=== PATIENT | male | born 1945 | race Caucasian/White ===

== ENCOUNTER → 2016-11-05 | Outpatient (REF) | payer MEDICARE ==
[~2016-11-05] MED LIST: BABY81CH; DILA100C; HYTRIN; LABE100T2; TERA5CAP; ZOCO40TA
[2016-11-05 21:18] LABS: VITAMIN B12 LEVEL 236 PG/ML (247-911)
[2016-11-07 07:40] LABS: ALBUMIN 4.21 GM/DL (3.29-5.55); ALBUMIN % 60.2 % (55.8-66.1); GAMMA GLOBULIN % 12.4 % (11.1-18.8)
== END ==
LOC: M LAB REF 12:09
DX: D47.2 Monoclonal gammopathy (principal); G60.9 Hereditary and idiopathic neuropathy, unspecified

== ENCOUNTER → 2017-03-05 | Outpatient (REF) | payer MEDICARE ==
[2017-03-05 19:15] LABS: TOTAL PROTEIN 7.3 GM/DL (6.4-8.2)
[2017-03-06 08:59] LABS: ALBUMIN 3.79 GM/DL (3.29-5.55); ALBUMIN % 51.9 % (55.8-66.1); GAMMA GLOBULIN % 12.8 % (11.1-18.8)
== END ==
LOC: M LAB REF 16:17
PROVIDERS: ATTEND Nurse Practitioner Family
DX: D47.2 Monoclonal gammopathy (principal)

== ENCOUNTER → 2017-03-12 | Outpatient (REF) | payer MEDICARE | LOC: M LAB REF 13:19 | PROVIDERS: ATTEND Nurse Practitioner Family | DX: S81.802A Unspecified open wound, left lower leg, initial encounter (principal); X58.XXXA Exposure to other specified factors, initial encounter; Y93.9 Activity, unspecified; Y92.9 Unspecified place or not applicable; Y99.8 Other external cause status ==

== ENCOUNTER → 2017-05-09 | Outpatient (REF) | payer MEDICARE ==
[2017-05-09 12:41] LABS: BASO # 0.1 K/mm3 (0.0-0.2); BASO % 0.6 % (0.0-1.0); EOS # 0.2 K/mm3 (0.0-0.50); EOS % 1.6 % (0.0-3.0); LARGE UNSTAINED CELL # 0.1 K/mm3 (0.0-0.4); LARGE UNSTAINED CELL % 1.2 % (0.0-4.0); LYMPH # 2.4 K/mm3 (1.5-4.5); MEAN CORPUSCULAR HEMOGLOBIN 31.3 pg (27.0-33.0); MEAN CORPUSCULAR HGB CONC 33.2 g/dl (32.0-36.5); MEAN CORPUSCULAR VOLUME 94.2 fl (80.0-96.0); MONO # 0.8 K/mm3 (0.0-0.8); MONO % 8.4 % (0.0-5.0); NEUTROPHILS # 5.9 K/mm3 (1.8-7.7); PLATELET COUNT, AUTOMATED 301 k/mm3 (150-450); WHITE BLOOD COUNT 9.4 K/mm3 (4.0-10.0)
[2017-05-09 12:47] LABS: INR 0.97
[2017-05-09 13:02] LABS: ANION GAP 3 MEQ/L (8-16); BLOOD UREA NITROGEN 24 MG/DL (7-18); CARBON DIOXIDE LEVEL 27 MEQ/L (21-32); CHLORIDE LEVEL 107 MEQ/L (98-107); CREATININE FOR GFR 0.91 MG/DL (0.70-1.30); GLOMERULAR FILTRATION RATE > 60.0 (>42); GLUCOSE, FASTING 98 MG/DL (83-110); POTASSIUM SERUM 4.7 MEQ/L (3.5-5.1); SODIUM LEVEL 137 MEQ/L (136-145)
== END ==
LOC: M LAB REF 12:29 → M LABNEURO 12:29
PROVIDERS: ATTEND Surgery Vascular Surgery
DX: Z01.818 Encounter for other preprocedural examination (principal); I70.244 Atherosclerosis of native arteries of left leg with ulceration of heel and midfoot; D69.8 Other specified hemorrhagic conditions

== ENCOUNTER 2018-09-04 12:32 | Day surgery (SDC) | payer MEDICARE ==
[2018-09-04] MEDS: MORPHINE 4 MG/ML 1ML VIAL/SYRINGE (J2270) IV ×2 (13:06→13:45)
[2018-09-04 13:59] LABS: BASO % 0.2 % (0.0-1.0); EOS # 0.1 10^3/uL (0.0-0.50); EOS % 0.7 % (0.0-3.0); HEMOGLOBIN 14.6 g/dl (13.5-17.5); IMMATURE GRANULOCYTE % 0.3 % (0-3.0); LYMPH # 0.7 10^3/uL (1.5-4.5); LYMPH % 6.5 % (24.0-44.0); MEAN CORPUSCULAR HEMOGLOBIN 30.9 pg (27.0-33.0); MEAN CORPUSCULAR HGB CONC 33.2 g/dl (32.0-36.5); MEAN CORPUSCULAR VOLUME 93.2 fl (80.0-96.0); MONO % 0.3 % (0.0-5.0); NEUTROPHILS # 9.8 10^3/uL (1.8-7.7); PLATELET COUNT, AUTOMATED 295 10^3/uL (150-450); RED BLOOD COUNT 4.72 10^6/uL (4.30-6.10); RED CELL DISTRIBUTION WIDTH 13.7 % (11.5-14.5); WHITE BLOOD COUNT 10.7 10^3/uL (4.0-10.0)
[2018-09-04 14:25] LABS: INR 0.99; PARTIAL THROMBOPLASTIN TIME 26.7 SECONDS (25.4-37.6); PROTHROMBIN TIME 13.2 SECONDS (12.1-14.4)
[2018-09-04 14:26] LABS: ALBUMIN 3.7 GM/DL (3.2-5.2); ALBUMIN/GLOBULIN RATIO 1.03 (1.00-1.93); ALKALINE PHOSPHATASE 120 U/L (45-117); ALT/SGPT 23 U/L (12-78); ANION GAP 9 MEQ/L (8-16); AST/SGOT 17 U/L (7-37); BILIRUBIN,DIRECT 0.1 MG/DL (0.0-0.2); BILIRUBIN,TOTAL 0.4 MG/DL (0.2-1.0); BLOOD UREA NITROGEN 16 MG/DL (7-18); CALCIUM LEVEL 9.4 MG/DL (8.8-10.2); CARBON DIOXIDE LEVEL 25 MEQ/L (21-32); CHLORIDE LEVEL 103 MEQ/L (98-107); CREATININE FOR GFR 0.82 MG/DL (0.70-1.30); GLOMERULAR FILTRATION RATE > 60.0 (>42); GLUCOSE, FASTING 131 MG/DL (70-100); POTASSIUM SERUM 4.6 MEQ/L (3.5-5.1); SODIUM LEVEL 137 MEQ/L (136-145); TOTAL PROTEIN 7.3 GM/DL (6.4-8.2)
[2018-09-04] MEDS ORDERED: BACITRACIN OINT 30GM As Ordered (15:37)
[2018-09-04] MEDS ORDERED: dexameTHASONE 4 MG/ML 1ML VIAL (J1100) As Ordered (15:48)
[2018-09-04] MEDS ORDERED: PROPOFOL 200 MG/20 ML VIAL As Ordered (15:48)
[2018-09-04] MEDS ORDERED: LIDOCAINE 2% INJ 100 MG/5 ML SDV (FOR ANES.) As Ordered (15:48)
[2018-09-04] MEDS ORDERED: ONDANSETRON 4MG/2ML VIAL (J2405) As Ordered ×2 (15:48→20:34)
[2018-09-04] MEDS ORDERED: MIDAZOLAM INJ 2 MG/2 ML VIAL (J2250) As Ordered (15:50)
[2018-09-04] MEDS ORDERED: fentaNYL 100 MCG/2 ML INJECTION (J3010) As Ordered ×3 (15:51→18:56)
[2018-09-04] MEDS: LIDOCAINE 1% MDV INJ 50 ML VIAL As Ordered ×2 (17:04→17:05)
[2018-09-04] MEDS ORDERED: BUPIVACAINE HCL 0.25% 30 ML VIAL As Ordered (17:04)
[2018-09-04] MEDS: ceFAZolin 2 GM/D5W 50 ML IV BAG (J0690 PER 500MG) As Ordered (17:05)
[2018-09-04] MEDS ORDERED: LIDOCAINE 1% MDV 20ML VIAL As Ordered (17:06)
[2018-09-04] MEDS: ACETAMINOPHEN 650 MG SUPP As Ordered (17:15)
[2018-09-04] MEDS ORDERED: PHENYLEPHRINE INJ 10MG/ML VIAL (J2370) As Ordered (17:56)
[2018-09-04] MEDS ORDERED: VASOPRESSIN INJ 20 UNITS/ML VIAL As Ordered (18:12)
[2018-09-04] MEDS ORDERED: LIDOCAINE 2% JELLY 30 ML As Ordered (19:23)
[2018-09-04] MEDS ORDERED: LEVALBUTEROL 1.25 MG/0.5 ML CONCENTRATE NEB As Ordered (19:49)
[2018-09-04] MEDS: LEVALBUTEROL 1.25 MG/0.5 ML CONCENTRATE NEB INH (20:00)
[2018-09-04] MEDS: ONDANSETRON 4MG/2ML VIAL (J2405) IV (20:45)
[2018-09-04] MEDS ORDERED: LR 1,000 ML IV (21:00)
[2018-09-04] MEDS ORDERED: PERCOCET 5MG/325MG TAB PO (21:00)
[2018-09-04] MEDS ORDERED: fentaNYL 100 MCG/2 ML INJECTION (J3010) IV (21:00)
[2018-09-04] MEDS ORDERED: METOCLOPRAMIDE INJ 10MG/2ML VIAL (J2765) IV (21:00)
[2018-09-04] MEDS ORDERED: LEVALBUTEROL 1.25 MG/0.5 ML CONCENTRATE NEB INH (22:00)
== END 2018-09-04 22:00 | disposition home or self-care (01) ==
LOC: M SDC 22:00 → M ED 12:32 → M SDC 16:06
DX: N47.1 Phimosis (principal); N47.8 Other disorders of prepuce; R33.9 Retention of urine, unspecified; I10 Essential (primary) hypertension; I25.2 Old myocardial infarction; J45.909 Unspecified asthma, uncomplicated; K21.9 Gastro-esophageal reflux disease without esophagitis; N40.1 Benign prostatic hyperplasia with lower urinary tract symptoms; R56.9 Unspecified convulsions; M54.9 Dorsalgia, unspecified; Z88.8 Allergy status to other drugs, medicaments and biological substances; Z91.030 Bee allergy status; Z79.899 Other long term (current) drug therapy; Z87.891 Personal history of nicotine dependence
CPT/HCPCS: 54163

== ENCOUNTER → 2018-12-26 | Outpatient (REF) | payer MEDICARE ==
[~2018-12-26] MED LIST changes: +ACET-683 PO; +AMLO10TA5; +AMLO10TA5 PO; +ASPI81TA85 PO; +BACIOIN23 TOP; +BACT800T5 PO; +HYDR-3716 PO; +HYDROCO/APAP; +IBUP200C25 PO; +LABE10TAB PO; +NITR0.4S14 SL; +PERCOCET PO; +SIMV40TA2 PO
== END ==
LOC: M LAB REF 16:02
PROVIDERS: ATTEND Surgery
DX: M86.172 Other acute osteomyelitis, left ankle and foot (principal)

== ENCOUNTER 2019-01-06 15:58 | Inpatient (IN) | payer MEDICARE ==
[~2019-01-06] VITALS: Ht 172.7 cm; Wt 99.7 kg
[~2019-01-06 15:58] MED LIST changes: -HYDR-3716 PO; -HYDROCO/APAP; -IBUP200C25 PO; -NITR0.4S14 SL
[2019-01-06] MEDS ORDERED: IBUP200C25 PO (16:23)
[2019-01-06] MEDS ORDERED: NITR0.4S14 SL (16:23)
[2019-01-06] MEDS ORDERED: HYDROCO/APAP (16:23)
[2019-01-06 16:51] LABS: BASO # 0.1 10^3/uL (0.0-0.2); BASO % 0.3 % (0.0-1.0); EOS # 0.2 10^3/uL (0.0-0.50); EOS % 1.1 % (0.0-3.0); HEMATOCRIT 41.4 % (42.0-52.0); HEMOGLOBIN 13.6 g/dl (13.5-17.5); LYMPH # 2.9 10^3/uL (1.5-4.5); LYMPH % 16.3 % (24.0-44.0); MEAN CORPUSCULAR HEMOGLOBIN 30.4 pg (27.0-33.0); MEAN CORPUSCULAR HGB CONC 32.9 g/dl (32.0-36.5); MEAN CORPUSCULAR VOLUME 92.6 fl (80.0-96.0); MONO # 1.6 10^3/uL (0.0-0.8); MONO % 9.2 % (0.0-5.0); NEUTROPHILS # 12.9 10^3/uL (1.8-7.7); NEUTROPHILS % 72.4 % (36.0-66.0); PLATELET COUNT, AUTOMATED 471 10^3/uL (150-450); RED BLOOD COUNT 4.47 10^6/uL (4.30-6.10); WHITE BLOOD COUNT 17.9 10^3/uL (4.0-10.0)
[2019-01-06 17:12] LABS: ERYTHROCYTE SEDIMENTATION RATE 9 mm/hr (0-20)
[2019-01-06 17:14] LABS: INR 1.11; PROTHROMBIN TIME 14.4 SECONDS (12.1-14.4)
[2019-01-06 17:15] LABS: PARTIAL THROMBOPLASTIN TIME 42.2 SECONDS (25.4-37.6)
[2019-01-06 17:28] LABS: BLOOD UREA NITROGEN 12 MG/DL (7-18); CALCIUM LEVEL 8.5 MG/DL (8.8-10.2); CARBON DIOXIDE LEVEL 28 MEQ/L (21-32); CHLORIDE LEVEL 98 MEQ/L (98-107); CREATININE FOR GFR 0.77 MG/DL (0.70-1.30); GLOMERULAR FILTRATION RATE > 60.0 (>42); GLUCOSE, FASTING 134 MG/DL (70-100); POTASSIUM SERUM 4.3 MEQ/L (3.5-5.1); SODIUM LEVEL 135 MEQ/L (136-145)
[2019-01-06] MEDS ORDERED: ceFAZolin SOD 1 GM in D5W MINI-BAG PLUS 50 ML IV ONE (18:15)
[2019-01-06] MEDS ORDERED: PERCOCET 5MG/325MG TAB PO ONE (18:30)
[2019-01-06] MEDS ORDERED: HYDR-3716 PO (18:49)
--- NOTE | 2019-01-06 19:08 | REPVR ---
EXAM: US Duplex Left Lower Extremity Veins, Limited EXAM DATE/TIME: 01/06/2019 5:25 PM CLINICAL HISTORY: 73 years old, male; Pain and signs and symptoms; Swelling (edema) of limb; Lower extremity, left; Leg, lower; Prior surgery; Surgery date: <1 month; Surgery type: 2 weeks S/P left toe amputation; Additional info: Calf pain R/O dvt TECHNIQUE: Real-time Duplex ultrasound of the Left Lower Extremity with 2-D goss scale, color Doppler flow and spectral waveform analysis. Limited exam focused on the left lower extremity veins. COMPARISON: No relevant prior studies available. FINDINGS: Left deep veins: Unremarkable. The common femoral, femoral, proximal profunda femoral and popliteal veins are patent without thrombus. Normal Doppler waveforms. Normal compressibility and/or augmentation response. Left superficial veins: Unremarkable. Saphenofemoral junction is patent without thrombus. Soft tissues: Unremarkable. IMPRESSION: No acute findings. No evidence of deep vein thrombosis. Electronically signed by: Kj Alexandra On 01/06/2019 19:07:56 PM
[2019-01-06] MEDS ORDERED: NITROGLYCERIN 0.4 MG SUBL TABLET SL PRN (19:15)
--- NOTE | 2019-01-06 20:51 | HPE ---
DATE OF ADMISSION: 01/06/2019 73-year-old male with past medical history of coronary artery disease, status post myocardial infarction in 1991, hypertension, benign prostatic hypertrophy (BPH), peripheral vascular disease, status post left second toe amputation [address] Alcazar presents to the emergency room with swelling of his left foot that has been going on for approximately one week. He denies any subjective feeling of fever or chills, but he does have pain in the last couple of days whenever he tires to step on his foot due to swelling, so he came to the ER for evaluation. In the ER he had an ultrasound done which showed no DVT. X-rays were negative for osteomyelitis. The patient was started on IV Ancef and he will be admitted for further management. PAST MEDICAL HISTORY: Hypertension, coronary artery disease, status post AR in 1991. History of peripheral vascular disease, status post left second to amputation. BPH. History of meningiomas, status post resection in October of 2008. Right total knee replacement. ALLERGIES: FENOFIBRATE, TAMSULOSIN. FAMILY HISTORY: Noncontributory. SOCIAL HISTORY: Patient was a heavy smoker, quit approximately 20 years ago. Denies alcohol or illicit drugs. MEDICATIONS: He takes at home are as follows: - [place] 7.5/325 one tablet orally every 6 hours as needed - amlodipine 10 mg orally daily - labetalol 100 mg orally three times a day - nitroglycerin 0.4 mg sublingual every 5 minutes as needed REVIEW OF SYSTEMS: Negative all 10 major systems except what is mentioned in HPI. VITAL SIGNS: Blood pressure 147/89, heart rate 84 and regular. Respiratory rate 20, temperature is 98.6, oxygen saturation is 95% on room air. Head: Atraumatic. Normocephalic. Neck: Supple. No jugular venous distention (JVD). Lungs: Clear to auscultation. S1, S2 audible. No murmurs appreciated. Abdomen: Soft, positive bowel sounds. No pedal edema. Dorsalis pedis (DP) pulses are present. Skin: The dorsum of the left foot is swollen and what appears to be the beginning of sinus drainage developing. Neurological examination: Patient is awake, alert and oriented times three. LABS: WBC 17.9, hemoglobin 3.6, hematocrit 41.4, platelets are 471,000. Sodium 135, potassium 4.3, chloride 98, CO2 28, BUN 12, creatinine 0.77. Glucose is 134. IMPRESSION: Left foot cellulitis. PLAN: Patient is to be admitted to med-surg floor. Will start the patient on IV Zosyn and see how he does in the next 24 hours. If the wound begins to drain, will culture it and/or if it does not improve by tomorrow will consider bringing Dr. Alcazar to see if the patient may require an incision and drainage. I will continue his pre-admission medications and will continue his care on the med-surg floor.
[2019-01-06] MEDS: LABETALOL 100 MG TAB PO SCH (21:00)
[2019-01-06] MEDS: NORCO, ANEXSIA 5/325MG TABLET (HYDROcodone/ACETAMINOPHEN) PO PRN (22:59)
[2019-01-07] MEDS: PIPERACILLIN/TAZOBACTAM SOD 3.375 GM in D5W MINI-BAG PLUS 50 ML IV SCH ×5 (01:27→23:23)
[2019-01-07] MEDS ORDERED: MORPHINE 2 MG/ML 1ML SYRINGE (J2270) As Ordered ONE (02:52)
[2019-01-07] MEDS ORDERED: MORPHINE 4 MG/ML 1ML VIAL/SYRINGE (J2270) IV ONE (03:00)
[2019-01-07] MEDS ORDERED: ACETAMINOPHEN TAB 650MG DOSE (2X325MG) PO PRN (03:30)
[2019-01-07] MEDS: NORCO, ANEXSIA 5/325MG TABLET (HYDROcodone/ACETAMINOPHEN) PO PRN (06:37)
[2019-01-07 07:11] LABS: HEMATOCRIT 39.6 % (42.0-52.0); HEMOGLOBIN 12.8 g/dl (13.5-17.5); MEAN CORPUSCULAR HEMOGLOBIN 29.9 pg (27.0-33.0); MEAN CORPUSCULAR HGB CONC 32.3 g/dl (32.0-36.5); MEAN CORPUSCULAR VOLUME 92.5 fl (80.0-96.0); PLATELET COUNT, AUTOMATED 469 10^3/uL (150-450); RED BLOOD COUNT 4.28 10^6/uL (4.30-6.10); WHITE BLOOD COUNT 17.6 10^3/uL (4.0-10.0)
[2019-01-07 07:30] LABS: BLOOD UREA NITROGEN 10 MG/DL (7-18); CALCIUM LEVEL 8.4 MG/DL (8.8-10.2); CARBON DIOXIDE LEVEL 28 MEQ/L (21-32); CHLORIDE LEVEL 97 MEQ/L (98-107); CREATININE FOR GFR 0.77 MG/DL (0.70-1.30); GLOMERULAR FILTRATION RATE > 60.0 (>42); GLUCOSE, FASTING 139 MG/DL (70-100); POTASSIUM SERUM 3.7 MEQ/L (3.5-5.1); SODIUM LEVEL 134 MEQ/L (136-145)
[2019-01-07 08:00] VITALS: BP 144/63
--- NOTE | 2019-01-07 08:48 | REP ---
Left foot four views: There are no comparisons. The patient has clinical history of second toe amputation 2 weeks ago. The second toe is amputated at the base of the proximal phalange shaft. There are no lytic, blastic or destructive changes in the remaining second digit proximal phalange, or elsewhere in the left foot. There is no fracture or dislocation. Mineralization is normal. There are no calcifications or foreign bodies. Impression: Amputation of the second digit as described. Otherwise, negative left foot. Electronically Signed by Michel Christine MD 01/07/2019 08:40 A
[2019-01-07] MEDS ORDERED: FLUBLOK(EGG FREE)(QUAD)INFLUENZA VACC 0.5ML SYRINGE (90682)18YRS&OLDER IM ONE (09:00)
[2019-01-07] MEDS: LABETALOL 100 MG TAB PO SCH ×3 (09:06→20:30)
[2019-01-07] MEDS: amLODIPine 10 MG TAB PO SCH (09:06)
[2019-01-07] MEDS ORDERED: PERCOCET 5MG/325MG TAB PO PRN (10:00)
[2019-01-07] MEDS: MORPHINE 4 MG/ML 1ML VIAL/SYRINGE (J2270) IV PRN ×2 (11:46→16:22)
[2019-01-07] MEDS: ASPIRIN 81 MG ENTERIC TAB PO SCH (11:47)
[2019-01-07] MEDS ORDERED: DIAPER RELIEF PASTE (DESITIN) 60GM TOP SCH (14:00)
[2019-01-07 15:00] VITALS: BP 150/80
--- NOTE | 2019-01-07 17:29 | IPNPDOC ---
Text Note Date of Service The patient was seen on 01/07/19. NOTE Subjective: Patient is a 73 year old male with a PMHx of HTN, CAD (Hx of [place], 1991), PVD s/p L leg angioplasty and ?stent placement, 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 Alcazar's office the week prior. Patient was advised to to visit Dr. Zhang of vascular surgery. Patient had attempted to follow-up on Saturday, however, was unable to follow through an appointment. He presented to the ER with worsening left foot pain. In the emergency room, patient was found to have cellulitis and was admitted to the hospitalist service for further evaluation and treatment. Dr. Alcazar's contact me directly and I have consult to Dr. Zhang for likely angioplasty on 01/08/2019. Patient was seen and examined at the bedside. Currently they note that there is still experiencing left foot pain. No significant change from yesterday. He denies any fever or chills. Denies any chest pain, shortness of breath or palpitations. Denies nausea, vomiting, abdominal pain, constipation or diarrhea. Denies any urinary discomfort. 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 Check of pulse - Continue with Zosyn (Day #2) - Case has been discussed with Dr. Alcazar; continue with dressing changes based on his recommendations - Case has been discussed with Dr. Zhang; will be on consultation - plan for angiography tomorrow 01/08/2019 HTN - BP well controlled - c/w Amlodipine and Labetalol CAD (Hx of [place], 1991) - Will start ASA 81 BPH - Currently not on any medications Hx of Meningiomas - s/p Resection 06/2019 DVT prophylaxis - Will start Heparin VS,Fishbone, I+O VS, Fishbone, I+O Laboratory Tests 01/07/19 06:40 Red Blood Count 4.28 L, Mean Corpuscular Volume 92.5, Mean Corpuscular Hemoglobin 29.9, Mean Corpuscular Hemoglobin Concent 32.3, Red Cell Distribution Width 13.5, Calcium Level 8.4 L Vital Signs Date Time Temp Pulse Resp B/P (MAP) Pulse Ox O2 Delivery O2 Flow Rate FiO2 01/07/19 16:22 18 01/07/19 16:21 80 141/65 01/07/19 08:00 97.5 96 01/07/19 06:24 Room Air I&O- Last 24 Hours up to 6 AM 01/07/19 06:00 Intake Total 50 ml Balance 50 ml BOB FAULKNER MD Jan 07, 2019 17:29
[2019-01-07] MEDS ORDERED: PERCOCET 5MG/325MG TAB PO ONE (20:00)
[2019-01-07 20:03] VITALS: BP_SYST 152
[2019-01-07] MEDS: HEPARIN SOD (PORCINE) 5000 UNITS/ML VIAL SQ SCH (21:10)
[2019-01-08] MEDS ORDERED: PERCOCET 5MG/325MG TAB PO ONE (02:30)
[2019-01-08] MEDS: PIPERACILLIN/TAZOBACTAM SOD 3.375 GM in D5W MINI-BAG PLUS 50 ML IV SCH ×4 (05:45→23:04)
[2019-01-08] MEDS: HEPARIN SOD (PORCINE) 5000 UNITS/ML VIAL SQ SCH ×3 (05:46→21:06)
[2019-01-08 05:51] VITALS: BP 152/94
[2019-01-08] MEDS ORDERED: PERCOCET 5MG/325MG TAB PO SCH (06:00)
[2019-01-08 07:30] VITALS: BP 168/84
[2019-01-08] MEDS ORDERED: SENOKOT S TAB PO PRN (08:45)
[2019-01-08] MEDS ORDERED: FLUBLOK(EGG FREE)(QUAD)INFLUENZA VACC 0.5ML SYRINGE (90682)18YRS&OLDER IM ONE (09:00)
[2019-01-08] MEDS: amLODIPine 10 MG TAB PO SCH (09:08)
[2019-01-08] MEDS: LABETALOL 100 MG TAB PO SCH ×3 (09:08→21:06)
[2019-01-08] MEDS: ASPIRIN 81 MG ENTERIC TAB PO SCH (09:08)
[2019-01-08] MEDS: PERCOCET 5MG/325MG TAB PO SCH ×3 (09:09→23:05)
[2019-01-08 10:01] LABS: BASO # 0.1 10^3/uL (0.0-0.2); BASO % 0.4 % (0.0-1.0); EOS # 0.2 10^3/uL (0.0-0.50); EOS % 1.1 % (0.0-3.0); HEMATOCRIT 40.5 % (42.0-52.0); HEMOGLOBIN 13.3 g/dl (13.5-17.5); LYMPH # 3.5 10^3/uL (1.5-4.5); LYMPH % 19.2 % (24.0-44.0); MEAN CORPUSCULAR HEMOGLOBIN 30.4 pg (27.0-33.0); MEAN CORPUSCULAR HGB CONC 32.8 g/dl (32.0-36.5); MEAN CORPUSCULAR VOLUME 92.5 fl (80.0-96.0); MONO # 1.7 10^3/uL (0.0-0.8); MONO % 9.5 % (0.0-5.0); NEUTROPHILS # 12.5 10^3/uL (1.8-7.7); NEUTROPHILS % 68.9 % (36.0-66.0); PLATELET COUNT, AUTOMATED 487 10^3/uL (150-450); RED BLOOD COUNT 4.38 10^6/uL (4.30-6.10); WHITE BLOOD COUNT 18.2 10^3/uL (4.0-10.0)
[2019-01-08 11:03] LABS: BLOOD UREA NITROGEN 13 MG/DL (7-18); CALCIUM LEVEL 8.8 MG/DL (8.8-10.2); CARBON DIOXIDE LEVEL 23 MEQ/L (21-32); CHLORIDE LEVEL 100 MEQ/L (98-107); CREATININE FOR GFR 0.76 MG/DL (0.70-1.30); GLOMERULAR FILTRATION RATE > 60.0 (>42); GLUCOSE, FASTING 131 MG/DL (70-100); MAGNESIUM LEVEL 2.1 MG/DL (1.8-2.4); SODIUM LEVEL 132 MEQ/L (136-145)
--- NOTE | 2019-01-08 13:23 | IPNPDOC ---
Text Note Date of Service The patient was seen on 01/08/19. 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 Alcazar's office the week prior. Patient was advised to to visit Dr. Zhang of vascular surgery. Patient had attempted to follow-up on Saturday, however, was unable to follow through an appointment. He presented to the ER with worsening left foot pain. In the emergency room, patient was found to have cellulitis and was admitted to the hospitalist service for further evaluation and treatment. Dr. Alcazar's contact me directly and I have consult to Dr. Zhang for likely angioplasty on 01/08/2019. Patient was seen and examined at the bedside. Patient notes that there leg/foot. Has not had any significant improvement from yesterday. I advised them that he will likely need a vascular intervention. He noted to promote healing and antibiotic penetration. I have advised him that we will adjust the dose of his pain control medications. Currently he denies any chest pain, shortness of breath or palpitations. Denies any nausea or vomiting. Denies any abdominal pain, constipation or diarrhea. Objective: Vitals (See below) General: Lying in bed, no acute distress, comfortable, AAOx3 HEENT: NC, AT CVS: RRR, +S1S2 Lungs: Fair air entry b/l, auscultation is without any wheezing, rhonchi or rales Abdomen: Soft, ND, NT Extremities: No evidence of right leg edema, left leg with trace edema, - Calf tenderness Skin: Left foot with erythema / warmth / tenderness, area of blistering noted, L 2nd digit amputation; overall, there does not appear to be any progression of the cellulitis Assessment and plan: Left foot cellulitis with PVD s/p L leg angioplasty and ?stent placement - Patient is an ankle-brachial index completed as an outpatient which was 0.4; he was advised to follow-up with vascular surgery, had failed to do so - 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 Alcazar; continue with dressing changes based on his recommendations - Case has been discussed with Dr. Zhang; on consultation; plan for possible angiography today HTN - BP well controlled - c/w Amlodipine and Labetalol CAD (Hx of [place], 1991) - c/w ASA 81 BPH - Currently not on any medications Hx of Meningiomas - s/p Resection 06/2019 DVT prophylaxis - c/w Heparin Disposition: - Adjusted pain medications - Will await angiography VS,Fishbone, I+O VS, Fishbone, I+O Laboratory Tests 01/08/19 06:44 Red Blood Count 4.38, Mean Corpuscular Volume 92.5, Mean Corpuscular Hemoglobin 30.4, Mean Corpuscular Hemoglobin Concent 32.8, Red Cell Distribution Width 13. 6, Neutrophils (%) (Auto) 68.9 H, Lymphocytes (%) (Auto) 19.2 L, Monocytes (%) (Auto) 9.5 H, Eosinophils (%) (Auto) 1.1, Basophils (%) (Auto) 0.4, Neutrophils # (Auto) 12.5 H, Lymphocytes # (Auto) 3.5, Monocytes # (Auto) 1.7 H, Eosinophils # (Auto) 0.2, Basophils # (Auto) 0.1, Calcium Level 8.8 Vital Signs Date Time Temp Pulse Resp B/P (MAP) Pulse Ox O2 Delivery O2 Flow Rate FiO2 01/08/19 10:00 18 01/08/19 09:08 80 168/84 01/08/19 07:30 98.4 97 01/07/19 06:24 Room Air I&O- Last 24 Hours up to 6 AM 01/08/19 06:00 Intake Total 390 ml Output Total 800 ml Balance -410 ml BOB FAULKNER MD Jan 08, 2019 13:23
[2019-01-08 16:00] VITALS: BP 132/97
[2019-01-08 20:00] VITALS: BP 140/67
[2019-01-09] VITALS (7 sets, daily range): BP systolic 120–177; BP diastolic 61–89
[2019-01-09] MEDS ORDERED: PERCOCET 5MG/325MG TAB PO ONE (03:15)
[2019-01-09] MEDS: PIPERACILLIN/TAZOBACTAM SOD 3.375 GM in D5W MINI-BAG PLUS 50 ML IV SCH ×4 (05:05→23:19)
[2019-01-09] MEDS: PERCOCET 5MG/325MG TAB PO SCH (05:06)
[2019-01-09] MEDS: HEPARIN SOD (PORCINE) 5000 UNITS/ML VIAL SQ SCH ×3 (05:06→21:22)
[2019-01-09 07:19] LABS: BASO # 0.1 10^3/uL (0.0-0.2); BASO % 0.3 % (0.0-1.0); EOS # 0.2 10^3/uL (0.0-0.50); EOS % 1.3 % (0.0-3.0); HEMATOCRIT 38.8 % (42.0-52.0); HEMOGLOBIN 12.4 g/dl (13.5-17.5); LYMPH # 3.2 10^3/uL (1.5-4.5); LYMPH % 18.6 % (24.0-44.0); MEAN CORPUSCULAR HEMOGLOBIN 29.5 pg (27.0-33.0); MEAN CORPUSCULAR VOLUME 92.4 fl (80.0-96.0); MONO # 1.5 10^3/uL (0.0-0.8); MONO % 8.9 % (0.0-5.0); NEUTROPHILS # 12.2 10^3/uL (1.8-7.7); PLATELET COUNT, AUTOMATED 450 10^3/uL (150-450); WHITE BLOOD COUNT 17.4 10^3/uL (4.0-10.0)
[2019-01-09 07:40] LABS: BLOOD UREA NITROGEN 13 MG/DL (7-18); CALCIUM LEVEL 8.2 MG/DL (8.8-10.2); CARBON DIOXIDE LEVEL 27 MEQ/L (21-32); CHLORIDE LEVEL 100 MEQ/L (98-107); CREATININE FOR GFR 0.83 MG/DL (0.70-1.30); GLOMERULAR FILTRATION RATE > 60.0 (>42); GLUCOSE, FASTING 124 MG/DL (70-100); MAGNESIUM LEVEL 2.2 MG/DL (1.8-2.4); POTASSIUM SERUM 3.7 MEQ/L (3.5-5.1); SODIUM LEVEL 134 MEQ/L (136-145)
[2019-01-09] MEDS: ASPIRIN 81 MG ENTERIC TAB PO SCH (09:22)
[2019-01-09] MEDS: PERCOCET 5MG/325MG TAB PO PRN ×3 (09:23→21:23)
[2019-01-09] MEDS: LABETALOL 100 MG TAB PO SCH ×3 (09:23→21:24)
[2019-01-09] MEDS: amLODIPine 10 MG TAB PO SCH (09:24)
[2019-01-09] MEDS ORDERED: LIDOCAINE 2% MDV 20 ML VIAL As Ordered ONE (12:58)
[2019-01-09] MEDS ORDERED: ISOVUE-300 61% 50ML VIAL (Q9967) As Ordered ONE (12:58)
[2019-01-09] MEDS ORDERED: HEPARIN 1,000 UNITS/ML 10ML VIAL (FOR RADIOLOGY& DIALYSIS ONLY) As Ordered ONE (12:58)
--- NOTE | 2019-01-09 15:32 | IPNPDOC ---
Text Note Date of Service The patient was seen on 01/09/19. 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 Alcazar's office the week prior. Patient was advised to to visit Dr. Zhang of vascular surgery. Patient had attempted to follow-up on Saturday, however, was unable to follow through an appointment. He presented to the ER with worsening left foot pain. In the emergency room, patient was found to have cellulitis and was admitted to the hospitalist service for further evaluation and treatment. Dr. Alcazar's contact me directly and I have consult to Dr. Zhang for likely angioplasty on 01/08/2019. Patient was seen and examined at the bedside. . Currently, patient is scheduled to go for an angiogram today. He denies any chest pain, shortness of breath or palpitations. Denies any nausea, vomiting, abdominal pain, constipation or diarrhea. Denies any urinary discomfort. He notes that he still experiencing some significant left foot pain. I've advised him that we will adjusted dose of his pain regimen. Objective: Vitals (See below) General: Lying in bed, no acute distress, comfortable, AAOx3 HEENT: NC, AT CVS: RRR, +S1S2 Lungs: Fair air entry b/l, again there does not appear to be any wheezing, rales or rhonchi on auscultation Abdomen: Soft, nondistended, without tenderness Extremities: No evidence of right leg edema, left leg with trace edema, - Calf tenderness Skin: Left foot with erythema / warmth / tenderness, area of blistering noted, L 2nd digit amputation; there appears to be improvement of the overall cellulitis today Assessment and plan: Left foot cellulitis with PVD s/p L leg angioplasty and ?stent placement - Patient is an ankle-brachial index completed as an outpatient which was 0.4; he was advised to follow-up with vascular surgery, had failed to do so - 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 Alcazar; continue with dressing changes based on his recommendations - Dr. Zhang (Vascular surger) on consultation; will be going for angiography today HTN - BP well controlled - c/w Amlodipine and Labetalol CAD (Hx of [place], 1991) - c/w ASA 81 BPH - Currently not on any medications Hx of Meningiomas - s/p Resection 06/2019 DVT prophylaxis - c/w Heparin Disposition: - Adjusted pain medications - As been rescheduled for an angiography today VS,Fishbone, I+O VS, Fishbone, I+O Laboratory Tests 01/09/19 06:47 Red Blood Count 4.20 L, Mean Corpuscular Volume 92.4, Mean Corpuscular Hemoglobin 29.5, Mean Corpuscular Hemoglobin Concent 32.0, Red Cell Distribution Width 13.4, Neutrophils (%) (Auto) 70.0 H, Lymphocytes (%) (Auto) 18.6 L, Monocytes (%) (Auto) 8.9 H, Eosinophils (%) (Auto) 1.3, Basophils (%) (Auto) 0.3, Neutrophils # (Auto) 12.2 H, Lymphocytes # (Auto) 3.2, Monocytes # (Auto) 1.5 H, Eosinophils # (Auto) 0.2, Basophils # (Auto) 0.1, Calcium Level 8.2 L Vital Signs Date Time Temp Pulse Resp B/P (MAP) Pulse Ox O2 Delivery O2 Flow Rate FiO2 01/09/19 14:00 97.9 79 17 142/77 (98) 96 01/07/19 06:24 Room Air I&O- Last 24 Hours up to 6 AM 01/09/19 06:00 Intake Total 760 ml Output Total 1075 ml Balance -315 ml BOB FAULKNER MD Jan 09, 2019 15:32
[2019-01-09] MEDS ORDERED: fentaNYL 100 MCG/2 ML INJECTION (J3010) As Ordered ONE (15:38)
[2019-01-09] MEDS ORDERED: MIDAZOLAM INJ 2 MG/2 ML VIAL (J2250) As Ordered ONE (15:38)
[2019-01-09] MEDS ORDERED: ISOVUE-370 76% 125ML VIAL (Q9967 PER ML) As Ordered ONE (16:24)
[2019-01-09] MEDS ORDERED: NS 0.45% 1,000 ML IV SCH (17:15)
[2019-01-10] MEDS: PERCOCET 5MG/325MG TAB PO PRN ×5 (01:35→18:50)
[2019-01-10] MEDS: HEPARIN SOD (PORCINE) 5000 UNITS/ML VIAL SQ SCH ×3 (05:39→21:23)
[2019-01-10] MEDS: PIPERACILLIN/TAZOBACTAM SOD 3.375 GM in D5W MINI-BAG PLUS 50 ML IV SCH ×4 (05:39→23:02)
[2019-01-10 06:00] VITALS: BP 129/65
[2019-01-10 07:43] LABS: BASO # 0.1 10^3/uL (0.0-0.2); BASO % 0.3 % (0.0-1.0); EOS # 0.2 10^3/uL (0.0-0.50); EOS % 1.2 % (0.0-3.0); HEMATOCRIT 37.1 % (42.0-52.0); HEMOGLOBIN 12.1 g/dl (13.5-17.5); LYMPH # 2.5 10^3/uL (1.5-4.5); LYMPH % 14.5 % (24.0-44.0); MEAN CORPUSCULAR HEMOGLOBIN 29.9 pg (27.0-33.0); MEAN CORPUSCULAR HGB CONC 32.6 g/dl (32.0-36.5); MEAN CORPUSCULAR VOLUME 91.6 fl (80.0-96.0); MONO # 1.3 10^3/uL (0.0-0.8); MONO % 7.7 % (0.0-5.0); NEUTROPHILS # 12.8 10^3/uL (1.8-7.7); NEUTROPHILS % 75.4 % (36.0-66.0); PLATELET COUNT, AUTOMATED 447 10^3/uL (150-450); RED BLOOD COUNT 4.05 10^6/uL (4.30-6.10)
--- NOTE | 2019-01-10 08:22 | REP ---
CT ANGIOGRAM ABDOMINAL AORTA AND RUNOFF: 01/09/2019. COMPARISON: Noncontrast CT abdomen 06/25/2015. CLINICAL HISTORY: Aortoiliac occlusive disease. TECHNIQUE: The patient received bolus of 100 mL Isovue 370 scanning through the abdomen pelvis and lower extremities using our CT angiogram and runoff protocol. Coronal and axial reconstructions, coronal 3D amin gradient echo with curved reformats of the aorta, iliac and femoral vessels, right and left. FINDINGS: NONVASCULAR FINDINGS: CT ABDOMEN: Lung bases show some basilar fibrosis and dependent atelectasis but are otherwise clear. Heart mildly prominent. Some left atrial and ventricular enlargement. No pericardial thickening or effusion. Small hiatal hernia noted. The liver is homogeneous without focal lesion. Gallbladder is distended with a length of least 14 cm, in AP diameter 5.8 cm, a hydrops. No calcified stone or mass. Liver and spleen without focal lesion or adjacent ascites. Adrenal glands normal. Kidneys show function without obstruction. Small bowel loops and colon grossly intact. There are a few scattered diverticula in the left colon. Lung window review shows no perforation or free air in the abdomen or pelvis. The aorta has atherosclerotic calcification and aortobi-iliac stent. No ascites. The bones show degenerative changes in the lower lumbar facets and degenerative disc changes throughout the lower thoracic and lumbar region. No spondylolysis. Visualized ribs are intact. CT PELVIS: Bladder adequately filled. There is a diverticulum off its anterior margin. No mass or wall thickening and no visible stone. No ureteral dilatation or stone. Prostate with calcifications, mildly indenting the bladder base. No inguinal hernia but omental fat in the inguinal canal bilaterally. No inguinal adenopathy or pelvic adenopathy. No pelvic free fluid. There is diverticulosis distal left colon and proximal sigmoid without diverticulitis. Appendix is seen and normal. No inflammatory changes in bowel in the pelvis. The bony pelvis shows degenerative changes. SI joint hips and no destructive lesion or fracture. CT LOWER EXTREMITIES. The bone windows show a right total knee arthroplasty. Femoral tibial and fibular shafts on both sides are otherwise unremarkable. Degenerative changes in the hips and left knee. The ankles and feet with only minimal degenerative change. The soft tissue windows show anterior posterior compartment musculature symmetric and grossly intact. No subcutaneous mass, fluid collection or edema in the thigh. There is mild edema in the lower calf and ankle, left greater than right and into the foot. VASCULAR FINDINGS: Abdominal aorta: There is atherosclerotic calcification of the infrarenal aorta with calcific and soft plaque but no tight stenosis until the level of the aortobi-iliac stent. There is atherosclerotic plaque and stenosis above the stent and poor flow in both limbs of the stent. Blood flow in the external iliac and distal common iliac arteries is through pelvic and internal iliac collaterals. Longer tight stenosis in the proximal right than left common iliac artery. There is also stenosis in the proximal external iliacs bilaterally. The common femoral arteries show atherosclerotic plaque bilaterally with some mild stenosis. I do not see significant stenosis at the takeoff of the profunda femoris. There are scattered plaques in the femoral artery in the right thigh with stenosis in the distal femoral artery above the popliteal artery. There are multiple stenoses in the popliteal artery with plaque. I would note there is a right total knee arthroplasty obscuring the popliteal artery behind it. The left common femoral shows multiple calcific plaques in the left femoral artery in the thigh shows multiple calcific plaques scattered mild stenosis, greatest in the distal femoral artery. There is better flow and diameter in the distal left femoral artery than right. Mild stenosis in the popliteal artery at the level of the knee. The MIP coronal reformats do show trifurcation vessels with flow seen in three vessels in both calves with better flow on the left than right posterior tibial and flow in both peroneals and anterior tibials IMPRESSION: 1. Extensive atherosclerotic plaque calcification scattered from the infrarenal aorta to the popliteal arteries and trifurcation vessels. 2. Occlusion above the aortobi-iliac stent and reconstitution of flow in the common iliac arteries from retrograde flow via the collaterals into the internal iliacs. More tight stenosis in the proximal right than left common iliac. 3. There are multiple stenoses throughout the femoral arteries with calcific plaque. The popliteal artery behind the right knee prosthesis cannot be visualized. There is multiple stenoses in the left popliteal artery and trifurcation vessels are seen to the ankle better left than right. Electronically Signed by Shane Castro MD 01/10/2019 12:07 P
[2019-01-10 08:28] LABS: BLOOD UREA NITROGEN 12 MG/DL (7-18); CALCIUM LEVEL 7.9 MG/DL (8.8-10.2); CARBON DIOXIDE LEVEL 26 MEQ/L (21-32); CHLORIDE LEVEL 101 MEQ/L (98-107); GLOMERULAR FILTRATION RATE > 60.0 (>42); GLUCOSE, FASTING 115 MG/DL (70-100); MAGNESIUM LEVEL 2.1 MG/DL (1.8-2.4); POTASSIUM SERUM 4.2 MEQ/L (3.5-5.1); SODIUM LEVEL 134 MEQ/L (136-145)
[2019-01-10] MEDS: amLODIPine 10 MG TAB PO SCH (09:03)
[2019-01-10] MEDS: LABETALOL 100 MG TAB PO SCH ×3 (09:03→21:24)
[2019-01-10] MEDS: ASPIRIN 81 MG ENTERIC TAB PO SCH (09:03)
[2019-01-10 14:00] VITALS: BP 144/72
--- NOTE | 2019-01-10 16:22 | IPNPDOC ---
Text Note Date of Service The patient was seen on 01/10/19. 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 Alcazar's office the week prior. Patient was advised to to visit Dr. Zhang of vascular surgery. Patient had attempted to follow-up on Saturday, however, was unable to follow through an appointment. He presented to e ER with worsening left foot pain. In the emergency room, patient was found to have cellulitis and was admitted to the hospitalist service for further evaluation and treatment. Angiography performed yesterday does indicate multiple areas of stenosis. Patient was interviewed and examined at bedside today. Patient was found to be in good spirits, listening to his radio from his hospital bed. He denied issue overnight. He continues to complain of L foot pain. He describes the discomfort as a tightness or burning sensation. It sometimes wakes him from sleeping. Patient was agreeable that his pain is adequately controlled. He denies chest pain/pressure, difficulty breathing. He has been moving his bowels and urinating without difficulty. Objective: Vitals (See below) General: Lying in bed, no acute distress, comfortable, AAOx3 HEENT: Normocephalic, atraumatic, sclera non-icteric, EOMI CVS: Regular rate and rhythm, no murmurs gallops or rubs Lungs: Clear to auscultation bilaterally. No wheezing rales or rhonchi. Abdomen: Soft, nondistended, without tenderness Extremities: L LE has trace edema, no right-sided edema or erythema Skin: L ankle and foot remain erythematous, with dorsal blistering. Patient does have a recent L 2nd toe amputation. Examination reveals some necrotic tissue around the base. Imaging: CT Angio: Extensive atherosclerotic plaque calcification scattered from the infrarenal aorta to the popliteal arteries and trifurcation vessels. Occlusion above the aortobi-iliac stent and reconstitution of flow in the common iliac arteries from retrograde flow via the collaterals into the internal iliacs. More tight stenosis in the proximal right than left common iliac. There are multiple stenoses throughout the femoral arteries with calcific plaque. The popliteal artery behind the right knee prosthesis cannot be visualized. There is multiple stenoses in the left popliteal artery and trifurcation vessels are seen to the ankle better left than right. 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 Alcazar recommendations. - Physical demonstrates continued cellulitis of the left foot, per patient, it has improved compared to yesterday. - Will continue with Doppler to check of pulse; both pedal and posterior tibial pulses are identifiable via Doppler. - c/w Zosyn (Day #4) - Discussed with Dr. Alcazar; continue with dressing changes based on his recommendations - Dr. Zhang (Vascular surgery) on consultation; angio completed as mentioned above. HTN - BP well controlled - c/w Amlodipine and Labetalol CAD (Hx of [place], 1991) - c/w ASA 81 BPH Hx of Meningiomas - s/p Resection 06/2019 DVT prophylaxis - c/w SC Heparin VS,Fishbone, I+O VS, Fishbone, I+O Laboratory Tests 01/10/19 06:58 Red Blood Count 4.05 L, Mean Corpuscular Volume 91.6, Mean Corpuscular Hemoglob in 29.9, Mean Corpuscular Hemoglobin Concent 32.6, Red Cell Distribution Width 13.5, Neutrophils (%) (Auto) 75.4 H, Lymphocytes (%) (Auto) 14.5 L, Monocytes (%) (Auto) 7.7 H, Eosinophils (%) (Auto) 1.2, Basophils (%) (Auto) 0.3, Neutrophils # (Auto) 12.8 H, Lymphocytes # (Auto) 2.5, Monocytes # (Auto) 1.3 H, Eosinophils # (Auto) 0.2, Basophils # (Auto) 0.1, Calcium Level 7.9 L Vital Signs Date Time Temp Pulse Resp B/P (MAP) Pulse Ox O2 Delivery O2 Flow Rate FiO2 01/10/19 14:29 18 01/10/19 14:00 97.5 83 144/72 (96) 96 01/07/19 06:24 Room Air l I&O- Last 24 Hours up to 6 AM 01/10/19 06:00 Intake Total 560 ml Output Total 1000 ml Balance -440 ml GME ATTESTATION GME ATTESTATION My faculty preceptor for this patient encounter was physically present during the encounter and was fully available. All aspects of the patient interview, examination, medical decision making process, and medical care plan development were reviewed and approved by the faculty preceptor. The faculty preceptor is aware and concurs with the plan as stated in the body of this note and will att est to such by his/her cosignature. ATTENDING NOTE I, Ashley Hassan, have both independently examined this patient as well as reviewed the documentation. I have discussed in detail with the resident the findings and plan of treatment as documented in the residents documentation. I will continue to follow the patient and offer further guidance to the patients care as necessary during this hospital stay. KELLEY ANTHONY DO Jan 10, 2019 16:22 ASHLEY HASSAN MD Jan 10, 2019 16:33
[2019-01-10 20:00] VITALS: BP 127/66
[2019-01-11] MEDS: PERCOCET 5MG/325MG TAB PO PRN ×2 (00:40→04:49)
[2019-01-11] MEDS: HEPARIN SOD (PORCINE) 5000 UNITS/ML VIAL SQ SCH ×3 (05:59→21:42)
[2019-01-11] MEDS: PIPERACILLIN/TAZOBACTAM SOD 3.375 GM in D5W MINI-BAG PLUS 50 ML IV SCH ×3 (05:59→19:46)
[2019-01-11 06:00] VITALS: BP 123/61
[2019-01-11 06:57] LABS: BASO % 0.2 % (0.0-1.0); EOS # 0.2 10^3/uL (0.0-0.50); EOS % 1.4 % (0.0-3.0); HEMATOCRIT 36.2 % (42.0-52.0); HEMOGLOBIN 11.9 g/dl (13.5-17.5); LYMPH # 2.6 10^3/uL (1.5-4.5); LYMPH % 15.1 % (24.0-44.0); MEAN CORPUSCULAR HGB CONC 32.9 g/dl (32.0-36.5); MEAN CORPUSCULAR VOLUME 91.2 fl (80.0-96.0); MONO # 1.3 10^3/uL (0.0-0.8); MONO % 7.6 % (0.0-5.0); NEUTROPHILS # 12.7 10^3/uL (1.8-7.7); NEUTROPHILS % 74.8 % (36.0-66.0); PLATELET COUNT, AUTOMATED 450 10^3/uL (150-450); RED BLOOD COUNT 3.97 10^6/uL (4.30-6.10)
[2019-01-11 07:16] LABS: BLOOD UREA NITROGEN 13 MG/DL (7-18); CALCIUM LEVEL 7.8 MG/DL (8.8-10.2); CARBON DIOXIDE LEVEL 26 MEQ/L (21-32); CHLORIDE LEVEL 102 MEQ/L (98-107); GLOMERULAR FILTRATION RATE > 60.0 (>42); GLUCOSE, FASTING 129 MG/DL (70-100); POTASSIUM SERUM 3.5 MEQ/L (3.5-5.1); SODIUM LEVEL 134 MEQ/L (136-145)
[2019-01-11] MEDS: amLODIPine 10 MG TAB PO SCH (08:17)
[2019-01-11] MEDS: ASPIRIN 81 MG ENTERIC TAB PO SCH (08:17)
[2019-01-11] MEDS: LABETALOL 100 MG TAB PO SCH ×3 (08:17→21:43)
[2019-01-11] MEDS: PERCOCET 5MG/325MG TAB PO SCH ×4 (10:10→21:42)
--- NOTE | 2019-01-11 10:45 | PHACANCOPD ---
PHARMACY VANCOMYCIN DOSING Pt Demographics Demographics Patient Age:73 , Weight:100.910 , Gender: male Adjusted Body Weight Date: 01/11/19, Adjusted Body Weight: [81] Kg Events Past 24 Hours Events Past 24 Hours: NO: Dialysis, Diuretic Therapy, Change in CrCl, Fever, Elevation in WBC, Pending Diagnostics, Pending Procedures, Other Vancomycin Vancomycin indication: ssti Vancomycin Target Ranges: 15-20 mcg/ml Vancomycin Load Y/N: Yes Load Dose Date Time Vancomycin Load Dose: 750mg Date: 01/11 Time: ~11am Vancomycin Dose Date: 01/11/19. Current Vancomycin Dose: [1g IV q12h @17] Intermittent Dosing?: No Labs Labs Item Value Date Time White Blood Count 17.4 10^3/uL H 01/09/19 0647 White Blood Count 17.0 10^3/uL H 01/10/19 0658 White Blood Count 17.0 10^3/uL H 01/11/19 0627 C-Reactive Protein, Quantitative 19.90 MG/DL H 01/09/19 0647 C-Reactive Protein, Quantitative 20.40 MG/DL H 01/10/19 0658 C-Reactive Protein, Quantitative 18.60 MG/DL H 01/11/19 0627 Creatinine 0.83 MG/DL 01/09/19 0647 Creatinine 0.70 MG/DL 01/10/19 0658 Creatinine 0.70 MG/DL 01/11/19 0627 Micro Microbiology 01/06/19 Blood Culture - Preliminary, Resulted No Growth after 72 hours. All specime... 01/06/19 Blood Culture - Preliminary, Resulted No Growth after 72 hours. All specime... 01/08/19 Wound Culture - Final, Complete Proteus Mirabilis Staph.aureus Methicillin Resis Enterococcus Faecalis Creatinine Clearance Date:01/11/19. Creatinine Clearance: [~73 ml/min using adjusted BW with a SCr of 1 due to age/deconditioning]. Pending Labs Vanco trough scheduled 01/12 @16:00 Assessment and Plan Maintaining Current Dose?: Yes Reason for dose change: No Dose Change Pharmacist Note Pharmacist Note Date: 01/11/19. Pharmacist note: vancomycin has been added to the patient's regimen today after being on Zosyn monotherapy since 01/07/19. Pt has not been on vancomycin at our facility in the past. His current wound culture has grown MRSA (DARIEN = 1), Proteus and E. faecalis (DARIEN = 1). I have started the pt on vancomycin 750mg this morning, followed by 1g IV q12h to start this evening at 17:00 ~6 hours later. I have a trough scheduled for tomorrow afternoon. We will continue to monitor and make adjustments as necessary. Prince Mixon.D. Jan 11, 2019 10:45
[2019-01-11] MEDS ORDERED: VANCOMYCIN HCL 750 MG, VIAL MATE ADAPTER 1 EACH in D5W 250 ML IV ONE (11:00)
[2019-01-11 14:00] VITALS: BP 155/80
--- NOTE | 2019-01-11 16:26 | IPNPDOC ---
Text Note Date of Service The patient was seen on 01/11/19. 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 Alcazar's office the week prior. Patient was advised to to visit Dr. Zhang of vascular surgery. Patient had attempted to follow-up on Saturday, however, was unable to follow through an appointment. He presented to the ER with worsening left foot pain. In the emergency room, patient was found to have cellulitis and was admitted to the hospitalist service for further evaluation and treatment. Dr. Alcazar's contact me directly and I have consult to Dr. Zhang for likely angioplasty on 01/08/2019. Patient was seen and examined at the bedside. Patient notes that his left foot is still in pain. He denies any nausea, vomiting, abdominal pain, constipation, diarrhea or discomfort with urination. . He is requested for his pain medications to be increased. I have advised him about the findings of an giography and CT angiography. Currently, the plan is for further intervention and possible stenting of the left iliac artery or possible bypass on Saturday Objective: Vitals (See below) General: Lying in bed, no acute distress, comfortable, AAOx3 HEENT: NC, AT CVS: RRR, +S1S2 Lungs: Fair air entry b/l, no wheezing, rhonchi or rales Abdomen: Remains soft without distention or tenderness Extremities: No evidence of right leg edema, left leg with trace edema, - Calf tenderness Skin: Left foot with erythema / warmth / tenderness, area of blistering noted, L 2nd digit amputation; cellulitis appears improved Assessment and plan: Left foot cellulitis with PVD s/p L leg angioplasty and ?stent placement - Patient is an ankle-brachial index completed as an outpatient which was 0.4; he was advised to follow-up with vascular surgery, had failed to do so - 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 Alcazar; continue with dressing changes based on his recommendations - Dr. Zhang (Vascular surger) on consultation; plan for further stenting of major arteries versus possible bypass on Saturday HTN - BP well controlled - c/w Amlodipine and Labetalol CAD (Hx of 1991) - c/w ASA 81 BPH - Currently not on any medications Hx of Meningiomas - s/p Resection 10/2008 DVT prophylaxis - c/w Heparin Disposition: - Adjusted pain medications - Plan for further vascular intervention on Saturday VS,Fishbone, I+O VS, Fishbone, I+O Laboratory Tests 01/11/19 06:27 Red Blood Count 3.97 L, Mean Corpuscular Volume 91.2, Mean Corpuscular Hemoglobin 30.0, Mean Corpuscular Hemoglobin Concent 32.9, Red Cell Distribution Width 13.4, Neutrophils (%) (Auto) 74.8 H, Lymphocytes (%) (Auto) 15.1 L, Monocytes (%) (Auto) 7.6 H, Eosinophils (%) (Auto) 1.4, Basophils (%) (Auto) 0.2, Neutrophils # (Auto) 12.7 H, Lymphocytes # (Auto) 2.6, Monocytes # (Auto) 1.3 H, Eosinophils # (Auto) 0.2, Basophils # (Auto) 0.0, Calcium Level 7.8 L Vital Signs Date Time Temp Pulse Resp B/P (MAP) Pulse Ox O2 Delivery O2 Flow Rate FiO2 01/11/19 14:00 96.5 76 17 155/80 (105) 95 01/07/19 06:24 Room Air I&O- Last 24 Hours up to 6 AM 01/11/19 06:00 Intake Total 1060 ml Output Total 600 ml Balance 460 ml BOB FAULKNER MD Jan 11, 2019 16:26
[2019-01-11] MEDS: VANCOMYCIN HCL 1,000 MG, VIAL MATE ADAPTER 1 EACH in D5W 250 ML IV SCH (17:39)
[2019-01-11 20:00] VITALS: BP 163/74
[2019-01-12] MEDS: PERCOCET 5MG/325MG TAB PO SCH ×2 (00:41→04:55)
[2019-01-12] MEDS: PIPERACILLIN/TAZOBACTAM SOD 3.375 GM in D5W MINI-BAG PLUS 50 ML IV SCH ×5 (00:41→23:07)
[2019-01-12] MEDS: VANCOMYCIN HCL 1,000 MG, VIAL MATE ADAPTER 1 EACH in D5W 250 ML IV SCH ×2 (04:54→16:40)
[2019-01-12 06:00] VITALS: BP 147/70
[2019-01-12 06:50] LABS: BASO % 0.2 % (0.0-1.0); EOS # 0.2 10^3/uL (0.0-0.50); EOS % 1.5 % (0.0-3.0); HEMATOCRIT 36.8 % (42.0-52.0); HEMOGLOBIN 11.6 g/dl (13.5-17.5); LYMPH # 2.4 10^3/uL (1.5-4.5); LYMPH % 14.6 % (24.0-44.0); MEAN CORPUSCULAR HEMOGLOBIN 29.7 pg (27.0-33.0); MEAN CORPUSCULAR HGB CONC 31.5 g/dl (32.0-36.5); MEAN CORPUSCULAR VOLUME 94.4 fl (80.0-96.0); MONO # 1.2 10^3/uL (0.0-0.8); MONO % 7.2 % (0.0-5.0); NEUTROPHILS # 12.1 10^3/uL (1.8-7.7); NEUTROPHILS % 75.6 % (36.0-66.0); PLATELET COUNT, AUTOMATED 447 10^3/uL (150-450); WHITE BLOOD COUNT 16.1 10^3/uL (4.0-10.0)
[2019-01-12] MEDS: HEPARIN SOD (PORCINE) 5000 UNITS/ML VIAL SQ SCH ×3 (06:56→21:28)
[2019-01-12 07:09] LABS: BLOOD UREA NITROGEN 11 MG/DL (7-18); CALCIUM LEVEL 7.9 MG/DL (8.8-10.2); CARBON DIOXIDE LEVEL 27 MEQ/L (21-32); CHLORIDE LEVEL 101 MEQ/L (98-107); CREATININE FOR GFR 0.74 MG/DL (0.70-1.30); GLOMERULAR FILTRATION RATE > 60.0 (>42); GLUCOSE, FASTING 153 MG/DL (70-100); POTASSIUM SERUM 3.6 MEQ/L (3.5-5.1); SODIUM LEVEL 134 MEQ/L (136-145)
[2019-01-12] MEDS ORDERED: HYDROMORPHONE HCL 0.5 MG/ 0.5 ML SYRINGE (J1170 PER 1) IV PRN (08:45)
[2019-01-12] MEDS: ASPIRIN 81 MG ENTERIC TAB PO SCH (08:57)
[2019-01-12] MEDS: amLODIPine 10 MG TAB PO SCH (08:57)
[2019-01-12] MEDS: LABETALOL 100 MG TAB PO SCH ×3 (08:58→21:28)
[2019-01-12] MEDS: HYDROMORPHONE HCL 0.5 MG/ 0.5 ML SYRINGE (J1170 PER 1) IV PRN ×3 (12:59→21:29)
[2019-01-12 14:00] VITALS: BP 132/66
--- NOTE | 2019-01-12 17:04 | IPNPDOC ---
Text Note Date of Service The patient was seen on 01/12/19. 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 Alcazar's office the week prior. Patient was advised to to visit Dr. Zhang of vascular surgery. Patient had attempted to follow-up on Saturday, however, was unable to follow through an appointment. He presented to [facility] ER with worsening left foot pain. In the emergency room, patient was found to have cellulitis and was admitted to the hospitalist service for further evaluation and treatment. Dr. Alcazar's contact me directly and I have consult to Dr. Zhang for likely angioplasty on 01/08/2019. Patient was interviewed and examined at bedside this morning. Patient was found lying in bed, watching television in no acute distress. He reports improvement in his pain but notes that it still bothers him when the medication begins to wear off. His plan remains largely unchanged from yesterday; namely a possible stent/bypass graft tomorrow. Objective: Vitals (See below) General: Lying in bed, no acute distress, comfortable, watching television HEENT: Normocephalic, atraumatic, sclera non-icteric, EOMI CVS: Regular rate and rhythm, no murmurs gallops or rubs Lungs: Clear to auscultation bilaterally. No wheezing rales or rhonchi. Abdomen: Soft, nondistended, without tenderness Extremities: L LE has trace edema, no right-sided edema or erythema Skin: L ankle and foot remain erythematous, with dorsal peeling skin. Decreased erythema compared to 01/10/19. Patient does have a recent L 2nd toe amputation. Examination reveals necrotic tissue around the base. 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 - Presented to the ER with worsening left foot pain - Physical with signs of cellulitis - Wound culture 3/14: Proteus mirabilis, MRSA, Enterococcus faecalis - c/w Doppler to check of pulse; currently have remained intact - c/w Zosyn (Day #5); Will start Vancomycin (Day #2) for MRSA - White count trending downward from 17.0 yesterday to 16.1 this morning - Discussed with Dr. Alcazar; continue with dressing changes based on his recommendations - Dr. Zhang (Vascular surgery) on consultation; plan for further stenting of major arteries versus possible bypass on Saturday (tomorrow) - Dilaudid for pain control HTN - BP well controlled - c/w Amlodipine and Labetalol CAD (Hx of [place], 1991) - c/w ASA 81 mg BPH - Currently not on any medications Hx of Meningiomas - s/p Resection 10/2008 DVT prophylaxis: - c/w Heparin Disposition: - Stent placement/bypass on Saturday for PAD VS,Fishbone, I+O VS, Fishbone, I+O Laboratory Tests 01/12/19 06:24 Red Blood Count 3.90 L, Mean Corpuscular Volume 94.4, Mean Corpuscular Hemoglobin 29.7, Mean Corpuscular Hemoglobin Concent 31.5 L, Red Cell Distributi on Width 13.7, Neutrophils (%) (Auto) 75.6 H, Lymphocytes (%) (Auto) 14.6 L, Monocytes (%) (Auto) 7.2 H, Eosinophils (%) (Auto) 1.5, Basophils (%) (Auto) 0.2, Neutrophils # (Auto) 12.1 H, Lymphocytes # (Auto) 2.4, Monocytes # (Auto) 1.2 H, Eosinophils # (Auto) 0.2, Basophils # (Auto) 0.0, Calcium Level 7.9 L Vital Signs Date Time Temp Pulse Resp B/P (MAP) Pulse Ox O2 Delivery O2 Flow Rate FiO2 01/12/19 16:40 18 01/12/19 16:39 80 132/66 01/12/19 14:00 97.8 94 01/07/19 06:24 Room Air I&O- Last 24 Hours up to 6 AM 01/12/19 06:00 Intake Total 1790 ml Output Total 1750 ml Balance 40 ml GME ATTESTATION GME ATTESTATION My faculty preceptor for this patient encounter was physically present during the encounter and was fully available. All aspects of the patient interview, examination, medical decision making process, and medical care plan development were reviewed and approved by the faculty preceptor. The faculty preceptor is aware and concurs with the plan as stated in the body of this note and will attest to such by his/her cosignature. ATTENDING NOTE I, Ashley Hassan, have both independently examined this patient as well as reviewed the documentation. I have discussed in detail with the resident the findings and plan of treatment as documented in the residents documentation. I will continue to follow the patient and offer further guidance to the patients care as necessary during this hospital stay. KELLEY ANTHONY DO Jan 12, 2019 17:04 ASHLEY HASSAN MD Jan 12, 2019 17:24
[2019-01-12 20:00] VITALS: BP 158/68
[2019-01-13] MEDS: VANCOMYCIN HCL 1,000 MG, VIAL MATE ADAPTER 1 EACH in D5W 250 ML IV SCH ×3 (00:12→16:02)
[2019-01-13] MEDS: HYDROMORPHONE HCL 0.5 MG/ 0.5 ML SYRINGE (J1170 PER 1) IV PRN (00:40)
[2019-01-13 05:00] VITALS: BP 139/72
[2019-01-13] MEDS: HEPARIN SOD (PORCINE) 5000 UNITS/ML VIAL SQ SCH ×3 (05:07→21:29)
[2019-01-13] MEDS: PIPERACILLIN/TAZOBACTAM SOD 3.375 GM in D5W MINI-BAG PLUS 50 ML IV SCH ×4 (05:07→23:09)
[2019-01-13 06:48] LABS: BASO # 0.1 10^3/uL (0.0-0.2); BASO % 0.3 % (0.0-1.0); EOS # 0.2 10^3/uL (0.0-0.50); HEMATOCRIT 38.7 % (42.0-52.0); HEMOGLOBIN 12.6 g/dl (13.5-17.5); LYMPH # 2.7 10^3/uL (1.5-4.5); LYMPH % 14.4 % (24.0-44.0); MEAN CORPUSCULAR HEMOGLOBIN 29.9 pg (27.0-33.0); MEAN CORPUSCULAR HGB CONC 32.6 g/dl (32.0-36.5); MEAN CORPUSCULAR VOLUME 91.9 fl (80.0-96.0); MONO # 1.2 10^3/uL (0.0-0.8); MONO % 6.5 % (0.0-5.0); NEUTROPHILS # 14.5 10^3/uL (1.8-7.7); PLATELET COUNT, AUTOMATED 504 10^3/uL (150-450); RED BLOOD COUNT 4.21 10^6/uL (4.30-6.10); WHITE BLOOD COUNT 18.9 10^3/uL (4.0-10.0)
[2019-01-13 07:13] LABS: BLOOD UREA NITROGEN 13 MG/DL (7-18); CALCIUM LEVEL 8.7 MG/DL (8.8-10.2); CARBON DIOXIDE LEVEL 26 MEQ/L (21-32); CHLORIDE LEVEL 99 MEQ/L (98-107); CREATININE FOR GFR 0.79 MG/DL (0.70-1.30); GLOMERULAR FILTRATION RATE > 60.0 (>42); GLUCOSE, FASTING 125 MG/DL (70-100); SODIUM LEVEL 131 MEQ/L (136-145)
[2019-01-13] MEDS: ASPIRIN 81 MG ENTERIC TAB PO SCH (09:03)
[2019-01-13] MEDS: amLODIPine 10 MG TAB PO SCH (09:04)
[2019-01-13] MEDS: LABETALOL 100 MG TAB PO SCH ×3 (09:04→20:26)
[2019-01-13] MEDS ORDERED: PERCOCET 5MG/325MG TAB PO ONE ×3 (09:30→17:15)
--- NOTE | 2019-01-13 11:56 | IPNPDOC ---
Date Seen The patient was seen on 01/13/19. Progress Note Subjective: c/o pain in the foot, but improved with 2 percocet. scheduled for revascularizaiton with dr. zhang at 5pm today. no fever or chills. tolerating his diet and no other complaints from overnight. Objective: Vitals (See below) General: Lying in bed, no acute distress, comfortable, AAOx3 HEENT: NC, AT CVS: RRR, +S1S2 Lungs: Fair air entry b/l, no wheezing, rhonchi or rales Abdomen: Remains soft without distention or tenderness Extremities: No evidence of right leg edema, left leg with trace edema, - Calf tenderness Skin: Left foot with erythema / warmth / tenderness, area of blistering noted, L 2nd digit amputation; cellulitis appears improved laboratory data, imaging studies, microbiology: pls see below Assessment and plan: Patient is a 73 year old male with a PMHx of HTN, CAD (Hx of 1991), PVD s/p L leg angioplasty and ?stent placement, 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 Alcazar's office the week prior. Patient was advised to to visit Dr. Zhang of vascular surgery. Patient had attempted to follow-up on Saturday, however, was unable to follow through an appointment. He presented to the ER with worsening left foot pain. In the emergency room, patient was found to have cellulitis and was admitted to the hospitalist service for further evaluation and treatment. Dr. Alcazar's contact me directly and I have consult to Dr. Zhang for likely angioplasty on 01/08/2019. Left foot cellulitis with PVD s/p L leg angioplasty -vascular surgery consulted for revascularization and scheduled for 5pm today. on iv vanco and zosyn defer to vascular surgery fo postop anticoagulation prn pain meds HTN - BP well controlled - c/w Amlodipine and Labetalol CAD (Hx of 1991) - c/w ASA 81 BPH - Currently not on any medications Hx of Meningiomas - s/p Resection 10/2008 DVT prophylaxis - c/w Heparin VS, I&O, 24H, Fishbone Vital Signs/I&O Vital Signs Date Time Temp Pulse Resp B/P (MAP) Pulse Ox O2 Delivery O2 Flow Rate FiO2 01/13/19 10:13 18 01/13/19 09:04 82 139/72 01/13/19 05:00 98.4 96 01/07/19 06:24 Room Air I&O- Last 24 Hours up to 6 AM 01/13/19 06:00 Intake Total 1370 ml Output Total 1575 ml Balance -205 ml Laboratory Data 24H LABS Laboratory Tests 2 01/12/19 15:56: Vancomycin Level Trough 9.1L 01/13/19 06:31: Immature Granulocyte % (Auto) 0.8, White Blood Count 18.9H, Red Blood Count 4.21L, Hemoglobin 12.6L, Hematocrit 38.7L, Mean Corpuscular Volume 91.9, Mean Corpuscular Hemoglobin 29.9, Mean Corpuscular Hemoglobin Concent 32.6, Red Cell Distribution Width 13.7, Platelet Count 504H, Neutrophils (%) (Auto) 77.0H, Lymphocytes (%) (Auto) 14.4L, Monocytes (%) (Auto) 6.5H, Eosinophils (%) (Auto) 1.0, Basophils (%) (Auto) 0.3, Neutrophils # (Auto) 14.5H, Lymphocytes # (Auto) 2.7, Monocytes # (Auto) 1.2H, Eosinophils # (Auto) 0.2, Basophils # (Auto) 0.1, Nucleated Red Blood Cells % (auto) 0.0, Anion Gap 6L, Glomerular Filtration Rate > 60.0, Blood Urea Nitrogen 13, Creatinine 0.79, Sodium Level 131L, Potassium Level 4.0, Chloride Level 99, Carbon Dioxide Level 26, Calcium Level 8.7L, Magnesium Level 2.0 CBC/BMP Laboratory Tests 01/13/19 06:31 Red Blood Count 4.21 L, Mean Corpuscular Volume 91.9, Mean Corpuscular Hemo globin 29.9, Mean Corpuscular Hemoglobin Concent 32.6, Red Cell Distribution Width 13.7, Neutrophils (%) (Auto) 77.0 H, Lymphocytes (%) (Auto) 14.4 L, Monocytes (%) (Auto) 6.5 H, Eosinophils (%) (Auto) 1.0, Basophils (%) (Auto) 0.3, Neutrophils # (Auto) 14.5 H, Lymphocytes # (Auto) 2.7, Monocytes # (Auto) 1.2 H, Eosinophils # (Auto) 0.2, Basophils # (Auto) 0.1, Calcium Level 8.7 L Microbiology Microbiology 01/06/19 Blood Culture - Final, Complete NO GROWTH AFTER 5 DAYS 01/06/19 Blood Culture - Final, Complete NO GROWTH AFTER 5 DAYS 01/08/19 Wound Culture - Final, Complete Proteus Mirabilis Staph.aureus Methicillin Resis Enterococcus Faecalis OLE KULKARNI MD Jan 13, 2019 11:41
[2019-01-13 14:23] VITALS: BP 152/71
--- NOTE | 2019-01-13 15:36 | PHACANCOPD ---
PHARMACY VANCOMYCIN DOSING Pt Demographics Demographics Patient Age:73 , Weight:100.910 , Gender: male Adjusted Body Weight Date: 01/11/19, Adjusted Body Weight: [81] Kg Vancomycin Vancomycin indication: ssti Vancomycin Target Ranges: 15-20 mcg/ml Vancomycin Load Y/N: Yes Load Dose Date Time Vancomycin Load Dose: 750mg Date: 01/11 Time: ~11am Vancomycin Dose Date: 01/11/19. Current Vancomycin Dose: [1g IV q12h @17] Intermittent Dosing?: No Labs Micro Microbiology 01/06/19 Blood Culture - Final, Complete NO GROWTH AFTER 5 DAYS 01/06/19 Blood Culture - Final, Complete NO GROWTH AFTER 5 DAYS 01/08/19 Wound Culture - Final, Complete Proteus Mirabilis Staph.aureus Methicillin Resis Enterococcus Faecalis Creatinine Clearance Date:01/11/19. Creatinine Clearance: [~73 ml/min using adjusted BW with a SCr of 1 due to age/deconditioning]. Pending Labs Vanco trough scheduled 01/12 @16:00 Assessment and Plan Maintaining Current Dose?: Yes Reason for dose change: No Dose Change Pharmacist Note Pharmacist Note 01/13/19: Vancomycin trough yesterday resulted at 9.1mcg/ml. The patient's regimen was increased from 1g IV Q12H to 1g IV Q8H at that time. A repeat vancomycin trough level today resulted at 14.3mcg/ml. Scr remains stable at 0.79 today from 0.74 yesterday. We will continue the patient on his current regimen and will schedule a repeat follow-up vancomycin level when appropriate. Date: 01/11/19. Pharmacist note: vancomycin has been added to the patient's regimen today after being on Zosyn monotherapy since 01/07/19. Pt has not been on vancomycin at our facility in the past. His current wound culture has grown MRSA (DARIEN = 1), Proteus and E. faecalis (DARIEN = 1). I have started the pt on vancomycin 750mg this morning, followed by 1g IV q12h to start this evening at 17:00 ~6 hours later. I have a trough scheduled for tomorrow afternoon. We will continue to monitor and make adjustments as necessary. MABEL PAN PHARMACY Jan 13, 2019 15:36
[2019-01-13 22:00] VITALS: BP 155/76
[2019-01-14] MEDS: VANCOMYCIN HCL 1,000 MG, VIAL MATE ADAPTER 1 EACH in D5W 250 ML IV SCH ×3 (00:24→16:00)
[2019-01-14] MEDS: PERCOCET 5MG/325MG TAB PO PRN ×2 (04:19→10:41)
[2019-01-14] MEDS: D5W/0.45% SODIUM CHLORIDE 1,000 ML IV SCH ×2 (05:07→18:20)
[2019-01-14] MEDS: PIPERACILLIN/TAZOBACTAM SOD 3.375 GM in D5W MINI-BAG PLUS 50 ML IV SCH ×3 (05:07→18:00)
[2019-01-14 06:00] VITALS: BP 139/72
[2019-01-14 07:13] LABS: BASO # 0.1 10^3/uL (0.0-0.2); BASO % 0.3 % (0.0-1.0); EOS # 0.2 10^3/uL (0.0-0.50); EOS % 1.3 % (0.0-3.0); HEMATOCRIT 35.4 % (42.0-52.0); HEMOGLOBIN 11.3 g/dl (13.5-17.5); LYMPH # 2.4 10^3/uL (1.5-4.5); LYMPH % 16.4 % (24.0-44.0); MEAN CORPUSCULAR HEMOGLOBIN 29.3 pg (27.0-33.0); MEAN CORPUSCULAR HGB CONC 31.9 g/dl (32.0-36.5); MEAN CORPUSCULAR VOLUME 91.7 fl (80.0-96.0); MONO # 1.2 10^3/uL (0.0-0.8); MONO % 8.2 % (0.0-5.0); NEUTROPHILS # 10.8 10^3/uL (1.8-7.7); NEUTROPHILS % 73.3 % (36.0-66.0); PLATELET COUNT, AUTOMATED 477 10^3/uL (150-450); RED BLOOD COUNT 3.86 10^6/uL (4.30-6.10); WHITE BLOOD COUNT 14.8 10^3/uL (4.0-10.0)
[2019-01-14 07:34] LABS: BLOOD UREA NITROGEN 13 MG/DL (7-18); CALCIUM LEVEL 8.5 MG/DL (8.8-10.2); CARBON DIOXIDE LEVEL 25 MEQ/L (21-32); CHLORIDE LEVEL 101 MEQ/L (98-107); CREATININE FOR GFR 0.81 MG/DL (0.70-1.30); GLOMERULAR FILTRATION RATE > 60.0 (>42); GLUCOSE, FASTING 130 MG/DL (70-100); MAGNESIUM LEVEL 2.1 MG/DL (1.8-2.4); POTASSIUM SERUM 3.6 MEQ/L (3.5-5.1); SODIUM LEVEL 135 MEQ/L (136-145)
[2019-01-14] MEDS: ASPIRIN 81 MG ENTERIC TAB PO SCH (07:44)
[2019-01-14] MEDS: amLODIPine 10 MG TAB PO SCH (07:44)
[2019-01-14] MEDS: LABETALOL 100 MG TAB PO SCH ×3 (07:45→23:02)
[2019-01-14] MEDS ORDERED: PERCOCET 5MG/325MG TAB PO PRN (12:00)
[2019-01-14] MEDS ORDERED: HEPARIN SOD (PORCINE) 5000 UNITS/ML VIAL As Ordered ONE ×2 (13:54→17:42)
[2019-01-14] MEDS ORDERED: THROMBIN SOLN 20,000 UNITS KIT As Ordered ONE (13:54)
[2019-01-14] MEDS ORDERED: BUPIVACAINE HCL 0.25% 30 ML VIAL As Ordered ONE (13:54)
[2019-01-14] MEDS ORDERED: LIDOCAINE 1% SDV INJ 30 ML VIAL As Ordered ONE (13:54)
[2019-01-14] MEDS ORDERED: PROTAMINE SULF INJ 50 MG/5 ML VIAL (J2720) As Ordered ONE (13:54)
[2019-01-14 14:00] VITALS: BP 149/74
[2019-01-14] MEDS ORDERED: PROPOFOL 500 MG/50 ML VIAL As Ordered ONE (15:44)
[2019-01-14] MEDS ORDERED: LIDOCAINE 2% INJ 100 MG/5 ML SDV (FOR ANES.) As Ordered ONE (15:44)
[2019-01-14] MEDS ORDERED: dexameTHASONE 4 MG/ML 1ML VIAL (J1100) As Ordered ONE (15:44)
[2019-01-14] MEDS ORDERED: ONDANSETRON 4MG/2ML VIAL (J2405) As Ordered ONE ×2 (15:44→20:13)
[2019-01-14] MEDS ORDERED: MIDAZOLAM INJ 2 MG/2 ML VIAL (J2250) As Ordered ONE (15:45)
[2019-01-14] MEDS ORDERED: fentaNYL 100 MCG/2 ML INJECTION (J3010) As Ordered ONE ×3 (15:45→19:16)
[2019-01-14] MEDS ORDERED: VANCOMYCIN 1000 MG/20 ML VIAL (J3370) As Ordered ONE (16:49)
[2019-01-14] MEDS ORDERED: ZOSYN 3.375 GM VIAL (J2543) As Ordered ONE (18:49)
[2019-01-14] MEDS ORDERED: SUGAMMADEX SODIUM 500 MG/5 ML VIAL (BRIDION) As Ordered ONE (19:43)
[2019-01-14] MEDS ORDERED: HYDROmorphone HCL 2 MG/ML 1ML VIAL (J1170) As Ordered ONE (20:28)
--- NOTE | 2019-01-14 20:35 | ROOPDOC ---
Spencer Zhang MD Jan 14, 2019 20:35
[2019-01-14] MEDS ORDERED: ONDANSETRON 4MG/2ML VIAL (J2405) IV PRN (20:45)
[2019-01-14] MEDS ORDERED: LR 1,000 ML IV SCH (20:45)
[2019-01-14] MEDS ORDERED: fentaNYL 100 MCG/2 ML INJECTION (J3010) IV PRN (20:45)
[2019-01-14] MEDS ORDERED: NORCO, ANEXSIA 5/325MG TABLET (HYDROcodone/ACETAMINOPHEN) PO PRN (20:45)
[2019-01-14 22:02] VITALS: BP 147/73
[2019-01-14] MEDS: HEPARIN SOD (PORCINE) 5000 UNITS/ML VIAL SQ SCH (23:00)
[2019-01-14 23:02] VITALS: BP 139/81
[2019-01-15] VITALS (7 sets, daily range): BP systolic 109–144; BP diastolic 56–69
[2019-01-15] MEDS: PIPERACILLIN/TAZOBACTAM SOD 3.375 GM in D5W MINI-BAG PLUS 50 ML IV SCH ×5 (00:45→23:33)
[2019-01-15] MEDS: HEPARIN SOD (PORCINE) 5000 UNITS/ML VIAL SQ SCH ×3 (06:40→20:33)
[2019-01-15] MEDS: VANCOMYCIN HCL 1,000 MG, VIAL MATE ADAPTER 1 EACH in D5W 250 ML IV SCH ×5 (08:26→16:24)
[2019-01-15] MEDS: ASPIRIN 81 MG ENTERIC TAB PO SCH (08:26)
[2019-01-15] MEDS: amLODIPine 10 MG TAB PO SCH (08:27)
[2019-01-15] MEDS: LABETALOL 100 MG TAB PO SCH ×3 (08:27→20:32)
[2019-01-15] MEDS: D5W/0.45% SODIUM CHLORIDE 1,000 ML IV SCH (08:28)
--- NOTE | 2019-01-15 08:29 | IPNPDOC ---
Date Seen The patient was seen on 01/14/19. Progress Note Subjective: Pt has been npo after midnight with plans for right axillary bifemoral grafting by vascular surgery for nonhealing left foot infections due to significant peripheral arterial disease. no fever or chills overnight. still on vanco and zosyn with proteus, mrsa in wound cx & sensitivities. percocet prn for pain which the patient says isn't due until 10 am. still c/o pain 01/04 this morning Objective: Vitals (See below) General: Lying in bed, no acute distress, comfortable, AAOx3 HEENT: NC, AT CVS: RRR, +S1S2 Lungs: Fair air entry b/l, no wheezing, rhonchi or rales Abdomen: Remains soft without distention or tenderness Extremities: No evidence of right leg edema, left leg with trace edema, - Calf tenderness Skin: Left foot with erythema / warmth / tenderness, area of blistering noted, L 2nd digit amputation; cellulitis appears improved laboratory data, imaging studies, microbiology: pls see below Assessment and plan: Patient is a 73 year old male with a PMHx of HTN, CAD (Hx of 1991), PVD s/p L leg angioplasty and ?stent placement, 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 Alcazar's office the week prior. Patient was advised to to visit Dr. Zhang of vascular surgery. Patient had attempted to follow-up on Saturday, however, was unable to follow through an appointment. He presented to the ER with worsening left foot pain. In the emergency room, patient was found to have cellulitis and was admitted to the hospitalist service for further evaluation and treatment. Dr. Alcazar's contact me directly and I have consult to Dr. Zhang for likely angioplasty on 01/08/2019. Left foot cellulitis with PVD s/p L leg angioplasty -vascular surgery consulted for revascularization and scheduled for 5pm today. on iv vanco and zosyn defer to vascular surgery fo postop anticoagulation prn pain meds HTN - BP well controlled - c/w Amlodipine and Labetalol CAD (Hx of 1991) - c/w ASA 81 BPH - Currently not on any medications Hx of Meningiomas - s/p Resection 10/2008 DVT prophylaxis - c/w Heparin VS, I&O, 24H, Fishbone Vital Signs/I&O Vital Signs Date Time Temp Pulse Resp B/P (MAP) Pulse Ox O2 Delivery O2 Flow Rate FiO2 01/15/19 04:00 97.6 73 18 127/67 (87) 95 01/14/19 21:35 2 I&O- Last 24 Hours up to 6 AM 01/15/19 06:00 Intake Total 2150 ml Output Total 900 ml Balance 1250 ml Laboratory Data Microbiology Microbiology 01/06/19 Blood Culture - Final, Complete NO GROWTH AFTER 5 DAYS 01/06/19 Blood Culture - Final, Complete NO GROWTH AFTER 5 DAYS 01/08/19 Wound Culture - Final, Complete Proteus Mirabilis Staph.aureus Methicillin Resis Enterococcus Faecalis OLE KULKARNI MD Jan 15, 2019 08:29
[2019-01-15] MEDS: PERCOCET 5MG/325MG TAB PO PRN ×4 (08:36→20:32)
[2019-01-15 09:04] LABS: BASO % 0.1 % (0.0-1.0); HEMATOCRIT 34.1 % (42.0-52.0); HEMOGLOBIN 10.7 g/dl (13.5-17.5); LYMPH # 1.6 10^3/uL (1.5-4.5); MEAN CORPUSCULAR HEMOGLOBIN 30.1 pg (27.0-33.0); MEAN CORPUSCULAR HGB CONC 31.4 g/dl (32.0-36.5); MEAN CORPUSCULAR VOLUME 95.8 fl (80.0-96.0); MONO # 1.4 10^3/uL (0.0-0.8); MONO % 6.9 % (0.0-5.0); NEUTROPHILS # 17.2 10^3/uL (1.8-7.7); NEUTROPHILS % 84.2 % (36.0-66.0); PLATELET COUNT, AUTOMATED 463 10^3/uL (150-450); RED BLOOD COUNT 3.56 10^6/uL (4.30-6.10); WHITE BLOOD COUNT 20.5 10^3/uL (4.0-10.0)
[2019-01-15 09:44] LABS: CALCIUM LEVEL 8.6 MG/DL (8.8-10.2); CREATININE FOR GFR 1.42 MG/DL (0.70-1.30); GLOMERULAR FILTRATION RATE 51.7 (>42); MAGNESIUM LEVEL 2.2 MG/DL (1.8-2.4); POTASSIUM SERUM 4.3 MEQ/L (3.5-5.1)
[2019-01-15] MEDS: NS 1,000 ML IV SCH ×2 (11:52→20:33)
--- NOTE | 2019-01-15 20:31 | IPNPDOC ---
Date Seen The patient was seen on 01/15/19. Progress Note Subjective: Pt developed GIA ovenright. currently on ivfluids with repeat mp for serial monitoring. c/o pain that is relieved with percocet. bowel regimen provided. plans for debridement on saturday per the patient. s/p 01/14/19 right axillary bifemoral grafting by vascular surgery for nonhealing left foot infections due to significant peripheral arterial disease. no fever or chills overnight.still on vanco and zosyn with proteus, mrsa in wound cx & sensitivities. Objective: Vitals (See below) General: Lying in bed, no acute distress, comfortable, AAOx3 HEENT: NC, AT CVS: RRR, +S1S2 Lungs: Fair air entry b/l, no wheezing, rhonchi or rales Abdomen: Remains soft without distention or tenderness Extremities: No evidence of right leg edema, left leg with trace edema, - Calf tenderness Skin: Left foot with erythema / warmth / tenderness, area of blistering noted, L 2nd digit amputation; cellulitis appears improved . axillary graft site clean dry. 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 Alcazar's office the week prior. Patient was advised to to visit Dr. Zhang of vascular surgery. Patient had attempted to follow-up on , however, was unable to follow through an appointment. He presented to the ER with worsening left foot pain. In the emergency room, patient was found to have cellulitis and was admitted to the hospitalist service for further evaluation and treatment. Dr. Alcazar's contact me directly and I have consult to Dr. Zhang for likely angioplasty on 01/08/2019. Left foot cellulitis with PVD s/p L leg angioplasty -vascular surgery consulted on iv vanco and zosyn defer to vascular surgery fo postop anticoagulation prn pain meds 01/14/19 right axillary bifemoral grafting by vascular surgery for nonhealing left foot infections due to significant peripheral arterial disease. no fever or chills overnight. still on vanco and zosyn with proteus, mrsa in wound cx & sensitivities. plans for debridement on 01/17/19. HTN - BP well controlled - c/w Amlodipine and Labetalol with holding parameters Acute kidney injury maybe contrast related. ivfluid trial and serial mp. CAD (Hx of [place], 1991) - c/w ASA 81 BPH - Currently not on any medications Hx of Meningiomas - s/p Resection 10/2008 DVT prophylaxis - c/w Heparin VS, I&O, 24H, Fishbone Vital Signs/I&O Vital Signs Date Time Temp Pulse Resp B/P (MAP) Pulse Ox O2 Delivery O2 Flow Rate FiO2 01/15/19 04:00 97.6 73 18 127/67 (87) 95 01/14/19 21:35 2 I&O- Last 24 Hours up to 6 AM 01/15/19 06:00 Intake Total 2150 ml Output Total 900 ml Balance 1250 ml Laboratory Data Microbiology Microbiology 01/06/19 Blood Culture - Final, Complete NO GROWTH AFTER 5 DAYS 01/06/19 Blood Culture - Final, Complete NO GROWTH AFTER 5 DAYS 01/08/19 Wound Culture - Final, Complete Proteus Mirabilis Staph.aureus Methicillin Resis Enterococcus Faecalis OLE KULKARNI MD Jan 15, 2019 08:32
[2019-01-15 21:25] LABS: CALCIUM LEVEL 8.3 MG/DL (8.8-10.2); CREATININE FOR GFR 2.12 MG/DL (0.70-1.30); GLOMERULAR FILTRATION RATE 32.6 (>42); POTASSIUM SERUM 3.7 MEQ/L (3.5-5.1)
[2019-01-16] MEDS: PERCOCET 5MG/325MG TAB PO PRN ×4 (00:43→16:27)
[2019-01-16 02:00] VITALS: BP 109/55
[2019-01-16 06:00] VITALS: BP 113/55
[2019-01-16] MEDS: PIPERACILLIN/TAZOBACTAM SOD 3.375 GM in D5W MINI-BAG PLUS 50 ML IV SCH ×3 (06:11→17:41)
[2019-01-16] MEDS: HEPARIN SOD (PORCINE) 5000 UNITS/ML VIAL SQ SCH ×3 (06:11→21:17)
[2019-01-16 06:46] LABS: BASO # 0.1 10^3/uL (0.0-0.2); BASO % 0.5 % (0.0-1.0); EOS # 0.2 10^3/uL (0.0-0.50); EOS % 1.6 % (0.0-3.0); HEMATOCRIT 31.4 % (42.0-52.0); HEMOGLOBIN 9.9 g/dl (13.5-17.5); LYMPH # 2.2 10^3/uL (1.5-4.5); MEAN CORPUSCULAR HEMOGLOBIN 29.4 pg (27.0-33.0); MEAN CORPUSCULAR HGB CONC 31.5 g/dl (32.0-36.5); MEAN CORPUSCULAR VOLUME 93.2 fl (80.0-96.0); MONO # 1.7 10^3/uL (0.0-0.8); MONO % 12.7 % (0.0-5.0); NEUTROPHILS # 8.9 10^3/uL (1.8-7.7); NEUTROPHILS % 67.5 % (36.0-66.0); PLATELET COUNT, AUTOMATED 394 10^3/uL (150-450); RED BLOOD COUNT 3.37 10^6/uL (4.30-6.10); WHITE BLOOD COUNT 13.1 10^3/uL (4.0-10.0)
[2019-01-16 07:12] LABS: CALCIUM LEVEL 8.4 MG/DL (8.8-10.2); CREATININE FOR GFR 2.1 MG/DL (0.70-1.30); GLOMERULAR FILTRATION RATE 32.9 (>42); POTASSIUM SERUM 3.8 MEQ/L (3.5-5.1); VANCOMYCIN RANDOM 29.2 UG/ML
[2019-01-16] MEDS: NS 1,000 ML IV SCH ×2 (07:30→13:41)
[2019-01-16] MEDS: ASPIRIN 81 MG ENTERIC TAB PO SCH (08:59)
[2019-01-16] MEDS: amLODIPine 10 MG TAB PO SCH (09:00)
[2019-01-16] MEDS: LABETALOL 100 MG TAB PO SCH ×3 (09:00→21:16)
--- NOTE | 2019-01-16 09:50 | REP ---
Urinary tract sonogram: History: Acute kidney injury. Comparison: Comparison CT imaging January 09, 2019. Findings: Scanning at the level of the urinary bladder shows some bladder wall trabeculation and a small bladder diverticulum . Renal cortical echogenicity pattern is normal bilaterally and contours are smooth. There is no evidence of hydronephrosis, cyst, mass, or calculus in either kidney. The right kidney measures 12.0 x 6.2 x 4.6 cm. Left renal dimensions are 12.0 x 4.9 x 5.3 cm. Impression: Small bladder diverticulum and trabeculation of the bladder wall. Otherwise negative urinary tract sonography. Electronically Signed by Jaylan Kiran MD 01/16/2019 09:42 A
[2019-01-16] MEDS ORDERED: MORPHINE 4 MG/ML 1ML VIAL/SYRINGE (J2270) IV PRN (13:15)
--- NOTE | 2019-01-16 13:35 | IPNPDOC ---
Date Seen The patient was seen on 01/16/19. Progress Note Subjective: Despite being on ivfluids, pt continues to have janette. renal us no hydro most likely transient contrast nephropathy. pt still c/o pain despite 2 tabs percocet q6hrs. "My foot is really bad today." Increased malodrous discharge and foul-smelling noted today. plans for debridement by vascular surgery on Saturday.s/p 01/14/19 right axillary bifemoral grafting by vascular surgery for nonhealing left foot infections due to significant peripheral arterial disease. no fever or chills overnight.still on vanco and zosyn with proteus, mrsa in w ound cx & sensitivities. Objective: Vitals (See below) General: Lying in bed, no acute distress, comfortable, AAOx3 HEENT: NC, AT CVS: RRR, +S1S2 Lungs: Fair air entry b/l, no wheezing, rhonchi or rales Abdomen: Remains soft without distention or tenderness Extremities: No evidence of right leg edema, left leg with trace edema, - Calf tenderness Skin: Left foot with erythema / warmth / tenderness, area of blistering noted, L 2nd digit amputation; cellulitis appears improved . axillary graft site clean dry. 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 Alcazar's office the week prior. Patient was advised to to visit Dr. Zhang of vascular surgery. Patient had attempted to follow-up on Saturday, however, was unable to follow through an appointment. He presented to the ER with worsening left foot pain. In the emergency room, patient was found to have cellulitis and was admitted to the hospitalist service for further evaluation and treatment. Dr. Alcazar's contact me directly and I have consult to Dr. Zhang for likely angioplasty on 01/08/2019. Left foot cellulitis with PVD s/p L leg angioplasty -vascular surgery consulted on iv vanco and zosyn defer to vascular surgery fo postop anticoagulation prn pain meds 01/14/19 right axillary bifemoral grafting by vascular surgery for nonhealing left foot infections due to significant peripheral arterial disease. no fever or chills overnight. still on vanco and zosyn with proteus, mrsa in wound cx & sensitivities. plans for debridement on 01/17/19. HTN - BP well controlled - c/w Amlodipine and Labetalol with holding parameters Acute kidney injury maybe contrast related. ivfluid trial and serial mp. CAD (Hx of [place], 1991) - c/w ASA 81 BPH - Currently not on any medications Hx of Meningiomas - s/p Resection 10/2008 DVT prophylaxis - c/w Heparin VS, I&O, 24H, Fishbone Vital Signs/I&O Vital Signs Date Time Temp Pulse Resp B/P (MAP) Pulse Ox O2 Delivery O2 Flow Rate FiO2 01/16/19 10:40 19 01/16/19 09:00 83 140/66 01/16/19 06:00 97.0 91 01/14/19 21:35 2 I&O- Last 24 Hours up to 6 AM 01/16/19 06:00 Intake Total 3615 ml Output Total 1450 ml Balance 2165 ml Laboratory Data 24H LABS Laboratory Tests 2 01/15/19 20:42: Anion Gap 12, Glomerular Filtration Rate 32.6L, Blood Urea Nitrogen 27H, Cre atinine 2.12H, Sodium Level 137, Potassium Level 3.7, Chloride Level 101, Carbon Dioxide Level 24, Calcium Level 8.3L 01/15/19 23:19: Vancomycin Level Trough 34.4*H 01/16/19 06:13: Anion Gap 11, Glomerular Filtration Rate 32.9L, Blood Urea Nitrogen 28H, Creat inine 2.10H, Sodium Level 137, Potassium Level 3.8, Chloride Level 104, Carbon Dioxide Level 22, Calcium Level 8.4L, Immature Granulocyte % (Auto) 0.7, White Blood Count 13.1H, Red Blood Count 3.37L, Hemoglobin 9.9L, Hematocrit 31.4L, Mean Corpuscular Volume 93.2, Mean Corpuscular Hemoglobin 29.4, Mean Corpuscular Hemoglobin Concent 31.5L, Red Cell Distribution Width 13.7, Platelet Count 394, Neutrophils (%) (Auto) 67.5H, Lymphocytes (%) (Auto) 17.0L, Monocytes (%) (Auto) 12.7H, Eosinophils (%) (Auto) 1.6, Basophils (%) (Auto) 0.5, Neutrophils # (Auto) 8.9H, Lymphocytes # (Auto) 2.2, Monocytes # (Auto) 1.7H, Eosinophils # (Auto) 0.2, Basophils # (Auto) 0.1, Nucleated Red Blood Cells % (auto) 0.0, Random Vancomycin Level 29.2 CBC/BMP Laboratory Tests 01/15/19 20:42 Calcium Level 8.3 L 01/16/19 06:13 Calcium Level 8.4 L, Red Blood Count 3.37 L, Mean Corpuscular Volume 93.2, Mean Corpuscular Hemoglobin 29.4, Mean Corpuscular Hemoglobin Concent 31.5 L, Red Cell Distribution Width 13.7, Neutrophils (%) (Auto) 67.5 H, Lymphocytes (%) (Auto) 17.0 L, Monocytes (%) (Auto) 12.7 H, Eosinophils (%) (Auto) 1.6, Basophils (%) (Auto) 0.5, Neutrophils # (Auto) 8.9 H, Lymphocytes # (Auto) 2.2, Monocytes # (Auto) 1.7 H, Eosinophils # (Auto) 0.2, Basophils # (Auto) 0.1 Microbiology Microbiology 01/06/19 Blood Culture - Final, Complete NO GROWTH AFTER 5 DAYS 01/06/19 Blood Culture - Final, Complete NO GROWTH AFTER 5 DAYS 01/08/19 Wound Culture - Final, Complete Proteus Mirabilis Staph.aureus Methicillin Resis Enterococcus Faecalis OLE KULKARNI MD Jan 16, 2019 13:35
[2019-01-16 14:00] VITALS: BP 129/61
--- NOTE | 2019-01-16 19:23 | PHACANCOPD ---
PHARMACY VANCOMYCIN DOSING Pt Demographics Demographics Patient Age:73 , Weight:100.910 , Gender: male Events Past 24 Hours Events Past 24 Hours: YES: Change in CrCl Vancomycin Vancomycin indication: ssti Vancomycin Target Ranges: 15-20 mcg/ml Vancomycin Load Y/N: Yes Load Dose Date Time Vancomycin Load Dose: 750mg Date: 01/11 Time: ~11am Vancomycin Dose Date: 01/15/19. Current Vancomycin Dose: [1g IV q8h @18:00] Intermittent Dosing?: No Labs Labs Laboratory Tests Test 01/12/19 15:56 01/13/19 14:50 Vancomycin Level Trough 9.1 UG/ML (10.0-20.0) 14.3 UG/ML (10.0-20.0) Laboratory Tests 01/14/19 06:16 Red Blood Count 3.86, Mean Corpuscular Volume 91.7, Mean Corpuscular Hemoglobin 29.3, Mean Corpuscular Hemoglobin Concent 31.9, Red Cell Distribution Width 13.6, Neutrophils (%) (Auto) 73.3, Lymphocytes (%) (Auto) 16.4, Monocytes (%) (Auto) 8.2, Eosinophils (%) (Auto) 1.3, Basophils (%) (Auto) 0.3, Neutrophils # (Auto) 10.8, Lymphocytes # (Auto) 2.4, Monocytes # (Auto) 1.2, Eosinophils # (Auto) 0.2, Basophils # (Auto) 0.1, Calcium Level 8.5 01/15/19 06:19 Red Blood Count 3.56, Mean Corpuscular Volume 95.8, Mean Corpuscular Hemoglobin 30.1, Mean Corpuscular Hemoglobin Concent 31.4, Red Cell Distribution Width 13.7, Neutrophils (%) (Auto) 84.2, Lymphocytes (%) (Auto) 8.0, Monocytes (%) (Auto) 6.9, Eosinophils (%) (Auto) 0.0, Basophils (%) (Auto) 0.1, Neutrophils # (Auto) 17.2, Lymphocytes # (Auto) 1.6, Monocytes # (Auto) 1.4, Eosinophils # (Auto) 0.0, Basophils # (Auto) 0.0, Calcium Level 8.6 Micro Microbiology 01/08/19 Wound Culture - Final, Complete Proteus Mirabilis Staph.aureus Methicillin Resis Enterococcus Faecalis Creatinine Clearance Date:01/15/19. Creatinine Clearance: [ARF]. Pending Labs Vanco trough scheduled 01/15/19 @23:00 followed by a Vanco Random level 01/16/19 @06:00 with 6AM labs Assessment and Plan Maintaining Current Dose?: No Reason for dose change: Significant event Pharmacist Note Pharmacist Note 01/15/19: Vancomycin PharmD Note(LATE ENTRY). FOLLOWING A REVEIW OF LABS AND A HOSPITALIST CONSULT 20:30 01/15/19 IT WAS DETERMINED THAT THE SERUM CREATININE HAD A 24HR INCREASE OF 0.61 (>0.5mcg/ml) mc g/ml. THE NEXT VANCO DOSE DUE AT MIDNIGHT WAS PUT ON HOLD AND A VANCO TROUGH WAS ORDERED FOR 23:00 01/15/19 FOLLOWED BY A RANDOM VANCO LEVEL TO BE DRAWN WITH THE AM LABS 01/16/19 TO PROVIDE A MEASURABLE ELIMINATION RATE CONSTANT(Erasmo -hr). LABS WILL BE REVIEWED WHEN AVAILABLE. Soraya, PharmD [facility] Jan 16, 2019 19:23
--- NOTE | 2019-01-16 19:37 | PHACANCOPD ---
PHARMACY VANCOMYCIN DOSING Pt Demographics Demographics Patient Age:73 , Weight:100.910 , Gender: male Events Past 24 Hours Events Past 24 Hours: YES: Change in CrCl Vancomycin Vancomycin indication: ssti Vancomycin Target Ranges: 15-20 mcg/ml Vancomycin Load Y/N: Yes Load Dose Date Time Vancomycin Load Dose: 750mg Date: 01/11 Time: ~11am Vancomycin Dose Date: 01/16/19. Current Vancomycin Dose: [DOSE HELD PENDING DESIRED VANCO GOAL (15-20 mcg/ml)] Intermittent Dosing?: No Labs Labs Laboratory Tests Test 01/12/19 15:56 01/13/19 14:50 01/15/19 23:19 01/16/19 06:13 Vancomycin Level Trough 9.1 UG/ML (10.0-20.0) 14.3 UG/ML (10.0-20.0) 34.4 UG/ML (10.0-20.0) Random Vancomycin Level 29.2 UG/ML Test 01/16/19 18:00 Random Vancomycin Level 22.3 UG/ML Laboratory Tests 01/14/19 06:16 Red Blood Count 3.86, Mean Corpuscular Volume 91.7, Mean Corpuscular Hemoglobin 29.3, Mean Corpuscular Hemoglobin Concent 31.9, Red Cell Distribution Width 13.6, Neutrophils (%) (Auto) 73.3, Lymphocytes (%) (Auto) 16.4, Monocytes (%) (Auto) 8.2, Eosinophils (%) (Auto) 1.3, Basophils (%) (Auto) 0.3, Neutrophils # (Auto) 10.8, Lymphocytes # (Auto) 2.4, Monocytes # (Auto) 1.2, Eosinophils # (Auto) 0.2, Basophils # (Auto) 0.1, Calcium Level 8.5 01/15/19 06:19 Red Blood Count 3.56, Mean Corpuscular Volume 95.8, Mean Corpuscular Hemoglobin 30.1, Mean Corpuscular Hemoglobin Concent 31.4, Red Cell Distribution Width 13.7, Neutrophils (%) (Auto) 84.2, Lymphocytes (%) (Auto) 8.0, Monocytes (%) (Auto) 6.9, Eosinophils (%) (Auto) 0.0, Basophils (%) (Auto) 0.1, Neutrophils # (Auto) 17.2, Lymphocytes # (Auto) 1.6, Monocytes # (Auto) 1.4, Eosinophils # (Au to) 0.0, Basophils # (Auto) 0.0, Calcium Level 8.6 01/15/19 20:42 Calcium Level 8.3 01/16/19 06:13 Calcium Level 8.4, Red Blood Count 3.37, Mean Corpuscular Volume 93.2, Mean Corpuscular Hemoglobin 29.4, Mean Corpuscular Hemoglobin Concent 31.5, Red Cell Distribution Width 13.7, Neutrophils (%) (Auto) 67.5, Lymphocytes (%) (Auto) 17.0, Monocytes (%) (Auto) 12.7, Eosinophils (%) (Auto) 1.6, Basophils (%) (Auto) 0.5, Neutrophils # (Auto) 8.9, Lymphocytes # (Auto) 2.2, Monocytes # (Auto) 1.7, Eosinophils # (Auto) 0.2, Basophils # (Auto) 0.1 Micro Microbiology 01/06/19 Blood Culture - Final, Complete NO GROWTH AFTER 5 DAYS 01/06/19 Blood Culture - Final, Complete NO GROWTH AFTER 5 DAYS 01/08/19 Wound Culture - Final, Complete Proteus Mirabilis Staph.aureus Methicillin Resis Enterococcus Faecalis Creatinine Clearance Date:01/16/19. Creatinine Clearance: [< 20 ml/min ARF]. Assessment and Plan Maintaining Current Dose?: No Reason for dose change: Change in serum Cr, Significant event Pharmacist Note Pharmacist Note 01/16/19: Vancomycin PharmD Note: SUBSEQUENT VANCO DOSES HAVE BEEN HELD IN THE INTERVAL FOLLOWING AND INCREASE IN HIS CREATININE. HE IS NOTED TO HAVE BEEN ADMINISTERED IODINATED DYE PRIOR TO HIS MRI AND REMAINED NPO PENDING SURGERY. SEEN IN HIS LABS, HIS VANCO TROUGH AT 23:00 LAST EVENING = 34.4mcg/ml; 7HRS LATER A RANDOM LEVEL = 29.2mcg/ml RESULTING IN AN ELIMINATION CONSTANT (Erasmo -hr) = 0.0234-hr. ANOTHER VANCO RANDOM LEVEL THIS EVENING AT 18:00 = 22.3mcg/ml LENDING TO A CALCULATED Erasmo = 0.0224hr. HIS ELIMINATION OF THE MEDICATION APPEARS STABILIZED AT THIS TIME. A CALCULATED NEW FREQUENCY (T) = 36hrs AND A Thold = 18 ADDITIONAL HOURS BEFORE THE VANCO TROUGH IS AT THE LOWER END OF HIS GOAL (15mcg/ml). Soraya, PharmD [facility] Jan 16, 2019 19:37
[2019-01-16 20:00] VITALS: BP 132/61
[2019-01-17] MEDS: PIPERACILLIN/TAZOBACTAM SOD 2.25 GM in D5W MINI-BAG PLUS 50 ML IV SCH ×5 (00:13→23:26)
[2019-01-17] MEDS: PERCOCET 5MG/325MG TAB PO PRN ×4 (00:14→23:56)
[2019-01-17] MEDS: NS 1,000 ML IV SCH ×3 (04:18→23:56)
[2019-01-17 06:07] VITALS: BP 156/74
[2019-01-17] MEDS: HEPARIN SOD (PORCINE) 5000 UNITS/ML VIAL SQ SCH ×3 (06:24→21:32)
[2019-01-17 06:52] LABS: BASO # 0.1 10^3/uL (0.0-0.2); BASO % 0.4 % (0.0-1.0); EOS # 0.2 10^3/uL (0.0-0.50); EOS % 1.8 % (0.0-3.0); HEMATOCRIT 31.8 % (42.0-52.0); HEMOGLOBIN 9.9 g/dl (13.5-17.5); LYMPH # 2.4 10^3/uL (1.5-4.5); LYMPH % 20.2 % (24.0-44.0); MEAN CORPUSCULAR HEMOGLOBIN 29.8 pg (27.0-33.0); MEAN CORPUSCULAR HGB CONC 31.1 g/dl (32.0-36.5); MEAN CORPUSCULAR VOLUME 95.8 fl (80.0-96.0); MONO # 1.3 10^3/uL (0.0-0.8); MONO % 10.8 % (0.0-5.0); NEUTROPHILS # 7.9 10^3/uL (1.8-7.7); PLATELET COUNT, AUTOMATED 429 10^3/uL (150-450); RED BLOOD COUNT 3.32 10^6/uL (4.30-6.10)
[2019-01-17 07:19] LABS: CALCIUM LEVEL 7.8 MG/DL (8.8-10.2); CREATININE FOR GFR 1.94 MG/DL (0.70-1.30); GLOMERULAR FILTRATION RATE 36.1 (>42); POTASSIUM SERUM 4.5 MEQ/L (3.5-5.1); VANCOMYCIN RANDOM 17.1 UG/ML
[2019-01-17] MEDS ORDERED: VANCOMYCIN HCL 1,000 MG, VIAL MATE ADAPTER 1 EACH in D5W 250 ML IV SCH ×6 (08:00)
[2019-01-17] MEDS: ASPIRIN 81 MG ENTERIC TAB PO SCH (08:23)
[2019-01-17] MEDS: amLODIPine 10 MG TAB PO SCH (08:23)
[2019-01-17] MEDS: LABETALOL 100 MG TAB PO SCH ×3 (08:24→21:32)
[2019-01-17] MEDS: VANCOMYCIN HCL 1,000 MG, VIAL MATE ADAPTER 1 EACH in D5W 250 ML IV SCH (11:30)
[2019-01-17 14:00] VITALS: BP 125/60
--- NOTE | 2019-01-17 19:15 | IPNPDOC ---
Date Seen The patient was seen on 01/17/19. Progress Note Subjective: No issues overnight. IV morphine prn for worsening foot pain Despite being on ivfluids, pt continues to have janette. renal us no hydro most likely transient contrast nephropathy. pt still c/o pain despite 2 tabs percocet q6hrs. "My foot is really bad today." Increased malodrous discharge and foul-smelling noted. plans for debridement by vascular surgery on Saturday.s/p 01/14/19 right axillary bifemoral grafting by vascular surgery for nonhealing left foot infections due to significant peripheral arterial disease. no fever or chills overnight.still on vanco and zosyn with proteus, mrsa in w ound cx & sensitivities. Objective: Vitals (See below) General: Lying in bed, no acute distress, comfortable, AAOx3 HEENT: NC, AT CVS: RRR, +S1S2 Lungs: Fair air entry b/l, no wheezing, rhonchi or rales Abdomen: Remains soft without distention or tenderness Extremities: No evidence of right leg edema, left leg with trace edema, - Calf tenderness Skin: Left foot with erythema / warmth / tenderness, area of blistering noted, L 2nd digit amputation; cellulitis appears improved . axillary graft site clean dry. 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 Alcazar's office the week prior. Patient was advised to to visit Dr. Zhang of vascular surgery. Patient had attempted to follow-up on , however, was unable to follow through an appointment. He presented to the ER with worsening left foot pain. In the emergency room, patient was found to have cellulitis and was admitted to the hospitalist service for further evaluation and treatment. Dr. Alcazar's contact me directly and I have consult to Dr. Zhang for likely angioplasty on 01/08/2019. Left foot cellulitis with PVD s/p L leg angioplasty -vascular surgery consulted on iv vanco and zosyn defer to vascular surgery fo postop anticoagulation prn pain meds 01/14/19 right axillary bifemoral grafting by vascular surgery for nonhealing left foot infections due to significant peripheral arterial disease. no fever or chills overnight. still on vanco and zosyn with proteus, mrsa in wound cx & sensitivities. plans for debridement on 01/19/19. HTN - BP well controlled - c/w Amlodipine and Labetalol with holding parameters Acute kidney injury maybe contrast related. ivfluid trial and serial mp. CAD (Hx of [place], 1991) - c/w ASA 81 BPH - Currently not on any medications Hx of Meningiomas - s/p Resection 10/2008 DVT prophylaxis - c/w Heparin VS, I&O, 24H, Fishbone Vital Signs/I&O Vital Signs Date Time Temp Pulse Resp B/P (MAP) Pulse Ox O2 Delivery O2 Flow Rate FiO2 01/17/19 06:07 97.2 80 18 156/74 (101) 94 01/14/19 21:35 2 I&O- Last 24 Hours up to 6 AM 01/17/19 06:00 Intake Total 2950 ml Output Total 1725 ml Balance 1225 ml Laboratory Data 24H LABS Laboratory Tests 2 01/16/19 18:00: Random Vancomycin Level 22.3 01/17/19 06:35: Random Vancomycin Level 17.1, Immature Granulocyte % (Auto) 0.8, White Blood Count 12.0H, Red Blood Count 3.32L, Hemoglobin 9.9L, Hematocrit 31.8L, Mean Corpuscular Volume 95.8, Mean Corpuscular Hemoglobin 29.8, Mean Corpuscular Hemoglobin Concent 31.1L, Red Cell Distribution Width 13.9, Platelet Count 429, Neutrophils (%) (Auto) 66.0, Lymphocytes (%) (Auto) 20.2L, Monocytes (%) (Auto) 10.8H, Eosinophils (%) (Auto) 1.8, Basophils (%) (Auto) 0.4, Neutrophils # (Auto) 7.9H, Lymphocytes # (Auto) 2.4, Monocytes # (Auto) 1.3H, Eosinophils # (Auto) 0.2, Basophils # (Auto) 0.1, Nucleated Red Blood Cells % (auto) 0.0, Anion Gap 9, Glomerular Filtration Rate 36.1L, Blood Urea Nitrogen 28H, Creatinine 1.94H, Sodium Level 138, Potassium Level 4.5, Chloride Level 106, Carbon Dioxide Level 23, Calcium Level 7.8L CBC/BMP Laboratory Tests 01/17/19 06:35 Red Blood Count 3.32 L, Mean Corpuscular Volume 95.8, Mean Corpuscular Hemoglobin 29.8, Mean Corpuscular Hemoglobin Concent 31.1 L, Red Cell Distribution Width 13.9, Neutrophils (%) (Auto) 66.0, Lymphocytes (%) (Auto) 20.2 L, Monocytes (%) (Auto) 10.8 H, Eosinophils (%) (Auto) 1.8, Basophils (%) (Auto) 0.4, Neutrophils # (Auto) 7.9 H, Lymphocytes # (Auto) 2.4, Monocytes # (Auto) 1.3 H, Eosinophils # (Auto) 0.2, Basophils # (Auto) 0.1, Calcium Level 7.8 L Microbiology Microbiology 01/08/19 Wound Culture - Final, Complete Proteus Mirabilis Staph.aureus Methicillin Resis Enterococcus Faecalis OLE KULKARNI MD Jan 17, 2019 08:07
[2019-01-17 21:55] VITALS: BP 142/70
[2019-01-18 05:37] VITALS: BP 153/74
[2019-01-18] MEDS: HEPARIN SOD (PORCINE) 5000 UNITS/ML VIAL SQ SCH ×3 (06:01→20:30)
[2019-01-18] MEDS: PIPERACILLIN/TAZOBACTAM SOD 2.25 GM in D5W MINI-BAG PLUS 50 ML IV SCH ×4 (06:02→23:35)
[2019-01-18 06:31] LABS: BASO # 0.1 10^3/uL (0.0-0.2); BASO % 0.5 % (0.0-1.0); EOS # 0.3 10^3/uL (0.0-0.50); EOS % 2.9 % (0.0-3.0); HEMATOCRIT 29.5 % (42.0-52.0); HEMOGLOBIN 9.3 g/dl (13.5-17.5); LYMPH # 2.2 10^3/uL (1.5-4.5); LYMPH % 20.9 % (24.0-44.0); MEAN CORPUSCULAR HGB CONC 31.5 g/dl (32.0-36.5); MEAN CORPUSCULAR VOLUME 95.2 fl (80.0-96.0); MONO # 1.1 10^3/uL (0.0-0.8); MONO % 10.2 % (0.0-5.0); NEUTROPHILS # 6.8 10^3/uL (1.8-7.7); NEUTROPHILS % 64.7 % (36.0-66.0); PLATELET COUNT, AUTOMATED 465 10^3/uL (150-450); WHITE BLOOD COUNT 10.5 10^3/uL (4.0-10.0)
[2019-01-18 06:54] LABS: CALCIUM LEVEL 8.2 MG/DL (8.8-10.2); CREATININE FOR GFR 1.82 MG/DL (0.70-1.30); GLOMERULAR FILTRATION RATE 38.9 (>42); POTASSIUM SERUM 4.1 MEQ/L (3.5-5.1)
--- NOTE | 2019-01-18 08:00 | IPNPDOC ---
Date Seen The patient was seen on 01/18/19. Progress Note Subjective: Right anterior shoulder hematoma worsened with pain on movement with relief when he uses percocet. no abd pain/constipation. Despite being on ivfluids, pt continues to have janette. renal us no hydro most likely transient contrast nephropathy. pt still c/o right shoulder "pamela" pain despite 2 tabs percocet q6hrs.ncreased malodrous discharge and foul-smelling noted. plans for debridement by vascular surgery on Saturday.s/p 01/14/19 right axillary bifemoral grafting by vascular nunu matty for nonhealing left foot infections due to significant peripheral arterial disease. no fever or chills overnight.still on vanco and zosyn with proteus, mrsa in w ound cx & sensitivities. Objective: Vitals (See below) General: Lying in bed, no acute distress, comfortable, AAOx3 HEENT: NC, AT. right anterior shoulder with occlusive dressing, hematoma to right medial arm CVS: RRR, +S1S2 Lungs: Fair air entry b/l, no wheezing, rhonchi or rales Abdomen: Remains soft without distention or tenderness Extremities: No evidence of right leg edema, left leg with trace edema, - Calf tenderness Skin: Left foot with erythema / warmth / tenderness, area of blistering noted, L 2nd digit amputation; cellulitis appears improved . axillary graft site clean dry. 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 Alcazar's office the week prior. Patient was advised to to visit Dr. Zhang of vascular surgery. Patient had attempted to follow-up on Saturday, however, was unable to follow through an appointment. He presented to the ER with worsening left foot pain. In the emergency room, patient was found to have cellulitis and was admitted to the hospitalist service for further evaluation and treatment. Dr. Alcazar's contact me directly and I have consult to Dr. Zhang for likely angioplasty on 01/08/2019. Left foot cellulitis with PVD s/p L leg angioplasty -vascular surgery consulted on iv vanco and zosyn defer to vascular surgery fo postop anticoagulation prn pain meds 01/14/19 right axillary bifemoral grafting by vascular surgery for nonhealing left foot infections due to significant peripheral arterial disease. no fever or chills overnight. still on vanco and zosyn with proteus, mrsa in wound cx & sensitivities. plans for debridement on 01/19/19. HTN - BP well controlled - c/w Amlodipine and Labetalol with holding parameters Acute kidney injury contrast nephropathy ivfluid trial and serial mp. CAD (Hx of [place], 1991) - c/w ASA 81 BPH - Currently not on any medications Hx of Meningiomas - s/p Resection 10/2008 DVT prophylaxis - c/w Heparin VS, I&O, 24H, Fishbone Vital Signs/I&O Vital Signs Date Time Temp Pulse Resp B/P (MAP) Pulse Ox O2 Delivery O2 Flow Rate FiO2 01/18/19 05:37 97.2 78 18 153/74 (100) 97 01/14/19 21:35 2 I&O- Last 24 Hours up to 6 AM 01/18/19 06:00 Intake Total 3670 ml Output Total 2300 ml Balance 1370 ml Laboratory Data 24H LABS Laboratory Tests 2 01/17/19 11:41: Bedside Glucose (Misc Panel) 110 01/17/19 16:34: Bedside Glucose (Misc Panel) 135H 01/18/19 06:00: Immature Granulocyte % (Auto) 0.8, White Blood Count 10.5H, Red Blood Count 3.10L, Hemoglobin 9.3L, Hematocrit 29.5L, Mean Corpuscular Volume 95.2, Mean Corpuscular Hemoglobin 30.0, Mean Corpuscular Hemoglobin Concent 31.5L, Red Cell Distribution Width 14.1, Platelet Count 465H, Neutrophils (%) (Auto) 64.7, Lymphocytes (%) (Auto) 20.9L, Monocytes (%) (Auto) 10.2H, Eosinophils (%) (Auto) 2.9, Basophils (%) (Auto) 0.5, Neutrophils # (Auto) 6.8, Lymphocytes # (Auto) 2.2, Monocytes # (Auto) 1.1H, Eosinophils # (Auto) 0.3, Basophils # (Auto) 0.1, Nucleated Red Blood Cells % (auto) 0.0, Anion Gap 9, Glomerular Filtration Rate 38.9L, Blood Urea Nitrogen 24H, Creatinine 1.82H, Sodium Level 140, Potassium Level 4.1, Chloride Level 109H, Carbon Dioxide Level 22, Calcium Level 8.2L CBC/BMP Laboratory Tests 01/18/19 06:00 Red Blood Count 3.10 L, Mean Corpuscular Volume 95.2, Mean Corpuscular Hemoglobin 30.0, Mean Corpuscular Hemoglobin Concent 31.5 L, Red Cell Distrib ution Width 14.1, Neutrophils (%) (Auto) 64.7, Lymphocytes (%) (Auto) 20.9 L, Monocytes (%) (Auto) 10.2 H, Eosinophils (%) (Auto) 2.9, Basophils (%) (Auto) 0.5, Neutrophils # (Auto) 6.8, Lymphocytes # (Auto) 2.2, Monocytes # (Auto) 1.1 H, Eosinophils # (Auto) 0.3, Basophils # (Auto) 0.1, Calcium Level 8.2 L Microbiology Microbiology 01/08/19 Wound Culture - Final, Complete Proteus Mirabilis Staph.aureus Methicillin Resis Enterococcus Faecalis OLE KULKARNI MD Jan 18, 2019 08:00
[2019-01-18] MEDS ORDERED: PERCOCET 5MG/325MG TAB PO ONE (08:15)
[2019-01-18] MEDS ORDERED: MORPHINE 4 MG/ML 1ML VIAL/SYRINGE (J2270) IV ONE (08:15)
[2019-01-18] MEDS: ASPIRIN 81 MG ENTERIC TAB PO SCH (08:22)
[2019-01-18] MEDS: amLODIPine 10 MG TAB PO SCH (08:22)
[2019-01-18] MEDS: LABETALOL 100 MG TAB PO SCH ×3 (08:22→20:31)
[2019-01-18] MEDS: NS 1,000 ML IV SCH ×2 (08:23→23:35)
[2019-01-18] MEDS: PERCOCET 5MG/325MG TAB PO PRN ×2 (12:49→20:30)
[2019-01-18 14:00] VITALS: BP 140/69
[2019-01-18 20:58] VITALS: BP 136/78
[2019-01-18] MEDS: VANCOMYCIN HCL 1,000 MG, VIAL MATE ADAPTER 1 EACH in D5W 250 ML IV SCH (22:33)
[2019-01-19] VITALS (7 sets, daily range): BP systolic 129–158; BP diastolic 59–80
[2019-01-19] MEDS: HEPARIN SOD (PORCINE) 5000 UNITS/ML VIAL SQ SCH ×3 (05:01→21:36)
[2019-01-19] MEDS: D5W/0.45% SODIUM CHLORIDE 1,000 ML IV SCH ×2 (05:03→20:20)
[2019-01-19] MEDS: PIPERACILLIN/TAZOBACTAM SOD 2.25 GM in D5W MINI-BAG PLUS 50 ML IV SCH ×4 (05:03→23:47)
[2019-01-19] MEDS: NS 1,000 ML IV SCH (05:03)
[2019-01-19] MEDS: PERCOCET 5MG/325MG TAB PO PRN ×4 (05:05→21:36)
[2019-01-19 06:25] LABS: BASO % 0.4 % (0.0-1.0); EOS # 0.3 10^3/uL (0.0-0.50); EOS % 2.6 % (0.0-3.0); HEMATOCRIT 27.5 % (42.0-52.0); HEMOGLOBIN 8.6 g/dl (13.5-17.5); LYMPH % 20.8 % (24.0-44.0); MEAN CORPUSCULAR HEMOGLOBIN 29.3 pg (27.0-33.0); MEAN CORPUSCULAR HGB CONC 31.3 g/dl (32.0-36.5); MEAN CORPUSCULAR VOLUME 93.5 fl (80.0-96.0); MONO % 10.4 % (0.0-5.0); NEUTROPHILS # 6.4 10^3/uL (1.8-7.7); PLATELET COUNT, AUTOMATED 472 10^3/uL (150-450); RED BLOOD COUNT 2.94 10^6/uL (4.30-6.10); WHITE BLOOD COUNT 9.8 10^3/uL (4.0-10.0)
[2019-01-19 06:45] LABS: CALCIUM LEVEL 7.8 MG/DL (8.8-10.2); CREATININE FOR GFR 1.7 MG/DL (0.70-1.30); POTASSIUM SERUM 4.1 MEQ/L (3.5-5.1)
--- NOTE | 2019-01-19 07:33 | IPNPDOC ---
Date Seen The patient was seen on 01/19/19. Progress Note Subjective: No c/o sob despite being on ivfluids. no other issues overnight. npo for debridement of the left foot today. Right anterior shoulder hematoma worsened with pain on movement with relief when he uses percocet. no abd pain/constipation. Despite being on ivfluids, pt continues to have janette. renal us no hydro most likely transient contrast nephropathy. pt still c/o right shoulder "pamela" pain despite 2 tabs percocet q6hrs.ncreased malodrous discharge and foul-smelling noted. plans for debridement by vascular surgery on Saturday.s/p 01/14/19 right axillary bifemoral grafting by vascular surgery for nonhealing left foot infections due to significant peripheral arterial disease. no fever or chills overnight.still on vanco and zosyn with proteus, mrsa in w ound cx & sensitivities. Objective: Vitals (See below) General: Lying in bed, no acute distress, comfortable, AAOx3 HEENT: NC, AT. right anterior shoulder with occlusive dressing, hematoma to right medial arm CVS: RRR, +S1S2 Lungs: Fair air entry b/l, no wheezing, rhonchi or rales Abdomen: Remains soft without distention or tenderness Extremities: No evidence of right leg edema, left leg with trace edema, - Calf tenderness Skin: Left foot with erythema / warmth / tenderness, area of blistering noted, L 2nd digit amputation; cellulitis appears improved . axillary graft site clean dry. 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 Alcazar's office the week prior. Patient was advised to to visit Dr. Zhang of vascular surgery. Patient had attempted to follow-up on Saturday, however, was unable to follow through an appointment. He presented to the ER with worsening left foot pain. In the emergency room, patient was found to have cellulitis and was admitted to the hospitalist service for further evaluation and treatment. Dr. Alcazar's contact me directly and I have consult to Dr. Zhang for likely angioplasty on 01/08/2019. Left foot cellulitis with PVD s/p L leg angioplasty -vascular surgery consulted on iv vanco and zosyn defer to vascular surgery fo postop anticoagulation prn pain meds 01/14/19 right axillary bifemoral grafting by vascular surgery for nonhealing left foot infections due to significant peripheral arterial disease. no fever or chills overnight. still on vanco and zosyn with proteus, mrsa in wound cx & sensitivities. plans for debridement on 01/19/19. HTN - BP well controlled - c/w Amlodipine and Labetalol with holding parameters Acute kidney injury contrast nephropathy ivfluid trial and serial mp. CAD (Hx of [place], 1991) - c/w ASA 81 BPH - Currently not on any medications Hx of Meningiomas - s/p Resection 10/2008 DVT prophylaxis - c/w Heparin VS, I&O, 24H, Fishbone Vital Signs/I&O Vital Signs Date Time Temp Pulse Resp B/P (MAP) Pulse Ox O2 Delivery O2 Flow Rate FiO2 01/19/19 05:39 97.7 78 18 152/77 (102) 97 01/14/19 21:35 2 I&O- Last 24 Hours up to 6 AM 01/19/19 06:00 Intake Total 2925 ml Output Total 3100 ml Balance -175 ml Laboratory Data 24H LABS Laboratory Tests 2 01/18/19 11:35: Bedside Glucose (Misc Panel) 130H 01/19/19 06:08: Immature Granulocyte % (Auto) 0.8, White Blood Count 9.8, Red Blood Count 2.94L, Hemoglobin 8.6L, Hematocrit 27.5L, Mean Corpuscular Volume 93.5, Mean Corpuscular Hemoglobin 29.3, Mean Corpuscular Hemoglobin Concent 31.3L, Red Cell Distribution Width 14.4, Platelet Count 472H, Neutrophils (%) (Auto) 65.0, Lymphocytes (%) (Auto) 20.8L, Monocytes (%) (Auto) 10.4H, Eosinophils (%) (Auto) 2.6, Basophils (%) (Auto) 0.4, Neutrophils # (Auto) 6.4, Lymphocytes # (Auto) 2.0, Monocytes # (Auto) 1.0H, Eosinophils # (Auto) 0.3, Basophils # (Auto) 0.0, Nucleated Red Blood Cells % (auto) 0.0, Anion Gap 8, Glomerular Filtration Rate 42.0, Blood Urea Nitrogen 22H, Creatinine 1.70H, Sodium Level 142, Potassium Level 4.1, Chloride Level 111H, Carbon Dioxide Level 23, Calcium Level 7.8L CBC/BMP Laboratory Tests 01/19/19 06:08 Red Blood Count 2.94 L, Mean Corpuscular Volume 93.5, Mean Corpuscular Hemoglobin 29.3, Mean Corpuscular Hemoglobin Concent 31.3 L, Red Cell Distribution Width 14.4, Neutrophils (%) (Auto) 65.0, Lymphocytes (%) (Auto) 20.8 L, Monocytes (%) (Auto) 10.4 H, Eosinophils (%) (Auto) 2.6, Basophils (%) (Auto) 0.4, Neutrophils # (Auto) 6.4, Lymphocytes # (Auto) 2.0, Monocytes # (Auto) 1.0 H, Eosinophils # (Auto) 0.3, Basophils # (Auto) 0.0, Calcium Level 7.8 L OLE KULKARNI MD Jan 19, 2019 07:33
[2019-01-19 08:44] LABS: VANCOMYCIN RANDOM 20.4 UG/ML
[2019-01-19] MEDS: amLODIPine 10 MG TAB PO SCH (08:51)
[2019-01-19] MEDS: ASPIRIN 81 MG ENTERIC TAB PO SCH (08:52)
[2019-01-19] MEDS: LABETALOL 100 MG TAB PO SCH ×3 (08:52→21:35)
--- NOTE | 2019-01-19 10:01 | PHACANCOPD ---
PHARMACY VANCOMYCIN DOSING Pt Demographics Demographics Patient Age:73 , Weight:100.910 , Gender: male Vancomycin Vancomycin indication: ssti Vancomycin Target Ranges: 15-20 mcg/ml Vancomycin Load Y/N: Yes Load Dose Date Time Vancomycin Load Dose: 750mg Date: 01/11 Time: ~11am Vancomycin Dose Date: 01/16/19. Current Vancomycin Dose: [DOSE HELD PENDING DESIRED VANCO GOAL (15-20 mcg/ml)] Intermittent Dosing?: No Labs Creatinine Clearance Date:01/16/19. Creatinine Clearance: [< 20 ml/min ARF]. Assessment and Plan Maintaining Current Dose?: Yes Reason for dose change: No Dose Change Pharmacist Note Pharmacist Note 01/19/19: A vancomycin random level was obtained this morning as the patient's scr continues to trend down (2.1 on 01/16/19 to 1.7 today). The random level resulted at 20.4mcg/ml. We will continue the patient on his current reduced regimen of 1g IV Q36H for now until his kidney function returns to baseline. A follow-up trough level has been scheduled to be drawn tomorrow, 01/20/19, at 1000. We will continue to monitor and make further dose adjustments if needed. 01/16/19: Vancomycin PharmD Note: SUBSEQUENT VANCO DOSES HAVE BEEN HELD IN THE INTERVAL FOLLOWING AND INCREASE IN HIS CREATININE. HE IS NOTED TO HAVE BEEN ADMINISTERED IODINATED DYE PRIOR TO HIS MRI AND REMAINED NPO PENDING SURGERY. SEEN IN HIS LABS, HIS VANCO TROUGH AT 23:00 LAST EVENING = 34.4mcg/ml; 7HRS LATER A RANDOM LEVEL = 29.2mcg/ml RESULTING IN AN ELIMINATION CONSTANT (Erasmo -hr) = 0.0234-hr. ANOTHER VANCO RANDOM LEVEL THIS EVENING AT 18:00 = 22.3mcg/ml LENDING TO A CALCULATED Erasmo = 0.0224hr. HIS ELIMINATION OF THE MEDICATION APPEARS STABILIZED AT THIS TIME. A CALCULATED NEW FREQUENCY (T) = 36hrs AND A Thold = 18 ADDITIONAL HOURS BEFORE THE VANCO TROUGH IS AT THE LOWER END OF HIS GOAL (15mcg/ml). Soraya, PharmD [facility] Jan 19, 2019 10:01
[2019-01-19] MEDS ORDERED: PROPOFOL 200 MG/20 ML VIAL As Ordered ONE (19:01)
[2019-01-19] MEDS ORDERED: fentaNYL 100 MCG/2 ML INJECTION (J3010) As Ordered ONE (19:11)
[2019-01-19] MEDS ORDERED: MIDAZOLAM INJ 2 MG/2 ML VIAL (J2250) As Ordered ONE (19:12)
[2019-01-19] MEDS ORDERED: ONDANSETRON 4MG/2ML VIAL (J2405) IV PRN (20:30)
[2019-01-19] MEDS ORDERED: fentaNYL 100 MCG/2 ML INJECTION (J3010) IV PRN (20:30)
[2019-01-19] MEDS ORDERED: PERCOCET 5MG/325MG TAB PO PRN (20:30)
[2019-01-19] MEDS ORDERED: LR 1,000 ML IV SCH (20:30)
[2019-01-20 00:20] VITALS: BP 134/62
[2019-01-20 01:20] VITALS: BP 130/62
[2019-01-20] MEDS ORDERED: PERCOCET 5MG/325MG TAB PO ONE (02:30)
[2019-01-20] MEDS: HEPARIN SOD (PORCINE) 5000 UNITS/ML VIAL SQ SCH ×3 (05:26→21:07)
[2019-01-20] MEDS: PIPERACILLIN/TAZOBACTAM SOD 2.25 GM in D5W MINI-BAG PLUS 50 ML IV SCH ×3 (05:26→17:09)
[2019-01-20 05:55] VITALS: BP 149/72
[2019-01-20 07:21] LABS: BASO # 0.1 10^3/uL (0.0-0.2); BASO % 0.6 % (0.0-1.0); EOS # 0.2 10^3/uL (0.0-0.50); EOS % 2.3 % (0.0-3.0); HEMATOCRIT 28.6 % (42.0-52.0); HEMOGLOBIN 9.1 g/dl (13.5-17.5); LYMPH # 2.1 10^3/uL (1.5-4.5); MEAN CORPUSCULAR HEMOGLOBIN 29.9 pg (27.0-33.0); MEAN CORPUSCULAR HGB CONC 31.8 g/dl (32.0-36.5); MEAN CORPUSCULAR VOLUME 94.1 fl (80.0-96.0); MONO # 1.1 10^3/uL (0.0-0.8); MONO % 10.5 % (0.0-5.0); NEUTROPHILS # 6.9 10^3/uL (1.8-7.7); PLATELET COUNT, AUTOMATED 487 10^3/uL (150-450); RED BLOOD COUNT 3.04 10^6/uL (4.30-6.10); WHITE BLOOD COUNT 10.4 10^3/uL (4.0-10.0)
[2019-01-20 07:45] LABS: CALCIUM LEVEL 8.1 MG/DL (8.8-10.2); CREATININE FOR GFR 1.64 MG/DL (0.70-1.30); GLOMERULAR FILTRATION RATE 43.8 (>42)
[2019-01-20] MEDS: ASPIRIN 81 MG ENTERIC TAB PO SCH (08:34)
[2019-01-20] MEDS: PERCOCET 5MG/325MG TAB PO PRN ×3 (08:35→21:07)
[2019-01-20] MEDS: LABETALOL 100 MG TAB PO SCH ×3 (08:35→21:08)
[2019-01-20] MEDS: amLODIPine 10 MG TAB PO SCH (08:37)
[2019-01-20] MEDS: VANCOMYCIN HCL 1,000 MG, VIAL MATE ADAPTER 1 EACH in D5W 250 ML IV SCH (12:18)
--- NOTE | 2019-01-20 12:50 | PHACANCOPD ---
PHARMACY VANCOMYCIN DOSING Pt Demographics Demographics Patient Age:73 , Weight:100.910 , Gender: male Vancomycin Vancomycin indication: ssti Vancomycin Target Ranges: 15-20 mcg/ml Vancomycin Load Y/N: Yes Load Dose Date Time Vancomycin Load Dose: 750mg Date: 01/11 Time: ~11am Vancomycin Dose Date: 01/16/19. Current Vancomycin Dose: [DOSE HELD PENDING DESIRED VANCO GOAL (15-20 mcg/ml)] Intermittent Dosing?: No Labs Micro Microbiology 01/19/19 Gram Stain - Final, Resulted 01/19/19 Wound Culture, Resulted Pending 01/19/19 Anaerobic Culture, Resulted Pending Creatinine Clearance Date:01/16/19. Creatinine Clearance: [< 20 ml/min ARF]. Assessment and Plan Maintaining Current Dose?: Yes Reason for dose change: No Dose Change Pharmacist Note Pharmacist Note 01/20/19: Day #10 vancomycin therapy. Vancomycin trough level this morning resulted at 10.3mcg/ml. Scr continues to trend down (1.64 today from 1.7 yesterday) as does BUN (19 today from 22 yesterday). Now that the pts renal function is gradually trending back towards baseline, we will change the patient's vancomycin regimen from 1g IV Q36H to 1g IV Q24H (est crcl~45ml/min based on CGAdjBW formula). We will continue to monitor closely and draw further levels accordingly. 01/19/19: A vancomycin random level was obtained this morning as the patient's scr continues to trend down (2.1 on 01/16/19 to 1.7 today). The random level r esulted at 20.4mcg/ml. We will continue the patient on his current reduced regimen of 1g IV Q36H for now until his kidney function returns to baseline. A follow-up trough level has been scheduled to be drawn tomorrow, 01/20/19, at 1000. We will continue to monitor and make further dose adjustments if needed. 01/16/19: Vancomycin PharmD Note: SUBSEQUENT VANCO DOSES HAVE BEEN HELD IN THE INTERVAL FOLLOWING AND INCREASE IN HIS CREATININE. HE IS NOTED TO HAVE BEEN ADMINISTERED IODINATED DYE PRIOR TO HIS MRI AND REMAINED NPO PENDING SURGERY. SEEN IN HIS LABS, HIS VANCO TROUGH AT 23:00 LAST EVENING = 34.4mcg/ml; 7HRS LATER A RANDOM LEVEL = 29.2mcg/ml RESULTING IN AN ELIMINATION CONSTANT (Erasmo -hr) = 0.0234-hr. ANOTHER VANCO RANDOM LEVEL THIS EVENING AT 18:00 = 22.3mcg/ml LENDING TO A CALCULATED Erasmo = 0.0224hr. HIS ELIMINATION OF THE MEDICATION APPEARS STABILIZED AT THIS TIME. A CALCULATED NEW FREQUENCY (T) = 36hrs AND A Thold = 18 ADDITIONAL HOURS BEFORE THE VANCO TROUGH IS AT THE LOWER END OF HIS GOAL (15mcg/ml). Soraya, PharmD [facility] Jan 20, 2019 12:50
[2019-01-20 14:00] VITALS: BP 133/66
--- NOTE | 2019-01-20 17:15 | IPN ---
DATE: 01/20/2019 SUBJECTIVE: Patient is seen and examined in the room today. Patient had a wound debridement yesterday. He tolerated the procedure well. No complaints. The discomfort at the right front chest is still bothering him but the discomfort is under control. Denied any fever or chills. OBJECTIVE: VITAL SIGNS: Temperature is 97.7, pulse is 79, respiratory rate 16, blood pressure 149/72, pulse oximetry is 97% in room air. GENERAL: Patient is alert and awake, mild distress secondary to persistent right upper chest discomfort. HEENT: Normocephalic, atraumatic. Extraocular motor grossly intact. CARDIOVASCULAR: Positive S1, S2, regular rate. LUNGS: Clear to auscultation bilaterally. ABDOMEN: Soft, nontender. Bowel sounds present. MUSCULOSKELETAL: There is a dressing located on the right anterior shoulder. There is some tenderness to palpation around the edge. No active bleeding noted. Mild edema bilaterally. LABORATORY DATA: WBC is 10.4, hemoglobin 9.1, hematocrit 28.6 platelet count is 487. Sodium 139, potassium 4, chloride 108, carbon dioxide 24, BUN 19, creatinine is 1.64, GFR is 43.8, fasting glucose 119, calcium is 8.1. ASSESSMENT AND PLAN: 1. Right foot cellulitis. Patient has significant peripheral vascular disease, status post left leg angioplasty. Vascular surgery consulted. Patient had a toe amputation before. Patient had wound debridement on yesterday. He tolerated the procedure well. Continue physical therapy. Wound culture reviewed. 2. Peripheral vascular disease, status post left leg angioplasty, on aspirin. 3. Acute kidney disease, improving. Patient had IV fluid support. Acute kidney injury (GIA) suspected due to contrast nephropathy. 4. Coronary artery disease, myocardial infarction ([place]) in 1991, on aspirin. 5. Benign prostatic hypertrophy (BPH). Continue to monitor. 6. History of meningioma, status post resection. 7. Deep vein thrombosis (DVT) prophylaxis, on heparin. [facility]
[2019-01-20 22:00] VITALS: BP 131/62
[2019-01-21] MEDS: PIPERACILLIN/TAZOBACTAM SOD 2.25 GM in D5W MINI-BAG PLUS 50 ML IV SCH ×3 (00:11→11:37)
[2019-01-21] MEDS: PERCOCET 5MG/325MG TAB PO PRN ×3 (03:33→20:17)
[2019-01-21 06:00] VITALS: BP 145/70
[2019-01-21] MEDS: HEPARIN SOD (PORCINE) 5000 UNITS/ML VIAL SQ SCH ×3 (06:18→20:19)
[2019-01-21 08:41] LABS: HEMATOCRIT 29.7 % (42.0-52.0); HEMOGLOBIN 9.4 g/dl (13.5-17.5); MEAN CORPUSCULAR HEMOGLOBIN 29.7 pg (27.0-33.0); MEAN CORPUSCULAR HGB CONC 31.6 g/dl (32.0-36.5); MEAN CORPUSCULAR VOLUME 93.7 fl (80.0-96.0); PLATELET COUNT, AUTOMATED 481 10^3/uL (150-450); RED BLOOD COUNT 3.17 10^6/uL (4.30-6.10); WHITE BLOOD COUNT 9.7 10^3/uL (4.0-10.0)
[2019-01-21] MEDS: ASPIRIN 81 MG ENTERIC TAB PO SCH (08:47)
[2019-01-21] MEDS: LABETALOL 100 MG TAB PO SCH ×3 (08:47→20:18)
[2019-01-21] MEDS: amLODIPine 10 MG TAB PO SCH (08:48)
[2019-01-21] MEDS: DAKIN'S 0.25% HALF-STRENGTH SOLN 480 ML TOP SCH (09:00)
[2019-01-21 09:11] LABS: CALCIUM LEVEL 8.1 MG/DL (8.8-10.2); CREATININE FOR GFR 1.76 MG/DL (0.70-1.30); GLOMERULAR FILTRATION RATE 40.4 (>42); POTASSIUM SERUM 3.8 MEQ/L (3.5-5.1)
[2019-01-21] MEDS ORDERED: VANCOMYCIN HCL 1,000 MG, VIAL MATE ADAPTER 1 EACH in D5W 250 ML IV SCH (13:00)
[2019-01-21 14:03] VITALS: BP 125/60
[2019-01-21] MEDS ORDERED: NS 1,000 ML IV SCH (17:30)
--- NOTE | 2019-01-21 17:59 | IPNPDOC ---
Text Note Date of Service The patient was seen on 01/21/19. NOTE SUBJECTIVE: Patient is seen and examined in the room today. Patient denies acute complaint. Denied any fever or chill. No significant discomfort at left foot. OBJECTIVE: VITAL SIGNS: Listed below. GENERAL: Patient is alert and awake, mild distress secondary to persistent right upper chest discomfort. HEENT: Normocephalic, atraumatic. Extraocular motor grossly intact. CARDIOVASCULAR: Positive S1, S2, regular rate. LUNGS: Clear to auscultation bilaterally. ABDOMEN: Soft, nontender. Bowel sounds present. MUSCULOSKELETAL: There is a dressing located on the right anterior shoulder. No active bleeding noted. Dressing on left foot is dry. LABORATORY DATA: Listed below. ASSESSMENT AND PLAN: #. Right foot cellulitis. - Patient has significant peripheral vascular disease, status post left leg angioplasty. Vascular surgery consulted. Wound debridement on 01/19/18. He tolera tom the procedure well. Continue physical therapy. - Wound culture during debridement shows Proteus, and Staphylococcus. #. Acute kidney disease, - Previously patient had acute kidney injury (GIA) suspected due to contrast nephropathy. - Antibiotic adjusted. Input and output reviewed. Trial of IV fluid. #. Peripheral vascular disease, status post left leg angioplasty, on aspirin. #. Acute kidney disease, improving. Patient had IV fluid support. Acute kidney injury (GIA) suspected due to contrast nephropathy. #. Coronary artery disease, myocardial infarction ([place]) in 1991, on aspirin. #. Benign prostatic hypertrophy (BPH). Continue to monitor. #. History of meningioma, status post resection. #. Deep vein thrombosis (DVT) prophylaxis, on heparin. VS,Fishbone, I+O VS, Fishbone, I+O Laboratory Tests 01/21/19 08:31 Red Blood Count 3.17 L, Mean Corpuscular Volume 93.7, Mean Corpuscular Hemoglobin 29.7, Mean Corpuscular Hemoglobin Concent 31.6 L, Red Cell Distribution Width 14.4, Calcium Level 8.1 L Vital Signs Date Time Temp Pulse Resp B/P (MAP) Pulse Ox O2 Delivery O2 Flow Rate FiO2 01/21/19 15:10 75 125/60 01/21/19 14:03 98.1 18 96 01/19/19 19:50 2 I&O- Last 24 Hours up to 6 AM 01/21/19 06:00 Intake Total 1190 ml Output Total 2350 ml Balance -1160 ml TEMITOPE RAMIREZ DO Jan 21, 2019 17:59
[2019-01-21] MEDS: LevoFLOXacin 750 MG TABLET PO SCH (18:08)
[2019-01-21 20:00] VITALS: BP 158/74
[2019-01-21] MEDS: LINEZOLID 600MG TABLET (ZYVOX) PO SCH (20:17)
[2019-01-22 04:00] VITALS: BP 138/72
[2019-01-22] MEDS: HEPARIN SOD (PORCINE) 5000 UNITS/ML VIAL SQ SCH ×3 (04:09→21:55)
[2019-01-22] MEDS: PERCOCET 5MG/325MG TAB PO PRN ×3 (04:10→21:56)
[2019-01-22 06:47] LABS: HEMATOCRIT 27.5 % (42.0-52.0); HEMOGLOBIN 8.8 g/dl (13.5-17.5); MEAN CORPUSCULAR HEMOGLOBIN 29.7 pg (27.0-33.0); MEAN CORPUSCULAR VOLUME 92.9 fl (80.0-96.0); PLATELET COUNT, AUTOMATED 466 10^3/uL (150-450); RED BLOOD COUNT 2.96 10^6/uL (4.30-6.10); WHITE BLOOD COUNT 10.2 10^3/uL (4.0-10.0)
[2019-01-22 07:07] LABS: C REACTIVE PROTEIN QUANTITATIV 4.7 MG/DL (0.00-0.30); CALCIUM LEVEL 7.9 MG/DL (8.8-10.2); CREATININE FOR GFR 1.6 MG/DL (0.70-1.30); GLOMERULAR FILTRATION RATE 45.1 (>42); MAGNESIUM LEVEL 1.9 MG/DL (1.8-2.4)
[2019-01-22 07:10] LABS: ERYTHROCYTE SEDIMENTATION RATE 104 mm/hr (0-20)
[2019-01-22] MEDS: LABETALOL 100 MG TAB PO SCH ×3 (08:37→21:56)
[2019-01-22] MEDS: LINEZOLID 600MG TABLET (ZYVOX) PO SCH ×2 (08:38→21:56)
[2019-01-22] MEDS: ASPIRIN 81 MG ENTERIC TAB PO SCH (08:38)
[2019-01-22] MEDS: amLODIPine 10 MG TAB PO SCH (08:38)
[2019-01-22] MEDS: DAKIN'S 0.25% HALF-STRENGTH SOLN 480 ML TOP SCH (10:38)
--- NOTE | 2019-01-22 11:06 | IPNPDOC ---
Text Note Date of Service The patient was seen on 01/22/19. NOTE SUBJECTIVE: Patient was interviewed and examined today at bedside. He was found to be laying in bed watching TV comfortably. He is in no acute distress and care is no acute complaints. Patient continues to occasionally complain of pain/discomfort in his left foot. Yesterday, he also noted having deep right shoulder pain most likely related to his angiogram incision site. His right-sided chest pain has improved, although sometimes present with exaggerated right upper extremity motions. Patient denies any chest pain/pressure. He's had no difficulty breathing, no new onset of coughing or wheezing. He has not required supplemental oxygen. No abdominal pain or discomfort. Patient has been stooling and urinating appropriately. Patient was seen by Dr. Zhang yesterday who was also very pleased with the progress his foot has been making status post angiography. OBJECTIVE: VITALS: Please see below. EXAM: Gen.: Patient is awake, alert, oriented 3. He is in no acute distress, he is able to participate in his care Head: Cephalic, atraumatic EENT: EOMI, sclera nonicteric, mucous membranes moist Neck: Trachea is midline, no JVD, no appreciable lymphadenopathy Chest: Status post angiography incision right upper chest. Dressed appropriately, clean, dry, no signs of bleeding or drainage. No surrounding erythema Cardiac: Regular rate and rhythm, normal S1 and S2 without murmur Lungs: Clear to auscultation bilaterally Abdomen: soft, nontender, nondistended Extremities: Left lower extremity bandaged from the distal ankle and forefoot. First and 3-5 toes are visible. Second digit s/p amputation. Capillary refill roughly 2.5 seconds in all digits. Patient is able to move digits. Sensation is intact. Pulses via Doppler. Overlying skin is intact, normal in color and free of erythema. Dressing is dry and intact. Psych: Mood and affect are appropriate for current medical condition LABS: Please see below. IMAGING: Vascular US (01/06/19): No acute findings. No evidence of deep vein thrombosis. Foot X-Ray (01/06/19): Amputation of the second digit as described. Otherwise, negative left foot. CT angio (01/09/19): Extensive atherosclerotic plaque calcification scattered from the infrarenal aorta to the popliteal arteries and trifurcation vessels. Occlusion above the aortobiiliac stent reconstitution of flow in the common iliac arteries and retrograde flow via collaterals into the internal iliacs. A more tight stenosis in the proximal right and left common iliac. Multiple stenoses throughout the femoral arteries with calcific plaques. The popliteal artery behind the right knee prosthesis cannot be visualized. Multiple stenoses in the left popliteal artery and trifurcation vessels are seen to the ankle better left and right. Renal US (01/16/19): Small bladder diverticulum and trabeculation of the bladder wall. Otherwise negative urinary tract sonography. MICROBIOLOGY: Wound Culture (01/19/19): Proteus Mirabilis and MRSA, sensitive to linezolid and levofloxacin respectively Please see below. PLAN: Right foot cellulitis Wound debridement on 01/19/19. ESR remains elevated at 104. C-reactive protein elevated at 4.7. Wound cultures were performed and grew Proteus and MRSA. Antibiotic therapy transitioned from Rocephin to Linezolid 600 mg twice a day and Levofloxacin 750 mg Q2D based on sensitivities. Currently followed with physical therapy, will likely require a walker and commode at discharge Peripheral Vascular Disease Patient is currently s/p left leg angioplasty Percocet every 4 hours when necessary for severe pain On aspirin Acute Kidney Disease Suspected etiology likely 2/2 to contrast nephropathy Given IV fluid trial BUN/creatinine of 20/1.6, improvement from a 20/1.76 yesterday, continue to monitor Hypertension Labetalol HCL 100 mg Amlodipine 10 mg Coronary Artery Disease Status post [place] in 1991 On aspirin Benign prostatic hypertrophy Currently urinating without difficulty History of meningioma Status post resection DVT prophylaxis: She is currently on subcutaneous heparin VS,Fishbone, I+O VS, Fishbone, I+O Laboratory Tests 01/22/19 06:25 Red Blood Count 2.96 L, Mean Corpuscular Volume 92.9, Mean Corpuscular Hemoglobin 29.7, Mean Corpuscular Hemoglobin Concent 32.0, Red Cell Distribution Width 14.6 H, Calcium Level 7.9 L Vital Signs Date Time Temp Pulse Resp B/P (MAP) Pulse Ox O2 Delivery O2 Flow Rate FiO2 01/22/19 08:37 77 157/75 01/22/19 04:40 16 01/22/19 04:00 97.6 99 01/19/19 19:50 2 I&O- Last 24 Hours up to 6 AM 01/22/19 06:00 Intake Total 1680 ml Output Total 2350 ml Balance -670 ml GME ATTESTATION GME ATTESTATION My faculty preceptor for this patient encounter was physically present during the encounter and was fully available. All aspects of the patient interview, examination, medical decision making process, and medical care plan development were reviewed and approved by the faculty preceptor. The faculty preceptor is aware and concurs with the plan as stated in the body of this note and will atte st to such by his/her cosignature. KELLEY ANTHONY DO Jan 22, 2019 11:06
[2019-01-22 14:00] VITALS: BP 135/66
[2019-01-22 20:21] VITALS: BP 134/63
[2019-01-23] VITALS (8 sets, daily range): BP systolic 131–156; BP diastolic 61–85
[2019-01-23] MEDS: HEPARIN SOD (PORCINE) 5000 UNITS/ML VIAL SQ SCH ×3 (06:06→21:14)
[2019-01-23 06:24] LABS: HEMATOCRIT 28.1 % (42.0-52.0); MEAN CORPUSCULAR HEMOGLOBIN 29.9 pg (27.0-33.0); MEAN CORPUSCULAR VOLUME 93.4 fl (80.0-96.0); PLATELET COUNT, AUTOMATED 483 10^3/uL (150-450); RED BLOOD COUNT 3.01 10^6/uL (4.30-6.10); WHITE BLOOD COUNT 11.1 10^3/uL (4.0-10.0)
[2019-01-23 06:47] LABS: CALCIUM LEVEL 8.5 MG/DL (8.8-10.2); CREATININE FOR GFR 1.63 MG/DL (0.70-1.30); GLOMERULAR FILTRATION RATE 44.1 (>42); POTASSIUM SERUM 3.9 MEQ/L (3.5-5.1)
[2019-01-23] MEDS: LINEZOLID 600MG TABLET (ZYVOX) PO SCH ×2 (07:41→21:13)
[2019-01-23] MEDS: amLODIPine 10 MG TAB PO SCH (07:41)
[2019-01-23] MEDS: ASPIRIN 81 MG ENTERIC TAB PO SCH (07:41)
[2019-01-23] MEDS: LABETALOL 100 MG TAB PO SCH ×3 (07:41→21:13)
[2019-01-23] MEDS: DAKIN'S 0.25% HALF-STRENGTH SOLN 480 ML TOP SCH (07:58)
[2019-01-23] MEDS: PERCOCET 5MG/325MG TAB PO PRN (07:58)
--- NOTE | 2019-01-23 08:12 | CR ---
DATE OF CONSULTATION: 01/22/2019 I was asked to consult by Dr. Kennedy for evaluation of ischemic foot with infected arterial ulcer with methicillin-resistant Staphylococcus aureus (MRSA) and Proteus. HISTORY OF PRESENT ILLNESS: Mr. Boucher is a 73-year-old gentleman with a history of peripheral vascular disease who had a problem with an ulcer of the left foot for about a year. He was seen by Dr. Alcazar on December 26 and was noted to have an ischemic ulcer and underwent amputation of that left second toe in the office. He had a previous history of stenting to the left lower extremity, but had no recent followup. On January 02, he was seen in followup with Dr. Alcazar who recommended emergent vascular intervention. On the , the patient noticed that his foot was turning discolored and he was having significant pain, subjective fever and chills and he was very concerned about the swelling in his foot and the discoloration and therefore he came to the emergency room. Ultrasound showed no evidence of deep vein thrombosis (DVT). X-ray had no osteomyelitis. The patient had already an amputation done at the bedside. He was started on vancomycin which was discontinued on January 21 and the patient was switched on January 21 to linezolid and Levaquin anticipating discharge soon. Today, he denies any complaints. No nausea, vomiting or diarrhea. He does have trouble with urination because of surgery he had for phimosis, but no dysuria or frequency. He has a weak stream. No back pain. He has pain in his foot. He states that Dr. Zhang was going to probably taken tomorrow for some more debridement before discharge. PAST MEDICAL HISTORY: Significant for peripheral vascular disease, coronary artery disease status post myocardial infarction in 1991, hypertension, benign prostatic hypertrophy, peripheral vascular disease, acquired phimosis with secondary balanitis xerotica, history of meningioma resected in 2008. PAST SURGICAL HISTORY: Right total knee replacement, left second toe amputation, meningioma surgery and stenting lower extremities, with angiogram done this admission. ALLERGIES: - FENOFIBRATE - TAMSULOSIN - BEE VENOM FAMILY HISTORY: Nonrevealing. MEDICATIONS: - Dakin's with dressing changes - Desitin to periwound - aspirin 81 mg by mouth daily - levofloxacin 750 mg by mouth every other day - labetalol 100 mg by mouth three times a day - amlodipine 10 mg by mouth daily - Percocet 2 tablets every four as needed - Tylenol as needed - linezolid 600 mg by mouth twice a day, today is day #2 LABORATORY DATA: White count is 10.2, hemoglobin 8.8, hematocrit 27.5, platelets 466. ESR 104 on admission. ESR was 9. Sodium 139, potassium 4, chloride 107, bicarb 25, BUN 20, creatinine 1.6 which is an increase from his admission creatinine of 0.7, calcium 7.9, magnesium 1.90, CRP 4.7 and that has decreased from 26.3. On 01/06, blood cultures two sets, were negative. On 01/08, wound culture had Proteus mirabilis. MRSA and E. Faecalis. On 01/19, wound cultures had no cells, no organisms seen, but a few MRSA and Proteus still present in the wound. IMAGING STUDIES: Renal ultrasound done on 01/16 shows renal cortical echogenicity consistent with normal kidneys. Right kidney measuring 12 x 6.2 cm, left kidney 12 x 4.9. There is a small bladder diverticulum. Otherwise normal. CT angiogram done on 01/09 of the abdominal aorta and runoff by Dr. Zhang shows extensive atherosclerotic plaque scattered from the infrarenal aorta to the popliteal artery, occlusion of the aorto biiliac stent, and reconstitution of flow in the common iliac arteries from retrograde flow via the collaterals. Multiple stenoses throughout the femoral arteries with calcified plaques. The popliteal artery behind the right knee prosthesis cannot be visualized. Multiple stenoses in the left popliteal artery as well. Foot x-ray done on 01/06 shows amputation of the second digit. Review of the procedure note, the patient underwent on 01/14 a right axillary bifemoral graft. PHYSICAL EXAMINATION: He is a healthy-looking gentleman in no acute distress. Temperature is 97.5, pulse 77, respirations 16, blood pressure 135/66, O2 sat 97% on room air. Heart: Normal S1 and S2. No murmurs appreciated. Lungs: Clear. No wheezes, rales or rhonchi. Abdomen: Obese, soft, nontender. There is ecchymosis at the left groin extending all the way to the hip with a Tegaderm dressing. The right groin as well has a Tegaderm dressing that was changed to an Optifoam. There was no ecchymosis at that area, but he has a lot of pamela in place at the surgical site. Back: No costovertebral angle (CVA) or lumbosacral tenderness. Scrotum with very retracted penis with a very small orifice. The testicle has an open ulceration measuring about 1 x 2 cm. There is no purulent discharge. Extremities: +1 pitting edema bilaterally. Left foot has a reamputation of the second toe. There is also an open wound on the dorsal aspect of the foot measuring about 4 x 3 cm with purplish discoloration of the foot. There is exposed tendon. There is no purulence. There was serosanguineous discharge that was noted on the dressing. IMPRESSION: This is a 73-year-old gentleman with peripheral vascular disease, coronary artery disease, hypertension, and no history of diabetes who presented with an ischemic ulcer with severe stenosis of the lower extremity. He had gangrene of the toe which was amputated as an outpatient. The patient underwent revascularization by Dr. Zhang. He is feeling much better. He had a left foot cellulitis and abscess status post irrigation and debridement (I and D). He has persistent MRSA and Proteus mirabilis on culture. He has been treated with a 10-day course of IV vancomycin and Zosyn and now he has been switched appropriately to linezolid and levofloxacin. PLAN Would continue with linezolid 600 mg by mouth twice a day day #2, started on January 21, and levofloxacin 750 mg by mouth every other day. The patient's creatinine is improving and I would suggest changing his dose today. We will discuss some more with pharmacy. Continue to monitor CBC, ESR, CRP weekly. If the patient is ready for discharge, I would continue current antibiotics for 2 weeks. The case has been discussed with Dr. Kennedy. YANIRA
--- NOTE | 2019-01-23 08:47 | IPNPDOC ---
Text Note Date of Service The patient was seen on 01/23/19. NOTE SUBJECTIVE: Patient was interviewed and examined today at bedside. Patient was found to be comfortable, lying upright in bed watching television. Patient states that he would like to decrease the amount of pain medication he is taking from 2 Percocet to 1 tab every 4 hours as needed and we will happily oblige. Patient is scheduled for a second breathing this afternoon with Dr. Zhang. He denies any acute complaints. Specifically, he denies chest pain/pressure, difficulty breathing, abdominal pain, nausea vomiting, difficulty urinating or stooling. OBJECTIVE: VITALS: Please see below. EXAM: Gen.: Patient is awake, alert, oriented 3. He is in no acute distress, he is able to participate in his care Head: Cephalic, atraumatic EENT: EOMI, sclera nonicteric, mucous membranes moist Neck: Trachea is midline, no JVD, no appreciable lymphadenopathy Chest: Status post angiography incision right upper chest, some peripheral bruising noted today. Dressed appropriately, clean, dry, no signs of bleeding or drainage. No surrounding erythema Cardiac: Regular rate and rhythm, normal S1 and S2 without murmur Lungs: Clear to auscultation bilaterally Abdomen: soft, nontender, nondistended Extremities: Left lower extremity bandaged from the distal ankle and forefoot. First and 3-5 toes are visible. Second digit s/p amputation. Capillary refill roughly 2.5 seconds in all digits. Patient is able to move digits. Sensation is intact. Pulses via Doppler. Overlying skin is intact, normal in color and free of erythema. Dressing is dry and intact. LLE showing signs of new hair growth. Skin is pink in color. Psych: Mood and affect are appropriate for current medical condition LABS: Please see below. IMAGING: Vascular US (01/06/19): No acute findings. No evidence of deep vein thrombosis. Foot X-Ray (01/06/19): Amputation of the second digit as described. Otherwise, negative left foot. CT angio (01/09/19): Extensive atherosclerotic plaque calcification scattered from the infrarenal aorta to the popliteal arteries and trifurcation vessels. Occlusion above the aortobiiliac stent reconstitution of flow in the common iliac arteries and retrograde flow via collaterals into the internal iliacs. A more tight stenosis in the proximal right and left common iliac. Multiple stenoses throughout the femoral arteries with calcific plaques. The popliteal artery behind the right knee prosthesis cannot be visualized. Multiple stenoses in the left popliteal artery and trifurcation vessels are seen to the ankle better left and right. Renal US (01/16/19): Small bladder diverticulum and trabeculation of the bladder wall. Otherwise negative urinary tract sonography. MICROBIOLOGY: Wound Culture (01/19/19): Proteus Mirabilis and MRSA, sensitive to linezolid and levofloxacin respectively Please see below. PLAN: Right foot cellulitis with L 2nd digit amputation s/p gangrene: Wound debridement on 01/19/19. Scheduled for another debridement this afternoon. Wound cultures were performed and grew Proteus and MRSA. C/w Linezolid 600 mg twice a day (day#2) and Levofloxacin 750 mg Q2D. ESR remains elevated at 104. C-reactive protein elevated at 4.7. Plan to continue antibiotic therapy for two weeks per ID recommendations Peripheral Vascular Disease: Patient is currently s/p left leg angioplasty Skin is pink and warm 1x Percocet every 4 hours when necessary for severe pain On aspirin Acute Kidney Disease: Suspected etiology likely 2/2 to contrast nephropathy BUN/creatinine of 20/1.63, continue to monitor Hypertension Labetalol HCL 100 mg Amlodipine 10 mg Coronary Artery Disease Status post [place] in 1991 On aspirin Benign prostatic hypertrophy Currently urinating without difficulty History of meningioma Status post resection DVT prophylaxis: She is currently on subcutaneous heparin Followed with physical therapy, will likely require a walker and commode at discharge VS,Fishbone, I+O VS, Fishbone, I+O Laboratory Tests 01/23/19 06:03 Red Blood Count 3.01 L, Mean Corpuscular Volume 93.4, Mean Corpuscular Hemoglobin 29.9, Mean Corpuscular Hemoglobin Concent 32.0, Red Cell Distribution Width 14.6 H, Calcium Level 8.5 L Vital Signs Date Time Temp Pulse Resp B/P (MAP) Pulse Ox O2 Delivery O2 Flow Rate FiO2 01/23/19 08:00 98.0 75 17 148/70 (96) 98 01/19/19 19:50 2 I&O- Last 24 Hours up to 6 AM 01/23/19 06:00 Intake Total 2880 ml Output Total 2725 ml Balance 155 ml GME ATTESTATION GME ATTESTATION My faculty preceptor for this patient encounter was physically present during the encounter and was fully available. All aspects of the patient interview, examination, medical decision making process, and medical care plan development were reviewed and approved by the faculty preceptor. The faculty preceptor is aware and concurs with the plan as stated in the body of this note and will attest to such by his/her cosignature. KELLEY ANTHONY DO Jan 23, 2019 08:47
[2019-01-23] MEDS ORDERED: fentaNYL 100 MCG/2 ML INJECTION (J3010) As Ordered ONE (19:11)
[2019-01-23] MEDS ORDERED: MIDAZOLAM INJ 2 MG/2 ML VIAL (J2250) As Ordered ONE (19:11)
[2019-01-23] MEDS ORDERED: PROPOFOL 200 MG/20 ML VIAL As Ordered ONE (19:11)
[2019-01-23] MEDS ORDERED: NORCO, ANEXSIA 5/325MG TABLET (HYDROcodone/ACETAMINOPHEN) As Ordered ONE (19:43)
[2019-01-23] MEDS: NORCO, ANEXSIA 5/325MG TABLET (HYDROcodone/ACETAMINOPHEN) PO PRN ×2 (19:44→20:57)
[2019-01-23] MEDS ORDERED: LR 1,000 ML IV SCH ×2 (20:00→21:30)
[2019-01-23] MEDS ORDERED: HYDROMORPHONE HCL 0.5 MG/ 0.5 ML SYRINGE (J1170 PER 1) IV PRN ×2 (20:00→21:30)
[2019-01-23] MEDS ORDERED: fentaNYL 100 MCG/2 ML INJECTION (J3010) IV PRN ×2 (20:00→21:30)
[2019-01-23] MEDS: LevoFLOXacin 750 MG TABLET PO SCH (21:14)
[2019-01-23] MEDS ORDERED: NORCO, ANEXSIA 5/325MG TABLET (HYDROcodone/ACETAMINOPHEN) PO PRN (21:30)
[2019-01-24] VITALS (7 sets, daily range): BP systolic 117–141; BP diastolic 64–75
[2019-01-24] MEDS: PERCOCET 5MG/325MG TAB PO PRN ×5 (00:40→20:22)
[2019-01-24] MEDS: HEPARIN SOD (PORCINE) 5000 UNITS/ML VIAL SQ SCH ×3 (05:34→21:37)
[2019-01-24 06:20] LABS: HEMATOCRIT 32.2 % (42.0-52.0); HEMOGLOBIN 10.1 g/dl (13.5-17.5); MEAN CORPUSCULAR HEMOGLOBIN 30.1 pg (27.0-33.0); MEAN CORPUSCULAR HGB CONC 31.4 g/dl (32.0-36.5); MEAN CORPUSCULAR VOLUME 96.1 fl (80.0-96.0); PLATELET COUNT, AUTOMATED 503 10^3/uL (150-450); RED BLOOD COUNT 3.35 10^6/uL (4.30-6.10); WHITE BLOOD COUNT 11.9 10^3/uL (4.0-10.0)
[2019-01-24 06:44] LABS: CALCIUM LEVEL 8.4 MG/DL (8.8-10.2); CREATININE FOR GFR 1.78 MG/DL (0.70-1.30); GLOMERULAR FILTRATION RATE 39.9 (>42); MAGNESIUM LEVEL 2.1 MG/DL (1.8-2.4)
[2019-01-24] MEDS: ASPIRIN 81 MG ENTERIC TAB PO SCH (08:57)
[2019-01-24] MEDS: amLODIPine 10 MG TAB PO SCH (08:58)
[2019-01-24] MEDS: LINEZOLID 600MG TABLET (ZYVOX) PO SCH ×2 (08:58→20:20)
[2019-01-24] MEDS: LABETALOL 100 MG TAB PO SCH ×3 (08:58→20:19)
[2019-01-24] MEDS: DAKIN'S 0.25% HALF-STRENGTH SOLN 480 ML TOP SCH (09:00)
--- NOTE | 2019-01-24 13:10 | IPNPDOC ---
Text Note Date of Service The patient was seen on 01/24/19. NOTE SUBJECTIVE: Patient was interviewed and examined in his hospital room. The patient was found to be lying down watching TV, in no acute distress. At the time of my initial examination, patient reported some mild discomfort in his upper right shoulder consistent with his previous discomfort. He denied any lower extremity pain. When patient was visited by Dr. Kennedy later in the morning, patient was describing diffuse pain "all over". He subsequently received a Percocet per his PRN orders. Upon reexamination by myself, patient reported his pain improving. A brief discussion was had with the patient regarding potential benefit of a pelvis CT scan to rule out any possible infections, pockets or abscesses. Patient was in agreement with imaging study. He denied any chest pain/pressure other than that related to his right upper chest incision site. Denied any shortness of breath or difficulty breathing. He has been moving his bowels and urinating appropriately. No abdominal pain or discomfort, no nausea or vomiting. OBJECTIVE: VITALS: Please see below. EXAM: Gen.: Patient is awake, alert, oriented 3. He is in no acute distress, he is able to participate in his care Head: Cephalic, atraumatic EENT: EOMI, sclera nonicteric, mucous membranes moist Neck: Trachea is midline, no JVD, no appreciable lymphadenopathy Chest: Status post angiography incision right upper chest, some peripheral bruising noted, question of underlying hematoma Dressed appropriately, clean, dry, no signs of bleeding or drainage. Cardiac: Regular rate and rhythm, normal S1 and S2 without murmur Lungs: Clear to auscultation bilaterally Abdomen: soft, nontender, nondistended Extremities: Left lower extremity bandaged from the distal ankle and forefoot, we wrapped status post debridement last evening. First and 3-5 toes are visible. Second digit s/p amputation. Patient is able to move digits. Sensation is intact. Pulse via Doppler. Overlying skin is intact, normal in color and free of erythema. Dressing is dry and intact. Groin incision sites examined. Some non-serous drainage noted on the right with question of underlying hematoma. Bilateral bruising appreciated. Psych: Mood and affect are appropriate for current medical condition LABS: Please see below. IMAGING: Vascular US (01/06/19): No acute findings. No evidence of deep vein thrombosis. Foot X-Ray (01/06/19): Amputation of the second digit as described. Otherwise, negative left foot. CT angio (01/09/19): Extensive atherosclerotic plaque calcification scattered from the infrarenal aorta to the popliteal arteries and trifurcation vessels. Occlusion above the aortobiiliac stent reconstitution of flow in the common iliac arteries and retrograde flow via collaterals into the internal iliacs. A more tight stenosis in the proximal right and left common iliac. Multiple stenoses throughout the femoral arteries with calcific plaques. The popliteal artery behind the right knee prosthesis cannot be visualized. Multiple stenoses in the left popliteal artery and trifurcation vessels are seen to the ankle better left and right. Renal US (01/16/19): Small bladder diverticulum and trabeculation of the bladder wall. Otherwise negative urinary tract sonography. MICROBIOLOGY: Wound Culture (01/19/19): Proteus Mirabilis and MRSA, sensitive to linezolid and levofloxacin respectively Please see below. PLAN: -Right foot cellulitis with L 2nd digit amputation s/p gangrene: -Wound debridement on 01/19/19. Scheduled for another debridement this afternoon. -Wound cultures were performed and grew Proteus and MRSA. -C/w Linezolid 600 mg twice a day (day#2) and Levofloxacin 750 mg Q2D. -ESR remains elevated at 104. C-reactive protein elevated at 4.7. -S/P re-debridement on 01/23 -Plan to continue antibiotic therapy for two weeks per ID recommendations Peripheral Vascular Disease: -Patient is currently s/p left leg angioplasty -Continues discomfort in R shoulder incision. -LE Skin is pink and warm -Patient is complaining bilateral groin pain at his incision sites. Question of hematoma on the R. Obvious bruising bilaterally. Patient also carries a mildly elevated leukocytosis. Pelvis CT without contrast to r/o developing infection/abscess. -On aspirin for antiplatelet therapy. Acute Kidney Disease: -Suspected etiology likely 2/2 to contrast nephropathy -BUN/creatinine of 21/1.78 -Continue I's and O's and daily weights. Hypertension -Labetalol HCL 100 mg -Amlodipine 10 mg Coronary Artery Disease -Status post [place] in 1991 -On aspirin Benign prostatic hypertrophy -Currently urinating without difficulty History of meningioma -Status post resection DVT prophylaxis: She is currently on subcutaneous heparin Followed with physical therapy, will likely require a walker and commode at discharge VS,Elisae, I+O VS, Fishbone, I+O Laboratory Tests 01/24/19 06:03 Red Blood Count 3.35 L, Mean Corpuscular Volume 96.1 H, Mean Corpuscular Hemoglobin 30.1, Mean Corpuscular Hemoglobin Concent 31.4 L, Red Cell Distribution Width 14.7 H, Calcium Level 8.4 L Vital Signs Date Time Temp Pulse Resp B/P (MAP) Pulse Ox O2 Delivery O2 Flow Rate FiO2 01/24/19 12:17 16 01/24/19 10:00 97.2 70 135/65 (88) 96 01/23/19 19:20 2 I&O- Last 24 Hours up to 6 AM 01/24/19 06:00 Intake Total 1020 ml Output Total 2775 ml Balance -1755 ml GME ATTESTATION GME ATTESTATION My faculty preceptor for this patient encounter was physically present during the encounter and was fully available. All aspects of the patient interview, examination, medical decision making process, and medical care plan development were reviewed and approved by the faculty preceptor. The faculty preceptor is aware and concurs with the plan as stated in the body of this note and will attest to such by his/her cosignature. KELLEY ANTHONY DO Jan 24, 2019 13:10
--- NOTE | 2019-01-24 13:38 | REP ---
Clinical: Pelvic pain with recent stent placement. Technique: Axial noncontrast images through the pelvis with coronal and sagittal re-formations. Comparison: 01/09/2019. Findings: The patient is noted to be status post recent presumed right axillary to femoral - femoral stent graft placement. There is a moderate amount of subcutaneous infiltration surrounding the visualized portion of the axillary stent along the right lateral abdominopelvic wall along with a moderate fluid collection measuring 8.5 x 4.0 x 10.0 cm maximal dimensions then surrounding the more distal aspect of the stent in the subcutaneous tissues of the right pelvis/groin where the stent bifurcates towards the right common femoral artery and left femoral artery. As the graft passes towards the left groin there is a second collection/hematoma measuring approximately 6.0 x 4.5 x 7.5 cm and includes a small amount of gas adjacent to the anastomoses with the left common femoral artery. Visualized portions of the small large bowel demonstrate diverticulosis. Normal appendix identified in the right lower quadrant. Bladder includes left anterior diverticulum measuring approximately 3 cm. Prostate gland is moderately enlarged with mass effect on the base of the bladder. No pelvic fluid or ascites noted. Atherosclerotic changes to the visualized aorta and vasculature noted along with evidence for distal aortic stent graft. Skeletal structures demonstrate age-related degenerative changes. Impression: Fluid collection/hematoma/subcutaneous infiltration surrounds the recently placed axillary to femoral - femoral stent graft as described above. Correlation and follow up recommended. Electronically Signed by Harsha Myers MD 01/24/2019 01:29 P
[2019-01-25] MEDS: PERCOCET 5MG/325MG TAB PO PRN ×4 (04:16→21:31)
[2019-01-25] MEDS: HEPARIN SOD (PORCINE) 5000 UNITS/ML VIAL SQ SCH ×3 (05:17→21:30)
[2019-01-25 06:00] VITALS: BP 146/73
[2019-01-25 06:30] LABS: HEMATOCRIT 29.9 % (42.0-52.0); HEMOGLOBIN 9.4 g/dl (13.5-17.5); MEAN CORPUSCULAR HEMOGLOBIN 29.8 pg (27.0-33.0); MEAN CORPUSCULAR HGB CONC 31.4 g/dl (32.0-36.5); MEAN CORPUSCULAR VOLUME 94.9 fl (80.0-96.0); PLATELET COUNT, AUTOMATED 427 10^3/uL (150-450); RED BLOOD COUNT 3.15 10^6/uL (4.30-6.10); WHITE BLOOD COUNT 10.8 10^3/uL (4.0-10.0)
[2019-01-25 06:48] LABS: CALCIUM LEVEL 8.2 MG/DL (8.8-10.2); CREATININE FOR GFR 1.63 MG/DL (0.70-1.30); GLOMERULAR FILTRATION RATE 44.1 (>42); POTASSIUM SERUM 3.7 MEQ/L (3.5-5.1)
[2019-01-25] MEDS: DAKIN'S 0.25% HALF-STRENGTH SOLN 480 ML TOP SCH (09:00)
[2019-01-25] MEDS: ASPIRIN 81 MG ENTERIC TAB PO SCH (09:09)
[2019-01-25] MEDS: LINEZOLID 600MG TABLET (ZYVOX) PO SCH ×2 (09:09→20:28)
[2019-01-25] MEDS: LABETALOL 100 MG TAB PO SCH ×3 (09:10→20:29)
[2019-01-25] MEDS: amLODIPine 10 MG TAB PO SCH (09:11)
[2019-01-25 14:00] VITALS: BP 148/69
--- NOTE | 2019-01-25 16:16 | IPNPDOC ---
Text Note Date of Service The patient was seen on 01/25/19. NOTE SUBJECTIVE: Patient is seen and examined in the room today. Patient states his right front shoulder, inguinal areas and left foot are not hurting as much as before. Denied any fever or chill. OBJECTIVE: VITAL SIGNS: Listed below. GENERAL: Patient is alert and awake, No distress. HEENT: Normocephalic, atraumatic. Extraocular motor grossly intact. CARDIOVASCULAR: Positive S1, S2, regular rate. LUNGS: Clear to auscultation bilaterally. ABDOMEN: Soft, nontender. Bowel sounds present. MUSCULOSKELETAL: There is a dressing located on the right anterior shoulder. No active bleeding noted. Dressing noted at bilateral inguinal areas. Mild tenderness to palpation. Dressing on left foot is dry. LABORATORY DATA: Listed below. ASSESSMENT AND PLAN: #. Right foot cellulitis. - Patient has significant peripheral vascular disease, status post left leg angioplasty. Vascular surgery consulted. Wound debridement on 01/19/18 and 01/23/19. Continue physical therapy. - Wound culture during debridement shows Proteus, and Staphylococcus. Infectious disease consulted. On PO Zyvox and Levaquin. #. Peripheral vascular disease, - S/P right axillary bifemoral grafting and stent placement by vascular surgery on 01/14/19. On aspirin. - Patient complained about bilateral inguinal pain and right upper chest pain. - CT Pelvis on 01/24/19 demonstrated Fluid collection/hematoma/subcutaneous infiltration surrounds the recently placed axillary to femoral-femoral stent graft. Finding discussed with Vascular surgery. Suspect these findings are normal post-surgical findings. Continued conservative management. #. History of acute kidney disease, - Previously patient had acute kidney injury (GIA) suspected due to contrast nephropathy. - Antibiotic adjusted. Input and output reviewed. #. Coronary artery disease, myocardial infarction (PR) in 1991, on aspirin. #. Benign prostatic hypertrophy (BPH). Continue to monitor. #. History of meningioma, status post resection. #. Deep vein thrombosis (DVT) prophylaxis, on heparin. VS,Fishbone, I+O VS, Fishbone, I+O Laboratory Tests 01/25/19 06:09 Red Blood Count 3.15 L, Mean Corpuscular Volume 94.9, Mean Corpuscular Hemoglobin 29.8, Mean Corpuscular Hemoglobin Concent 31.4 L, Red Cell Distribution Width 14.7 H, Calcium Level 8.2 L Vital Signs Date Time Temp Pulse Resp B/P (MAP) Pulse Ox O2 Delivery O2 Flow Rate FiO2 01/25/19 14:00 97.2 79 18 148/69 (95) 97 01/23/19 19:20 2 I&O- Last 24 Hours up to 6 AM 01/25/19 06:00 Intake Total 1970 ml Output Total 1925 ml Balance 45 ml TEMITOPE RAMIREZ DO Jan 25, 2019 16:16
[2019-01-25] MEDS: LevoFLOXacin 750 MG TABLET PO SCH (17:10)
[2019-01-25 22:00] VITALS: BP 141/68
[2019-01-26] MEDS: HEPARIN SOD (PORCINE) 5000 UNITS/ML VIAL SQ SCH ×3 (05:30→20:59)
[2019-01-26 06:00] VITALS: BP 137/71
[2019-01-26 06:37] LABS: HEMATOCRIT 28.8 % (42.0-52.0); HEMOGLOBIN 9.1 g/dl (13.5-17.5); MEAN CORPUSCULAR HEMOGLOBIN 29.5 pg (27.0-33.0); MEAN CORPUSCULAR HGB CONC 31.6 g/dl (32.0-36.5); MEAN CORPUSCULAR VOLUME 93.5 fl (80.0-96.0); PLATELET COUNT, AUTOMATED 386 10^3/uL (150-450); RED BLOOD COUNT 3.08 10^6/uL (4.30-6.10); WHITE BLOOD COUNT 9.8 10^3/uL (4.0-10.0)
[2019-01-26 06:46] LABS: CALCIUM LEVEL 8.3 MG/DL (8.8-10.2); CREATININE FOR GFR 1.73 MG/DL (0.70-1.30); GLOMERULAR FILTRATION RATE 41.2 (>42)
[2019-01-26] MEDS: PERCOCET 5MG/325MG TAB PO PRN ×2 (08:09→22:53)
[2019-01-26] MEDS: LABETALOL 100 MG TAB PO SCH ×3 (08:09→21:00)
[2019-01-26] MEDS: ASPIRIN 81 MG ENTERIC TAB PO SCH (08:09)
[2019-01-26] MEDS: LINEZOLID 600MG TABLET (ZYVOX) PO SCH ×2 (08:10→20:59)
[2019-01-26] MEDS: amLODIPine 10 MG TAB PO SCH (08:10)
[2019-01-26] MEDS: DAKIN'S 0.25% HALF-STRENGTH SOLN 480 ML TOP SCH (10:50)
[2019-01-26 14:00] VITALS: BP 138/65
--- NOTE | 2019-01-26 14:44 | IPNPDOC ---
Text Note Date of Service The patient was seen on 01/26/19. NOTE SUBJECTIVE: Patient is seen and examined in the room today. Patient states he is feeling much better compared to yesterday. Pain is under control. He states he has good oral intake. Denied any fever or chill. OBJECTIVE: VITAL SIGNS: Listed below. GENERAL: Patient is alert and awake, No distress. HEENT: Normocephalic, atraumatic. Extraocular motor grossly intact. CARDIOVASCULAR: Positive S1, S2, regular rate. LUNGS: Clear to auscultation bilaterally. ABDOMEN: Soft, nontender. Bowel sounds present. MUSCULOSKELETAL: There is a dressing located on the right anterior shoulder. No active bleeding noted. Dressing noted at bilateral inguinal areas. Dressing on left foot is dry. LABORATORY DATA: Listed below. ASSESSMENT AND PLAN: #. Right foot cellulitis. - Patient has significant peripheral vascular disease, status post left leg angioplasty. Vascular surgery consulted. Wound debridement on 01/19/18 and 01/23/19. In the outpatient setting, patient is following Dr. Alcazar for wound care. - Wound culture during debridement shows Proteus, and Staphylococcus. Infectious disease consulted. On PO Zyvox and Levaquin. Per recommendation, 2 weeks of oral antibiotics. - Continue physical therapy. Home safety evaluation. #. Peripheral vascular disease, - S/P right axillary bifemoral grafting and stent placement by vascular surgery on 01/14/19. On aspirin. - Patient complained about bilateral inguinal pain and right upper chest pain. - CT Pelvis on 01/24/19 demonstrated Fluid collection/hematoma/subcutaneous infiltration surrounds the recently placed axillary to femoral-femoral stent graft. Finding discussed with Vascular surgery. Suspect these findings are nor mal post-surgical findings. Continued conservative management. #. History of acute kidney disease, - Previously patient had acute kidney injury (GIA) suspected due to contrast nephropathy. - Antibiotic adjusted. Input and output reviewed. #. Coronary artery disease, myocardial infarction (DC) in 1991, on aspirin. #. Benign prostatic hypertrophy (BPH). Continue to monitor. #. History of meningioma, status post resection. #. Deep vein thrombosis (DVT) prophylaxis, on heparin. VS,Fishbone, I+O VS, Fishbone, I+O Laboratory Tests 01/26/19 06:13 Red Blood Count 3.08 L, Mean Corpuscular Volume 93.5, Mean Corpuscular Hemoglobin 29.5, Mean Corpuscular Hemoglobin Concent 31.6 L, Red Cell Distribution Width 14.6 H, Calcium Level 8.3 L Vital Signs Date Time Temp Pulse Resp B/P (MAP) Pulse Ox O2 Delivery O2 Flow Rate FiO2 01/26/19 08:39 18 01/26/19 08:10 83 151/79 01/26/19 06:00 97.8 96 01/23/19 19:20 2 I&O- Last 24 Hours up to 6 AM 01/26/19 06:00 Intake Total 2050 ml Output Total 2000 ml Balance 50 ml TEMITOPE RAMIREZ DO Jan 26, 2019 14:44
[2019-01-26 16:22] LABS: C REACTIVE PROTEIN QUANTITATIV 10.6 MG/DL (0.00-0.30)
[2019-01-26 22:00] VITALS: BP 130/60
[2019-01-27] MEDS: LevoFLOXacin 250 MG TABLET PO SCH (05:30)
[2019-01-27] MEDS: HEPARIN SOD (PORCINE) 5000 UNITS/ML VIAL SQ SCH ×3 (05:30→20:23)
[2019-01-27 06:00] VITALS: BP 140/64
[2019-01-27 06:33] LABS: HEMATOCRIT 29.2 % (42.0-52.0); HEMOGLOBIN 9.2 g/dl (13.5-17.5); MEAN CORPUSCULAR HGB CONC 31.5 g/dl (32.0-36.5); MEAN CORPUSCULAR VOLUME 95.1 fl (80.0-96.0); PLATELET COUNT, AUTOMATED 345 10^3/uL (150-450); RED BLOOD COUNT 3.07 10^6/uL (4.30-6.10); WHITE BLOOD COUNT 9.9 10^3/uL (4.0-10.0)
[2019-01-27 06:57] LABS: CALCIUM LEVEL 8.3 MG/DL (8.8-10.2); CREATININE FOR GFR 1.62 MG/DL (0.70-1.30); GLOMERULAR FILTRATION RATE 44.4 (>42); POTASSIUM SERUM 3.9 MEQ/L (3.5-5.1)
[2019-01-27] MEDS: LINEZOLID 600MG TABLET (ZYVOX) PO SCH ×2 (09:42→20:23)
[2019-01-27] MEDS: LABETALOL 100 MG TAB PO SCH ×3 (09:43→20:23)
[2019-01-27] MEDS: amLODIPine 10 MG TAB PO SCH (09:43)
[2019-01-27] MEDS: ASPIRIN 81 MG ENTERIC TAB PO SCH (09:43)
--- NOTE | 2019-01-27 09:44 | IPN ---
DATE: 01/26/2019 Mr. Boucher is frustrated because he wanted to be discharged home today, then he was told that physical therapy needed to clear him as he was very weak walking to the window in his. He has no nausea, vomiting or diarrhea. No abdominal pain, fever or chills. PHYSICAL EXAMINATION: Heart normal S1-S2. No murmurs. Lungs are clear. No wheezes or rhonchi. Abdomen soft, nontender. No hepatosplenomegaly. Extremities left second toe amputation with open wound with some whitish fibrinous material. Left dorsal aspect of the foot has an open wound measuring about 4 x 2 cm with tendons exposed. There is also some fibrinous material. There is no surrounding cellulitis. There is no purulent discharge. Bilateral groin dressings, right groin has pamela, slight swelling and ecchymosis, no tenderness. Right shoulder ecchymosis. LABORATORIES: White count 9.8, hemoglobin 9.1, hematocrit 28.8, platelets 386. Sodium 138, potassium 4, chloride 105, bicarb 27, BUN 22, creatinine 1.73, glucose 118, calcium 8.3, magnesium 2, CRP 10.6. IMPRESSION: 1. Right foot cellulitis and abscess with culture positive for Methicillin-resistant Staphylococcus aureus (MRSA) and Proteus on p.o. Zyvox and Levaquin for a total duration of 2 weeks. 2. Peripheral vascular disease status post right axillary bifemoral grafting and stent done by Dr. Zhang on 01/14/2019. The patient continues on aspirin. 3. Debilitation from lack of ambulation. The patient needs to pass physical therapy tomorrow before he could be discharged. PLAN: Continue p.o. Levaquin and Zyvox, currently day 5 out of 14. We will adjust the dose of levofloxacin to 250 mg daily.
[2019-01-27] MEDS: PERCOCET 5MG/325MG TAB PO PRN ×2 (12:35→20:22)
[2019-01-27] MEDS: DAKIN'S 0.25% HALF-STRENGTH SOLN 480 ML TOP SCH ×2 (13:30→20:24)
[2019-01-27] MEDS: DIAPER RELIEF PASTE (DESITIN) 60GM TOP SCH ×2 (13:30→20:24)
[2019-01-27 14:00] VITALS: BP 125/58
--- NOTE | 2019-01-27 17:15 | IPNPDOC ---
Subjective Date Seen The patient was seen on 01/27/19. Subjective Chief Complaint/HPI The patient is a 72-year-old gentleman who initially presented to the ER with complaint of swelling of his left foot admitted to the hospital for possible cellulitis Events since last encounter The patient reports he is doing well. Denies any problems with chest pain/shortness of breath/abdominal pain/nausea or vomiting. Tolerating oral intake. Worked with physical therapy earlierreports that working with therapy seemed to have aggravated the pain in his left foot a little. He reports oral pain medications do seem to help with the foot pain. Objective Physical Examination General Exam: Positive: Alert, Cooperative Eye Exam: Positive: PERRLA ENT Exam: Positive: Mucous membr. moist/pink Chest Exam: Positive: Clear to auscultation, Normal air movement Heart Exam: Positive: Other (S1, S2 heard, no rubs or gallops) Abdomen Exam: Positive: Soft, Other (nontender) Skin Exam: Positive: Other skin issue (left foot in dressingthis was not taken off. Bilateral groin/inguinal areadressing in place. Surrounding skin has some ecchymosis.) Neuro Exam: Positive: Other (awake, alert. Answering questions appropriately.) Assessment /Plan Assessment Right foot cellulitis in setting of significant peripheral vascular disease status post debridement on 01/19/19 and 01/23/19 as well as status post left lower extremity angioplasty: -Continue by mouth Zyvox and Levaquin for total 2 week treatment per ID recommendations -Wound cultures and shown Proteus and Staphylococcus aureus -Patient to follow-up with Dr. Alcazar on discharge for left foot wound care Peripheral vascular disease status post right axillary bifemoral graft and stent placement by vascular surgery on 01/14/19: -Continue aspirin -Patient being seen by vascular surgery -Fluid collections noted on CT pelvis from 01/24/19 likely related to patient's surgery/normal postoperative findingsmonitor Acute kidney injury suspected due to contrast nephropathy -Creatinine has improved a little. Coronary disease status post [facility] in 1991: -Continue aspirin BPH History of meningioma status post resection DVT prophylaxis: -Subcutaneous heparin Disposition: Anticipate possible discharge home tomorrow with home health. Discussed with leather case finisher/RN. Outpatient follow-up with Dr. Alcazar on discharge for left foot wound care Plan/VTE VTE Prophylaxis Ordered?: Yes VS, I&O, 24H, Fishbone Vital Signs/I&O Vital Signs Date Time Temp Pulse Resp B/P (MAP) Pulse Ox O2 Delivery O2 Flow Rate FiO2 01/27/19 15:45 84 124/76 01/27/19 14:00 97.1 20 97 01/27/19 12:35 18.0 I&O- Last 24 Hours up to 6 AM0 01/27/19 06:00 Intake Total 1710 ml Output Total 2425 ml Balance -715 ml Laboratory Data 24H LABS Laboratory Tests 2 01/27/19 06:12: Nucleated Red Blood Cells % (auto) 0.0, Anion Gap 7L, Glomerular Filtration Rate 44.4, Blood Urea Nitrogen 23H, Creatinine 1.62H, Sodium Level 139, Potassium Level 3.9, Chloride Level 107, Carbon Dioxide Level 25, Calcium Level 8.3L, Magnesium Level 2.0 CBC/BMP Laboratory Tests 01/27/19 06:12 Red Blood Count 3.07 L, Mean Corpuscular Volume 95.1, Mean Corpuscular Hemo globin 30.0, Mean Corpuscular Hemoglobin Concent 31.5 L, Red Cell Distribution Width 14.8 H, Calcium Level 8.3 L Microbiology Microbiology 01/19/19 Gram Stain - Final, Complete 01/19/19 Wound Culture - Final, Complete Proteus Mirabilis Staph.aureus Methicillin Resis 01/19/19 Anaerobic Culture - Final, Complete WANDA CHRISTINE MD Jan 27, 2019 17:15
[2019-01-27 22:00] VITALS: BP 149/74
[2019-01-28] MEDS: PERCOCET 5MG/325MG TAB PO PRN ×2 (03:15→11:11)
[2019-01-28] MEDS: LevoFLOXacin 250 MG TABLET PO SCH (05:12)
[2019-01-28] MEDS: HEPARIN SOD (PORCINE) 5000 UNITS/ML VIAL SQ SCH (05:12)
[2019-01-28 06:00] VITALS: BP 138/67
[2019-01-28 06:08] LABS: HEMATOCRIT 30.4 % (42.0-52.0); HEMOGLOBIN 9.6 g/dl (13.5-17.5); MEAN CORPUSCULAR HGB CONC 31.6 g/dl (32.0-36.5); PLATELET COUNT, AUTOMATED 350 10^3/uL (150-450); WHITE BLOOD COUNT 11.8 10^3/uL (4.0-10.0)
[2019-01-28 06:27] LABS: CALCIUM LEVEL 8.1 MG/DL (8.8-10.2); CREATININE FOR GFR 1.58 MG/DL (0.70-1.30); GLOMERULAR FILTRATION RATE 45.7 (>42); MAGNESIUM LEVEL 1.9 MG/DL (1.8-2.4)
[2019-01-28 08:40] VITALS: BP 154/89
[2019-01-28] MEDS: ASPIRIN 81 MG ENTERIC TAB PO SCH (08:49)
[2019-01-28] MEDS: amLODIPine 10 MG TAB PO SCH (08:51)
[2019-01-28 08:54] VITALS: BP 159/84
[2019-01-28] MEDS: LABETALOL 100 MG TAB PO SCH (08:54)
[2019-01-28] MEDS: LINEZOLID 600MG TABLET (ZYVOX) PO SCH (08:56)
[2019-01-28] MEDS: DAKIN'S 0.25% HALF-STRENGTH SOLN 480 ML TOP SCH (08:58)
[2019-01-28] MEDS: DIAPER RELIEF PASTE (DESITIN) 60GM TOP SCH (08:59)
[2019-01-28] MEDS ORDERED: PERCOCET PO (11:14)
[2019-01-28] MEDS ORDERED: LEVA250T13 PO (11:14)
[2019-01-28] MEDS ORDERED: LINE1TAB PO (11:14)
[2019-01-28] MEDS ORDERED: ASPI81TAEC PO (11:14)
[2019-01-28] MEDS ORDERED: DAKI1SOL EXT (13:43)
--- NOTE | 2019-01-28 20:04 | DS.PDOC ---
Discharge Summary General Date of Admission Jan 06, 2019 at 19:18 Date of Discharge 01/28/19 Specialist/Consultants Involve: Bradley Navarro MD Specialist/Consultants Involve ID: Dr Navarro, Vascular Surgery: Dr Zhang, Wound Care: Dr Alcazar Discharge Summary PROCEDURES PERFORMED DURING STAY: Debridement of left foot wound on 01/19/19 and 01/23/[address] Alcazar Right axillarybifemoral graft and stent placement by vascular surgery Dr Zhang ADMITTING DIAGNOSES: 1. Left foot cellulitis DISCHARGE DIAGNOSES: Left foot cellulitis in setting of significant peripheral vascular disease status post debridement on 01/19/19 and 01/23/19 as well as status post left lower extremity angioplasty, Peripheral vascular disease status post right axillary bifemoral graft and stent placement by vascular surgery on 01/14/19, Acute kidney injury suspected due to contrast nephropathy, Coronary disease status post [place] in 1991, BPH, History of meningioma status post previous resection COMPLICATIONS/CHIEF COMPLAINT: Cellulitis Of Foot. HISTORY OF PRESENT ILLNESS: The patient is a 72-year-old gentleman with a previous history of peripheral vascular disease and previous left second web addition 2 weeks prior to presentation O presented to the year with complaints of swelling of his left foot. X-ray in the ER did not show ostial myelitis. Ultrasound did not show DVT. The patient was started on IV Ancef and admitted to our facility for concerns regarding left foot cellulitis. HOSPITAL COURSE: Left foot cellulitis in setting of significant peripheral vascular disease status post debridement on 01/19/19 and 01/23/19 as well as status post left lower extremity angioplasty: -The patient was seen by Dr. Alcazar as well as Dr Navarro (ID) -Wound cultures and shown Proteus and Staphylococcus aureus -Continue PO Zyvox and Levaquin for total 2 week treatment per ID recommendations -Patient to follow-up with Dr. Alcazar on discharge for left foot wound care Peripheral vascular disease status post right axillary bifemoral graft and stent placement by vascular surgery on 01/14/19: -Continue aspirin -Patient being seen by vascular surgery - Dr Zhang -Fluid collections noted on CT pelvis from 01/24/19 were likely related to patient's surgery/normal postoperative findings -Hemoglobin has been stable. Acute kidney injury suspected due to contrast nephropathy -Creatinine has improved a little. -Patient is tolerating oral intake well. -May be monitored as an outpatient Coronary disease status post NH in 1991: -Continue aspirin BPH History of meningioma status post resection On day of discharge, patient is tolerating oral intake well. He was able to ambulate with walker with physical therapy. His blood counts have been stable. Plan is for him to discharge home today with home health. He will continue oral antibiotics as noted above. DISCHARGE MEDICATIONS: Please see below. ALLERGIES: Please see below. PHYSICAL EXAMINATION ON DISCHARGE: VITAL SIGNS: Please see below. GENERAL: Patient is sitting up in chair. No distress. CARDIOVASCULAR EXAMINATION: S1, S2 heard. No rubs or gallops RESPIRATORY EXAMINATION: Clear to Auscultation bilaterally ABDOMINAL EXAMINATION: Soft. Nontender. Bilateral inguinal incisional sites with dressings in place. EXTREMITIES: Left foot in dressingthis was not taken off NEUROLOGICAL EXAMINATION: The patient is awake, alert and answering questions appropriately LABORATORY DATA: Please see below. IMAGING: Vascular ultrasound/duplex lower extremity 01/06/19: IMPRESSION: No acute findings. No evidence of deep vein thrombosis. Foot x-ray 01/06/19: Impression: Amputation of the second digit as described. Otherwise, negative left foot. CT angiogram abdominal aorta and runoff 01/09/19: VASCULAR FINDINGS: Abdominal aorta: There is atherosclerotic calcification of the infrarenal aorta with calcific and soft plaque but no tight stenosis until the level of the aortobi-iliac stent. There is atherosclerotic plaque and stenosis above the stent and poor flow in both limbs of the stent. Blood flow in the external iliac and distal common iliac arteries is through pelvic and internal iliac collaterals. Longer tight stenosis in the proximal right than left common iliac artery. There is also stenosis in the proximal external iliacs bilaterally. The common femoral arteries show atherosclerotic plaque bilaterally with some mild stenosis. I do not see significant stenosis at the takeoff of the profunda femoris. There are scattered plaques in the femoral artery in the right thigh with stenosis in the distal femoral artery above the popliteal artery. There are multiple stenoses in the popliteal artery with plaque. I would note there is a right total knee arthroplasty obscuring the popliteal artery behind it. The left common femoral shows multiple calcific plaques in the left femoral artery in the thigh shows multiple calcific plaques scattered mild stenosis, greatest in the distal femoral artery. There is better flow and diameter in the distal left femoral artery than right. Mild stenosis in the popliteal artery at the level of the knee. Renal ultrasound 01/16/19: Impression: Small bladder diverticulum and trabeculation of the bladder wall. Otherwise negative urinary tract sonography. Pelvis CT without contrast 01/24/19: Findings: The patient is noted to be status post recent presumed right axillary to femoral - femoral stent graft placement. There is a moderate amount of subcutaneous infiltration surrounding the visualized portion of the axillary stent along the right lateral abdominopelvic wall along with a moderate fluid collection measuring 8.5 x 4.0 x 10.0 cm maximal dimensions then surrounding the more distal aspect of the stent in the subcutaneous tissues of the right pelvis/groin where the stent bifurcates towards the right common femoral artery and left femoral artery. As the graft passes towards the left groin there is a second collection/hematoma measuring approximately 6.0 x 4.5 x 7.5 cm and includes a small amount of gas adjacent to the anastomoses with the left common femoral artery. Visualized portions of the small large bowel demonstrate diverticulosis. Normal appendix identified in the right lower quadrant. Bladder includes left anterior diverticulum measuring approximately 3 cm. Prostate gland is moderately enlarged with mass effect on the base of the bladder. No pelvic fluid or ascites noted. Atherosclerotic changes to the visualized aorta and vasculature noted along with evidence for distal aortic stent graft. Skeletal structures demonstrate age-related degenerative changes. Impression: Fluid collection/hematoma/subcutaneous infiltration surrounds the recently placed axillary to femoral - femoral stent graft as described above. Correlation and follow up recommended. ACTIVITY: As tolerated with walker DIET: Low-sodium diet DISCHARGE PLAN: Patient is discharged home today with home health RN/PT/OT. Outpatient follow-up with Dr. Alcazar for Left foot wound, outpatient follow- up with Dr. Zhang from vascular surgery in 1 week and outpatient follow-up with primary care provider in one week. DISPOSITION: Home with HH DISCHARGE CONDITION: Stable. TIME SPENT ON DISCHARGE: 47 minutes. Vital Signs/I&Os Vital Signs Date Time Temp Pulse Resp B/P (MAP) Pulse Ox O2 Delivery O2 Flow Rate FiO2 01/28/19 08:54 89 159/84 01/28/19 06:00 97.6 20 96 01/27/19 12:35 18.0 I&O- Last 24 Hours up to 6 AM 01/28/19 06:00 Intake Total 1898 ml Output Total 2815 ml Balance -917 ml Laboratory Data Labs 24H Laboratory Tests 2 01/28/19 05:29: Nucleated Red Blood Cells % (auto) 0.0, Anion Gap 6L, Glomerular Filtration Rate 45.7, Blood Urea Nitrogen 22H, Creatinine 1.58H, Sodium Level 137, Potassium Level 4.0, Chloride Level 106, Carbon Dioxide Level 25, Calcium Level 8.1L, Magnesium Level 1.9 CBC/BMP Laboratory Tests 01/28/19 05:29 Red Blood Count 3.20 L, Mean Corpuscular Volume 95.0, Mean Corpuscular Hemoglobin 30.0, Mean Corpuscular Hemoglobin Concent 31.6 L, Red Cell Distribution Width 14.8 H, Calcium Level 8.1 L Microbiology Microbiology 01/19/19 Gram Stain - Final, Complete 01/19/19 Wound Culture - Final, Complete Proteus Mirabilis Staph.aureus Methicillin Resis 01/19/19 Anaerobic Culture - Final, Complete Discharge Medications Scheduled Amlodipine Besylate (Amlodipine Besylate) 10 Mg Tab, 10 MG PO DAILY, (Reported) Aspirin (Aspirin EC) 81 Mg Tabec, 81 MG PO DAILY Labetalol HCl (Labetalol HCl) 100 Mg Tab, 100 MG PO TID, (Reported) Levofloxacin Hemihydrate (Levaquin) 250 Mg Tab, 250 MG PO DAILY@06 Linezolid (Linezolid) 600 Mg Tab, 600 MG PO BID Sodium Hypochlorite (Dakins Solution Full Stre 0.4-0.5 %) 480 Ml Nasra, 480 ML EXT BID Use as directed for left foot wound twice daily Scheduled PRN Nitroglycerin (Nitroglycerin) 0.4 Mg Sub, 0.4 MG SL Q5MP PRN for CHEST PAIN, (Reported) Oxycodone/Acetaminophen (Percocet 5MG/325MG Tablet) 1 Tab Tab, 1 TAB PO Q4HP PRN for SEVERE PAIN (PS 8-10) Allergies Coded Allergies: bee venom protein (honey bee) (Verified Allergy, Unknown, 01/21/19) fenofibrate (Verified Adverse Reaction, Intermediate, MYALGIA, 01/21/19) tamsulosin (Verified Adverse Reaction, Mild, DIZZY, 01/21/19) WANDA CHRSITINE MD Jan 28, 2019 11:16
--- NOTE | 2019-03-04 12:05 | RO ---
DATE OF PROCEDURE: 01/09/2019 ATTENDING SURGEON: Dr. Chung Zhang BOTTOM IRONER: PREOPERATIVE DIAGNOSIS: Bilateral lower extremity leg pain, left foot ulcers. POSTOPERATIVE DIAGNOSIS: Bilateral lower extremity leg pain, left foot ulcers. PROCEDURE: Left common femoral artery cannulation with iliofemoral angiogram, right common femoral artery cannulation with iliofemoral angiogram. INDICATION: The patient has nonhealing left foot ulcer with ischemic in gangrenous left second toe. The patient will undergo angiography with possible angioplasty stent and/or atherectomy. Risks, benefits and alternative treatment options were discussed with the patient. ANESTHESIA: Local. ESTIMATED BLOOD LOSS: Minimal. Fluid: 100 mL. DESCRIPTION OF PROCEDURE: The patient was taken to the angiography suite, placed supine on the angiography room table and prepped and draped in a standard surgical fashion. The right common femoral artery was cannulated and an angiogram performed showing occlusion of the proximal right common iliac artery. The left common femoral artery was and cannulated and angiogram showed occlusion of the left common iliac artery. Catheters and wires were removed, Mynx closure devices were used close the arteriotomies in the right left femoral arteries with an additional 10 minutes adjunctive pressure applied for hemostasis. Dressings were then applied. The patient tolerated the procedure well. All instrument, sponge and needle counts were correct at the end of the case were no complications. Dr. Zhang was present for directed the entire case. The patient was transferred holding area and subsequently to the floor in stable condition.
--- NOTE | 2019-03-04 13:57 | RO ---
DATE OF PROCEDURE: 01/19/2019 ATTENDING SURGEON: Dr. Chung Zhang BUSINESS TEAM LEADER: None. PREOPERATIVE DIAGNOSIS: Gangrene of the left 2nd toe. POSTOPERATIVE DIAGNOSIS: Gangrene of the left 2nd toe. PROCEDURE: Left 2nd toe amputation. INDICATION: The patient underwent an axillobifemoral bypass grafting due to aortoiliac atherosclerotic occlusive disease and has a gangrenous nonhealing left 2nd toe and will undergo amputation of the left second toe. Risks, benefits, and alternative treatment options were discussed with the patient. ANESTHESIA: Was local monitored anesthesia care (MAC). ESTIMATED BLOOD LOSS: Minimal. INTRAVENOUS (IV) FLUID: 150 mL. SPECIMEN: Left 2nd toe. DESCRIPTION OF PROCEDURE: The patient was taken to the operating room, placed supine on the operating room table, and then prepped and draped in a standard surgical fashion. The left 2nd toe was transected at the metatarsal head phalangeal joint space. Dressings were then applied. The patient tolerated the procedure well. All instrument, sponge, and needle counts were correct at the end of the case. There were no complications. Dr. Zhang was present for and directed the entire case. The patient was transferred to the recovery room awake, alert, extubated, and in stable condition.
--- NOTE | 2019-03-04 14:04 | RO ---
DATE OF PROCEDURE: 01/23/2019 ATTENDING SURGEON: Dr. Chung Zhang WIRE DRAWER: None. 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 PROCEDURE: Left 2nd toe amputation site debridement with removal of skin, subcutaneous tissue and muscle. ANESTHESIA: DESCRIPTION OF PROCEDURE: The patient was taken to the operating room, placed supine on the operating room table and then prepped and draped in a standard surgical fashion. Debridement was performed sharply with pickups and scalpel with removal of all nonviable tissue down to healthy bleeding tissue. Dressings were then applied. The patient tolerated the procedure well. All instrument, sponge and needle counts were correct at the end the case. There were no complications. Dr. Zhang was present for and directed the entire case. The patient was transferred to the recovery room awake, alert, extubated and in stable condition.
--- NOTE | 2019-03-04 14:08 | RO ---
DATE OF PROCEDURE: 01/14/2019 ATTENDING SURGEON: Dr. Chung Zhang BUCKLE GLUER: None. PREOPERATIVE DIAGNOSIS: Aortoiliac atherosclerotic arterial occlusive disease, left foot gangrene. POSTOPERATIVE DIAGNOSIS: Aortoiliac atherosclerotic arterial occlusive disease, left foot gangrene. PROCEDURE: Left axillobifemoral bypass grafting. INDICATION: The patient has a nonhealing left second toe ulcer and gangrene and aortic atherosclerotic occlusive disease. The patient will require axillobifemoral bypass grafting. Risks, benefits and alternative treatment options were discussed with the patient. ANESTHESIA: General endotracheal ESTIMATED BLOOD LOSS: Minimal. IV FLUIDS: 150 mL. DESCRIPTION OF PROCEDURE: The patient was taken to the operating room and placed supine on the operating room table and then prepped and draped in a standard surgical fashion. The axillary artery was exposed as well as the bilateral femoral arteries. The graft was tunneled and then the anastomosis was made of the graft to the axillary artery as well as to the femoral arteries bilaterally with good flow noted through the graft at the completion of the anastomosis. The wounds were then closed after hemostasis was obtained using #2-0 Vicryl to approximate the deeper layers and pamela to approximate the skin. Dressings were applied. The patient tolerated the procedure well. All instrument, sponge and needle counts were correct at the end of the case. There were no complications. Dr. Zhang was present for and directed the entire case. The patient was transferred to the recovery room awake, alert, extubated and in stable condition.
== END 2019-01-28 14:20 | disposition home health service (06) | DRG 253 ==
LOC: M ED 15:58 → EDBD 15:58 → EEVIPCON 19:18 → M ED INP 19:18 → M MS4PR 01-07 15:45 → M MSPAV 01-23 14:23
PROVIDERS: ADMIT Internal Medicine; ATTEND Internal Medicine
PROC: B41G1ZZ Fluoroscopy of Left Lower Extremity Arteries using Low Osmolar Contrast (ICD-10-PCS; 2019-01-09)
PROC: B41F1ZZ Fluoroscopy of Right Lower Extremity Arteries using Low Osmolar Contrast (ICD-10-PCS; 2019-01-09)
PROC: 031 Upper Arteries, Bypass (ICD-10-PCS; 2019-01-14)
PROC: 0Y6S0Z0 Detachment at Left 2nd Toe, Complete, Open Approach (ICD-10-PCS; 2019-01-19)
PROC: 0KBW0ZZ Excision of Left Foot Muscle, Open Approach (ICD-10-PCS; principal; 2019-01-23 15:30)
DX: I70.262 Atherosclerosis of native arteries of extremities with gangrene, left leg (principal); L03.116 Cellulitis of left lower limb; N17.9 Acute kidney failure, unspecified; I10 Essential (primary) hypertension; T87.89 Other complications of amputation stump; I70.0 Atherosclerosis of aorta; I25.10 Atherosclerotic heart disease of native coronary artery without angina pectoris; I25.2 Old myocardial infarction; N40.0 Benign prostatic hyperplasia without lower urinary tract symptoms; Z79.82 Long term (current) use of aspirin; Z79.899 Other long term (current) drug therapy; Z96.651 Presence of right artificial knee joint; Z88.8 Allergy status to other drugs, medicaments and biological substances; Z87.891 Personal history of nicotine dependence; Z91.038 Other insect allergy status

== ENCOUNTER 2019-02-27 09:48 | Day surgery (SDC) | payer MEDICARE ==
[~2019-02-27] VITALS: Ht 172.7 cm; Wt 102.4 kg
[2019-02-27] MEDS: LR 1,000 ML IV ONE ×2 (07:00→10:28)
[~2019-02-27 09:48] MED LIST changes: +ASPI81TAEC PO; +DAKI1SOL EXT; +HYDR-3716 PO; +HYDROCO/APAP; +IBUP200C25 PO; +LEVA250T13 PO; +LINE1TAB PO; +NITR0.4S14 SL
[2019-02-27] MEDS ORDERED: LIDOCAINE 2% INJ 100 MG/5 ML SDV (FOR ANES.) As Ordered ONE (10:15)
[2019-02-27] MEDS ORDERED: ONDANSETRON 4MG/2ML VIAL (J2405) As Ordered ONE (10:15)
[2019-02-27] MEDS ORDERED: PROPOFOL 200 MG/20 ML VIAL As Ordered ONE (10:15)
[2019-02-27] MEDS ORDERED: fentaNYL 100 MCG/2 ML INJECTION (J3010) As Ordered ONE (10:16)
[2019-02-27] MEDS ORDERED: MIDAZOLAM INJ 2 MG/2 ML VIAL (J2250) As Ordered ONE (10:16)
[2019-02-27 11:18] VITALS: BP 109/61
--- NOTE | 2019-03-04 14:09 | RO ---
DATE OF PROCEDURE: 02/27/2019 ATTENDING SURGEON: Dr. Chung Zhang FOOD CASHIER: None. 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 PROCEDURE: Excisional debridement of left 2nd toe amputation site with removal of skin, subcutaneous tissue and muscle. INDICATION: The patient is a 73-year-old male with a nonhealing left 2nd toe amputation site that requires debridement. The patient will undergo sharp debridement. Risks, benefits and alternative treatment options were discussed with the patient. ANESTHESIA: Local, monitored anesthesia care (MAC). ESTIMATED BLOOD LOSS: Minimal. IV FLUIDS: 150 mL. HEPARIN: None. COMPLICATIONS: None. DRAINS: None. SPECIMENS: None. IMPLANTS: None. DESCRIPTION OF PROCEDURE: The patient was taken to the operating room, placed supine on the operating room table and then prepped and draped in a standard surgical fashion. Excisional debridement was performed with removal of skin, subcutaneous tissue and muscle using a scalpel and tooth pickups. Once all nonviable tissue was removed down to healthy bleeding tissue, dressings were then applied. The patient tolerated the procedure well. All instrument, sponge and needle counts were correct at the end of the case. There were no complications. Dr. Zhang was present for and directed the entire case. The patient was transferred to the recovery room awake, alert, extubated and in stable condition.
== END 2019-02-27 12:29 | disposition home or self-care (01) ==
LOC: M SDC 09:48
PROVIDERS: ATTEND Surgery Vascular Surgery
DX: T87.89 Other complications of amputation stump (principal)
CPT/HCPCS: 11043; J2250; J2405; J3010

== ENCOUNTER 2019-03-04 13:10 | Day surgery (SDC) | payer MEDICARE ==
[~2019-03-04] VITALS: Ht 172.7 cm; Wt 103.6 kg
[2019-03-04] MEDS ORDERED: LIDOCAINE 2% INJ 100 MG/5 ML SDV (FOR ANES.) As Ordered ONE (17:20)
[2019-03-04] MEDS ORDERED: PROPOFOL 200 MG/20 ML VIAL As Ordered ONE (17:20)
[2019-03-04] MEDS ORDERED: MIDAZOLAM INJ 2 MG/2 ML VIAL (J2250) As Ordered ONE (17:21)
[2019-03-04] MEDS ORDERED: ONDANSETRON 4MG/2ML VIAL (J2405) IV PRN (18:45)
[2019-03-04] MEDS ORDERED: LR 1,000 ML IV SCH (18:45)
[2019-03-04] MEDS: PERCOCET 5MG/325MG TAB PO PRN ×2 (18:47→19:16)
[2019-03-04] MEDS ORDERED: OXYC1TAB23 PO (19:53)
[2019-03-04 19:55] VITALS: BP 163/74
--- NOTE | 2019-04-02 22:10 | RO ---
DATE OF PROCEDURE: 03/04/2019 PREOPERATIVE DIAGNOSIS: Aortic occlusion, left second toe gangrene. POSTOPERATIVE DIAGNOSIS: Aortic occlusion, left second toe gangrene. PROCEDURE: Excisional debridement of left second toe amputation site and left dorsal food wound. Left second metatarsal head amputation. SURGEON: Dr. Linwood Zhang FURNITURE POLISHER: None. INDICATIONS: The patient is a 73-year-old male with ischemia and gangrene of the left foot who underwent a left second toe amputation with leaving the wound open and also has a wound on the dorsum of his foot. The patient will undergo a debridement of his left foot wounds and placement of a VAC dressing. Risks, benefits, and alternative treatment options were discussed with the patient. ANESTHESIA: Monitored anesthesia care (MAC). ESTIMATED BLOOD LOSS: 30 mL IV FLUIDS: 200 mL SPECIMEN: Left metatarsal head. DESCRIPTION OF PROCEDURE: The patient was taken to the operating room, placed supine on the operating room table and then prepped and draped in a standard surgical fashion. The wounds were debrided sharply as well as removal and resection of the left second metatarsal head which was exposed. A VAC dressing was then placed on the wound. The patient tolerated the procedure well. All instrument, sponge, and needle counts were correct at the end of case. There were no complications. Dr. Zhang was present for and directed the entire case. The patient was transferred to the recovery room awake, alert and in stable condition.
== END 2019-03-04 20:00 | disposition home or self-care (01) ==
LOC: M SDC 13:10
PROVIDERS: ATTEND Surgery Vascular Surgery
DX: I96 Gangrene, not elsewhere classified (principal); I74.09 Other arterial embolism and thrombosis of abdominal aorta
CPT/HCPCS: 11042; 28112; 88304; 88311; J2250

== ENCOUNTER → 2019-04-14 | Outpatient (CLI) | payer MEDICARE ==
[~2019-04-14] MED LIST changes: +OXYC1TAB23 PO
--- NOTE | 2019-04-14 15:33 | REP ---
Bilateral lower extremity arterial Doppler ultrasound: History: Atherosclerosis of the [place] arteries of the extremities. Intermittent claudication bilateral legs. Status post axilla O bifemoral bypass graft January 14, 2019. Sonographic findings: There is a patent right axillobifemoral bypass graft. There is a 2.0 x 1.1 x 1.8 cm complex fluid collection at the distal subclavian region on the right which may be a small hematoma. There is also a fluid collection at the right groin anastomoses measuring 9.7 x 1.8 x 5.5 cm. This is hypoechoic as well may be resolving hematoma. Multifocal atherosclerotic plaquing is seen. Monophasic arterial wave forms are noted throughout both lower extremity arteries. Arterial Doppler velocity chart right lower extremity: Distal subclavian artery 171 cm/S Proximal graft at the axilla 94 cm/S Mid abdomen graft level 114 cm/S Graft at the groin 155 cm/S Distal graft at the anastomosis 233 cm/S Right to left bifemoral segment of the graft 62 cm/S CF A 120 Profunda 55 Proximal SFA 56 Mid SFA 38 Distal SFA 40 Popliteal 36 Proximal AT A 15 Tibioperoneal trunk 39 Proximal JEWEL STAKER 21 Distal JEWEL STAKER 27 Distal AT A 52 Left lower extremity arterial Doppler velocity chart: Left CF A 67 cm/S Profunda 30 Proximal SFA 72 Mid SFA 62 Distal SFA 61 Popliteal 43 Proximal AT A 16 Tibioperoneal trunk 57 Proximal JEWEL STAKER 35 Distal JEWEL STAKER 33 Distal AT A not seen due to bandages. Electronically Signed by Jaylan Kiran MD 04/14/2019 03:25 P
== END ==
LOC: M RAD 12:34
PROVIDERS: ATTEND Surgery Vascular Surgery
DX: I70.213 Atherosclerosis of native arteries of extremities with intermittent claudication, bilateral legs (principal)

== ENCOUNTER 2019-05-23 06:19 | Inpatient (IN) | payer MEDICARE ==
[~2019-05-23] VITALS: Ht 175.3 cm; Wt 106.7 kg
[2019-05-23] MEDS ORDERED: NS 1,000 ML IV SCH (06:49)
[2019-05-23] MEDS ORDERED: PIPERACILLIN/TAZOBACTAM SOD 3.375 GM in D5W MINI-BAG PLUS 50 ML IV ONE (07:00)
[2019-05-23] MEDS ORDERED: ONDANSETRON 4MG/2ML VIAL (J2405) IV ONE (07:00)
[2019-05-23] MEDS ORDERED: VANCOMYCIN HCL 1,000 MG, VIAL MATE ADAPTER 1 EACH in D5W 250 ML IV ONE (07:00)
[2019-05-23] MEDS ORDERED: fentaNYL 100 MCG/2 ML INJECTION (J3010) IV ONE ×3 (07:00→11:45)
[2019-05-23 07:01] LABS: BASO # 0.1 10^3/uL (0.0-0.2); BASO % 0.4 % (0.0-1.0); EOS # 0.2 10^3/uL (0.0-0.50); EOS % 1.3 % (0.0-3.0); HEMATOCRIT 44.7 % (42.0-52.0); HEMOGLOBIN 14.3 g/dl (13.5-17.5); LYMPH # 2.7 10^3/uL (1.5-4.5); LYMPH % 16.3 % (24.0-44.0); MEAN CORPUSCULAR HEMOGLOBIN 29.3 pg (27.0-33.0); MEAN CORPUSCULAR VOLUME 91.6 fl (80.0-96.0); MONO # 1.3 10^3/uL (0.0-0.8); MONO % 7.7 % (0.0-5.0); NEUTROPHILS # 12.3 10^3/uL (1.8-7.7); NEUTROPHILS % 73.9 % (36.0-66.0); PLATELET COUNT, AUTOMATED 286 10^3/uL (150-450); RED BLOOD COUNT 4.88 10^6/uL (4.30-6.10); WHITE BLOOD COUNT 16.6 10^3/uL (4.0-10.0)
[2019-05-23 07:23] LABS: INR 0.99; PROTHROMBIN TIME 12.8 SECONDS (11.8-14.0)
[2019-05-23 07:25] LABS: ALBUMIN 3.6 GM/DL (3.2-5.2); ALT/SGPT 16 U/L (12-78); AMYLASE 63 U/L (25-115); BILIRUBIN,DIRECT 0.2 MG/DL (0.0-0.2); BILIRUBIN,TOTAL 0.4 MG/DL (0.2-1.0); BLOOD UREA NITROGEN 16 MG/DL (7-18); C REACTIVE PROTEIN QUANTITATIV 4.47 MG/DL (0.00-0.30); CALCIUM LEVEL 8.4 MG/DL (8.8-10.2); CARBON DIOXIDE LEVEL 26 MEQ/L (21-32); CHLORIDE LEVEL 105 MEQ/L (98-107); CK-MB VALUE MASS 1.8 NG/ML (<3.6); CPK CREATINE PHOSPHOKINASE 121 U/L (39-308); CREATININE FOR GFR 1.09 MG/DL (0.70-1.30); GLOMERULAR FILTRATION RATE > 60.0 (>42); GLUCOSE, FASTING 155 MG/DL (70-100); MB/CK RELATIVE INDEX 1.49 (< OR =4); POTASSIUM SERUM 4.2 MEQ/L (3.5-5.1); SODIUM LEVEL 138 MEQ/L (136-145); TOTAL PROTEIN 7.4 GM/DL (6.4-8.2); TROPONIN I < 0.02 NG/ML (< 0.10)
--- NOTE | 2019-05-23 07:51 | REP ---
Left foot four views: Comparison is 01/06/2019. There is amputation of the second digit at the mid shaft of the metatarsal. Previously there was amputation at the base of the proximal phalange. There are no lytic, blastic or destructive skeletal changes. 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 Impression: The second digit amputation as described. Great toe MTP osteoarthritis. Electronically Signed by Michel Christine MD 05/23/2019 07:43 A
[2019-05-23] MEDS ORDERED: SODIUM CHLORIDE IV ONE (08:00)
[2019-05-23] MEDS ORDERED: ACETAMINOPHEN TAB 650MG DOSE (2X325MG) PO PRN (10:15)
[2019-05-23] MEDS ORDERED: VANCOMYCIN HCL 1,000 MG, VIAL MATE ADAPTER 1 EACH in D5W 250 ML IV SCH (10:15)
[2019-05-23] MEDS: VANCOMYCIN HCL 1,000 MG, VIAL MATE ADAPTER 1 EACH in D5W 250 ML IV SCH ×2 (11:21→22:02)
[2019-05-23] MEDS: ENOXAPARIN 40 MG/0.4 ML SYRINGE (J1650) SC SCH (11:21)
--- NOTE | 2019-05-23 12:15 | PHACANCOPD ---
PHARMACY VANCOMYCIN DOSING Pt Demographics Demographics Patient Age:73 , Weight:104.550 , Gender: male Adjusted Body Weight Date: 05/23/19, Adjusted Body Weight: [84.24] Kg Events Past 24 Hours Events Past 24 Hours: NO: Dialysis, Diuretic Therapy, Change in CrCl, Fever, Elevation in WBC, Pending Diagnostics, Pending Procedures, Other Vancomycin Vancomycin indication: Soft Tissue Infection Vancomycin Target Ranges: 15-20 mcg/ml Vancomycin Load Y/N: Yes Load Dose Date Time Vancomycin Load Dose: 2g Date: 05/23/19 Time:11:00 Vancomycin Dose Date: 05/23/19. Current Vancomycin Dose: [1g iv q12h] Intermittent Dosing?: No Labs Labs Item Value Date Time White Blood Count 16.6 10^3/uL H 05/23/19 0648 Creatinine 1.09 MG/DL 05/23/19 0647 C-Reactive Protein, Quantitative 4.47 MG/DL H 05/23/19 0647 Micro Microbiology 05/23/19 Blood Culture, Received Pending 05/23/19 Blood Culture, Received Pending Creatinine Clearance Date:05/23/19. Creatinine Clearance: [69.6ml/min]. Pending Labs vancomycin trough 05/24/19 @22:00 Assessment and Plan Maintaining Current Dose?: Yes Reason for dose change: No Dose Change Pharmacist Note Pharmacist Note Date: 05/23/19. Pharmacist note:PT is a 73 year old male being treated for soft tissue infection goal trough 15-20mcg/ml. He was last treated with vancomycin here at [facility] in December 2018. To achieve goal 1g vancomycin IV was administered in the ER @08:00 05/23/19. Another 1g IV was administered @11:00 to load the patient. Maintenance therapy will consist of 1g IV every 12 hours. A trough is scheduled prior to the 4th dose @22:00 05/24/19. We will continue to monitor and adjust the dose as needed. LUPIS LUKE [facility]ARM[facility] May 23, 2019 12:15
[2019-05-23] MEDS: DAKIN'S 0.25% HALF-STRENGTH SOLN 480 ML TOP SCH ×2 (12:28→21:00)
[2019-05-23 12:55] VITALS: BP 130/80
--- NOTE | 2019-05-23 13:09 | CR.PDOC ---
General Date of Consultation: May 23, 2019 Consultation REASON FOR CONSULTATION/CHIEF COMPLAINT: Left foot infection and pain HISTORY OF PRESENT ILLNESS: Mr Boucher is a very pleasant 73yo gentleman with longstanding ulcerations of the left foot s/p L 2nd toe amputation by Dr lAcazar and debridements/2nd metatarsal head excision by Dr Zhang. He was doing well after a recent admission for debridement and was seen 2 weeks ago in clinic and seemed to be moving in the right direction. Subsequently, the patient describes several episodes of being outside without a dressing or with his dressing falling off, and developed a pretty rapid severe infection with maggots in the open wounds. In the ER today, he is AF and VSS, but he has had some subjective fevers at home the past 2 days. His daughter says he has c/o worsening foot pain x2 days and last night barely slept. They both noted a foul odor today, and the pain was worse, so they came to the ER. We had a long discussion about the role of patient compliance in wound healing, and the importance of keeping his foot clean and protected with appropriate dressings. His said she tries very hard to keep the dressings changed appropriately, but finds him outside frequently with it falling off. She also said he was out in the sun with dressing off, which is risky for sun burn since it is usually covered. I d/w them the risks, benefits and alternatives to an excisional debr idement of his foot and informed consent was obtained. Procedure: The wound was thoroughly cleaned with a chlorahexadine scrub, and all visible maggots removed. Sharp dissection with a scissors and pickup was performed down to healthy granulation tissue, and once we removed callous and fibrinous exudate, the base tissue was pretty healthy appearing and had good granulation. 6 cm sq of skin, fibrinous exudate, subcutaneous tissue debrided. Gentle pressure was used for hemostasis. A deep tissue culture was obtained and sent for microbiology. There was no deep abscess noted on exam, and the erythema over the foot improved after debridement. The wound was dressed with 1/2 strip gauze packing dampened with dakins. Dry gauze and kerlex were used to dress the foot. The patient tolerated this well. No complications. EBL 3 mL. ALLERGIES: Please see below. HOME MEDICATIONS: Please see below. PAST MEDICAL HISTORY: 1. CAD 2. HTN 3. PVD PAST SURGICAL HISTORY: 1. Left toe amputation 2. Left foot excisional debridements and 2nnd metatarsal head removal 3. LLE arteriogram and revascularization FAMILY HISTORY: Heart disease SOCIAL HISTORY: Deneis current tobacco, ETOH, or illicit drug use. Lives at home with his . REVIEW OF SYSTEMS: CONSTITUTIONAL: +subjective fevers, denies chills HEENT: No vision or speech changes CARDIOVASCULAR: Denies CP RESPIRATORY: Denies cough orSOB MUSCULOSKELETAL: denies trouble with ambulation, +neuropathy GASTROINTESTINAL:denies n/v/d SKIN: +wounds left foot NEUROLOGICAL: denies STEEN or sz or TIA PSYCHIATRIC: denies anxiety or depression ENDOCRINE: denies DM/thyroid disease HEMATOLOGIC/LYMPHATIC: denies bleeding or clotting disorder, denies swelling ALLERGIC/IMMUNOLOGIC: denies PHYSICAL EXAMINATION: VITAL SIGNS: Please see below. GENERAL APPEARANCE: Well developed, medically stable, NAD HEENT: Vision intact, TMI, speech clear RESPIRATORY: CTA CARDIOVASCULAR: RRR ABDOMEN: soft, obese, NT, ND EXTREMITIES: BLE biphasic doppler signals DP/PT and feet warm well perfused. Ulcers L foot: dorsal foot over 2nd metatarsal head removal open and tunnels toward toe. Between L 1/3 toe open as well. Good granulation at base of both wounds after debridement. NEUROLOGICAL: A&Ox3, MAEE PSYCHIATRIC: pleasant and cooperative LABORATORY DATA: Please see below. ASSESSMENT/PLAN: 73yo gentleman with acute infection left foot chronic ulcerations 1. BID dressing changes with dakins damp to dry L foot. Elevate foot to help with swelling. 2. Broad spectrum antibiotics and follow cultures. 3. D/w pt and his family that if his infection worsens acutely or rapidly ascends up from his foot, he may need L guillotine amp and deferred L BKA once infection controlled. I am hopeful that with antibiotics and debridement he may start to improve. Vital Signs/I&O Vital Signs Date Time Temp Pulse Resp B/P (MAP) Pulse Ox O2 Delivery O2 Flow Rate FiO2 05/23/19 12:28 20 05/23/19 11:04 69 95 05/23/19 11:00 150/71 (97) 05/23/19 07:46 97.2 Room Air Laboratory Data Labs 24H Laboratory Tests 2 05/23/19 06:47: Prothrombin Time 12.8, Prothromb Time International Ratio 0.99, Activated Partial Thromboplast Time 36.0, Anion Gap 7L, Glomerular Filtration Rate > 60.0, Blood Urea Nitrogen 16, Creatinine 1.09, Sodium Level 138, Potassium Level 4.2, Chloride Level 105, Carbon Dioxide Level 26, Calcium Level 8.4L, Aspartate Amino Transf (AST/SGOT) 11, Alanine Aminotransferase (ALT/SGPT) 16, Total Creatine Kin ase 121, Alkaline Phosphatase 113, Total Bilirubin 0.4, Direct Bilirubin 0.2, Total Protein 7.4, Albumin 3.6, Creatine Kinase MB 1.8, Creatine Kinase MB Relative Index 1.49, Troponin I < 0.02, C-Reactive Protein, Quantitative 4.47H, Albumin/Globulin Ratio 0.95L, Amylase Level 63 05/23/19 06:48: Immature Granulocyte % (Auto) 0.4, White Blood Count 16.6H, Red Blood Count 4.88, Hemoglobin 14.3, Hematocrit 44.7, Mean Corpuscular Volume 91.6, Mean Corpuscular Hemoglobin 29.3, Mean Corpuscular Hemoglobin Concent 32.0, Red Cell Distribution Width 14.1, Platelet Count 286, Neutrophils (%) (Auto) 73.9H, Lymphocytes (%) (Auto) 16.3L, Monocytes (%) (Auto) 7.7H, Eosinophils (%) (Auto) 1.3, Basophils (%) (Auto) 0.4, Neutrophils # (Auto) 12.3H, Lymphocytes # (Auto) 2.7, Monocytes # (Auto) 1.3H, Eosinophils # (Auto) 0.2, Basophils # (Auto) 0.1, Nucleated Red Blood Cells % (auto) 0.0, Lactic Acid Level 2.3*H 05/23/19 12:30: CBC/BMP Laboratory Tests 05/23/19 06:47 Calcium Level 8.4 L, Aspartate Amino Transf (AST/SGOT) 11, Alanine Aminotransferase (ALT/SGPT) 16, Total Creatine Kinase 121, Alkaline Phosphatase 113, Total Bilirubin 0.4, Direct Bilirubin 0.2, Total Protein 7.4, Albumin 3.6 05/23/19 06:48 Red Blood Count 4.88, Mean Corpuscular Volume 91.6, Mean Corpuscular Hemoglobin 29.3, Mean Corpuscular Hemoglobin Concent 32.0, Red Cell Distribution Width 14.1, Neutrophils (%) (Auto) 73.9 H, Lymphocytes (%) (Auto) 16.3 L, Monocytes (%) (Auto) 7.7 H, Eosinophils (%) (Auto) 1.3, Basophils (%) (Auto) 0.4, Neutrophils # (Auto) 12.3 H, Lymphocytes # (Auto) 2.7, Monocytes # (Auto) 1.3 H, Eosinophils # (Auto) 0.2, Basophils # (Auto) 0.1 Microbiology Microbiology 05/23/19 Blood Culture, Received Pending 05/23/19 Blood Culture, Received Pending 05/23/19 Gram Stain, Received Pending 05/23/19 Wound Culture, Received Pending Allergies Coded Allergies: bee venom protein (honey bee) (Verified Allergy, Unknown, 03/04/19) tramadol (Unverified Allergy, Unknown, hives, 03/04/19) fenofibrate (Verified Adverse Reaction, Intermediate, MYALGIA, 03/04/19) Home Medications Scheduled Amlodipine Besylate (Amlodipine Besylate) 10 Mg Tab, 10 MG PO DAILY, (Reported) Aspirin (Aspirin EC) 81 Mg Tabec, 81 MG PO DAILY, #30 Labetalol HCl (Labetalol HCl) 100 Mg Tab, 100 MG PO TID, (Reported) Scheduled PRN Nitroglycerin (Nitroglycerin) 0.4 Mg Sub, 0.4 MG SL Q5MP PRN for CHEST PAIN, (Reported) ANG GARCIA MD May 23, 2019 13:09
[2019-05-23] MEDS: PIPERACILLIN/TAZOBACTAM SOD 3.375 GM in D5W MINI-BAG PLUS 50 ML IV SCH ×2 (13:21→18:20)
--- NOTE | 2019-05-23 17:14 | HPEPDOC ---
General Date of Admission May 23, 2019 at 10:03 Date of Service: May 23, 2019 Chief Complaint The patient is a 73-year-old male admitted with a reason for visit of Cellulitis Of Foot. History of Present Illness 73-year-old male with past medical history of coronary artery disease, hypertension, peripheral vascular disease with long-standing ulcerations of the left foot status post left second toe amputation in the recent past. He has been following Dr. Alcazar of wound care and Dr. Zhang of vascular surgery as an outpatient, and recently had debridement done of the left foot. He states that he was feeling well up until 3 days ago when he started to note increased pain and discharge from the wound site. He noted a foul odor from the discharge. In the ER, the patient was noted to have maggots in the wound. Vascular surgery and podiatry was consulted in the ER. The patient will be admitted to the hospitalist service for further evaluation and management. Home Medications Scheduled Amlodipine Besylate (Amlodipine Besylate) 10 Mg Tab, 10 MG PO DAILY, (Reported) Aspirin (Aspirin EC) 81 Mg Tabec, 81 MG PO DAILY Labetalol HCl (Labetalol HCl) 100 Mg Tab, 100 MG PO TID, (Reported) Scheduled PRN Nitroglycerin (Nitroglycerin) 0.4 Mg Sub, 0.4 MG SL Q5MP PRN for CHEST PAIN, (Reported) Allergies Coded Allergies: bee venom protein (honey bee) (Verified Allergy, Unknown, 03/04/19) tramadol (Unverified Allergy, Unknown, hives, 03/04/19) fenofibrate (Verified Adverse Reaction, Intermediate, MYALGIA, 03/04/19) Past Medical History Medical History As noted in HPI. Surgical History 1. Left toe amputation 2. Left foot excisional debridements and 2nd metatarsal head removal 3. LLE arteriogram and revascularization Social History * Smoker: Denies Alcohol: Denies Drugs: denies Functionally independent at baseline. Lives with his . Review of Systems Other systems 10 point review of systems negative unless otherwise specified in HPI. Physical Examination General Exam: Positive: Alert, Cooperative, No Acute Distress ENT Exam: Positive: Atraumatic, Mucous membr. moist/pink Neck Exam: Negative: JVD Chest Exam: Positive: Clear to auscultation, Normal air movement Heart Exam: Positive: Rate Normal, Normal S1, Normal S2 Abdomen Exam: Positive: Soft; Negative: Tenderness Skin Exam: Positive: Other skin issue (Left foot noted to have open wound at the 2nd metatarsal head tracking down towards the toe with surrounding erythema. Purulant, white malodorous discharge noted. ) Psych Exam: Positive: Oriented x 3 Vital Signs Vital Signs Date Time Temp Pulse Resp B/P (MAP) Pulse Ox O2 Delivery O2 Flow Rate FiO2 05/23/19 12:55 97.8 74 17 130/80 (97) 96 05/23/19 07:46 Room Air Laboratory Data Labs 24H Laboratory Tests 2 05/23/19 06:47: Prothrombin Time 12.8, Prothromb Time International Ratio 0.99, Activated Partial Thromboplast Time 36.0, Anion Gap 7L, Glomerular Filtration Rate > 60.0, Blood Urea Nitrogen 16, Creatinine 1.09, Sodium Level 138, Potassium Level 4.2, Chloride Level 105, Carbon Dioxide Level 26, Calcium Level 8.4L, Aspartate Amino Transf (AST/SGOT) 11, Alanine Aminotransferase (ALT/SGPT) 16, Total Creatine Kinase 121, Alkaline Phosphatase 113, Total Bilirubin 0.4, Direct Bilirubin 0.2, Total Protein 7.4, Albumin 3.6, Creatine Kinase MB 1.8, Creatine Kinase MB Relative Index 1.49, Troponin I < 0.02, C-Reactive Protein, Quantitative 4.47H, Albumin/Globulin Ratio 0.95L, Amylase Level 63 05/23/19 06:48: Immature Granulocyte % (Auto) 0.4, White Blood Count 16.6H, Red Blood Count 4.88, Hemoglobin 14.3, Hematocrit 44.7, Mean Corpuscular Volume 91.6, Mean Corpuscular Hemoglobin 29.3, Mean Corpuscular Hemoglobin Concent 32.0, Red Cell Distribution Width 14.1, Platelet Count 286, Neutrophils (%) (Auto) 73.9H, Lymphocytes (%) (Auto) 16.3L, Monocytes (%) (Auto) 7.7H, Eosinophils (%) (Auto) 1.3, Basophils (%) (Auto) 0.4, Neutrophils # (Auto) 12.3H, Lymphocytes # (Auto) 2.7, Monocytes # (Auto) 1.3H, Eosinophils # (Auto) 0.2, Basophils # (Auto) 0.1, Nucleated Red Blood Cells % (auto) 0.0, Lactic Acid Level 2.3*H 05/23/19 12:30: Lactic Acid Followup at 4 Hours 1.5 CBC/BMP Laboratory Tests 05/23/19 06:47 Calcium Level 8.4 L, Aspartate Amino Transf (AST/SGOT) 11, Alanine Aminotransferase (ALT/SGPT) 16, Total Creatine Kinase 121, Alkaline Phosphatase 113, Total Bilirubin 0.4, Direct Bilirubin 0.2, Total Protein 7.4, Albumin 3.6 05/23/19 06:48 Red Blood Count 4.88, Mean Corpuscular Volume 91.6, Mean Corpuscular Hemoglobin 29.3, Mean Corpuscular Hemoglobin Concent 32.0, Red Cell Distribution Width 14.1, Neutrophils (%) (Auto) 73.9 H, Lymphocytes (%) (Auto) 16.3 L, Monocytes (%) (Auto) 7.7 H, Eosinophils (%) (Auto) 1.3, Basophils (%) (Auto) 0.4, Neutrophils # (Auto) 12.3 H, Lymphocytes # (Auto) 2.7, Monocytes # (Auto) 1.3 H, Eosinophils # (Auto) 0.2, Basophils # (Auto) 0.1 Microbiology Microbiology 05/23/19 Blood Culture, Received Pending 05/23/19 Blood Culture, Received Pending 05/23/19 Gram Stain - Final, Resulted 05/23/19 Wound Culture, Resulted Pending Plan / VTE VTE Prophylaxis Ordered?: Yes Plan Plan Left Foot Wound Infection s/p debridement and cleansing of the wound with vascular surgery in the ER Wound care, activity as per Vascular surgery recommendations Cultures ordered We will empirically cover the patient with Vanco/Zosyn in the interim We will follow up with Podiatry recommendations Cont to monitor at this time Leukocytosis, Lactic Acidosis 2/2 Above Cont mgmt as delineated above Hx of PVD, CAD Hold ASA for now HTN Cont Norvasc DVT Prophylaxis Lovenox DYLAN MARIE MD May 23, 2019 17:14
[2019-05-23 22:00] VITALS: BP 148/71
[2019-05-23] MEDS: PERCOCET 5MG/325MG TAB PO PRN (22:02)
[2019-05-24] MEDS: PIPERACILLIN/TAZOBACTAM SOD 3.375 GM in D5W MINI-BAG PLUS 50 ML IV SCH ×4 (01:27→18:40)
[2019-05-24] MEDS: PERCOCET 5MG/325MG TAB PO PRN ×3 (05:45→23:15)
[2019-05-24 06:00] VITALS: BP 140/66
[2019-05-24] MEDS: DAKIN'S 0.25% HALF-STRENGTH SOLN 480 ML TOP SCH ×2 (06:14→21:00)
[2019-05-24 06:31] LABS: HEMATOCRIT 39.4 % (42.0-52.0); HEMOGLOBIN 12.6 g/dl (13.5-17.5); MEAN CORPUSCULAR HEMOGLOBIN 28.9 pg (27.0-33.0); MEAN CORPUSCULAR VOLUME 90.4 fl (80.0-96.0); PLATELET COUNT, AUTOMATED 263 10^3/uL (150-450); RED BLOOD COUNT 4.36 10^6/uL (4.30-6.10); WHITE BLOOD COUNT 11.2 10^3/uL (4.0-10.0)
[2019-05-24 06:46] LABS: BLOOD UREA NITROGEN 12 MG/DL (7-18); CARBON DIOXIDE LEVEL 28 MEQ/L (21-32); CHLORIDE LEVEL 109 MEQ/L (98-107); CREATININE FOR GFR 1.09 MG/DL (0.70-1.30); GLOMERULAR FILTRATION RATE > 60.0 (>42); GLUCOSE, FASTING 108 MG/DL (70-100); MAGNESIUM LEVEL 2.2 MG/DL (1.8-2.4); POTASSIUM SERUM 4.4 MEQ/L (3.5-5.1); SODIUM LEVEL 140 MEQ/L (136-145)
[2019-05-24] MEDS: amLODIPine 10 MG TAB PO SCH (10:34)
[2019-05-24] MEDS: ENOXAPARIN 40 MG/0.4 ML SYRINGE (J1650) SC SCH (10:36)
[2019-05-24] MEDS: VANCOMYCIN HCL 1,000 MG, VIAL MATE ADAPTER 1 EACH in D5W 250 ML IV SCH ×2 (10:37→23:15)
--- NOTE | 2019-05-24 12:36 | IPNPDOC ---
Subjective Date Seen The patient was seen on 05/24/19. Subjective Chief Complaint/HPI Patient seen and examined at the bedside. No acute overnight events noted. The patient states that he is feeling better today, and notes that the pain in his left foot is improved Objective Physical Examination General Exam: Positive: Alert, Cooperative, No Acute Distress ENT Exam: Positive: Atraumatic, Mucous membr. moist/pink Neck Exam: Negative: JVD Chest Exam: Positive: Clear to auscultation, Normal air movement Heart Exam: Positive: Rate Normal, Normal S1, Normal S2 Abdomen Exam: Positive: Soft; Negative: Tenderness Skin Exam: Positive: Other skin issue (left foot noted to wrapped in surgical dressing. The patient does have a surgical shoe on as well.) Psych Exam: Positive: Oriented x 3 Assessment /Plan Plan/VTE VTE Prophylaxis Ordered?: Yes Plan Left Foot Wound Infection s/p debridement and cleansing of the wound with vascular surgery on 05/23 Wound care, activity as per Vascular surgery recommendations Blood Cultures unrevealing, wound culture notable for staph aureus, Corynebacterium--susceptibilities pending Continue with Vanco/Zosyn until susceptibilities available We will follow up with Podiatry recommendations Cont to monitor at this time Leukocytosis, Lactic Acidosis 2/2 Above Improved following above Hx of PVD, CAD Hold ASA for now HTN Cont Norvasc DVT Prophylaxis Lovenox SC Disposition-we will continue to monitor the patient's progress, and transition the patient to by mouth antibiotic therapy when susceptibilities are available. VS, I&O, 24H, Fishbone Vital Signs/I&O Vital Signs Date Time Temp Pulse Resp B/P (MAP) Pulse Ox O2 Delivery O2 Flow Rate FiO2 05/24/19 10:34 72 150/70 05/24/19 06:15 18 05/24/19 06:00 97.1 95 05/23/19 07:46 Room Air I&O- Last 24 Hours up to 6 AM 05/24/19 06:00 Intake Total 2780 ml Output Total 1350 ml Balance 1430 ml Laboratory Data 24H LABS Laboratory Tests 2 05/24/19 06:06: Nucleated Red Blood Cells % (auto) 0.0, Anion Gap 3L, Glomerular Filtration Rate > 60.0, Estimated Mean Plasma Glucose 126H, Hemoglobin A1c 6.0, Blood Urea Nitrogen 12, Creatinine 1.09, Sodium Level 140, Potassium Level 4.4, Chloride Level 109H, Carbon Dioxide Level 28, Calcium Level 8.0L, Magnesium Level 2.2, C- Reactive Protein, Quantitative 5.78H CBC/BMP Laboratory Tests 05/24/19 06:06 Red Blood Count 4.36, Mean Corpuscular Volume 90.4, Mean Corpuscular Hemoglobin 28.9, Mean Corpuscular Hemoglobin Concent 32.0, Red Cell Distribution Width 14.0, Calcium Level 8.0 L Microbiology Microbiology 05/23/19 Blood Culture - Preliminary, Resulted No growth after 24 hours . All specim... 05/23/19 Blood Culture - Preliminary, Resulted No growth after 24 hours . All specim... 05/23/19 Gram Stain - Final, Resulted 05/23/19 Wound Culture - Preliminary, Resulted Staphylococcus Aureus Corynebacterium Species DYLAN HANLEY MD May 24, 2019 12:36
--- NOTE | 2019-05-24 13:16 | IPNPDOC ---
Date Seen The patient was seen on 05/24/19. Progress Note Mr Boucher is a 73yo gentleman s/p excisional debridement left foot due to acute infection of chronic wounds, cellulitis, swelling, and maggots present. No problems overnight. Appreciate nurses helping with BID dressing changes. No c/o pain today. Pt says he feels much better. On exam AF, VSS, and dressing was removed. No maggots noted today. Wound base b/w 1/3 toes at amp site of 2nd toe is clean and granulated, no drainage. Wound base of dorsal foot wound from 2nd metatarsal head excision is granulated, small amount of fibrinous exudate removed, tunnels distally 0.5cm. Excoriation dorsal foot granulated. Yesterday I scrubbed the foot pretty thoroughly and removed a lot of thick flakey skin, and some is present today again- may just be very dry skin from dressings or possibly fungal skin condition- will try to add lotion to dressing changes and if no improvement, maybe try an antifungal cream. Swelling and erythema are much improved today- no ascending or worsening infection noted and we are pleased about this. Perfusion intact with biphasic signals dp pt. Culture staph aureus cornybacterium, which is normal skin tala. I took the culture from a deep aspect of the wound, and am surprised based on odor, amount of greenish brown drainage, maggots, and degree of infection yesterday that that is all we have on culture. Nevertheless, if this is an accurate sample of his foot bacteria, it makes his prognosis better. Would continue IV antibiotics while inpt. Once the acute infection resolves, pt may need further definitive revision of his foot, possibly a 1st toe ray amp with plantar flap to cover and close the distal midfoot defect. It looks like it could heal as is under ideal circumstances, but his noncompliance makes this unlikely. Dr Zhang is aware the patient is admitted and we discussed his case yesterday. He will resume care starting tomorrow. VS, I&O, 24H, Fishbone Vital Signs/I&O Vital Signs Date Time Temp Pulse Resp B/P (MAP) Pulse Ox O2 Delivery O2 Flow Rate FiO2 05/24/19 12:36 18 05/24/19 10:34 72 150/70 05/24/19 06:00 97.1 95 05/23/19 07:46 Room Air I&O- Last 24 Hours up to 6 AM 05/24/19 06:00 Intake Total 2780 ml Output Total 1350 ml Balance 1430 ml Laboratory Data 24H LABS Laboratory Tests 2 05/24/19 06:06: Nucleated Red Blood Cells % (auto) 0.0, Anion Gap 3L, Glomerular Filtration Rate > 60.0, Estimated Mean Plasma Glucose 126H, Hemoglobin A1c 6.0, Blood Urea Nitrogen 12, Creatinine 1.09, Sodium Level 140, Potassium Level 4.4, Chloride Level 109H, Carbon Dioxide Level 28, Calcium Level 8.0L, Magnesium Level 2.2, C- Reactive Protein, Quantitative 5.78H CBC/BMP Laboratory Tests 05/24/19 06:06 Red Blood Count 4.36, Mean Corpuscular Volume 90.4, Mean Corpuscular Hemoglobin 28.9, Mean Corpuscular Hemoglobin Concent 32.0, Red Cell Distribution Width 14.0, Calcium Level 8.0 L Microbiology Microbiology 05/23/19 Blood Culture - Preliminary, Resulted No growth after 24 hours . All specim... 05/23/19 Blood Culture - Preliminary, Resulted No growth after 24 hours . All specim... 05/23/19 Gram Stain - Final, Resulted 05/23/19 Wound Culture - Preliminary, Resulted Staphylococcus Aureus Corynebacterium Species ANG GARCIA MD May 24, 2019 13:16
[2019-05-24 14:00] VITALS: BP 151/73
[2019-05-24 22:00] VITALS: BP 118/78
[2019-05-25] VITALS (8 sets, daily range): BP systolic 138–178; BP diastolic 76–85
--- NOTE | 2019-05-25 00:44 | PHACANCOPD ---
PHARMACY VANCOMYCIN DOSING Pt Demographics Demographics Patient Age:73 , Weight:106.700 , Gender: male Adjusted Body Weight Date: 05/23/19, Adjusted Body Weight: [84.24] Kg Vancomycin Vancomycin indication: Soft Tissue Infection Vancomycin Target Ranges: 15-20 mcg/ml Vancomycin Load Y/N: Yes Load Dose Date Time Vancomycin Load Dose: 2g Date: 05/23/19 Time:11:00 Vancomycin Dose Date: 05/23/19. Current Vancomycin Dose: [1g iv q12h] Intermittent Dosing?: No Labs Micro Microbiology 05/23/19 Blood Culture - Preliminary, Resulted No growth after 24 hours . All specim... 05/23/19 Blood Culture - Preliminary, Resulted No growth after 24 hours . All specim... 05/23/19 Gram Stain - Final, Resulted 05/23/19 Wound Culture - Preliminary, Resulted Staphylococcus Aureus Corynebacterium Species Creatinine Clearance Date:05/23/19. Creatinine Clearance: [69.6ml/min]. Pending Labs vancomycin trough 05/26/19@0500 Assessment and Plan Maintaining Current Dose?: No Reason for dose change: Trough too low Pharmacist Note Pharmacist Note Date: 05/25/19. Pharmacist note:Vancomycin trough drawn tonight reported as 11.6-(goal=15-20) Will adjust dose to Vancomycin 750mg iv q8h to begin 05/25@0600-next trough is scheduled for 05/26@0500-will continue to follow Date: 05/23/19. Pharmacist note:PT is a 73 year old male being treated for soft tissue infection goal trough 15-20mcg/ml. He was last treated with vancomycin here at [facility] in December 2018. To achieve goal 1g vancomycin IV was administered in the ER @08:00 05/23/19. Another 1g IV was administered @11:00 to load the patient. Maintenance therapy will consist of 1g IV every 12 hours. A trough is scheduled prior to the 4th dose @22:00 05/24/19. We will continue to monitor and adjust the dose as needed. MANI VALENTIN PHARMACY May 25, 2019 00:44
[2019-05-25] MEDS: PIPERACILLIN/TAZOBACTAM SOD 3.375 GM in D5W MINI-BAG PLUS 50 ML IV SCH ×4 (00:45→20:03)
[2019-05-25] MEDS: VANCOMYCIN HCL 750 MG, VIAL MATE ADAPTER 1 EACH in D5W 250 ML IV SCH ×3 (05:49→22:16)
[2019-05-25 06:25] LABS: HEMATOCRIT 41.6 % (42.0-52.0); HEMOGLOBIN 13.4 g/dl (13.5-17.5); MEAN CORPUSCULAR HGB CONC 32.2 g/dl (32.0-36.5); PLATELET COUNT, AUTOMATED 304 10^3/uL (150-450); RED BLOOD COUNT 4.62 10^6/uL (4.30-6.10); WHITE BLOOD COUNT 10.4 10^3/uL (4.0-10.0)
[2019-05-25 06:59] LABS: BLOOD UREA NITROGEN 12 MG/DL (7-18); C REACTIVE PROTEIN QUANTITATIV 3.96 MG/DL (0.00-0.30); CALCIUM LEVEL 8.9 MG/DL (8.8-10.2); CARBON DIOXIDE LEVEL 28 MEQ/L (21-32); CHLORIDE LEVEL 105 MEQ/L (98-107); GLOMERULAR FILTRATION RATE > 60.0 (>42); GLUCOSE, FASTING 99 MG/DL (70-100); SODIUM LEVEL 139 MEQ/L (136-145)
--- NOTE | 2019-05-25 07:53 | IPN ---
DATE: 05/23/2019 CHIEF COMPLAINT: 73-year-old male visited at bedside for evaluation of cellulitis of the left foot. The patient states that in December his toe turned black and he had an amputation in Dr. Alcazar's office consisting of a second toe amputation. The patient had subsequent debridements by Dr. Zhang, states that he had methicillin resistant Staphylococcus aureus (MRSA) infection. He states that he has had five debridements in the past. This wound has failed to heal. He states that he was healing well until just recently. Three days ago he noticed a foul odor. The patient states that he has been mowing the lawn. He is seen today for evaluation. SCHEDULED MEDICINE: - amlodipine 10 mg tablet - aspirin - labetalol 100 mg three times a day ALLERGIES: TRAMADOL, he states that it does not work well for him and states that hydrocodone also does not relieve his pain. BEE VENOM, FENOFIBRATE. PAST SURGICAL HISTORY: Left second ray amputation, several debridements of his left foot, RAFA arteriogram with revascularization. PHYSICAL EXAMINATION: Alert, well oriented, 73-year-old male in no acute distress. He does state that he is having some pain in his foot and it varies from 4 to 5 but has occasional shooting pains, which are worse. His laboratory studies were reviewed revealing a C-reactive protein of 4.47. His white count is 16.6. X-rays were reviewed revealing no signs of osteomyelitis. There are some soft tissue defect noted over the second metatarsal dorsally. No appreciable gas can be seen in the wound. There are three ulcerations on the foot which appear to be extending up the dorsal extensor tendon sheath. The distal ulceration at the second toe site measures 2.5 cm x 0.7 cm in width, it is 1.0 cm in depth. There is an ulceration dorsally on the foot overlying the extensor tendon measuring 1.6 cm x 1.5 cm x 0.3 cm in depth and approximately 3 cm proximal to this there is another ulceration measuring 0.5 cm x 0.5 cm x 0.3 cm in depth. Erythema extends along the toes up to just distal to the ankle. The skin is lichenified. There is no fluctuance in the tissue; however, this is painful for the patient. Dorsalis pedis or posterior tibial or popliteal pulse could not be appreciated. Femoral pulse could be felt. ASSESSMENT: 1. Cellulitis of the left foot, probable infection of the extensor tendon sheath. PLAN: The patient is presently being followed by vascular surgery. We will discuss with vascular surgery their options. If the vascular status is intact to the foot, a surgical debridement and open up the extensor tendon sheath may be a viable option to salvage this foot. However, if the vascular status is not adequate, he may require more extensor type surgery. We will coordinate with vascular surgery on Saturday. The patient's cultures are presently pending and he is presently on IV antibiotics to cover his infection. His questions were answered.
[2019-05-25] MEDS: ENOXAPARIN 40 MG/0.4 ML SYRINGE (J1650) SC SCH (08:23)
[2019-05-25] MEDS: amLODIPine 10 MG TAB PO SCH (08:24)
[2019-05-25] MEDS: PERCOCET 5MG/325MG TAB PO PRN ×2 (08:25→22:16)
--- NOTE | 2019-05-25 10:40 | IPNPDOC ---
Subjective Date Seen The patient was seen on 05/25/19. Subjective Chief Complaint/HPI Patient seen and examined at bedside. Denies any acute overnight events. States that his pain is currently controlled on the regimen prescribed. Objective Physical Examination General Exam: Positive: Alert, Cooperative, No Acute Distress ENT Exam: Positive: Atraumatic, Mucous membr. moist/pink Neck Exam: Negative: JVD Chest Exam: Positive: Clear to auscultation, Normal air movement Heart Exam: Positive: Rate Normal, Normal S1, Normal S2 Abdomen Exam: Positive: Soft; Negative: Tenderness Skin Exam: Positive: Other skin issue (left foot noted to wrapped in surgical dressing. The patient does have a surgical shoe on as well.) Psych Exam: Positive: Oriented x 3 Assessment /Plan Plan/VTE VTE Prophylaxis Ordered?: Yes Plan Left Foot Wound Infection s/p debridement and cleansing of the wound with vascular surgery on 05/23 Wound care, activity as per Vascular surgery recommendations Blood Cultures unrevealing, wound culture notable for citrobacter, staph aureus, Corynebacterium Continue with Vanco/Zosyn We will follow up with Vascular/Podiatry recommendations Cont to monitor at this time Leukocytosis, Lactic Acidosis 2/2 Above Improved following above Hx of PVD, CAD Hold ASA for now HTN Cont Norvasc DVT Prophylaxis Lovenox SC Disposition-pending clinical improvement. VS, I&O, 24H, [facility] Vital Signs/I&O Vital Signs Date Time Temp Pulse Resp B/P (MAP) Pulse Ox O2 Delivery O2 Flow Rate FiO2 05/25/19 08:55 18 05/25/19 08:24 74 133/70 05/25/19 06:00 97.4 97 05/23/19 07:46 Room Air I&O- Last 24 Hours up to 6 AM 05/25/19 06:00 Intake Total 2070 ml Output Total 825 ml Balance 1245 ml Laboratory Data 24H LABS Laboratory Tests 2 05/24/19 21:45: Vancomycin Level Trough 11.6 05/25/19 05:42: Nucleated Red Blood Cells % (auto) 0.0, Anion Gap 6L, Glomerular Filtration Rate > 60.0, Blood Urea Nitrogen 12, Creatinine 1.00, Sodium Level 139, Potassium Level 4.0, Chloride Level 105, Carbon Dioxide Level 28, Calcium Level 8.9, C- Reactive Protein, Quantitative 3.96H CBC/BMP Laboratory Tests 05/25/19 05:42 Red Blood Count 4.62, Mean Corpuscular Volume 90.0, Mean Corpuscular Hemoglobin 29.0, Mean Corpuscular Hemoglobin Concent 32.2, Red Cell Distribution Width 13.9, Calcium Level 8.9 Microbiology Microbiology 05/23/19 Blood Culture - Preliminary, Resulted No Growth after 48 hours. All Specime... 05/23/19 Blood Culture - Preliminary, Resulted No Growth after 48 hours. All Specime... 05/23/19 Gram Stain - Final, Resulted 05/23/19 Wound Culture - Preliminary, Resulted Citrobacter Freundii Staphylococcus Aureus Corynebacterium Species DYLAN HANLEY MD May 25, 2019 10:40
--- NOTE | 2019-05-25 13:43 | IPN ---
DATE: 05/25/2019 Patient is seen today, 05/25/2019, at approximately noon. Patient is sitting at bedside. His dressing intact on the left foot. Denies shortness of breath or chest pain. Patient has an extensor tendon infection with two portals extending up the extensor tendon and a large wound where the 2nd toe was situated. Patient has some decreasing erythema, which was previously up to his ankle and is slowly resolving. His cultures were reviewed, revealing staphylococcus aureus. It is sensitive to meropenem and sulfa, as well as aztreonam. It is resistant to cefazolin. 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 PLAN: Patient was nothing by mouth at breakfast. He is scheduled for debridement of the extensor tendon with pulsed lavage and packing of the wound. His questions were answered, and conformed consent was obtained and signed by the patient. This will be scheduled around 5 p.m. tonight. DOYLE
--- NOTE | 2019-05-25 14:37 | IPNPDOC ---
Date Seen The patient was seen on 05/25/19. Progress Note Vascular Surgery Dr Zhang HPI: Mr Boucher is a 73yo gentleman s/p excisional debridement left foot due to acute infection of chronic wounds, cellulitis, swelling, and maggots present. The pt states his foot is feeling better. Denies any fevers, chills, weakness, fatigue, Headache, Chest Pain, Shortness of breath, cough, palpitations, abdominal pain, N/V/D or changes in bowel or bladder habits. PE: GEN: 73yoM, appears stated age. Alert and oriented x 3. HEENT: Normocephalic, atraumatic. Moist mucous membranes. CHEST: Regular rate and rhythm, +S1, +S2 LUNGS: Clear to auscultation bilaterally. No wheezes, rales, or rhonchi. ABD: Round, soft, non-tender, non-distended. +Bowel sounds throughout. EXT: No lower extremity edema appreciated. Left foot with bandage intact. SKIN: [place], dry, warm. No rashes. NEURO: Alert and oriented x 3. No focal deficits appreciated. A&P: 1. Left foot wound. The pt is reviewed and examined as per Dr Zhang. Podiatry following and notes extensor tendon infection, plan for debridement as per Podiatry. Continue Wound care. IV Zosyn/Vanco as per Primary team. Monitor. DVT prophylaxis. Lovenox. VS, I&O, 24H, Fishbone Vital Signs/I&O Vital Signs Date Time Temp Pulse Resp B/P (MAP) Pulse Ox O2 Delivery O2 Flow Rate FiO2 05/25/19 08:55 18 05/25/19 08:24 74 133/70 05/25/19 06:00 97.4 97 05/23/19 07:46 Room Air I&O- Last 24 Hours up to 6 AM 05/25/19 06:00 Intake Total 2070 ml Output Total 825 ml Balance 1245 ml Laboratory Data 24H LABS Laboratory Tests 2 05/24/19 21:45: Vancomycin Level Trough 11.6 05/25/19 05:42: Nucleated Red Blood Cells % (auto) 0.0, Anion Gap 6L, Glomerular Filtration Rate > 60.0, Blood Urea Nitrogen 12, Creatinine 1.00, Sodium Level 139, Potassium Level 4.0, Chloride Level 105, Carbon Dioxide Level 28, Calcium Level 8.9, C- Reactive Protein, Quantitative 3.96H CBC/BMP Laboratory Tests 05/25/19 05:42 Red Blood Count 4.62, Mean Corpuscular Volume 90.0, Mean Corpuscular Hemoglobin 29.0, Mean Corpuscular Hemoglobin Concent 32.2, Red Cell Distribution Width 13.9, Calcium Level 8.9 Microbiology Microbiology 05/23/19 Blood Culture - Preliminary, Resulted No Growth after 48 hours. All Specime... 05/23/19 Blood Culture - Preliminary, Resulted No Growth after 48 hours. All Specime... 05/23/19 Gram Stain - Final, Resulted 05/23/19 Wound Culture - Preliminary, Resulted Citrobacter Freundii Staphylococcus Aureus Corynebacterium Species Maki Mckinnon May 25, 2019 14:37
[2019-05-25] MEDS ORDERED: LIDOCAINE 2% MDV 20 ML VIAL As Ordered ONE (16:05)
[2019-05-25] MEDS ORDERED: BUPIVACAINE HCL 0.5% 30 ML VIAL As Ordered ONE (16:05)
[2019-05-25] MEDS: DAKIN'S 0.25% HALF-STRENGTH SOLN 480 ML TOP SCH ×2 (16:15→21:46)
[2019-05-25] MEDS ORDERED: PROPOFOL 200 MG/20 ML VIAL As Ordered ONE ×2 (18:12→18:53)
[2019-05-25] MEDS ORDERED: LIDOCAINE 2% INJ 100 MG/5 ML SDV (FOR ANES.) As Ordered ONE (18:12)
[2019-05-25] MEDS ORDERED: MIDAZOLAM INJ 2 MG/2 ML VIAL (J2250) As Ordered ONE (18:12)
[2019-05-25] MEDS ORDERED: fentaNYL 100 MCG/2 ML INJECTION (J3010) As Ordered ONE (18:12)
[2019-05-25] MEDS ORDERED: ZOSYN 3.375 GM VIAL (J2543) As Ordered ONE (18:13)
[2019-05-25] MEDS ORDERED: VANCOMYCIN 1000 MG/20 ML VIAL (J3370) As Ordered ONE (18:36)
[2019-05-25] MEDS ORDERED: PROMETHAZINE INJ 25 MG/ML VIAL (J2550) IV PRN (19:30)
[2019-05-25] MEDS ORDERED: fentaNYL 100 MCG/2 ML INJECTION (J3010) IV PRN (19:30)
[2019-05-25] MEDS ORDERED: LR 1,000 ML IV SCH (19:30)
[2019-05-25] MEDS ORDERED: METOCLOPRAMIDE INJ 10MG/2ML VIAL (J2765) IV PRN (19:30)
[2019-05-26] VITALS (8 sets, daily range): BP systolic 124–180; BP diastolic 64–89
[2019-05-26] MEDS: PIPERACILLIN/TAZOBACTAM SOD 3.375 GM in D5W MINI-BAG PLUS 50 ML IV SCH ×4 (00:44→18:25)
[2019-05-26 05:41] LABS: HEMATOCRIT 43.2 % (42.0-52.0); MEAN CORPUSCULAR HGB CONC 32.4 g/dl (32.0-36.5); MEAN CORPUSCULAR VOLUME 89.6 fl (80.0-96.0); PLATELET COUNT, AUTOMATED 294 10^3/uL (150-450); RED BLOOD COUNT 4.82 10^6/uL (4.30-6.10); WHITE BLOOD COUNT 12.3 10^3/uL (4.0-10.0)
[2019-05-26] MEDS: VANCOMYCIN HCL 750 MG, VIAL MATE ADAPTER 1 EACH in D5W 250 ML IV SCH ×2 (05:55→14:39)
[2019-05-26 06:04] LABS: BLOOD UREA NITROGEN 12 MG/DL (7-18); C REACTIVE PROTEIN QUANTITATIV 2.15 MG/DL (0.00-0.30); CALCIUM LEVEL 8.6 MG/DL (8.8-10.2); CARBON DIOXIDE LEVEL 30 MEQ/L (21-32); CHLORIDE LEVEL 105 MEQ/L (98-107); CREATININE FOR GFR 1.03 MG/DL (0.70-1.30); GLOMERULAR FILTRATION RATE > 60.0 (>42); GLUCOSE, FASTING 98 MG/DL (70-100); POTASSIUM SERUM 3.9 MEQ/L (3.5-5.1); SODIUM LEVEL 138 MEQ/L (136-145)
--- NOTE | 2019-05-26 06:12 | PHACANCOPD ---
PHARMACY VANCOMYCIN DOSING Pt Demographics Demographics Patient Age:73 , Weight:106.700 , Gender: male Adjusted Body Weight Date: 05/23/19, Adjusted Body Weight: [84.24] Kg Events Past 24 Hours Events Past 24 Hours: NO: Dialysis, Diuretic Therapy, Change in CrCl, Fever, Elevation in WBC, Pending Diagnostics, Pending Procedures, Other Vancomycin Vancomycin indication: Soft Tissue Infection Vancomycin Target Ranges: 15-20 mcg/ml Vancomycin Load Y/N: Yes Load Dose Date Time Vancomycin Load Dose: 2g Date: 05/23/19 Time:11:00 Vancomycin Dose Date: 05/26/19. Current Vancomycin Dose: [750mg q8h] Intermittent Dosing?: No Labs Labs Item Value Date Time White Blood Count 12.3 10^3/uL H 05/26/19 05 Glomerular Filtration Rate > 60.0 05/26/19 0520 Creatinine 1.03 MG/DL 05/26/19 05 Blood Urea Nitrogen 12 MG/DL 05/26/19 0520 Vancomycin Level Trough 19.0 UG/ML 05/26/19 0520 Vital Signs Label Value Date Time Patient Temperature 96.6 degrees F 05/26/19 0041 Temperature Source Temporal 05/26/19 0041 Micro Microbiology 05/23/19 Blood Culture - Preliminary, Resulted No Growth after 48 hours. All Specime... 05/23/19 Blood Culture - Preliminary, Resulted No Growth after 48 hours. All Specime... 05/23/19 Gram Stain - Final, Resulted 05/23/19 Wound Culture - Preliminary, Resulted Citrobacter Freundii Staphylococcus Aureus Corynebacterium Species Creatinine Clearance Date:05/23/19. Creatinine Clearance: [69.6ml/min]. Assessment and Plan Maintaining Current Dose?: Yes Reason for dose change: No Dose Change Pharmacist Note Pharmacist Note Date: 05/26/19. Pharmacist note:Trough of 19 is within target range. Will continue current dosing. Will continue to monitor and make adjustments as needed. FELIPE DARNELL PHARMACY May 26, 2019 06:12
[2019-05-26] MEDS: PERCOCET 5MG/325MG TAB PO PRN ×3 (06:15→23:30)
[2019-05-26] MEDS: DAKIN'S 0.25% HALF-STRENGTH SOLN 480 ML TOP SCH ×2 (07:49→22:37)
[2019-05-26] MEDS: ENOXAPARIN 40 MG/0.4 ML SYRINGE (J1650) SC SCH (07:58)
[2019-05-26] MEDS: amLODIPine 10 MG TAB PO SCH (08:01)
--- NOTE | 2019-05-26 08:48 | IPNPDOC ---
Date Seen The patient was seen on 05/26/19. Progress Note Vascular Surgery Dr Zhang HPI: Mr Boucher is a 73yo gentleman admitted 05/23/19 related to left foot acute infection of chronic wounds, cellulitis, swelling, and maggots present. The pt is s/p debridement as per Dr Ivory 05/25/19. Denies any fevers, chills, weakness, fatigue, Headache, Chest Pain, Shortness of breath, cough, palpitations, abdominal pain, N/V/D or changes in bowel or sim dder habits. PE: GEN: 73yoM, appears stated age. Alert and oriented x 3. HEENT: Normocephalic, atraumatic. Moist mucous membranes. CHEST: Regular rate and rhythm, +S1, +S2 LUNGS: Clear to auscultation bilaterally. No wheezes, rales, or rhonchi. ABD: Round, soft, non-tender, non-distended. +Bowel sounds throughout. EXT: No lower extremity edema appreciated. Left foot with bandage intact. SKIN: [place], dry, warm. No rashes. NEURO: Alert and oriented x 3. No focal deficits appreciated. A&P: 1. Left foot wound. The pt is reviewed and examined as per Dr Zhang. Podiatry following and notes extensor tendon infection, status post debridement 05/25/19 as per Podiatry. Plan for outpatient follow-up with Dr. Ivory. Continue Wound care. IV Zosyn/Vanco as per Primary team. Monitor. DVT prophylaxis. Lovenox. VS, I&O, 24H, Fishbone Vital Signs/I&O Vital Signs Date Time Temp Pulse Resp B/P (MAP) Pulse Ox O2 Delivery O2 Flow Rate FiO2 05/26/19 08:01 71 138/72 05/26/19 06:45 18 05/26/19 06:00 97.6 97 05/25/19 19:06 2 05/23/19 07:46 Room Air I&O- Last 24 Hours up to 6 AM 05/26/19 06:00 Intake Total 1075 ml Output Total 2070 ml Balance -995 ml Laboratory Data 24H LABS Laboratory Tests 2 05/26/19 05:19: Nucleated Red Blood Cells % (auto) 0.0 05/26/19 05:20: Anion Gap 3L, Glomerular Filtration Rate > 60.0, Blood Urea Nitrogen 12, Creatinine 1.03, Sodium Level 138, Potassium Level 3.9, Chloride Level 105, Carbon Dioxide Level 30, Calcium Level 8.6L, C-Reactive Protein, Quantitative 2.15H, Vancomycin Level Trough 19.0 CBC/BMP Laboratory Tests 05/26/19 05:19 Red Blood Count 4.82, Mean Corpuscular Volume 89.6, Mean Corpuscular Hemoglobin 29.0, Mean Corpuscular Hemoglobin Concent 32.4, Red Cell Distribution Width 13.8 05/26/19 05:20 Calcium Level 8.6 L Microbiology Microbiology 05/23/19 Blood Culture - Preliminary, Resulted No Growth after 72 hours. All specime... 05/23/19 Blood Culture - Preliminary, Resulted No Growth after 72 hours. All specime... 05/23/19 Gram Stain - Final, Complete 05/23/19 Wound Culture - Final, Complete Citrobacter Freundii Proteus Vulgaris Staphylococcus Aureus Corynebacterium Species Maki Mckinnon May 26, 2019 08:48
--- NOTE | 2019-05-26 09:43 | RO ---
DATE OF PROCEDURE: 05/25/2019 PREOPERATIVE DIAGNOSIS: Extensor tendon sheath infection dorsal aspect of left foot. POSTOPERATIVE DIAGNOSIS: Extensor tendon sheath infection dorsal aspect of left foot. PROCEDURE PERFORMED: Incision and drainage of extensor tendon left foot. SURGEON: Spencer Ivory DPM BOOM TENDER: None. ANESTHESIA: Local MAC IRRIGATION: 3 liters dilute vancomycin solution low pressure pulse lavaged system. ESTIMATED BLOOD LOSS: 20 mL. HEMOSTASIS: None. DESCRIPTION OF OPERATION: On 05/25/2019, this 73-year-old male was taken from his hospital room to the operating room and placed on the operating table in a supine position. Following the induction of intravenous (IV) sedation and local and regional anesthesia, the left lower extremity was prepped and draped in the usual aseptic manner. Attention was directed to the patient's left foot, where there was noted to be an approximate 3 cm x 1 cm x approximately 7 mm in depth ulceration overlying where the 2nd toe was. Two smaller ulcerations were noted on the dorsal surface of the foot where the extensor tendon sheath is located. Utilizing a tongue and groove dissector, the incision was opened from the ulceration on the 2nd toe area up the extensor tendon sheath. The extensor tendon was then thoroughly lavaged. There was a minimal amount of purulent drainage. 3 liters of pulsed lavage was then the debrided through the wound and all necrotic and nonviable tendon sheath was removed. All bleeders as encountered were electrocoagulated. After the wound copiously lavaged, 1/4 inch iodoform gauze was placed at the location of the ulcer of the 2nd toe up the extensor sheath. Wound care instructions include letting the foot soak with Vashe for 15 minutes followed Silvadene and a dressing. This can be started tomorrow morning. Bandage may be reinforced as needed. His questions are answered. YANIRA
[2019-05-26] MEDS: SILVER SULFADIAZINE 1% CR 50 GM JAR TOP SCH ×2 (09:48→23:29)
--- NOTE | 2019-05-26 14:12 | IPN ---
DATE: 05/26/2019 Patient is sitting at bedside with his family present. The patient denies shortness of breath or chest pain, or any pain presently from his left foot. His bandage was removed revealing good granulation tissue with considerable reduction in swelling of his left foot. There is an ulceration present from the previous second toe amputation, which is unchanged. There is good granulation tissue along the dorsal incision from his debridement of infected tendon sheath. There is no active purulence noted. The patient's wound culture revealed Citrobacter, proteus vulgaris, Staphylococcus Aureus and carinii species. There is no calf tenderness. A dry sterile dressing was applied to the patient's left foot. Wound care will consist of Silvadene and a sterile dressing twice a day. The patient's culture and sensitivity was reviewed. All three organisms are sensitive to trimethoprim sulfamethoxazole and gentamicin. We discussed with the patient appropriate wound follow-up and offloading of his foot and always keeping the bandage on his foot. We also discussed not able to mow. Would recommend when he showers to wear a shower bag to prevent recontamination of wound. The patient could have his medicines changes to Bactrim DS, his GFR is greater than 60, 1 by mouth twice a day. His questions are answered.
[2019-05-26] MEDS: ASPIRIN 81 MG ENTERIC TAB PO SCH (14:43)
[2019-05-26] MEDS ORDERED: **hydrALAZINE** 10 MG TAB PO ONE (14:45)
[2019-05-26] MEDS: LABETALOL 100 MG TAB PO SCH ×2 (16:13→23:30)
--- NOTE | 2019-05-26 20:06 | IPNPDOC ---
Text Note Date of Service The patient was seen on 05/26/19. NOTE S:Patient being seen for PVD, left foot second MTP infection at site of recent amputation and increased BP. He states no foot pain and foot/toe recently examined and re-dressed by access tech. He had not been restarted on home med (labetolol) and Blood pressure increasing. he states no SOB, no CP; no fever. O: vitals as below General: pleasant, NAD AAOx3 HRRR LCTA Ext: see podiatry evaluation/exam. Right foot bandaged with walking shoe intact. A/P: 1) Left Foot Wound Infection with citrobacter, staph aureus, Corynebacterium, proteus vulgaris s/p debridement and cleansing of the wound with vascular surgery on 05/23 Blood Cultures negative; currently on Vanco/Zosyn ; per podiatry, recommend changing to bactrim DS current dressing regimen per podiatry: " Silvadene and a sterile dressing twice a day" " off loading foot" "always keeping the bandage on his foot". " when he showers to wear a shower bag to prevent recontamination of w ound." 2) Leukocytosis, Lactic Acidosis - improving and due to #1 3) Hx of PVD, CAD - restart ASA 4) benign essential HTN- continue norvasc; add labetolol DVT Prophylaxis : Lovenox SC Disposition - possible d/c in 24-36 hours if labs continue to improve Current Medications Medications (Trade) Dose Ordered Sig/[place] Route PRN Reason Start Time Stop Time Status Last Admin Dose Admin Acetaminophen (Tylenol Tab) 650 mg Q4H PRN PO PAIN OR FEVER 05/23/19 10:15 Amlodipine Besylate (Norvasc) 10 mg DAILY PO 05/24/19 09:00 05/26/19 08:01 Enoxaparin Sodium (Lovenox) 40 mg DAILY SC 05/23/19 09:00 05/26/19 07:58 Fentanyl Citrate (Sublimaze) 25 mcg Q5MP PRN IV MODERATE PAIN (PS 4-7) 05/25/19 19:30 05/25/19 20:30 DC Home Med (Med Rec Complete!) ASDIRECTED XX 05/23/19 09:00 05/23/19 09:00 DC Lactated Ringer's 1,000 ml @ 100 mls/hr Q10H IV 05/25/19 19:30 05/25/19 20:30 DC Metoclopramide HCl (REGLAN INJection) 10 mg Q6HP PRN IV NAUSEA OR VOMITING 05/25/19 19:30 05/25/19 20:30 DC Oxycodone/ Acetaminophen (Percocet 5mg/ 325mg Tablet) 1 tab Q6HP PRN PO MILD/MODERATE PAIN (PS 1-7) 05/23/19 21:15 05/26/19 12:52 Piperacillin Sod/ Tazobactam Sod 3.375 gm/Dextrose 50 ml @ 50 mls/hr Q6H IV 05/23/19 13:00 05/25/19 07:30 DC 05/25/19 07:17 Piperacillin Sod/ Tazobactam Sod 3.375 gm/Dextrose 50 ml @ 50 mls/hr Q6H IV 05/25/19 13:00 05/26/19 12:48 Promethazine HCl (PHENERGAN INJection) 12.5 mg Q5MP PRN IV NAUSEA OR VOMITING 05/25/19 19:30 05/25/19 20:30 DC Silver Sulfadiazine (Silvadene 1%) APPLY WITH DRESSING ... BID TOP 05/26/19 09:00 05/26/19 09:48 Sodium Hypochlorite (Dakin'S Solution) BID TOP 05/23/19 09:00 05/25/19 21:46 Sodium Chloride 1,000 ml @ 100 mls/hr Q10H IV 05/23/19 06:49 05/23/19 07:51 DC 05/23/19 07:15 Vancomycin HCl 750 mg/IV Miscellaneous Supplies 1 each/ Dextrose 275 ml @ 275 mls/hr Q8H IV 05/25/19 06:00 05/26/19 05:55 Vancomycin HCl 1000 mg/IV Miscellaneous Supplies 1 each/ Dextrose 270 ml @ 270 mls/hr Q12H IV 05/23/19 10:15 05/23/19 10:42 DC Vancomycin HCl 1000 mg/IV Miscellaneous Supplies 1 each/ Dextrose 270 ml @ 270 mls/hr Q12H IV 05/23/19 11:00 05/25/19 00:31 DC 05/24/19 23:15 VS,Fishbone, I+O VS, Fishbone, I+O Laboratory Tests 05/26/19 05:19 Red Blood Count 4.82, Mean Corpuscular Volume 89.6, Mean Corpuscular Hemoglobin 29.0, Mean Corpuscular Hemoglobin Concent 32.4, Red Cell Distribution Width 13.8 05/26/19 05:20 Calcium Level 8.6 L Vital Signs Date Time Temp Pulse Resp B/P (MAP) Pulse Ox O2 Delivery O2 Flow Rate FiO2 05/26/19 12:52 18 05/26/19 10:42 176/87 (116) 05/26/19 10:00 96.9 90 96 05/25/19 19:06 2 05/23/19 07:46 Room Air I&O- Last 24 Hours up to 6 AM 05/26/19 05:59 Intake Total 1075 ml Output Total 2895 ml Balance -1820 ml CAMILO TUCKER DO May 26, 2019 14:36
[2019-05-26] MEDS: BACTRIM 160MG/800MG DS TAB PO SCH (23:29)
[2019-05-27 02:00] VITALS: BP 146/70
[2019-05-27 06:00] VITALS: BP 144/75
[2019-05-27 06:22] LABS: HEMATOCRIT 41.9 % (42.0-52.0); HEMOGLOBIN 13.7 g/dl (13.5-17.5); MEAN CORPUSCULAR HEMOGLOBIN 29.5 pg (27.0-33.0); MEAN CORPUSCULAR HGB CONC 32.7 g/dl (32.0-36.5); MEAN CORPUSCULAR VOLUME 90.1 fl (80.0-96.0); PLATELET COUNT, AUTOMATED 307 10^3/uL (150-450); RED BLOOD COUNT 4.65 10^6/uL (4.30-6.10); WHITE BLOOD COUNT 15.9 10^3/uL (4.0-10.0)
[2019-05-27 06:27] LABS: BLOOD UREA NITROGEN 12 MG/DL (7-18); C REACTIVE PROTEIN QUANTITATIV 4.43 MG/DL (0.00-0.30); CALCIUM LEVEL 8.4 MG/DL (8.8-10.2); CARBON DIOXIDE LEVEL 27 MEQ/L (21-32); CHLORIDE LEVEL 105 MEQ/L (98-107); CREATININE FOR GFR 1.07 MG/DL (0.70-1.30); GLOMERULAR FILTRATION RATE > 60.0 (>42); GLUCOSE, FASTING 100 MG/DL (70-100); POTASSIUM SERUM 3.6 MEQ/L (3.5-5.1); SODIUM LEVEL 139 MEQ/L (136-145)
--- NOTE | 2019-05-27 09:55 | IPNPDOC ---
Date Seen The patient was seen on 05/27/19. Progress Note Vascular Surgery Dr Zhang HPI: Mr Boucher is a 73yo gentleman admitted 05/23/19 related to left foot acute infection of chronic wounds, cellulitis, swelling, and maggots present. The pt is s/p debridement as per Dr Ivory 05/25/19. Denies any fevers, chills, weakness, fatigue, Headache, Chest Pain, Shortness of breath, cough, palpitations, abdominal pain, N/V/D or changes in bowel or sim dder habits. PE: GEN: 73yoM, appears stated age. Alert and oriented x 3. HEENT: Normocephalic, atraumatic. Moist mucous membranes. CHEST: Regular rate and rhythm, +S1, +S2 LUNGS: Clear to auscultation bilaterally. No wheezes, rales, or rhonchi. ABD: Round, soft, non-tender, non-distended. +Bowel sounds throughout. EXT: No lower extremity edema appreciated. Left foot with bandage intact. SKIN: [place], dry, warm. No rashes. NEURO: Alert and oriented x 3. No focal deficits appreciated. A&P: 1. Left foot wound. The pt is reviewed and examined as per Dr Zhang. Podiatry following and noted extensor tendon infection, status post debridement 05/25/19 as per Podiatry. Plan for outpatient follow-up with Dr. Ivory. Continue Wound care as requested per Podiatry. S/P IV Zosyn/Vanco now po Bactrim as per Primary team. Monitor. 2. PAD LLE arteriogram and revascularization as per Dr Zhang. Continue outpt FU with Vascular surgery. DVT prophylaxis. Lovenox. VS, I&O, 24H, Fishbone Vital Signs/I&O Vital Signs Date Time Temp Pulse Resp B/P (MAP) Pulse Ox O2 Delivery O2 Flow Rate FiO2 05/27/19 06:00 98.3 76 16 144/75 (98) 97 05/25/19 19:06 2 05/23/19 07:46 Room Air I&O- Last 24 Hours up to 6 AM 05/27/19 05:59 Intake Total 875 ml Output Total 1050 ml Balance -175 ml Laboratory Data 24H LABS Laboratory Tests 2 05/27/19 05:31: Nucleated Red Blood Cells % (auto) 0.0, Anion Gap 7L, Glomerular Filtration Rate > 60.0, Blood Urea Nitrogen 12, Creatinine 1.07, Sodium Level 139, Potassium Level 3.6, Chloride Level 105, Carbon Dioxide Level 27, Calcium Level 8.4L, C- Reactive Protein, Quantitative 4.43H CBC/BMP Laboratory Tests 05/27/19 05:31 Red Blood Count 4.65, Mean Corpuscular Volume 90.1, Mean Corpuscular Hemoglobin 29.5, Mean Corpuscular Hemoglobin Concent 32.7, Red Cell Distribution Width 13.8, Calcium Level 8.4 L Microbiology Microbiology 05/23/19 Blood Culture - Preliminary, Resulted No Growth after 72 hours. All specime... 05/23/19 Blood Culture - Preliminary, Resulted No Growth after 72 hours. All specime... 05/23/19 Gram Stain - Final, Complete 05/23/19 Wound Culture - Final, Complete Citrobacter Freundii Proteus Vulgaris Staphylococcus Aureus Corynebacterium Species Maki Mckinnon May 27, 2019 09:54
[2019-05-27] MEDS: ASPIRIN 81 MG ENTERIC TAB PO SCH (10:24)
[2019-05-27] MEDS: BACTRIM 160MG/800MG DS TAB PO SCH ×2 (10:24→20:47)
[2019-05-27] MEDS: LABETALOL 100 MG TAB PO SCH ×3 (10:24→20:47)
[2019-05-27] MEDS: amLODIPine 10 MG TAB PO SCH (10:24)
[2019-05-27] MEDS: ENOXAPARIN 40 MG/0.4 ML SYRINGE (J1650) SC SCH (10:25)
[2019-05-27] MEDS: PERCOCET 5MG/325MG TAB PO PRN ×3 (10:36→20:48)
[2019-05-27 14:00] VITALS: BP 140/72
[2019-05-27] MEDS: SILVER SULFADIAZINE 1% CR 50 GM JAR TOP SCH ×2 (14:00→18:53)
[2019-05-27 22:00] VITALS: BP 140/68
[2019-05-28 06:00] VITALS: BP 138/74
[2019-05-28 06:05] LABS: HEMOGLOBIN 13.8 g/dl (13.5-17.5); MEAN CORPUSCULAR HEMOGLOBIN 29.2 pg (27.0-33.0); MEAN CORPUSCULAR HGB CONC 32.1 g/dl (32.0-36.5); MEAN CORPUSCULAR VOLUME 91.1 fl (80.0-96.0); PLATELET COUNT, AUTOMATED 287 10^3/uL (150-450); RED BLOOD COUNT 4.72 10^6/uL (4.30-6.10); WHITE BLOOD COUNT 10.1 10^3/uL (4.0-10.0)
[2019-05-28 06:24] LABS: BLOOD UREA NITROGEN 14 MG/DL (7-18); C REACTIVE PROTEIN QUANTITATIV 3.12 MG/DL (0.00-0.30); CALCIUM LEVEL 8.5 MG/DL (8.8-10.2); CARBON DIOXIDE LEVEL 26 MEQ/L (21-32); CHLORIDE LEVEL 106 MEQ/L (98-107); CREATININE FOR GFR 1.17 MG/DL (0.70-1.30); GLOMERULAR FILTRATION RATE > 60.0 (>42); GLUCOSE, FASTING 108 MG/DL (70-100); POTASSIUM SERUM 3.9 MEQ/L (3.5-5.1); SODIUM LEVEL 138 MEQ/L (136-145)
--- NOTE | 2019-05-28 07:39 | IPNPDOC ---
Text Note Date of Service The patient was seen on 05/27/19. NOTE S: patient states feels fine. no foot or leg pain. His WBC is increased (unclear if due to changing IV to po antibiotic or debridement yesterday). O: Vitals as below HRRR LCTA Ext: no ankle edema; right foot in walking shoe,bandaged A/P: 1) Left Foot Wound Infection with citrobacter, staph aureus, Corynebacterium, proteus vulgaris s/p debridement and cleansing of the wound with vascular surgery on 05/23 Blood Cultures negative; currently on Vanco/Zosyn ; per podiatry, recommend changing to bactrim DS current dressing regimen per podiatry: " Silvadene and a sterile dressing twice a day" " off loading foot" "always keeping the bandage on his foot". " when he showers to wear a shower bag to prevent recontamination of wound." Continue bactrim today and if WBC increased tomorrow, then change to IV; if decreased, then discharge home 2) Leukocytosis, Lactic Acidosis - improving and due to #1 3) Hx of PVD, CAD - restart ASA 4) benign essential HTN- continue norvasc; add labetolol DVT Prophylaxis : Lovenox SC Disposition - possible d/c in 24-36 hours if labs continue to improve VSGrover, I+O VSGrover, I+O Laboratory Tests 05/27/19 05:31 Red Blood Count 4.65, Mean Corpuscular Volume 90.1, Mean Corpuscular Hemoglobin 29.5, Mean Corpuscular Hemoglobin Concent 32.7, Red Cell Distribution Width 13.8, Calcium Level 8.4 L Vital Signs Date Time Temp Pulse Resp B/P (MAP) Pulse Ox O2 Delivery O2 Flow Rate FiO2 05/27/19 16:02 73 140/72 05/27/19 14:00 98.6 18 97 05/25/19 19:06 2 05/23/19 07:46 Room Air I&O- Last 24 Hours up to 6 AM 05/27/19 06:00 Intake Total 875 ml Output Total 1050 ml Balance -175 ml CAMILO TUCKER DO May 27, 2019 17:02
[2019-05-28] MEDS: BACTRIM 160MG/800MG DS TAB PO SCH (07:58)
[2019-05-28] MEDS: ENOXAPARIN 40 MG/0.4 ML SYRINGE (J1650) SC SCH (07:58)
[2019-05-28] MEDS: ASPIRIN 81 MG ENTERIC TAB PO SCH (07:58)
[2019-05-28 08:02] VITALS: BP 141/76
[2019-05-28] MEDS: amLODIPine 10 MG TAB PO SCH (08:02)
[2019-05-28] MEDS: LABETALOL 100 MG TAB PO SCH (08:02)
--- NOTE | 2019-05-28 08:33 | IPNPDOC ---
Date Seen The patient was seen on 05/28/19. Progress Note Vascular Surgery Dr Zhang HPI: Mr Boucher is a 73yo gentleman admitted 05/23/19 related to left foot acute infection of chronic wounds, cellulitis, swelling, and maggots present. The pt is s/p debridement as per Dr Ivory 05/25/19. Currently po Bactrim as per Podiatry. PE: GEN: 73yoM, appears stated age. Alert and oriented x 3. HEENT: Normocephalic, atraumatic. Moist mucous membranes. CHEST: Regular rate and rhythm, +S1, +S2 LUNGS: Clear to auscultation bilaterally. No wheezes, rales, or rhonchi. ABD: Round, soft, non-tender, non-distended. +Bowel sounds throughout. EXT: No lower extremity edema appreciated. Left foot with bandage intact. SKIN: [place], dry, warm. No rashes. NEURO: Alert and oriented x 3. No focal deficits appreciated. A&P: 1. Left foot wound. The pt is reviewed and examined as per Dr Zhang. Podiatry following and noted extensor tendon infection, S/P debridement 05/25/19 as per Podiatry. Plan for outpatient follow-up with Dr. Ivory. Continue Wound care as requested per Podiatry. S/P IV Zosyn/Vanco now po Bactrim as per Primary team/podiatry. Continue outpt wound mgmt with podiatry. Monitor. 2. PAD LLE arteriogram and revascularization as per Dr Zhang. Continue outpt FU with Vascular surgery. DVT prophylaxis. Lovenox. VS, I&O, 24H, Soterobone Vital Signs/I&O Vital Signs Date Time Temp Pulse Resp B/P (MAP) Pulse Ox O2 Delivery O2 Flow Rate FiO2 05/28/19 08:02 72 141/76 05/28/19 06:00 97.0 20 98 05/25/19 19:06 2 05/23/19 07:46 Room Air I&O- Last 24 Hours up to 6 AM 05/28/19 06:00 Intake Total 1320 ml Output Total 1425 ml Balance -105 ml Laboratory Data 24H LABS Laboratory Tests 2 05/28/19 05:39: Nucleated Red Blood Cells % (auto) 0.0, Anion Gap 6L, Glomerular Filtration Rate > 60.0, Blood Urea Nitrogen 14, Creatinine 1.17, Sodium Level 138, Potassium Level 3.9, Chloride Level 106, Carbon Dioxide Level 26, Calcium Level 8.5L, C- Reactive Protein, Quantitative 3.12H CBC/BMP Laboratory Tests 05/28/19 05:39 Red Blood Count 4.72, Mean Corpuscular Volume 91.1, Mean Corpuscular Hemoglobin 29.2, Mean Corpuscular Hemoglobin Concent 32.1, Red Cell Distribution Width 13.8, Calcium Level 8.5 L Microbiology Microbiology 05/23/19 Blood Culture - Final, Complete NO GROWTH AFTER 5 DAYS 05/23/19 Blood Culture - Final, Complete NO GROWTH AFTER 5 DAYS 05/23/19 Gram Stain - Final, Complete 05/23/19 Wound Culture - Final, Complete Citrobacter Freundii Proteus Vulgaris Staphylococcus Aureus Corynebacterium Species Maki Mckinnon May 28, 2019 08:33
[2019-05-28] MEDS ORDERED: SULF1TAB93 PO (10:42)
[2019-05-28] MEDS ORDERED: SILV50CR TOP (10:42)
[2019-05-28] MEDS ORDERED: PERCOCET PO (10:42)
--- NOTE | 2019-05-28 20:17 | DS.PDOC ---
Discharge Summary General Date of Admission May 23, 2019 at 10:03 Date of Discharge 05/28/19 Primary Care Physician: Spencer Zhang MD Attending Physician: CAMILO TUCKER DO Specialist/Consultants Involve: ANG GARCIA MD Specialist/Consultants Involve Dr Ivory Discharge Summary PROCEDURES PERFORMED DURING STAY: s/p debridement and cleansing of the wound with vascular surgery on 05/23/19 DISCHARGE DIAGNOSES: 1) Left Foot Wound Infection with citrobacter, staph aureus, Corynebacterium, proteus vulgaris 2) Leukocytosis, Lactic Acidosis - improving and due to #1 3) Hx of PVD, CAD - 4) benign essential HTN- COMPLICATIONS/CHIEF COMPLAINT: Cellulitis Of Foot. HISTORY OF PRESENT ILLNESS: 73-year-old male with past medical history of coronary artery disease, hypertension, peripheral vascular disease with long- standing ulcerations of the left foot status post left second toe amputation in the recent past. He has been following Dr. Alcazar of wound care and Dr. Zhang of vascular surgery as an outpatient, and recently had debridement done of the left foot. He states that he was feeling well up until 3 days ago when he started to note increased pain and discharge from the wound site. He noted a foul odor from the discharge. In the ER, the patient was noted to have maggots in the wound. Vascular surgery and podiatry was consulted in the ER. The patient will be admitted to the hospitalist service for further evaluation and management. See H&P for details HOSPITAL COURSE: patient admitted, initially placed on vanc/zosyn. blood c ultures were negative. wound debrided and wound cultures showed citrobacter, staph aureus, Corynebacterium, proteus vulgaris. IV antibiotics were de-escalated to po bactrim and patient continued to improve. Priro to discharge, his WBC returned to baseline. Podiatry recommended dressing changes (as below under instructions). DISCHARGE MEDICATIONS: Please see below. ALLERGIES: Please see below. PHYSICAL EXAMINATION ON DISCHARGE: VITAL SIGNS: Please see below. General: pleasant, NAD AAOX3 HRRR LCTA Ext: right foot bandaged, walking open shoe sandel intact LABORATORY DATA: Please see below. PROGNOSIS:good ACTIVITY:as tolerated DIET: as tolerated DISCHARGE PLAN: discharge home. instructed on dressing changes and wound care DISCHARGE INSTRUCTIONS: Dressing changes: " Silvadene and a sterile dressing twice a day" " off loading foot" "always keeping the bandage on his foot". " when he showers to wear a shower bag to prevent recontamination of wound." Follow up with Dr Zhang in 2 weeks or as previously scheduled Follow up with Dr Butts in 1 week Bactrim DS for 7 days DISCHARGE CONDITION: [Stable]. TIME SPENT ON DISCHARGE: Greater than minutes. Vital Signs/I&Os Vital Signs Date Time Temp Pulse Resp B/P (MAP) Pulse Ox O2 Delivery O2 Flow Rate FiO2 05/28/19 08:02 72 141/76 05/28/19 06:00 97.0 20 98 05/25/19 19:06 2 05/23/19 07:46 Room Air I&O- Last 24 Hours up to 6 AM 05/28/19 06:00 Intake Total 1320 ml Output Total 1425 ml Balance -105 ml Laboratory Data Labs 24H Laboratory Tests 2 05/28/19 05:39: Nucleated Red Blood Cells % (auto) 0.0, Anion Gap 6L, Glomerular Filtration Rate > 60.0, Blood Urea Nitrogen 14, Creatinine 1.17, Sodium Level 138, Potassium Level 3.9, Chloride Level 106, Carbon Dioxide Level 26, Calcium Level 8.5L, C-Reactive Protein, Quantitative 3.12H CBC/BMP Laboratory Tests 05/28/19 05:39 Red Blood Count 4.72, Mean Corpuscular Volume 91.1, Mean Corpuscular Hemoglobin 29.2, Mean Corpuscular Hemoglobin Concent 32.1, Red Cell Distribution Width 13.8, Calcium Level 8.5 L Microbiology Microbiology 05/23/19 Blood Culture - Final, Complete NO GROWTH AFTER 5 DAYS 05/23/19 Blood Culture - Final, Complete NO GROWTH AFTER 5 DAYS 05/23/19 Gram Stain - Final, Complete 05/23/19 Wound Culture - Final, Complete Citrobacter Freundii Proteus Vulgaris Staphylococcus Aureus Corynebacterium Species Discharge Medications Scheduled Amlodipine Besylate (Amlodipine Besylate) 10 Mg Tab, 10 MG PO DAILY, (Reported) Aspirin (Aspirin EC) 81 Mg Tabec, 81 MG PO DAILY Labetalol HCl (Labetalol HCl) 100 Mg Tab, 100 MG PO TID, (Reported) Silver Sulfadiazine (Ssd) 50 Gm Cream..g., 0 GM TOP BID Sulfamethoxazole/Trimethoprim (Sulfamethoxazole-Tmp Ds Tablet) 1 Each Tablet, 1 TAB PO BID Scheduled PRN Nitroglycerin (Nitroglycerin) 0.4 Mg Sub, 0.4 MG SL Q5MP PRN for CHEST PAIN, (Reported) Oxycodone/Acetaminophen (Oxycodone-Acetaminophen 5-325) 1 Each Tablet, 1 TAB PO Q6HP PRN for MILD/MODERATE PAIN (PS 1-7) Allergies Coded Allergies: bee venom protein (honey bee) (Verified Allergy, Unknown, 03/04/19) tramadol (Unverified Allergy, Unknown, hives, 03/04/19) fenofibrate (Verified Adverse Reaction, Intermediate, MYALGIA, 03/04/19) CAMILO TUCKER DO May 28, 2019 10:45
== END 2019-05-28 13:19 | disposition home health service (06) | DRG 464 ==
LOC: M ED 06:19 → M ED INP 10:03 → M MSPAV 13:09
PROVIDERS: ADMIT Internal Medicine; ATTEND Family Medicine
PROC: 0L9W0ZZ Drainage of Left Foot Tendon, Open Approach (ICD-10-PCS; 2019-05-25)
PROC: 0JBR0ZZ Excision of Left Foot Subcutaneous Tissue and Fascia, Open Approach (ICD-10-PCS; principal; 2019-05-25 17:00)
DX: T87.44 Infection of amputation stump, left lower extremity (principal); L97.929 Non-pressure chronic ulcer of unspecified part of left lower leg with unspecified severity; L03.116 Cellulitis of left lower limb; E87.2 Acidosis; Z91.19 Patient's noncompliance with other medical treatment and regimen; M65.072 Abscess of tendon sheath, left ankle and foot; I25.10 Atherosclerotic heart disease of native coronary artery without angina pectoris; I10 Essential (primary) hypertension; D72.829 Elevated white blood cell count, unspecified; B95.61 Methicillin susceptible Staphylococcus aureus infection as the cause of diseases classified elsewhere; B96.4 Proteus (mirabilis) (morganii) as the cause of diseases classified elsewhere; B97.29 Other coronavirus as the cause of diseases classified elsewhere; Z79.899 Other long term (current) drug therapy; Z79.82 Long term (current) use of aspirin; Z88.8 Allergy status to other drugs, medicaments and biological substances; Z91.038 Other insect allergy status; I70.25 Atherosclerosis of native arteries of other extremities with ulceration; Y83.5 Amputation of limb(s) as the cause of abnormal reaction of the patient, or of later complication, without mention of misadventure at the time of the procedure

== ENCOUNTER → 2019-07-31 | Outpatient (REF) | payer MEDICARE ==
[~2019-07-31] MED LIST changes: +SILV50CR TOP; +SULF1TAB93 PO
== END ==
LOC: M LAB REF 15:58
PROVIDERS: ATTEND Nurse Practitioner Family
DX: L02.91 Cutaneous abscess, unspecified (principal)

== ENCOUNTER → 2020-02-10 | Outpatient (REF) | payer MEDICARE ==
[~2020-02-10] MED LIST changes: -SIMV40TA2 PO; +SIMV40TA20 PO
== END ==
LOC: M LAB REF 15:46
PROVIDERS: ATTEND Podiatrist
DX: L03.116 Cellulitis of left lower limb (principal)

== ENCOUNTER 2020-10-04 07:14 | Emergency (ER) | payer MEDICARE ==
[~2020-10-04] VITALS: Ht 172.7 cm; Wt 104.5 kg
[~2020-10-04 07:14] MED LIST changes: -AMLO10TA5; -AMLO10TA5 PO; +AMLO1TAB25; +AMLO1TAB25 PO; -ASPI81TA85 PO; +ASPI81TA86 PO; +LABE100T4 PO; -LABE10TAB PO
[2020-10-04] MEDS ORDERED: LIDOCAINE 2% 5ML JELLY UROJET TOP ONE (07:45)
[2020-10-04] MEDS ORDERED: NS 1,000 ML IV SCH (08:30)
[2020-10-04 09:10] LABS: BASO # 0.1 10^3/uL (0.0-0.2); BASO % 0.4 % (0.0-1.0); EOS # 0.2 10^3/uL (0.0-0.5); EOS % 1.1 % (0.0-3.0); HEMATOCRIT 49.8 % (42.0-52.0); HEMOGLOBIN 15.9 g/dl (13.5-17.5); LYMPH # 2.5 10^3/uL (1.5-5.0); MEAN CORPUSCULAR HEMOGLOBIN 29.2 pg (27.0-33.0); MEAN CORPUSCULAR HGB CONC 31.9 g/dl (32.0-36.5); MEAN CORPUSCULAR VOLUME 91.4 fl (80.0-96.0); MONO # 1.2 10^3/uL (0.0-0.8); MONO % 6.6 % (0.0-5.0); NEUTROPHILS # 13.9 10^3/uL (1.5-8.5); NEUTROPHILS % 77.2 % (36.0-66.0); PLATELET COUNT, AUTOMATED 294 10^3/uL (150-450); RED BLOOD COUNT 5.45 10^6/uL (4.30-6.10)
[2020-10-04 09:36] LABS: ALBUMIN 3.8 GM/DL (3.2-5.2); ALT/SGPT 22 U/L (12-78); BILIRUBIN,TOTAL 0.4 MG/DL (0.2-1.0); BLOOD UREA NITROGEN 16 MG/DL (7-18); CARBON DIOXIDE LEVEL 24 MEQ/L (21-32); CHLORIDE LEVEL 105 MEQ/L (98-107); CREATININE FOR GFR 0.97 MG/DL (0.70-1.30); GLOMERULAR FILTRATION RATE > 60.0 (>42); GLUCOSE, FASTING 112 MG/DL (70-100); POTASSIUM SERUM 4.6 MEQ/L (3.5-5.1); SODIUM LEVEL 135 MEQ/L (136-145); TOTAL PROTEIN 7.7 GM/DL (6.4-8.2)
--- NOTE | 2020-10-04 11:47 | REP ---
INDICATION: leukocytosis. COMPARISON: PA and lateral chest dated 09/04/2018. TECHNIQUE: AP view of the chest performed portably with the patient upright. FINDINGS: The lung flor are clear. Cardiac size is normal. The mary, mediastinum and skeletal structures are unremarkable. IMPRESSION: Essentially negative portable chest <Electronically signed by Michel Christine > 10/04/20 1149
[2020-10-04] MEDS ORDERED: BACT800T5 PO (13:08)
[2020-10-04] MEDS ORDERED: PERCOCET 5MG/325MG TAB PO ONE (13:15)
[2020-10-04 14:18] VITALS: BP 160/90
== END 2020-10-04 14:23 | disposition home or self-care (01) ==
LOC: M ED 07:14 → EDBD 07:14 → M ED 14:23
DX: R33.9 Retention of urine, unspecified (principal); I25.10 Atherosclerotic heart disease of native coronary artery without angina pectoris; I10 Essential (primary) hypertension; I73.9 Peripheral vascular disease, unspecified; N40.0 Benign prostatic hyperplasia without lower urinary tract symptoms; Z79.82 Long term (current) use of aspirin; Z79.899 Other long term (current) drug therapy; Z91.030 Bee allergy status; Z88.5 Allergy status to narcotic agent; Z88.8 Allergy status to other drugs, medicaments and biological substances

== ENCOUNTER → 2021-01-23 | Outpatient (REF) | payer MEDICARE ==
[~2021-01-23] MED LIST changes: +ASPI-569 PO; -ASPI81TAEC PO
[2021-01-23 12:23] LABS: IMMUNOGLOBULIN G 1220 MG/DL (681-1648); IMMUNOGLOBULIN M 51.3 MG/DL (40-230); TOTAL PROTEIN 7.6 GM/DL (6.4-8.2)
== END ==
LOC: M LAB REF 11:10
PROVIDERS: ATTEND Physician Assistant Medical
DX: D47.2 Monoclonal gammopathy (principal)

== ENCOUNTER → 2021-02-21 | Outpatient (REF) | payer MEDICARE | LOC: M LAB REF 12:19 | PROVIDERS: ATTEND Physician Assistant Medical | DX: S91.302A Unspecified open wound, left foot, initial encounter (principal); I73.9 Peripheral vascular disease, unspecified; X58.XXXA Exposure to other specified factors, initial encounter; Y92.9 Unspecified place or not applicable ==

== ENCOUNTER → 2021-03-17 | Outpatient (CLI) | payer MEDICARE ==
[~2021-03-17] MED LIST changes: +BACTDSTA PO; -SULF1TAB93 PO
--- NOTE | 2021-03-17 11:08 | REP ---
INDICATION: CHRONIC ULCER LEFT FOOT COMPARISON: None. TECHNIQUE: Left lower extremity arterial Doppler. FINDINGS: The patient is status post axillary bi femoral bypass graft. All numeric values represent peak systolic velocities in cm/sec. TUB WASHER: 55 monophasic Profunda: 52 monophasic SFA proximal: 68-85 monophasic SFA mid: 84-56 monophasic SFA distal: 61 monophasic Popliteal: 61 monophasic NICHOLAS proximal: 29 monophasic Tibioperoneal trunk: 58 monophasic SHIPPER/RECEIVER proximal: 60 monophasic SHIPPER/RECEIVER distal: 50 monophasic NICHOLAS distal: 21 monophasic The ankle brachial index is 0.57 The axillary bi femoral bypass graft was seen to be patent at the left common femoral artery. There was no identifiable stenosis. Significant plaque formation was seen throughout the common femoral artery to and including the popliteal artery. This was seen to the greatest degree in the mid and distal portions of the superficial femoral artery. No significant stenosis was seen in those vessel portions, however, multiple areas of luminal narrowing were identified with monophasic waveforms and increased diastolic flow throughout. IMPRESSION: As above <Electronically signed by Mango Rayo > 03/17/21 1100
== END ==
LOC: M RAD 09:26
PROVIDERS: ATTEND Surgery
DX: L97.522 Non-pressure chronic ulcer of other part of left foot with fat layer exposed (principal); I70.245 Atherosclerosis of native arteries of left leg with ulceration of other part of foot

== ENCOUNTER → 2021-04-04 | Outpatient (POV) | payer MEDICARE ==
[~2021-04-04] VITALS: Ht 172.7 cm; Wt 112.7 kg
[2021-04-04 13:38] VITALS: BP 170/80
--- NOTE | 2021-04-05 14:50 | IRCOV ---
[facility] IR Consult Office Visit IR Consult Office Visit REASON FOR CONSULTATION/CHIEF COMPLAINT: Nonhealing left lower extremity wounds. HISTORY OF PRESENT ILLNESS: 75-year-old male with hypertension and metabolic syndrome, prior AL and peripheral vascular disease, presents with nonhealing left lower extremity wound. The wound is located on the dorsum of his left foot. It has shown mild improvement under the care of wound care, but he is referred by wound care for delayed ulcer healing. Patient states he had axillofemoral bypass [place] [address] Zhang. He doesn't know if his symptoms improved or worsened after that bypass however, he's had ongoing issues with left foot infections, MRSA and nonhealing left lower extremity wound. He does describe intermittent claudication. He denies rest pain. He denies recent angiography/stenting in the past 12 months. He denies chest pain, shortness of breath, orthopnea or paroxysmal nocturnal dyspnea. ALLERGIES: Please see below. HOME MEDICATIONS: Please see below. PAST MEDICAL HISTORY: Spinal stenosis and chronic back pain Meningioma status post surgery Metabolic syndrome Hypertension Enlarged prostate Acid reflux AL Toe amputation Seizure Peripheral vascular disease Hypercholesterolemia PAST SURGICAL HISTORY: Total knee replacement Craniotomy 2008 Cataract surgery Left knee surgery Penis reconstruction 2017 MRSA left foot Toe amputation 2019 Axillofemoral bypass February 2019 FAMILY HISTORY: Noncontributory. SOCIAL HISTORY: Ex-smoker. Denies alcohol or drugs. REVIEW OF SYSTEMS: Otherwise negative. PHYSICAL EXAMINATION: VITAL SIGNS: Please see below. GENERAL APPEARANCE: Appears well. Comfortable at rest. Central obesity. HEENT: No scleral icterus. RESPIRATORY: Normal breathing at rest. CARDIOVASCULAR: Normal rate. ABDOMEN: Distended. Soft nontender. EXTREMITIES: Left lower extremity edema to the groin. Left foot ulcer. Skin warm to touch. Color of extremity normal. Femoral pulse 2+. Popliteal not palpable. Motor 3 out of 5. Sensation intact. Right lower extremity: Edema to the groin. Color and temperature normal. Femoral pulse 2+ popliteal pulse nonpalpable DP/PT nonpalpable. Motor 3 out of 5. Sensation intact. NEUROLOGICAL: Alert and oriented. PSYCHIATRIC: Appropriate to circumstance. LABORATORY DATA: 10/04/2020 hemoglobin 15.9 hematocrit 49.8 WBC 18 platelets 294 sodium 135 potassium 4.6 BUN 16 creatinine 0.97 05/24/2019 hemoglobin A1c 6.0 02/14/2010 LDL 117 Imaging: I personally reviewed the left lower extremity arterial ultrasound performed 03/17/2021. There is a patent bypass graft shown. However, distal to that there is poor monophasic flow throughout the thigh and below the knee. I personally reviewed the CT abdominal arteries with contrast performed 019. At that time, there was no bypass graft. 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 There was reconstitution of the left external iliac artery and decent flow to the left lower extremity. I personally reviewed the fluoroscopy images from angiography in December 2018. At that time, there were aorto bi iliac stents which are poorly visualized. No recanalization. ASSESSMENT/PLAN: 75-year-old male with nonhealing left lower extremity wounds, status post stenting of aortobiiliac occlusions, which then occluded. Followed by axillofemoral bypass graft which was performed in February 2019. Patient has ongoing issues in the left lower extremity with nonhealing wounds and prior toe amputation. I agree patient would benefit from angiography to evaluate inflow and outflow to the left lower extremity and angioplasty/stenting, if possible. We discussed the risks and benefits of the procedure and patient would like to proceed. We'll schedule the patient for the procedure. I spent 45 minutes reviewing patient's records, imaging and in consultation with the patient. Thank you for this referral. Cc Dr. Alcazar Allergies Coded Allergies: tramadol (Unverified Allergy, Mild, hives, 10/04/20) bee venom protein (honey bee) (Verified Allergy, Unknown, 03/04/19) fenofibrate (Verified Adverse Reaction, Intermediate, MYALGIA, 03/04/19) Home Medications Scheduled Amlodipine Besylate (Amlodipine Besylate), 10 MG PO DAILY, (Reported) Aspirin (Aspirin EC), 81 MG PO DAILY Labetalol HCl (Labetalol HCl), 100 MG PO TID, (Reported) Silver Sulfadiazine (Ssd), 0 GM TOP BID Sulfamethoxazole/Trimethoprim (Sulfamethoxazole-Tmp Ds Tablet), 1 TAB PO BID Sulfamethoxazole/Trimethoprim (Bactrim Ds Tablet), 1 TAB PO BID Scheduled PRN Nitroglycerin (Nitroglycerin), 0.4 MG SL Q5MP PRN for CHEST PAIN, (Reported) Oxycodone/Acetaminophen (Oxycodone-Acetaminophen 5-325), 1 TAB PO Q6HP PRN for MILD/MODERATE PAIN (PS 1-7) VS, I&O, 24H, Fishbone Vital Signs/I&O Vital Signs Date Time Temp Pulse Resp B/P (MAP) Pulse Ox O2 Delivery O2 Flow Rate FiO2 04/04/21 13:38 98.0 80 20 170/80 (110) 97 Room Air MIGUEL PALAFOX MD Apr 05, 2021 14:50
== END ==
LOC: M IRPOV 13:18
PROVIDERS: ATTEND Radiology Diagnostic Radiology
DX: L97.529 Non-pressure chronic ulcer of other part of left foot with unspecified severity (principal); E78.00 Pure hypercholesterolemia, unspecified; I10 Essential (primary) hypertension; I25.2 Old myocardial infarction; I73.9 Peripheral vascular disease, unspecified; K21.9 Gastro-esophageal reflux disease without esophagitis; M48.00 Spinal stenosis, site unspecified; M54.9 Dorsalgia, unspecified; N40.0 Benign prostatic hyperplasia without lower urinary tract symptoms; G89.29 Other chronic pain; E88.81 Metabolic syndrome and other insulin resistance; Z96.1 Presence of intraocular lens

== ENCOUNTER → 2021-04-10 | Outpatient (CLI) | payer MEDICARE ==
[~2021-04-10] MED LIST changes: +ISOVUE-370 76% 100ML VIAL As Ordered ONE
--- NOTE | 2021-04-10 12:47 | REP ---
INDICATION: PAD COMPARISON: 01/09/2019. TECHNIQUE: CT Scan of the abdomen and pelvis was performed with intravenous administration of 100 cc of Isovue 370, without oral contrast. Sagittal and coronal reconstruction images are performed. FINDINGS: Lung bases: Unremarkable. Liver: Normal Gallbladder: Unremarkable. Spleen: Normal. Adrenals: Normal. Pancreas: Normal. Kidneys: Normal. Small and large bowel: There is colonic diverticulosis without acute diverticulitis.. Free fluid: None. Abdominal aorta: No aneurysm. There is moderate plaquing of the abdominal aorta, with moderate narrowing at the level of the renal arteries unchanged. Two patent main right renal arteries are present and there is a patent main left renal artery. There is mild narrowing at the origin of the celiac and superior and inferior mesenteric arteries. The inferior mesenteric artery is enlarged providing collateral arterial flow to the pelvis. 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 Reconstituted flow is again seen in the right common iliac artery. Diffuse frxl-oz-zissuhuv narrowing of the right external iliac artery is unchanged. There is a new bypass graft supplying arterial flow, likely from the right axillary artery, the graft extends in the right flank just superior to the abdominal wall with patent limbs supplying the bilateral common femoral arteries. There is mild to moderate diffuse narrowing throughout the right superficial femoral artery which appears unchanged. Wiez-nr-kubgepxv focal stenosis is unchanged at the distal abductor canal. Zbmt-zq-huxuxlba narrowing throughout the right popliteal artery also appears unchanged. The popliteal artery at the level of a metallic right knee prosthesis is not visualized. The trifurcation arteries are patent. All 3 arteries taper as they traverse distally and are felt to traverse into the right foot. The distal left common iliac artery is again noted to be reconstituted. Mild moderate diffuse narrowing of the left external iliac artery is unchanged. There is relatively mild diffuse narrowing of the superficial femoral artery unchanged. Moderate focal stenosis and calcific plaque in the distal left SFA at the adductor canal is unchanged. Mild diffuse narrowing of the popliteal artery is unchanged. The trifurcation arteries are patent. These thin as they traverse distally and again are felt to traverse into the left foot. Adenopathy: None. Appendix: Not inflamed. Osseous structures: There are degenerative changes of the spine without compression deformity. Pelvis: Bladder is not well distended and not well evaluated.. There are bilateral inguinal hernias containing noninflamed fat. IMPRESSION: New widely patent bypass graft seen in the right flank soft tissues likely originating from the axillary artery. Two limbs supply arterial flow to the common femoral arteries bilaterally. 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 The caliber of the more distal bilateral lower extremity arterial structures appears essentially unchanged compared to the prior exam. <Electronically signed by Michel Rao > 04/10/21 [id number]
== END ==
LOC: M RAD 10:46
PROVIDERS: ATTEND Radiology Diagnostic Radiology
DX: I73.9 Peripheral vascular disease, unspecified (principal); K57.90 Diverticulosis of intestine, part unspecified, without perforation or abscess without bleeding; I70.0 Atherosclerosis of aorta; Z95.820 Peripheral vascular angioplasty status with implants and grafts; K40.20 Bilateral inguinal hernia, without obstruction or gangrene, not specified as recurrent
CPT/HCPCS: 75635; Q9967

== ENCOUNTER → 2021-04-27 | Outpatient (CLI) | payer MEDICARE ==
[~2021-04-27] MED LIST changes: +GABA-282; +ISOVUE-300 61% 50ML VIAL As Ordered ONE; -ISOVUE-370 76% 100ML VIAL As Ordered ONE; +LIDOCAINE 1% MDV 20ML VIAL As Ordered ONE; +MIDAZOLAM INJ 2MG/2ML VIAL (J2250 PER 1MG) As Ordered ONE; +NS 1,000 ML IV SCH; +TAMS1CAP17; +diphenhydrAMINE 50MG/ML VIAL (J1200) As Ordered ONE; +fentaNYL 100 MCG/2 ML INJECTION (J3010) As Ordered ONE
[2021-04-27 08:22] LABS: HEMOGLOBIN 16.6 g/dl (13.5-17.5); MEAN CORPUSCULAR HGB CONC 32.5 g/dl (32.0-36.5); MEAN CORPUSCULAR VOLUME 92.2 fl (80.0-96.0); PLATELET COUNT, AUTOMATED 293 10^3/uL (150-450); RED BLOOD COUNT 5.53 10^6/uL (4.30-6.10); WHITE BLOOD COUNT 12.9 10^3/uL (4.0-10.0)
--- NOTE | 2021-04-27 08:25 | IRHP ---
[facility] IR Pre-Procedure H & P General Date of Service: Apr 27, 2021 Procedure: Same Day Surgery Interval History and Physical I have seen the patient and reviewed last H & P performed within 30 days. There is no significant interval change. History of Present Illness Chief Complaint The patient is a 75-year-old male admitted with a reason for visit of PAD. PRE-PROCEDURE DIAGNOSIS: PAD HEART: Normal rate. LUNGS: Normal breathing at rest. ASA Classification ASA Classification: III-Severe systemic dis. Mallampati Score: II NPO: Yes Problems with prior sedation: No Obstructive Sleep Apnea: Yes Plan moderate sedation Allergies Coded Allergies: tramadol (Unverified Allergy, Mild, hives, 10/04/20) bee venom protein (honey bee) (Verified Allergy, Unknown, 03/04/19) fenofibrate (Verified Adverse Reaction, Intermediate, MYALGIA, 03/04/19) Home Medications Scheduled Amlodipine Besylate (Amlodipine Besylate), 10 MG PO DAILY, (Reported) Aspirin (Aspirin EC), 81 MG PO DAILY Labetalol HCl (Labetalol HCl), 100 MG PO TID, (Reported) Silver Sulfadiazine (Ssd), 0 GM TOP BID Sulfamethoxazole/Trimethoprim (Sulfamethoxazole-Tmp Ds Tablet), 1 TAB PO BID Sulfamethoxazole/Trimethoprim (Bactrim Ds Tablet), 1 TAB PO BID Scheduled PRN Nitroglycerin (Nitroglycerin), 0.4 MG SL Q5MP PRN for CHEST PAIN, (Reported) Oxycodone/Acetaminophen (Oxycodone-Acetaminophen 5-325), 1 TAB PO Q6HP PRN for MILD/MODERATE PAIN (PS 1-7) Miscellaneous Medications Gabapentin (Gabapentin), (Reported) Tamsulosin Hcl (Tamsulosin HCl), (Reported) VS, I&O, 24H, Fishbone Vital Signs/I&O Vital Signs Date Time Temp Pulse Resp B/P (MAP) Pulse Ox O2 Delivery O2 Flow Rate FiO2 04/27/21 07:55 97.4 74 18 95 Room Air MIGUEL PALAFOX MD Apr 27, 2021 08:25
[2021-04-27 08:45] LABS: BLOOD UREA NITROGEN 19 MG/DL (7-18); CALCIUM LEVEL 9.2 MG/DL (8.8-10.2); CARBON DIOXIDE LEVEL 28 MEQ/L (21-32); CHLORIDE LEVEL 105 MEQ/L (98-107); CREATININE FOR GFR 1.06 MG/DL (0.70-1.30); GLOMERULAR FILTRATION RATE > 60.0 (>42); GLUCOSE, FASTING 136 MG/DL (70-100); POTASSIUM SERUM 4.2 MEQ/L (3.5-5.1); SODIUM LEVEL 137 MEQ/L (136-145)
[2021-04-27 13:10] VITALS: BP 146/76
--- NOTE | 2021-05-02 09:08 | IRPON ---
IR Postoperative Note Date Of Procedure: Apr 27, 2021 Time Of Procedure: 16:00 IR Postoperative Note IR Left leg angiogram IR Left below-knee runoff arteriogram. IR Ultrasound-guided left common femoral artery access. IR Moderate sedation. Clinical Information:Patient with right axillofemoral bypass and femorofemoral bypass with left lower extremity pain and nonhealing ulcers. Physician: Dr. Cruz. Procedure: The patient was advised of the benefits, risks, and alternatives of the procedure and informed consent was obtained. A time out was performed with verification of the patient's name, MRN, site of procedure, and type of procedure to be performed. The patient was positioned in the supine position on the angiographic table. The site was prepped and draped in the usual sterile fashion. Moderate sedation was performed by the physician including the presence of an independent trained RN, who assisted in monitoring the patient's level of consciousness and physiological status. Following the administration of fentanyl and Versed, the physician spent 90 minutes of continuous jzfg-kv-viuy time with the patient. A electrodynamicist radiograph reveals no gross abnormality. Ultrasound of the left groin demonstrates femorofemoral bypass and [place] patent left common femoral artery distal to anastomosis. Lidocaine was used for local anesthesia. The left common femoral artery was accessed antegrade, distal to the anastomosis, under ultrasound guidance with a microintroducer set. A short 0.018" Baldwin wire was inserted under fluoroscopy guidance, and the needle was exchanged for a 4 Fr microintroducer sheath. The guidewire and dilator were removed and a 0.035" Gilliam wire was advanced under fluoroscopy guidance, into the superficial femoral artery. A 6 Fr sheath was placed over the wire. A left angiogram was performed. This demonstrates patent superficial femoral artery without any focal occlusion or significant stenosis. Angiography further down the left leg was performed and this demonstrates patent popliteal artery without focal occlusion or significant stenosis. A below knee run off arteriogram was performed and this demonstrates patent anterior tibial, posterior tibial and peroneal artery with 3 vessel runoff to the left foot. No significant below-knee stenosis or occlusion. Patent dorsalis pedis and calcaneal plantar branches of the posterior tibial artery. Patent pedal loop. 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 The wire and sheath were removed and a 6 [place] Mynx device was used, to close the groin arteriotomy. Pressure held and hemostasis achieved. A sterile dressing was applied to the site. The patient tolerated the procedure well and was returned to the PRU in stable condition. EBL: < 5 mL. Complications:None. Impression: 1. Left leg angiogram demonstrates patent superficial femoral artery, popliteal artery and 3 vessel runoff to the left foot without significant stenosis or occlusion. No significant delay in arterial supply to the left foot. 2. 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 Thank you for this referral. Cc MIGUEL Clifford MD May 02, 2021 09:08
== END ==
LOC: M IRPRO 07:46
PROVIDERS: ATTEND Radiology Diagnostic Radiology
DX: I70.222 Atherosclerosis of native arteries of extremities with rest pain, left leg (principal); I70.249 Atherosclerosis of native arteries of left leg with ulceration of unspecified site; L97.929 Non-pressure chronic ulcer of unspecified part of left lower leg with unspecified severity; Z79.82 Long term (current) use of aspirin; Z79.899 Other long term (current) drug therapy; Z88.5 Allergy status to narcotic agent; Z88.8 Allergy status to other drugs, medicaments and biological substances; Z91.030 Bee allergy status
CPT/HCPCS: 36247; 75710; 80048; 85027; 99152; 99153; C1760; C1769; C1894; G0269; J1644; J2250; J3010; Q9967

== ENCOUNTER → 2021-05-09 | Outpatient (CLI) | payer MEDICARE ==
[~2021-05-09] MED LIST changes: -ISOVUE-300 61% 50ML VIAL As Ordered ONE; -LIDOCAINE 1% MDV 20ML VIAL As Ordered ONE; -MIDAZOLAM INJ 2MG/2ML VIAL (J2250 PER 1MG) As Ordered ONE; -NS 1,000 ML IV SCH; -diphenhydrAMINE 50MG/ML VIAL (J1200) As Ordered ONE; -fentaNYL 100 MCG/2 ML INJECTION (J3010) As Ordered ONE
--- NOTE | 2021-05-09 15:58 | REP ---
INDICATION: VENOUS HTN. COMPARISON: Comparison study January 06, 2019.. TECHNIQUE: Left {lower extremity duplex venous scanning is performed from the groin to the ankle level. Left lower extremity venous reflux study is carried out. FINDINGS: The deep veins are anechoic and fully compressible from the groin to the popliteal fossa in the left lower extremity. Color flow imaging is homogeneous. Spectral Doppler interrogation demonstrates intact respiratory variation in flow and normal manual augmentation of flow. There is no evidence of deep vein thrombosis above the knee. There is no evidence of DVT in the visualized calf veins. Doppler interrogation of the contralateral common femoral vein shows normal symmetric respiratory phasicity. Reflux study: There is no evidence of deep system or superficial system venous reflux in the left lower extremity. The greater saphenous vein measures 6 mm in AP dimension proximally at the femoro saphenous junction, 5 mm in AP dimension at the mid thigh, and 3 mm at the knee. The lesser saphenous vein is 2 mm in diameter. IMPRESSION: No evidence of DVT in the left lower extremity femoropopliteal veins. No DVT in the visible portions of the calf veins. No evidence of left lower extremity deep or superficial system reflux. <Electronically signed by Bulmaro Kiran > 05/09/21 [id number]
== END ==
LOC: M RAD 11:43
PROVIDERS: ATTEND Radiology Diagnostic Radiology
DX: I87.309 Chronic venous hypertension (idiopathic) without complications of unspecified lower extremity (principal)

== ENCOUNTER → 2021-06-27 | Outpatient (CLI) | payer MEDICARE ==
[2021-06-27 12:45] LABS: BASO # 0.1 10^3/uL (0.0-0.2); BASO % 0.5 % (0.0-1.0); EOS # 0.3 10^3/uL (0.0-0.5); EOS % 2.7 % (0.0-3.0); HEMATOCRIT 50.5 % (42.0-52.0); LYMPH # 4.1 10^3/uL (1.5-5.0); LYMPH % 31.8 % (24.0-44.0); MEAN CORPUSCULAR HEMOGLOBIN 29.9 pg (27.0-33.0); MEAN CORPUSCULAR HGB CONC 31.7 g/dl (32.0-36.5); MEAN CORPUSCULAR VOLUME 94.2 fl (80.0-96.0); MONO % 8.2 % (2.0-8.0); NEUTROPHILS # 7.2 10^3/uL (1.5-8.5); NEUTROPHILS % 56.3 % (36.0-66.0); PLATELET COUNT, AUTOMATED 283 10^3/uL (150-450); RED BLOOD COUNT 5.36 10^6/uL (4.30-6.10); WHITE BLOOD COUNT 12.8 10^3/uL (4.0-10.0)
[2021-06-27 13:11] LABS: ALBUMIN 3.6 GM/DL (3.2-5.2); ALT/SGPT 24 U/L (12-78); BILIRUBIN,TOTAL 0.4 MG/DL (0.2-1.0); BLOOD UREA NITROGEN 19 MG/DL (7-18); CALCIUM LEVEL 9.5 MG/DL (8.8-10.2); CARBON DIOXIDE LEVEL 30 MEQ/L (21-32); CHLORIDE LEVEL 104 MEQ/L (98-107); CHOLESTEROL LEVEL 199 MG/DL (<200); CHOLESTEROL RISK RATIO 5.852 (<5); CREATININE FOR GFR 1.05 MG/DL (0.70-1.30); FREE T4 0.99 NG/DL (0.76-1.46); GLOMERULAR FILTRATION RATE > 60.0 (>42); GLUCOSE, FASTING 104 MG/DL (70-100); HDL CHOLESTEROL 34 MG/DL (>40); LDL CHOLESTEROL 122 MG/DL (<100); NON-HDL-C 165 MG/DL; POTASSIUM SERUM 5.2 MEQ/L (3.5-5.1); SODIUM LEVEL 137 MEQ/L (136-145); TOTAL PROTEIN 7.4 GM/DL (6.4-8.2); TRIGLYCERIDES LEVEL 216 MG/DL (<150)
[2021-06-27 13:31] LABS: HEMOGLOBIN A1c 5.7 %
== END ==
LOC: M PLALAB 09:33
PROVIDERS: ATTEND Nurse Practitioner Family
DX: E78.5 Hyperlipidemia, unspecified (principal); R73.01 Impaired fasting glucose
CPT/HCPCS: 36415; 80053; 80061; 83036; 84439; 84443; 85025; G0103

== ENCOUNTER 2023-06-15 14:59 | Emergency (ER) | payer MEDICARE ==
[~2023-06-15] VITALS: Ht 172.7 cm; Wt 89.9 kg
[~2023-06-15 14:59] MED LIST changes: -LABE100T4 PO; +LABE100T6 PO; -TAMS1CAP17; +TAMS1CAP17 PO
[2023-06-15] MEDS ORDERED: LABETALOL 100MG TAB PO ONE (15:15)
[2023-06-15] MEDS ORDERED: MED REC IN PROGRESS XX SCH ×2 (15:30→18:15)
[2023-06-15 15:57] VITALS: BP 190/88
[2023-06-15 16:28] LABS: HEMATOCRIT 46.2 % (42.0-52.0); HEMOGLOBIN 14.4 g/dl (13.5-17.5); MEAN CORPUSCULAR HEMOGLOBIN 29.2 pg (27.0-33.0); MEAN CORPUSCULAR HGB CONC 31.2 g/dl (32.0-36.5); MEAN CORPUSCULAR VOLUME 93.7 fl (80.0-96.0); PLATELET COUNT, AUTOMATED 245 10^3/uL (150-450); RED BLOOD COUNT 4.93 10^6/uL (4.30-6.10); WHITE BLOOD COUNT 16.1 10^3/uL (4.0-10.0)
[2023-06-15 16:53] LABS: AMPHETAMINES LEVEL URINE NEGATIVE (NEGATIVE); BARBITURATES URINE NEGATIVE (NEGATIVE)
[2023-06-15 16:54] LABS: BENZODIAZEPINES URINE NEGATIVE (NEGATIVE); COCAINE METABOLITE URINE NEGATIVE (NEGATIVE); METHADONE URINE NEGATIVE (NEGATIVE); OPIATES URINE NEGATIVE (NEGATIVE); PHENCYCLIDINE URINE NEGATIVE (NEGATIVE)
[2023-06-15 16:56] LABS: CANNABINOIDS URINE POSITIVE (NEGATIVE)
[2023-06-15 18:00] LABS: ETHYL ALCOHOL (ETHANOL) < 0.003 % (0.000-0.010)
[2023-06-15 18:02] LABS: ACETAMINOPHEN LEVEL < 2.0 UG/ML (10.0-20.0); ALBUMIN 3.4 G/DL (3.2-5.2); ALKALINE PHOSPHATASE 86 U/L (46-116); ALT/SGPT 15 U/L (7.0-40); AST/SGOT 11 U/L (<34); BILIRUBIN,DIRECT 0.1 MG/DL (<0.4); BILIRUBIN,TOTAL 0.3 MG/DL (0.3-1.2); BLOOD UREA NITROGEN 26 MG/DL (9-23); CARBON DIOXIDE LEVEL 28 MMOL/L (20-31); CHLORIDE LEVEL 106 MMOL/L (98-107); CREATININE FOR GFR 1.11 MG/DL (0.70-1.30); GLOMERULAR FILTRATION RATE > 60.0 (>42); GLUCOSE, FASTING 112 MG/DL (74-106); POTASSIUM SERUM 5.2 MMOL/L (3.5-5.1); SALICYLATE LEVEL < 3.0 MG/DL (<30); SODIUM LEVEL 142 MMOL/L (136-145); TOTAL PROTEIN 7.1 G/DL (5.7-8.2)
[2023-06-15 18:06] LABS: THYROID STIMULATING HORMONE 2.723 uIU/ML (0.55-4.78)
[2023-06-15] MEDS ORDERED: ROSU10TA6 PO (18:08)
[2023-06-15] MEDS ORDERED: GABA800T4 PO (18:12)
[2023-06-15] MEDS ORDERED: MED REC COMMENT (18:12)
[2023-06-15] MEDS: CEFDINIR 300 MG CAP (OMNICEF) PO SCH (21:00)
[2023-06-16 08:00] VITALS: BP 152/80; TEMP 96.9; O2SAT 97
[2023-06-16] MEDS: CEFDINIR 300 MG CAP (OMNICEF) PO SCH (09:24)
[2023-06-16] MEDS ORDERED: HOME MED LIST COMPLETE! XX SCH (09:45)
[2023-06-16] MEDS ORDERED: CEFD300CAP PO (14:46)
== END 2023-06-16 18:17 | disposition home or self-care (01) ==
LOC: M ED 14:59
DX: F32.A Depression, unspecified (principal); N39.0 Urinary tract infection, site not specified; Z79.82 Long term (current) use of aspirin; Z79.899 Other long term (current) drug therapy; Z88.5 Allergy status to narcotic agent; Z88.8 Allergy status to other drugs, medicaments and biological substances; Z91.030 Bee allergy status

== ENCOUNTER 2023-08-22 13:55 | Inpatient (IN) | payer MEDICARE ==
[~2023-08-22] VITALS: Ht 172.7 cm; Wt 85.5 kg
[~2023-08-22 13:55] MED LIST changes: +CEFD300CAP PO; +GABA800T4 PO; +MED REC COMMENT; +ROSU10TA6 PO
[2023-08-22 17:27] LABS: BASO # 0.1 10^3/uL (0.0-0.2); BASO % 0.7 % (0.0-1.0); EOS # 0.2 10^3/uL (0.0-0.5); EOS % 1.1 % (0.0-3.0); HEMATOCRIT 45.4 % (42.0-52.0); HEMOGLOBIN 14.8 g/dl (13.5-17.5); LYMPH # 3.2 10^3/uL (1.5-5.0); MEAN CORPUSCULAR HEMOGLOBIN 29.4 pg (27.0-33.0); MEAN CORPUSCULAR HGB CONC 32.6 g/dl (32.0-36.5); MEAN CORPUSCULAR VOLUME 90.1 fl (80.0-96.0); MONO % 7.1 % (2.0-8.0); NEUTROPHILS # 9.3 10^3/uL (1.5-8.5); NEUTROPHILS % 67.7 % (36.0-66.0); PLATELET COUNT, AUTOMATED 295 10^3/uL (150-450); RED BLOOD COUNT 5.04 10^6/uL (4.30-6.10); WHITE BLOOD COUNT 13.8 10^3/uL (4.0-10.0)
[2023-08-22 17:48] LABS: ERYTHROCYTE SEDIMENTATION RATE 42 mm/hr (0-20)
[2023-08-22] MEDS ORDERED: VANCOMYCIN HCL 1,000 MG, VIAL MATE ADAPTER 1 EACH in D5W 250 ML IV STA ×2 (17:51→17:59)
[2023-08-22] MEDS ORDERED: cefTRIAXone SOD 1 GM in D5W MINI-BAG PLUS 50 ML IV ONE (17:55)
[2023-08-22] MEDS ORDERED: KETOROLAC 30 MG/ML 1ML VIAL IV ONE (18:05)
[2023-08-22] MEDS ORDERED: ONDANSETRON 4MG 2ML VIAL IV PRN (20:15)
[2023-08-22] MEDS ORDERED: LOSARTAN 25 MG TAB PO ONE ×2 (20:15→22:10)
[2023-08-22] MEDS: LR 1,000 ML IV SCH (21:59)
[2023-08-22 22:34] VITALS: BP 140/83; TEMP 97.7; O2SAT 98
[2023-08-23] MEDS ORDERED: ASPI-161 PO (02:28)
[2023-08-23] MEDS ORDERED: HOME MED LIST COMPLETE! XX SCH (02:30)
[2023-08-23] MEDS: VANCOMYCIN HCL 1,000 MG, VIAL MATE ADAPTER 1 EACH in NS 250 ML IV SCH ×2 (02:35→14:13)
[2023-08-23 06:00] VITALS: BP 163/88; TEMP 97.7; O2SAT 96
[2023-08-23 06:15] LABS: BLOOD UREA NITROGEN 9 MG/DL (9-23); CALCIUM LEVEL 8.7 MG/DL (8.3-10.6); CARBON DIOXIDE LEVEL 24 MMOL/L (20-31); CHLORIDE LEVEL 102 MMOL/L (98-107); CREATININE FOR GFR 0.75 MG/DL (0.70-1.30); GLOMERULAR FILTRATION RATE > 60.0 (>42); GLUCOSE, FASTING 122 MG/DL (74-106); POTASSIUM SERUM 4.3 MMOL/L (3.5-5.1); SODIUM LEVEL 137 MMOL/L (136-145)
[2023-08-23] MEDS ORDERED: ISOVUE-370 76% 100ML VIAL As Ordered ONE (07:47)
[2023-08-23 07:48] VITALS: BP 170/82
[2023-08-23 08:32] LABS: HEMATOCRIT 46.6 % (42.0-52.0); HEMOGLOBIN 15.1 g/dl (13.5-17.5); MEAN CORPUSCULAR HEMOGLOBIN 28.9 pg (27.0-33.0); MEAN CORPUSCULAR HGB CONC 32.4 g/dl (32.0-36.5); MEAN CORPUSCULAR VOLUME 89.3 fl (80.0-96.0); PLATELET COUNT, AUTOMATED 286 10^3/uL (150-450); RED BLOOD COUNT 5.22 10^6/uL (4.30-6.10); WHITE BLOOD COUNT 11.9 10^3/uL (4.0-10.0)
[2023-08-23] MEDS: LR 1,000 ML IV SCH (08:46)
[2023-08-23] MEDS ORDERED: LOSARTAN 25 MG TAB PO SCH (09:00)
[2023-08-23] MEDS: LABETALOL 100MG TAB PO SCH ×3 (09:00→21:27)
[2023-08-23] MEDS ORDERED: LOSARTAN 50MG TABLET PO SCH (09:00)
[2023-08-23] MEDS ORDERED: NITROGLYCERIN 0.4MG SUBL TABLET SL PRN (10:05)
[2023-08-23 10:38] LABS: PROCALCITONIN <0.04 ng/ml
[2023-08-23] MEDS ORDERED: FLUZONE HIGH DOSE(65YR UP)QUAD/PF 240MCG/0.7ML SYRINGE IM.IMMUN ONE (13:00)
[2023-08-23 13:10] VITALS: BP 130/70
[2023-08-23] MEDS: ASPIRIN 81MG ENTERIC TABLET PO SCH (13:10)
[2023-08-23] MEDS: ROSUVASTATIN 10 MG TAB (CRESTOR) PO SCH (13:11)
[2023-08-23] MEDS: TAMSULOSIN 0.4 MG CAP PO SCH (13:11)
[2023-08-23] MEDS: ACETAMINOPHEN 500 MG TAB PO PRN ×2 (13:34→21:27)
[2023-08-23 14:00] VITALS: BP 133/85; TEMP 97.9; O2SAT 97
[2023-08-23] MEDS: HYDROMORPHONE HCL 0.5 MG/ 0.5 ML SYRINGE IV PRN ×2 (15:14→19:46)
[2023-08-23] MEDS: GABAPENTIN 400MG CAP PO PRN (18:33)
[2023-08-23] MEDS ORDERED: LIDOCAINE 1% MDV 20ML VIAL SC ONE (19:40)
[2023-08-23] MEDS ORDERED: LIDOCAINE 1% MDV 20ML VIAL As Ordered ONE (19:42)
[2023-08-23 21:20] VITALS: BP 131/72; TEMP 97.2; O2SAT 94
[2023-08-23 21:24] VITALS: BP 131/73
[2023-08-24] MEDS: VANCOMYCIN HCL 1,000 MG, VIAL MATE ADAPTER 1 EACH in NS 250 ML IV SCH ×2 (02:10→13:07)
[2023-08-24] MEDS: LR 1,000 ML IV SCH (02:12)
[2023-08-24] MEDS: ACETAMINOPHEN 500 MG TAB PO PRN (02:17)
[2023-08-24] MEDS: PERCOCET 5MG/325MG TAB PO PRN ×4 (03:40→18:05)
[2023-08-24 05:12] VITALS: BP 125/66; TEMP 97.7; O2SAT 95
[2023-08-24 06:27] LABS: HEMATOCRIT 42.2 % (42.0-52.0); HEMOGLOBIN 13.7 g/dl (13.5-17.5); MEAN CORPUSCULAR HEMOGLOBIN 29.3 pg (27.0-33.0); MEAN CORPUSCULAR HGB CONC 32.5 g/dl (32.0-36.5); MEAN CORPUSCULAR VOLUME 90.4 fl (80.0-96.0); PLATELET COUNT, AUTOMATED 262 10^3/uL (150-450); RED BLOOD COUNT 4.67 10^6/uL (4.30-6.10); WHITE BLOOD COUNT 9.8 10^3/uL (4.0-10.0)
[2023-08-24 06:40] LABS: BLOOD UREA NITROGEN 12 MG/DL (9-23); CALCIUM LEVEL 8.3 MG/DL (8.3-10.6); CARBON DIOXIDE LEVEL 27 MMOL/L (20-31); CHLORIDE LEVEL 103 MMOL/L (98-107); CREATININE FOR GFR 0.85 MG/DL (0.70-1.30); GLOMERULAR FILTRATION RATE > 60.0 (>42); GLUCOSE, FASTING 106 MG/DL (74-106); POTASSIUM SERUM 3.8 MMOL/L (3.5-5.1); SODIUM LEVEL 138 MMOL/L (136-145)
[2023-08-24 08:33] VITALS: BP 151/78
[2023-08-24] MEDS: ROSUVASTATIN 10 MG TAB (CRESTOR) PO SCH (08:42)
[2023-08-24] MEDS: TAMSULOSIN 0.4 MG CAP PO SCH (08:42)
[2023-08-24] MEDS: ASPIRIN 81MG ENTERIC TABLET PO SCH (08:42)
[2023-08-24] MEDS: ENOXAPARIN 40MG/0.4ML SYRINGE (J1650 PER 10MG) SC SCH (08:43)
[2023-08-24] MEDS: LABETALOL 100MG TAB PO SCH ×3 (08:43→20:54)
[2023-08-24] MEDS: MUPIROCIN 2% OINT 22 GM TUBE TOP SCH ×2 (09:00→20:54)
[2023-08-24 14:00] VITALS: BP 155/76; TEMP 97.5; O2SAT 95
[2023-08-24 15:28] VITALS: BP 156/78
[2023-08-24 20:40] VITALS: BP 140/67; TEMP 97.5; O2SAT 96
[2023-08-25] MEDS: PERCOCET 5MG/325MG TAB PO PRN (00:37)
[2023-08-25] MEDS: VANCOMYCIN HCL 1,000 MG, VIAL MATE ADAPTER 1 EACH in NS 250 ML IV SCH (01:42)
[2023-08-25] MEDS: GABAPENTIN 400MG CAP PO PRN ×2 (02:12→16:09)
[2023-08-25 05:35] VITALS: BP 143/73; TEMP 97.7; O2SAT 98
[2023-08-25 06:27] LABS: HEMATOCRIT 43.3 % (42.0-52.0); HEMOGLOBIN 13.7 g/dl (13.5-17.5); MEAN CORPUSCULAR HEMOGLOBIN 28.9 pg (27.0-33.0); MEAN CORPUSCULAR HGB CONC 31.6 g/dl (32.0-36.5); MEAN CORPUSCULAR VOLUME 91.4 fl (80.0-96.0); PLATELET COUNT, AUTOMATED 225 10^3/uL (150-450); RED BLOOD COUNT 4.74 10^6/uL (4.30-6.10)
[2023-08-25 06:53] LABS: BLOOD UREA NITROGEN 12 MG/DL (9-23); CALCIUM LEVEL 8.1 MG/DL (8.3-10.6); CARBON DIOXIDE LEVEL 22 MMOL/L (20-31); CHLORIDE LEVEL 106 MMOL/L (98-107); CREATININE FOR GFR 0.81 MG/DL (0.70-1.30); GLOMERULAR FILTRATION RATE > 60.0 (>42); GLUCOSE, FASTING 95 MG/DL (74-106); SODIUM LEVEL 139 MMOL/L (136-145)
[2023-08-25] MEDS: ROSUVASTATIN 10 MG TAB (CRESTOR) PO SCH (08:39)
[2023-08-25] MEDS: ASPIRIN 81MG ENTERIC TABLET PO SCH (08:39)
[2023-08-25] MEDS: LABETALOL 100MG TAB PO SCH ×4 (08:39→20:28)
[2023-08-25] MEDS: ENOXAPARIN 40MG/0.4ML SYRINGE (J1650 PER 10MG) SC SCH (08:39)
[2023-08-25] MEDS: TAMSULOSIN 0.4 MG CAP PO SCH (08:39)
[2023-08-25] MEDS: MUPIROCIN 2% OINT 22 GM TUBE TOP SCH ×2 (08:40→20:17)
[2023-08-25] MEDS ORDERED: DOXY100C3 PO (10:17)
[2023-08-25 10:24] VITALS: BP 115/66
[2023-08-25] MEDS ORDERED: LOSARTAN 50MG TABLET PO ONE (11:00)
[2023-08-25] MEDS: DOXYCYCLINE HYCLATE 100MG TABLET PO SCH ×2 (12:34→20:14)
[2023-08-25 14:00] VITALS: BP 127/70; TEMP 97.5; O2SAT 96
[2023-08-25 16:08] VITALS: BP 168/77
[2023-08-25 20:15] VITALS: BP 114/64
[2023-08-25 21:24] VITALS: BP 116/74; TEMP 97.9; O2SAT 95
[2023-08-26] MEDS: GABAPENTIN 400MG CAP PO PRN ×2 (01:56→10:25)
[2023-08-26 05:00] VITALS: BP 134/67; TEMP 97.9; O2SAT 95
[2023-08-26 05:50] LABS: HEMATOCRIT 44.4 % (42.0-52.0); HEMOGLOBIN 14.3 g/dl (13.5-17.5); MEAN CORPUSCULAR HEMOGLOBIN 29.4 pg (27.0-33.0); MEAN CORPUSCULAR HGB CONC 32.2 g/dl (32.0-36.5); MEAN CORPUSCULAR VOLUME 91.2 fl (80.0-96.0); PLATELET COUNT, AUTOMATED 233 10^3/uL (150-450); RED BLOOD COUNT 4.87 10^6/uL (4.30-6.10)
[2023-08-26 06:15] LABS: BLOOD UREA NITROGEN 17 MG/DL (9-23); CALCIUM LEVEL 8.2 MG/DL (8.3-10.6); CARBON DIOXIDE LEVEL 25 MMOL/L (20-31); CHLORIDE LEVEL 107 MMOL/L (98-107); CREATININE FOR GFR 0.85 MG/DL (0.70-1.30); GLOMERULAR FILTRATION RATE > 60.0 (>42); GLUCOSE, FASTING 101 MG/DL (74-106); POTASSIUM SERUM 4.5 MMOL/L (3.5-5.1); SODIUM LEVEL 141 MMOL/L (136-145)
[2023-08-26] MEDS ORDERED: TAMS1CAP17 PO (08:18)
[2023-08-26] MEDS ORDERED: LABE100T6 PO (08:18)
[2023-08-26] MEDS ORDERED: ROSU10TA6 PO (08:18)
[2023-08-26] MEDS ORDERED: NITR0.4S14 SL (08:18)
[2023-08-26] MEDS ORDERED: ASPI-161 PO (08:18)
[2023-08-26] MEDS ORDERED: AMLO1TAB25 PO (08:18)
[2023-08-26] MEDS ORDERED: GABA800T4 PO ×2 (08:21→08:22)
[2023-08-26 08:51] LABS: BASO # 0.1 10^3/uL (0.0-0.2); BASO % 0.6 % (0.0-1.0); EOS # 0.3 10^3/uL (0.0-0.5); EOS % 1.8 % (0.0-3.0); HEMATOCRIT 45.4 % (42.0-52.0); HEMOGLOBIN 14.5 g/dl (13.5-17.5); LYMPH # 2.9 10^3/uL (1.5-5.0); LYMPH % 19.7 % (24.0-44.0); MEAN CORPUSCULAR HEMOGLOBIN 29.4 pg (27.0-33.0); MEAN CORPUSCULAR HGB CONC 31.9 g/dl (32.0-36.5); MEAN CORPUSCULAR VOLUME 92.1 fl (80.0-96.0); MONO # 1.3 10^3/uL (0.0-0.8); NEUTROPHILS # 9.9 10^3/uL (1.5-8.5); NEUTROPHILS % 68.6 % (36.0-66.0); PLATELET COUNT, AUTOMATED 254 10^3/uL (150-450); RED BLOOD COUNT 4.93 10^6/uL (4.30-6.10); WHITE BLOOD COUNT 14.5 10^3/uL (4.0-10.0)
[2023-08-26] MEDS: ASPIRIN 81MG ENTERIC TABLET PO SCH (10:25)
[2023-08-26] MEDS: ENOXAPARIN 40MG/0.4ML SYRINGE (J1650 PER 10MG) SC SCH (10:25)
[2023-08-26] MEDS: DOXYCYCLINE HYCLATE 100MG TABLET PO SCH (10:26)
[2023-08-26] MEDS: ROSUVASTATIN 10 MG TAB (CRESTOR) PO SCH (10:26)
[2023-08-26 10:31] VITALS: BP 158/76
[2023-08-26] MEDS: LABETALOL 100MG TAB PO SCH (10:31)
[2023-08-26] MEDS: TAMSULOSIN 0.4 MG CAP PO SCH (10:31)
[2023-08-26] MEDS: MUPIROCIN 2% OINT 22 GM TUBE TOP SCH (10:36)
== END 2023-08-26 13:27 | disposition home or self-care (01) | DRG 505 ==
LOC: EDBD 13:55 → M ED 13:55 → M ED INP 20:13 → EEVIPCON 20:13 → ENRESERV 21:03 → M MSPAV 22:34
PROVIDERS: ADMIT Internal Medicine; ATTEND Internal Medicine
PROC: 0Y6V0Z0 Detachment at Right 4th Toe, Complete, Open Approach (ICD-10-PCS; principal; 2023-08-23)
DX: M86.171 Other acute osteomyelitis, right ankle and foot (principal); I25.10 Atherosclerotic heart disease of native coronary artery without angina pectoris; I10 Essential (primary) hypertension; E86.0 Dehydration; I73.9 Peripheral vascular disease, unspecified; R26.89 Other abnormalities of gait and mobility; N40.0 Benign prostatic hyperplasia without lower urinary tract symptoms; E78.00 Pure hypercholesterolemia, unspecified; Z79.899 Other long term (current) drug therapy; Z79.82 Long term (current) use of aspirin; Z91.030 Bee allergy status; Z88.8 Allergy status to other drugs, medicaments and biological substances; Z89.422 Acquired absence of other left toe(s); D72.829 Elevated white blood cell count, unspecified; I25.2 Old myocardial infarction; Z87.891 Personal history of nicotine dependence; B95.62 Methicillin resistant Staphylococcus aureus infection as the cause of diseases classified elsewhere; F17.200 Nicotine dependence, unspecified, uncomplicated

== ENCOUNTER 2023-10-25 16:53 | Inpatient (IN) | payer MEDICARE ==
[~2023-10-25] VITALS: Ht 175.3 cm; Wt 82.7 kg
[~2023-10-25 16:53] MED LIST changes: +ASPI-161 PO; +DOXY100C3 PO
[2023-10-25 18:18] LABS: BASO # 0.1 10^3/uL (0.0-0.2); BASO % 0.3 % (0.0-1.0); EOS # 0.2 10^3/uL (0.0-0.5); EOS % 1.1 % (0.0-3.0); HEMATOCRIT 41.9 % (42.0-52.0); HEMOGLOBIN 13.4 g/dl (13.5-17.5); LYMPH # 2.9 10^3/uL (1.5-5.0); LYMPH % 16.8 % (24.0-44.0); MEAN CORPUSCULAR HEMOGLOBIN 28.9 pg (27.0-33.0); MEAN CORPUSCULAR VOLUME 90.5 fl (80.0-96.0); MONO # 1.4 10^3/uL (0.0-0.8); NEUTROPHILS # 12.8 10^3/uL (1.5-8.5); NEUTROPHILS % 73.2 % (36.0-66.0); PLATELET COUNT, AUTOMATED 326 10^3/uL (150-450); RED BLOOD COUNT 4.63 10^6/uL (4.30-6.10); WHITE BLOOD COUNT 17.5 10^3/uL (4.0-10.0)
[2023-10-25 18:37] LABS: LIPASE 79 U/L (12-53)
[2023-10-25 18:39] LABS: ALBUMIN 2.9 G/DL (3.2-5.2); ALKALINE PHOSPHATASE 84 U/L (46-116); ALT/SGPT 23 U/L (7.0-40); AST/SGOT 17 U/L (<34); BILIRUBIN,TOTAL 0.5 MG/DL (0.3-1.2); BLOOD UREA NITROGEN 22 MG/DL (9-23); CARBON DIOXIDE LEVEL 26 MMOL/L (20-31); CHLORIDE LEVEL 103 MMOL/L (98-107); CREATININE FOR GFR 1.14 MG/DL (0.70-1.30); GLOMERULAR FILTRATION RATE > 60.0 (>35); GLUCOSE, FASTING 133 MG/DL (74-106); POTASSIUM SERUM 4.1 MMOL/L (3.5-5.1); SODIUM LEVEL 138 MMOL/L (136-145)
[2023-10-25] MEDS ORDERED: ISOVUE-370 76% 100ML VIAL As Ordered ONE (19:36)
[2023-10-25] MEDS ORDERED: LIDOCAINE 2% 5ML JELLY UROJET TOP ONE (21:35)
[2023-10-25] MEDS ORDERED: cefTRIAXone SOD 1 GM in D5W MINI-BAG PLUS 50 ML IV ONE (21:35)
[2023-10-25 23:34] LABS: RSV AMPLIFICATION NEGATIVE (NEGATIVE)
[2023-10-26] MEDS ORDERED: ONDANSETRON 4MG 2ML VIAL IV ONE (00:20)
[2023-10-26] MEDS ORDERED: MORPHINE 2 MG/ML 1ML VIAL IV PRN (00:20)
[2023-10-26] MEDS ORDERED: ONDANSETRON 4MG 2ML VIAL As Ordered ONE (00:22)
[2023-10-26] MEDS ORDERED: LABE100T71 PO (00:51)
[2023-10-26] MEDS ORDERED: AMLO1TAB25 PO (00:51)
[2023-10-26] MEDS ORDERED: GABA800T4 PO (00:51)
[2023-10-26] MEDS ORDERED: ROSU10TA6 PO (00:51)
[2023-10-26] MEDS ORDERED: FLOM0.4C39 PO (00:51)
[2023-10-26] MEDS ORDERED: NITR0.4S14 SL (00:52)
[2023-10-26] MEDS ORDERED: HOME MED LIST COMPLETE! XX SCH (00:55)
[2023-10-26] MEDS ORDERED: SODIUM CHLORIDE 0.9% 1000ML IV SCH (03:45)
[2023-10-26] MEDS ORDERED: NS 1,000 ML IV SCH (03:45)
[2023-10-26] MEDS ORDERED: NITROGLYCERIN 0.4MG SUBL TABLET SL PRN (03:45)
[2023-10-26 04:30] VITALS: BP 168/92; TEMP 97.5; O2SAT 94
[2023-10-26 07:09] LABS: BLOOD UREA NITROGEN 20 MG/DL (9-23); CARBON DIOXIDE LEVEL 27 MMOL/L (20-31); CHLORIDE LEVEL 103 MMOL/L (98-107); CREATININE FOR GFR 1.19 MG/DL (0.70-1.30); GLOMERULAR FILTRATION RATE > 60.0 (>35); GLUCOSE, FASTING 120 MG/DL (74-106); SODIUM LEVEL 140 MMOL/L (136-145)
[2023-10-26 08:32] LABS: HEMATOCRIT 41.9 % (42.0-52.0); HEMOGLOBIN 13.2 g/dl (13.5-17.5); MEAN CORPUSCULAR HGB CONC 31.5 g/dl (32.0-36.5); MEAN CORPUSCULAR VOLUME 92.1 fl (80.0-96.0); PLATELET COUNT, AUTOMATED 320 10^3/uL (150-450); RED BLOOD COUNT 4.55 10^6/uL (4.30-6.10); WHITE BLOOD COUNT 19.2 10^3/uL (4.0-10.0)
[2023-10-26] MEDS ORDERED: GABAPENTIN 400MG CAP PO SCH (09:00)
[2023-10-26] MEDS: HEPARIN SOD (PORCINE) 5000UNITS/ML 1ML VIAL/SYRINGE SC SCH ×2 (09:00→23:05)
[2023-10-26] MEDS: TAMSULOSIN 0.4 MG CAP PO SCH (10:19)
[2023-10-26] MEDS: ROSUVASTATIN 10 MG TAB (CRESTOR) PO SCH (10:20)
[2023-10-26] MEDS: GABAPENTIN 300 MG CAP PO SCH ×3 (10:21→20:35)
[2023-10-26] MEDS: LABETALOL 100MG TAB PO SCH ×2 (10:31→20:36)
[2023-10-26 14:18] VITALS: BP 157/88; TEMP 98.1; O2SAT 94
[2023-10-26 20:03] VITALS: BP 150/88; TEMP 98.4; O2SAT 92
[2023-10-26] MEDS: ACETAMINOPHEN TAB 650MG DOSE (2X325MG) PO PRN (20:36)
[2023-10-26] MEDS ORDERED: cefTRIAXone SOD 1 GM in D5W MINI-BAG PLUS 50 ML IV SCH (22:00)
[2023-10-26] MEDS: HYDROMORPHONE HCL 0.5 MG/ 0.5 ML SYRINGE IV PRN (22:54)
[2023-10-27 06:00] VITALS: BP 153/80; TEMP 97.7; O2SAT 96
[2023-10-27] MEDS: ACETAMINOPHEN TAB 650MG DOSE (2X325MG) PO PRN ×2 (06:10→18:52)
[2023-10-27 08:40] LABS: HEMATOCRIT 39.7 % (42.0-52.0); HEMOGLOBIN 12.6 g/dl (13.5-17.5); MEAN CORPUSCULAR HEMOGLOBIN 29.3 pg (27.0-33.0); MEAN CORPUSCULAR HGB CONC 31.7 g/dl (32.0-36.5); MEAN CORPUSCULAR VOLUME 92.3 fl (80.0-96.0); PLATELET COUNT, AUTOMATED 283 10^3/uL (150-450); WHITE BLOOD COUNT 24.5 10^3/uL (4.0-10.0)
[2023-10-27 08:54] LABS: BLOOD UREA NITROGEN 21 MG/DL (9-23); CALCIUM LEVEL 8.3 MG/DL (8.3-10.6); CARBON DIOXIDE LEVEL 25 MMOL/L (20-31); CHLORIDE LEVEL 106 MMOL/L (98-107); CREATININE FOR GFR 1.08 MG/DL (0.70-1.30); GLOMERULAR FILTRATION RATE > 60.0 (>35); GLUCOSE, FASTING 168 MG/DL (74-106); POTASSIUM SERUM 3.4 MMOL/L (3.5-5.1); SODIUM LEVEL 140 MMOL/L (136-145)
[2023-10-27] MEDS: HEPARIN SOD (PORCINE) 5000UNITS/ML 1ML VIAL/SYRINGE SC SCH ×2 (09:35→20:45)
[2023-10-27] MEDS: GABAPENTIN 300 MG CAP PO SCH ×3 (09:38→20:44)
[2023-10-27] MEDS: ROSUVASTATIN 10 MG TAB (CRESTOR) PO SCH (09:38)
[2023-10-27] MEDS: LABETALOL 100MG TAB PO SCH ×2 (09:39→20:45)
[2023-10-27] MEDS: TAMSULOSIN 0.4 MG CAP PO SCH (09:40)
[2023-10-27 14:00] VITALS: BP 140/79; TEMP 98.2; O2SAT 92
[2023-10-27] MEDS ORDERED: POTASSIUM CHLORIDE 10MEQ SR TABLET PO ONE (14:05)
[2023-10-27] MEDS: CEFDINIR 300 MG CAP (OMNICEF) PO SCH (20:45)
[2023-10-27 21:02] VITALS: BP 134/77; TEMP 97.3; O2SAT 96
[2023-10-27] MEDS: HYDROMORPHONE HCL 0.5 MG/ 0.5 ML SYRINGE IV PRN (21:42)
[2023-10-28 06:00] VITALS: BP 134/78; TEMP 97.9; O2SAT 97
[2023-10-28] MEDS: ACETAMINOPHEN TAB 650MG DOSE (2X325MG) PO PRN ×2 (07:31→15:41)
[2023-10-28] MEDS: TAMSULOSIN 0.4 MG CAP PO SCH (07:59)
[2023-10-28] MEDS: ROSUVASTATIN 10 MG TAB (CRESTOR) PO SCH (07:59)
[2023-10-28] MEDS: HEPARIN SOD (PORCINE) 5000UNITS/ML 1ML VIAL/SYRINGE SC SCH ×2 (07:59→21:47)
[2023-10-28] MEDS: GABAPENTIN 300 MG CAP PO SCH ×3 (07:59→21:46)
[2023-10-28] MEDS: CEFDINIR 300 MG CAP (OMNICEF) PO SCH ×2 (07:59→21:46)
[2023-10-28] MEDS: LABETALOL 100MG TAB PO SCH ×2 (08:00→21:46)
[2023-10-28] MEDS: oxyCODONE 5MG TAB PO PRN (12:24)
[2023-10-28 14:14] VITALS: BP 136/79; TEMP 98; O2SAT 97
[2023-10-28 20:00] VITALS: BP 141/76; TEMP 97.9; O2SAT 94
[2023-10-29] MEDS: ACETAMINOPHEN TAB 650MG DOSE (2X325MG) PO PRN ×3 (01:58→15:30)
[2023-10-29] MEDS: oxyCODONE 5MG TAB PO PRN ×3 (02:08→19:37)
[2023-10-29 05:31] VITALS: BP 135/73; TEMP 97.9; O2SAT 95
[2023-10-29] MEDS: GABAPENTIN 300 MG CAP PO SCH ×3 (07:44→20:38)
[2023-10-29] MEDS: TAMSULOSIN 0.4 MG CAP PO SCH (07:45)
[2023-10-29] MEDS: ROSUVASTATIN 10 MG TAB (CRESTOR) PO SCH (07:45)
[2023-10-29] MEDS: CEFDINIR 300 MG CAP (OMNICEF) PO SCH (07:45)
[2023-10-29] MEDS: LABETALOL 100MG TAB PO SCH ×2 (07:45→20:38)
[2023-10-29] MEDS: HEPARIN SOD (PORCINE) 5000UNITS/ML 1ML VIAL/SYRINGE SC SCH ×2 (07:46→20:40)
[2023-10-29 13:46] VITALS: BP 136/72; TEMP 97.7; O2SAT 94
[2023-10-29 13:46] LABS: HEMATOCRIT 37.2 % (42.0-52.0); HEMOGLOBIN 11.9 g/dl (13.5-17.5); MEAN CORPUSCULAR HEMOGLOBIN 29.2 pg (27.0-33.0); MEAN CORPUSCULAR VOLUME 91.4 fl (80.0-96.0); PLATELET COUNT, AUTOMATED 307 10^3/uL (150-450); RED BLOOD COUNT 4.07 10^6/uL (4.30-6.10); WHITE BLOOD COUNT 20.9 10^3/uL (4.0-10.0)
[2023-10-29 14:13] LABS: BLOOD UREA NITROGEN 26 MG/DL (9-23); CALCIUM LEVEL 8.6 MG/DL (8.3-10.6); CARBON DIOXIDE LEVEL 26 MMOL/L (20-31); CHLORIDE LEVEL 103 MMOL/L (98-107); CREATININE FOR GFR 0.95 MG/DL (0.70-1.30); GLOMERULAR FILTRATION RATE > 60.0 (>35); GLUCOSE, FASTING 115 MG/DL (74-106); SODIUM LEVEL 137 MMOL/L (136-145)
[2023-10-29 14:36] LABS: RHEUMATOID FACTOR QUANT 32.2 IU/ML (<14)
[2023-10-29 14:56] LABS: ATYPICAL LYMPH 12 % (0-5); BASOPHILS 1 % (0-1); EOSINOPHILS 1 % (0-3); LYMPHOCYTES 7 % (16-44); MONOCYTES 12 % (0-5); NEUTROPHILS 67 % (28-66); PLATELET ESTIMATE NORMAL (NORMAL)
[2023-10-29 15:05] LABS: ERYTHROCYTE SEDIMENTATION RATE > 130 mm/hr (0-20)
[2023-10-29 16:43] LABS: URIC ACID 3.5 MG/DL (3.7-9.2)
[2023-10-29 16:53] LABS: PROCALCITONIN 0.37 ng/ml
[2023-10-29] MEDS: COLCHICINE 0.6 MG TABLET PO SCH (17:32)
[2023-10-29] MEDS: DICLOFENAC EPOLAMINE 1.3% PATCH TOP SCH (17:33)
[2023-10-29] MEDS ORDERED: VANCOMYCIN HCL 1,240 MG in IV FLUID PLACE HOLDER 1 EA IV SCH (18:10)
[2023-10-29] MEDS: cefTRIAXone SOD 1 GM in D5W MINI-BAG PLUS 50 ML IV SCH (18:45)
[2023-10-29] MEDS ORDERED: VANCOMYCIN HCL 750 MG, VIAL MATE ADAPTER 1 EACH in D5W 250 ML IV ONE ×2 (19:00→20:00)
[2023-10-29 20:00] VITALS: BP 141/74; TEMP 97.9; O2SAT 92
[2023-10-30] MEDS: ACETAMINOPHEN TAB 650MG DOSE (2X325MG) PO PRN ×2 (03:59→08:16)
[2023-10-30 05:00] VITALS: BP 138/68; TEMP 97.3; O2SAT 90
[2023-10-30] MEDS: COLCHICINE 0.6 MG TABLET PO SCH ×2 (05:40→17:39)
[2023-10-30] MEDS: DICLOFENAC EPOLAMINE 1.3% PATCH TOP SCH ×2 (05:41→17:39)
[2023-10-30] MEDS: oxyCODONE 5MG TAB PO PRN ×3 (05:41→19:46)
[2023-10-30 06:24] LABS: BASO # 0.1 10^3/uL (0.0-0.2); BASO % 0.3 % (0.0-1.0); EOS # 0.3 10^3/uL (0.0-0.5); EOS % 1.8 % (0.0-3.0); HEMATOCRIT 34.8 % (42.0-52.0); HEMOGLOBIN 11.1 g/dl (13.5-17.5); LYMPH # 2.4 10^3/uL (1.5-5.0); LYMPH % 14.4 % (24.0-44.0); MEAN CORPUSCULAR HEMOGLOBIN 29.2 pg (27.0-33.0); MEAN CORPUSCULAR HGB CONC 31.9 g/dl (32.0-36.5); MEAN CORPUSCULAR VOLUME 91.6 fl (80.0-96.0); MONO # 1.4 10^3/uL (0.0-0.8); MONO % 8.4 % (2.0-8.0); NEUTROPHILS # 12.6 10^3/uL (1.5-8.5); NEUTROPHILS % 74.6 % (36.0-66.0); PLATELET COUNT, AUTOMATED 282 10^3/uL (150-450); WHITE BLOOD COUNT 16.8 10^3/uL (4.0-10.0)
[2023-10-30 06:43] LABS: BLOOD UREA NITROGEN 28 MG/DL (9-23); CALCIUM LEVEL 8.2 MG/DL (8.3-10.6); CARBON DIOXIDE LEVEL 26 MMOL/L (20-31); CHLORIDE LEVEL 101 MMOL/L (98-107); CREATININE FOR GFR 0.94 MG/DL (0.70-1.30); GLOMERULAR FILTRATION RATE > 60.0 (>35); GLUCOSE, FASTING 216 MG/DL (74-106); POTASSIUM SERUM 3.8 MMOL/L (3.5-5.1); SODIUM LEVEL 133 MMOL/L (136-145)
[2023-10-30] MEDS: ROSUVASTATIN 10 MG TAB (CRESTOR) PO SCH (08:14)
[2023-10-30] MEDS: TAMSULOSIN 0.4 MG CAP PO SCH (08:14)
[2023-10-30] MEDS: VANCOMYCIN HCL 1,000 MG, VIAL MATE ADAPTER 1 EACH in D5W 250 ML IV SCH ×2 (08:14→20:32)
[2023-10-30] MEDS: LABETALOL 100MG TAB PO SCH ×2 (08:14→20:38)
[2023-10-30] MEDS: GABAPENTIN 300 MG CAP PO SCH ×3 (08:15→20:32)
[2023-10-30] MEDS: HEPARIN SOD (PORCINE) 5000UNITS/ML 1ML VIAL/SYRINGE SC SCH ×2 (08:16→20:33)
[2023-10-30] MEDS ORDERED: LIDOCAINE 1% MDV 20ML VIAL As Ordered ONE (11:05)
[2023-10-30 11:56] LABS: SOURCE, BODY FLUID OTHER
[2023-10-30 11:57] LABS: SOURCE, BODY FLUID CRYSTALS OTHER
[2023-10-30 14:00] VITALS: BP 141/72; TEMP 97.9; O2SAT 93
[2023-10-30] MEDS: cefTRIAXone SOD 1 GM in D5W MINI-BAG PLUS 50 ML IV SCH (17:39)
[2023-10-30 21:41] VITALS: BP 112/58; TEMP 97.3; O2SAT 96
[2023-10-31] MEDS: oxyCODONE 5MG TAB PO PRN ×3 (01:09→18:36)
[2023-10-31] MEDS: COLCHICINE 0.6 MG TABLET PO SCH ×2 (05:32→17:03)
[2023-10-31] MEDS: DICLOFENAC EPOLAMINE 1.3% PATCH TOP SCH ×2 (05:33→17:04)
[2023-10-31 06:23] VITALS: BP 138/84; TEMP 97.5; O2SAT 96
[2023-10-31 06:27] LABS: BASO # 0.1 10^3/uL (0.0-0.2); BASO % 0.7 % (0.0-1.0); EOS # 0.3 10^3/uL (0.0-0.5); HEMATOCRIT 36.5 % (42.0-52.0); HEMOGLOBIN 11.7 g/dl (13.5-17.5); LYMPH # 3.1 10^3/uL (1.5-5.0); LYMPH % 23.6 % (24.0-44.0); MEAN CORPUSCULAR HEMOGLOBIN 29.5 pg (27.0-33.0); MEAN CORPUSCULAR HGB CONC 32.1 g/dl (32.0-36.5); MEAN CORPUSCULAR VOLUME 91.9 fl (80.0-96.0); MONO # 1.3 10^3/uL (0.0-0.8); MONO % 9.5 % (2.0-8.0); NEUTROPHILS # 8.4 10^3/uL (1.5-8.5); NEUTROPHILS % 63.6 % (36.0-66.0); PLATELET COUNT, AUTOMATED 305 10^3/uL (150-450); RED BLOOD COUNT 3.97 10^6/uL (4.30-6.10); WHITE BLOOD COUNT 13.3 10^3/uL (4.0-10.0)
[2023-10-31 06:49] LABS: BLOOD UREA NITROGEN 28 MG/DL (9-23); CALCIUM LEVEL 8.1 MG/DL (8.3-10.6); CARBON DIOXIDE LEVEL 26 MMOL/L (20-31); CHLORIDE LEVEL 103 MMOL/L (98-107); GLOMERULAR FILTRATION RATE > 60.0 (>35); GLUCOSE, FASTING 139 MG/DL (74-106); POTASSIUM SERUM 4.3 MMOL/L (3.5-5.1); SODIUM LEVEL 138 MMOL/L (136-145)
[2023-10-31 06:56] LABS: PROCALCITONIN 0.25 ng/ml
[2023-10-31 07:13] LABS: ERYTHROCYTE SEDIMENTATION RATE > 130 mm/hr (0-20)
[2023-10-31 09:01] VITALS: BP 172/70
[2023-10-31] MEDS: HEPARIN SOD (PORCINE) 5000UNITS/ML 1ML VIAL/SYRINGE SC SCH ×2 (09:04→21:07)
[2023-10-31] MEDS: ROSUVASTATIN 10 MG TAB (CRESTOR) PO SCH (09:05)
[2023-10-31] MEDS: GABAPENTIN 300 MG CAP PO SCH ×3 (09:05→21:07)
[2023-10-31] MEDS: LABETALOL 100MG TAB PO SCH ×2 (09:05→21:07)
[2023-10-31] MEDS: TAMSULOSIN 0.4 MG CAP PO SCH (09:05)
[2023-10-31 14:00] VITALS: BP 140/71; TEMP 97.7; O2SAT 96
[2023-10-31] MEDS: cefTRIAXone SOD 1 GM in D5W MINI-BAG PLUS 50 ML IV SCH (17:03)
[2023-10-31 20:45] VITALS: BP 140/73; TEMP 97.5; O2SAT 96
[2023-11-01] MEDS: oxyCODONE 5MG TAB PO PRN ×4 (00:44→21:52)
[2023-11-01] MEDS: COLCHICINE 0.6 MG TABLET PO SCH ×2 (05:40→17:07)
[2023-11-01] MEDS: DICLOFENAC EPOLAMINE 1.3% PATCH TOP SCH ×2 (05:40→17:07)
[2023-11-01] MEDS: ACETAMINOPHEN TAB 650MG DOSE (2X325MG) PO PRN (05:44)
[2023-11-01 06:21] VITALS: BP 141/74; TEMP 97.7; O2SAT 96
[2023-11-01 06:39] LABS: BASO # 0.1 10^3/uL (0.0-0.2); BASO % 0.6 % (0.0-1.0); EOS # 0.3 10^3/uL (0.0-0.5); EOS % 2.4 % (0.0-3.0); HEMATOCRIT 37.5 % (42.0-52.0); HEMOGLOBIN 11.9 g/dl (13.5-17.5); LYMPH # 2.5 10^3/uL (1.5-5.0); LYMPH % 20.6 % (24.0-44.0); MEAN CORPUSCULAR HEMOGLOBIN 29.1 pg (27.0-33.0); MEAN CORPUSCULAR HGB CONC 31.7 g/dl (32.0-36.5); MEAN CORPUSCULAR VOLUME 91.7 fl (80.0-96.0); MONO % 8.4 % (2.0-8.0); NEUTROPHILS # 8.2 10^3/uL (1.5-8.5); NEUTROPHILS % 67.4 % (36.0-66.0); PLATELET COUNT, AUTOMATED 320 10^3/uL (150-450); RED BLOOD COUNT 4.09 10^6/uL (4.30-6.10); WHITE BLOOD COUNT 12.1 10^3/uL (4.0-10.0)
[2023-11-01 07:03] LABS: BLOOD UREA NITROGEN 31 MG/DL (9-23); CALCIUM LEVEL 8.3 MG/DL (8.3-10.6); CARBON DIOXIDE LEVEL 26 MMOL/L (20-31); CHLORIDE LEVEL 101 MMOL/L (98-107); CREATININE FOR GFR 0.83 MG/DL (0.70-1.30); GLOMERULAR FILTRATION RATE > 60.0 (>35); GLUCOSE, FASTING 166 MG/DL (74-106); POTASSIUM SERUM 4.5 MMOL/L (3.5-5.1); SODIUM LEVEL 135 MMOL/L (136-145)
[2023-11-01 08:19] VITALS: BP 143/68
[2023-11-01] MEDS: HEPARIN SOD (PORCINE) 5000UNITS/ML 1ML VIAL/SYRINGE SC SCH ×2 (08:27→21:52)
[2023-11-01] MEDS: ROSUVASTATIN 10 MG TAB (CRESTOR) PO SCH (08:28)
[2023-11-01] MEDS: GABAPENTIN 300 MG CAP PO SCH ×3 (08:28→21:50)
[2023-11-01] MEDS: TAMSULOSIN 0.4 MG CAP PO SCH (08:28)
[2023-11-01] MEDS: LABETALOL 100MG TAB PO SCH ×2 (08:29→21:51)
[2023-11-01 14:00] VITALS: BP 155/77; TEMP 97.5; O2SAT 95
[2023-11-01] MEDS: predniSONE 20 MG TAB PO SCH (14:03)
[2023-11-01] MEDS: cefTRIAXone SOD 1 GM in D5W MINI-BAG PLUS 50 ML IV SCH (17:07)
[2023-11-01 21:03] VITALS: BP 111/68; TEMP 97.5; O2SAT 98
[2023-11-02] MEDS: COLCHICINE 0.6 MG TABLET PO SCH ×2 (05:39→17:55)
[2023-11-02] MEDS: DICLOFENAC EPOLAMINE 1.3% PATCH TOP SCH ×2 (05:39→17:54)
[2023-11-02] MEDS: oxyCODONE 5MG TAB PO PRN ×3 (05:51→21:29)
[2023-11-02 06:00] VITALS: BP 121/72; TEMP 97.7; O2SAT 98
[2023-11-02 07:05] LABS: BASO % 0.3 % (0.0-1.0); EOS # 0.1 10^3/uL (0.0-0.5); EOS % 0.9 % (0.0-3.0); HEMATOCRIT 36.5 % (42.0-52.0); HEMOGLOBIN 11.5 g/dl (13.5-17.5); LYMPH # 2.8 10^3/uL (1.5-5.0); LYMPH % 24.2 % (24.0-44.0); MEAN CORPUSCULAR HEMOGLOBIN 28.9 pg (27.0-33.0); MEAN CORPUSCULAR HGB CONC 31.5 g/dl (32.0-36.5); MEAN CORPUSCULAR VOLUME 91.7 fl (80.0-96.0); MONO # 0.7 10^3/uL (0.0-0.8); MONO % 6.3 % (2.0-8.0); NEUTROPHILS # 7.8 10^3/uL (1.5-8.5); NEUTROPHILS % 67.8 % (36.0-66.0); PLATELET COUNT, AUTOMATED 324 10^3/uL (150-450); RED BLOOD COUNT 3.98 10^6/uL (4.30-6.10); WHITE BLOOD COUNT 11.5 10^3/uL (4.0-10.0)
[2023-11-02 07:27] LABS: BLOOD UREA NITROGEN 32 MG/DL (9-23); CARBON DIOXIDE LEVEL 26 MMOL/L (20-31); CHLORIDE LEVEL 104 MMOL/L (98-107); CREATININE FOR GFR 0.75 MG/DL (0.70-1.30); ERYTHROCYTE SEDIMENTATION RATE 78 mm/hr (0-20); GLOMERULAR FILTRATION RATE > 60.0 (>35); GLUCOSE, FASTING 139 MG/DL (74-106); POTASSIUM SERUM 4.2 MMOL/L (3.5-5.1); SODIUM LEVEL 135 MMOL/L (136-145)
[2023-11-02 07:43] LABS: PROCALCITONIN 0.12 ng/ml
[2023-11-02] MEDS: GABAPENTIN 300 MG CAP PO SCH ×3 (08:21→21:24)
[2023-11-02] MEDS: TAMSULOSIN 0.4 MG CAP PO SCH (08:21)
[2023-11-02] MEDS: ROSUVASTATIN 10 MG TAB (CRESTOR) PO SCH (08:21)
[2023-11-02] MEDS: predniSONE 20 MG TAB PO SCH (08:21)
[2023-11-02] MEDS: HEPARIN SOD (PORCINE) 5000UNITS/ML 1ML VIAL/SYRINGE SC SCH ×2 (08:22→21:24)
[2023-11-02] MEDS: LABETALOL 100MG TAB PO SCH ×2 (08:23→21:23)
[2023-11-02 14:26] VITALS: BP 134/70; TEMP 97.7; O2SAT 94
[2023-11-02 22:00] VITALS: BP 133/72; TEMP 97.7; O2SAT 97
[2023-11-03 06:00] VITALS: BP 138/73; TEMP 97.5; O2SAT 96
[2023-11-03] MEDS: COLCHICINE 0.6 MG TABLET PO SCH ×2 (06:21→17:04)
[2023-11-03] MEDS: DICLOFENAC EPOLAMINE 1.3% PATCH TOP SCH ×2 (06:22→17:04)
[2023-11-03] MEDS: oxyCODONE 5MG TAB PO PRN ×3 (06:22→15:23)
[2023-11-03 06:53] LABS: BASO # 0.1 10^3/uL (0.0-0.2); BASO % 0.6 % (0.0-1.0); EOS # 0.2 10^3/uL (0.0-0.5); EOS % 1.7 % (0.0-3.0); HEMATOCRIT 37.5 % (42.0-52.0); HEMOGLOBIN 11.7 g/dl (13.5-17.5); LYMPH # 3.2 10^3/uL (1.5-5.0); LYMPH % 25.8 % (24.0-44.0); MEAN CORPUSCULAR HEMOGLOBIN 28.9 pg (27.0-33.0); MEAN CORPUSCULAR HGB CONC 31.2 g/dl (32.0-36.5); MEAN CORPUSCULAR VOLUME 92.6 fl (80.0-96.0); MONO # 0.9 10^3/uL (0.0-0.8); MONO % 7.4 % (2.0-8.0); NEUTROPHILS % 63.8 % (36.0-66.0); PLATELET COUNT, AUTOMATED 356 10^3/uL (150-450); RED BLOOD COUNT 4.05 10^6/uL (4.30-6.10); WHITE BLOOD COUNT 12.5 10^3/uL (4.0-10.0)
[2023-11-03 07:22] LABS: BLOOD UREA NITROGEN 32 MG/DL (9-23); CALCIUM LEVEL 8.3 MG/DL (8.3-10.6); CARBON DIOXIDE LEVEL 25 MMOL/L (20-31); CHLORIDE LEVEL 104 MMOL/L (98-107); CREATININE FOR GFR 0.79 MG/DL (0.70-1.30); GLOMERULAR FILTRATION RATE > 60.0 (>35); GLUCOSE, FASTING 148 MG/DL (74-106); POTASSIUM SERUM 4.2 MMOL/L (3.5-5.1); SODIUM LEVEL 137 MMOL/L (136-145)
[2023-11-03] MEDS: HEPARIN SOD (PORCINE) 5000UNITS/ML 1ML VIAL/SYRINGE SC SCH ×2 (08:33→19:52)
[2023-11-03] MEDS: ROSUVASTATIN 10 MG TAB (CRESTOR) PO SCH (08:34)
[2023-11-03] MEDS: ACETAMINOPHEN TAB 650MG DOSE (2X325MG) PO PRN ×2 (08:34→15:22)
[2023-11-03] MEDS: GABAPENTIN 300 MG CAP PO SCH ×3 (08:34→19:53)
[2023-11-03] MEDS: TAMSULOSIN 0.4 MG CAP PO SCH (08:34)
[2023-11-03] MEDS: predniSONE 20 MG TAB PO SCH (08:34)
[2023-11-03] MEDS: LABETALOL 100MG TAB PO SCH ×2 (08:35→19:53)
[2023-11-03 14:02] VITALS: BP 143/74; TEMP 97.5; O2SAT 95
[2023-11-04] MEDS: oxyCODONE 5MG TAB PO PRN ×3 (01:33→20:20)
[2023-11-04] MEDS: DICLOFENAC EPOLAMINE 1.3% PATCH TOP SCH ×2 (05:23→16:56)
[2023-11-04] MEDS: COLCHICINE 0.6 MG TABLET PO SCH ×2 (05:30→16:56)
[2023-11-04 06:00] VITALS: BP 132/68; TEMP 97.5; O2SAT 97
[2023-11-04 07:00] LABS: BASO # 0.1 10^3/uL (0.0-0.2); BASO % 0.5 % (0.0-1.0); EOS # 0.2 10^3/uL (0.0-0.5); EOS % 1.5 % (0.0-3.0); HEMATOCRIT 39.1 % (42.0-52.0); HEMOGLOBIN 12.3 g/dl (13.5-17.5); LYMPH # 3.8 10^3/uL (1.5-5.0); LYMPH % 28.5 % (24.0-44.0); MEAN CORPUSCULAR HEMOGLOBIN 29.1 pg (27.0-33.0); MEAN CORPUSCULAR HGB CONC 31.5 g/dl (32.0-36.5); MEAN CORPUSCULAR VOLUME 92.7 fl (80.0-96.0); MONO # 1.2 10^3/uL (0.0-0.8); MONO % 8.8 % (2.0-8.0); NEUTROPHILS # 7.9 10^3/uL (1.5-8.5); NEUTROPHILS % 59.9 % (36.0-66.0); PLATELET COUNT, AUTOMATED 336 10^3/uL (150-450); RED BLOOD COUNT 4.22 10^6/uL (4.30-6.10); WHITE BLOOD COUNT 13.2 10^3/uL (4.0-10.0)
[2023-11-04 07:21] LABS: BLOOD UREA NITROGEN 28 MG/DL (9-23); CALCIUM LEVEL 8.3 MG/DL (8.3-10.6); CARBON DIOXIDE LEVEL 28 MMOL/L (20-31); CHLORIDE LEVEL 104 MMOL/L (98-107); CREATININE FOR GFR 0.75 MG/DL (0.70-1.30); GLOMERULAR FILTRATION RATE > 60.0 (>35); GLUCOSE, FASTING 94 MG/DL (74-106); POTASSIUM SERUM 4.4 MMOL/L (3.5-5.1); SODIUM LEVEL 137 MMOL/L (136-145)
[2023-11-04 07:28] LABS: PROCALCITONIN 0.08 ng/ml
[2023-11-04 07:31] LABS: ERYTHROCYTE SEDIMENTATION RATE 71 mm/hr (0-20)
[2023-11-04 08:07] VITALS: BP 132/66
[2023-11-04] MEDS: predniSONE 20 MG TAB PO SCH (08:14)
[2023-11-04] MEDS: GABAPENTIN 300 MG CAP PO SCH ×3 (08:14→20:20)
[2023-11-04] MEDS: ROSUVASTATIN 10 MG TAB (CRESTOR) PO SCH (08:14)
[2023-11-04] MEDS: LABETALOL 100MG TAB PO SCH ×2 (08:14→20:21)
[2023-11-04] MEDS: TAMSULOSIN 0.4 MG CAP PO SCH (08:14)
[2023-11-04] MEDS: HEPARIN SOD (PORCINE) 5000UNITS/ML 1ML VIAL/SYRINGE SC SCH ×2 (08:15→20:21)
[2023-11-04] MEDS: ACETAMINOPHEN TAB 650MG DOSE (2X325MG) PO PRN ×2 (08:15→16:56)
[2023-11-04 16:36] VITALS: TEMP 98.2
[2023-11-04 20:00] VITALS: BP 151/74
[2023-11-05] MEDS: COLCHICINE 0.6 MG TABLET PO SCH ×2 (05:25→17:26)
[2023-11-05] MEDS: DICLOFENAC EPOLAMINE 1.3% PATCH TOP SCH ×2 (05:25→17:27)
[2023-11-05] MEDS: oxyCODONE 5MG TAB PO PRN ×2 (05:32→21:13)
[2023-11-05 06:03] VITALS: BP 145/69; TEMP 97.2; O2SAT 95
[2023-11-05] MEDS: GABAPENTIN 300 MG CAP PO SCH ×3 (08:09→21:07)
[2023-11-05] MEDS: HEPARIN SOD (PORCINE) 5000UNITS/ML 1ML VIAL/SYRINGE SC SCH ×2 (08:11→21:08)
[2023-11-05] MEDS: TAMSULOSIN 0.4 MG CAP PO SCH (08:11)
[2023-11-05] MEDS: predniSONE 20 MG TAB PO SCH (08:11)
[2023-11-05] MEDS: ROSUVASTATIN 10 MG TAB (CRESTOR) PO SCH (08:11)
[2023-11-05] MEDS: LABETALOL 100MG TAB PO SCH ×2 (08:13→21:09)
[2023-11-06] MEDS: oxyCODONE 5MG TAB PO PRN ×4 (01:16→19:45)
[2023-11-06 05:20] VITALS: BP 148/71; TEMP 97.7; O2SAT 97
[2023-11-06] MEDS: COLCHICINE 0.6 MG TABLET PO SCH ×2 (05:48→17:04)
[2023-11-06] MEDS: DICLOFENAC EPOLAMINE 1.3% PATCH TOP SCH ×2 (05:48→17:04)
[2023-11-06 05:54] VITALS: BP 140/69; TEMP 98.2; O2SAT 96
[2023-11-06] MEDS: HEPARIN SOD (PORCINE) 5000UNITS/ML 1ML VIAL/SYRINGE SC SCH ×2 (09:15→19:44)
[2023-11-06] MEDS: TAMSULOSIN 0.4 MG CAP PO SCH (09:18)
[2023-11-06] MEDS: predniSONE 20 MG TAB PO SCH (09:18)
[2023-11-06] MEDS: GABAPENTIN 300 MG CAP PO SCH ×3 (09:18→19:44)
[2023-11-06] MEDS: LABETALOL 100MG TAB PO SCH ×2 (09:18→19:46)
[2023-11-06] MEDS: ROSUVASTATIN 10 MG TAB (CRESTOR) PO SCH (09:19)
[2023-11-06] MEDS ORDERED: COLC0.6T47 PO (10:34)
[2023-11-06] MEDS ORDERED: DICL100G10 TOP (10:34)
[2023-11-06 20:30] VITALS: BP 129/66; TEMP 97.7; O2SAT 95
[2023-11-06 21:00] VITALS: BP 139/69
[2023-11-07] MEDS: COLCHICINE 0.6 MG TABLET PO SCH ×2 (05:12→17:56)
[2023-11-07] MEDS: DICLOFENAC EPOLAMINE 1.3% PATCH TOP SCH ×2 (05:13→17:56)
[2023-11-07] MEDS: oxyCODONE 5MG TAB PO PRN ×3 (05:15→18:25)
[2023-11-07 06:00] VITALS: BP 127/66; TEMP 97.3; O2SAT 94
[2023-11-07] MEDS: ROSUVASTATIN 10 MG TAB (CRESTOR) PO SCH (08:37)
[2023-11-07] MEDS: HEPARIN SOD (PORCINE) 5000UNITS/ML 1ML VIAL/SYRINGE SC SCH ×2 (08:37→21:10)
[2023-11-07] MEDS: TAMSULOSIN 0.4 MG CAP PO SCH (08:37)
[2023-11-07] MEDS: GABAPENTIN 300 MG CAP PO SCH ×3 (08:37→21:10)
[2023-11-07] MEDS: LABETALOL 100MG TAB PO SCH ×2 (08:38→21:12)
[2023-11-07 20:10] VITALS: BP 123/65; TEMP 97.5; O2SAT 94
[2023-11-08] MEDS: oxyCODONE 5MG TAB PO PRN ×5 (00:42→20:23)
[2023-11-08] MEDS: COLCHICINE 0.6 MG TABLET PO SCH ×2 (05:59→17:44)
[2023-11-08] MEDS: DICLOFENAC EPOLAMINE 1.3% PATCH TOP SCH ×2 (06:00→17:44)
[2023-11-08 06:15] VITALS: BP 145/67; TEMP 97.7; O2SAT 94
[2023-11-08] MEDS: ROSUVASTATIN 10 MG TAB (CRESTOR) PO SCH (08:54)
[2023-11-08] MEDS: GABAPENTIN 300 MG CAP PO SCH ×3 (08:54→20:23)
[2023-11-08] MEDS: HEPARIN SOD (PORCINE) 5000UNITS/ML 1ML VIAL/SYRINGE SC SCH ×2 (08:54→20:23)
[2023-11-08] MEDS: TAMSULOSIN 0.4 MG CAP PO SCH (08:55)
[2023-11-08] MEDS: LABETALOL 100MG TAB PO SCH ×2 (08:56→20:23)
[2023-11-09] MEDS: oxyCODONE 5MG TAB PO PRN ×4 (01:25→17:17)
[2023-11-09] MEDS: DICLOFENAC EPOLAMINE 1.3% PATCH TOP SCH ×2 (05:53→17:07)
[2023-11-09] MEDS: COLCHICINE 0.6 MG TABLET PO SCH ×2 (05:53→17:07)
[2023-11-09 06:00] VITALS: BP 120/60; TEMP 97.7; O2SAT 97
[2023-11-09] MEDS: ROSUVASTATIN 10 MG TAB (CRESTOR) PO SCH (08:50)
[2023-11-09] MEDS: LABETALOL 100MG TAB PO SCH ×2 (08:50→21:23)
[2023-11-09] MEDS: TAMSULOSIN 0.4 MG CAP PO SCH (08:51)
[2023-11-09] MEDS: GABAPENTIN 300 MG CAP PO SCH ×3 (08:51→21:23)
[2023-11-09] MEDS: HEPARIN SOD (PORCINE) 5000UNITS/ML 1ML VIAL/SYRINGE SC SCH ×2 (08:52→21:23)
[2023-11-09] MEDS: ACETAMINOPHEN TAB 650MG DOSE (2X325MG) PO PRN (17:17)
[2023-11-09 20:23] VITALS: BP 117/61; TEMP 97.7; O2SAT 96
[2023-11-10] MEDS: ACETAMINOPHEN TAB 650MG DOSE (2X325MG) PO PRN ×2 (00:24→05:31)
[2023-11-10] MEDS: oxyCODONE 5MG TAB PO PRN ×2 (00:25→05:33)
[2023-11-10] MEDS: COLCHICINE 0.6 MG TABLET PO SCH ×2 (05:29→17:28)
[2023-11-10] MEDS: DICLOFENAC EPOLAMINE 1.3% PATCH TOP SCH ×2 (05:29→17:28)
[2023-11-10 05:59] VITALS: BP 118/62; TEMP 97.1; O2SAT 97
[2023-11-10] MEDS: HEPARIN SOD (PORCINE) 5000UNITS/ML 1ML VIAL/SYRINGE SC SCH ×2 (09:14→21:33)
[2023-11-10] MEDS: GABAPENTIN 300 MG CAP PO SCH (09:15)
[2023-11-10] MEDS: LABETALOL 100MG TAB PO SCH ×2 (09:15→21:33)
[2023-11-10] MEDS: ROSUVASTATIN 10 MG TAB (CRESTOR) PO SCH (09:15)
[2023-11-10] MEDS: TAMSULOSIN 0.4 MG CAP PO SCH (09:15)
[2023-11-10] MEDS: NAPROXEN 250 MG TAB PO SCH ×2 (13:07→21:32)
[2023-11-10] MEDS: GABAPENTIN 400MG CAP PO SCH ×2 (15:22→21:32)
[2023-11-11] MEDS: DICLOFENAC EPOLAMINE 1.3% PATCH TOP SCH ×2 (05:24→16:51)
[2023-11-11] MEDS: COLCHICINE 0.6 MG TABLET PO SCH ×2 (05:24→16:51)
[2023-11-11 06:16] VITALS: BP 137/63; TEMP 98.7; O2SAT 94
[2023-11-11] MEDS: TAMSULOSIN 0.4 MG CAP PO SCH (08:33)
[2023-11-11] MEDS: GABAPENTIN 400MG CAP PO SCH ×3 (08:33→21:10)
[2023-11-11] MEDS: HEPARIN SOD (PORCINE) 5000UNITS/ML 1ML VIAL/SYRINGE SC SCH ×2 (08:33→21:10)
[2023-11-11] MEDS: NAPROXEN 250 MG TAB PO SCH ×2 (08:34→21:10)
[2023-11-11] MEDS: ROSUVASTATIN 10 MG TAB (CRESTOR) PO SCH (08:34)
[2023-11-11] MEDS: LABETALOL 100MG TAB PO SCH ×2 (08:36→21:14)
[2023-11-12] MEDS: COLCHICINE 0.6 MG TABLET PO SCH (05:08)
[2023-11-12] MEDS: DICLOFENAC EPOLAMINE 1.3% PATCH TOP SCH ×2 (05:08→17:02)
[2023-11-12 06:38] VITALS: BP 123/61; TEMP 97.9; O2SAT 96
[2023-11-12] MEDS: GABAPENTIN 400MG CAP PO SCH ×3 (09:52→20:56)
[2023-11-12] MEDS: HEPARIN SOD (PORCINE) 5000UNITS/ML 1ML VIAL/SYRINGE SC SCH ×2 (09:52→21:00)
[2023-11-12] MEDS: NAPROXEN 250 MG TAB PO SCH ×2 (09:54→21:00)
[2023-11-12] MEDS: LABETALOL 100MG TAB PO SCH ×2 (09:55→20:59)
[2023-11-12] MEDS: TAMSULOSIN 0.4 MG CAP PO SCH (09:56)
[2023-11-12] MEDS: ROSUVASTATIN 10 MG TAB (CRESTOR) PO SCH (09:56)
[2023-11-12] MEDS ORDERED: NAPR-849 PO (15:21)
[2023-11-12] MEDS ORDERED: COLC0.6T47 PO (15:21)
[2023-11-13 05:40] VITALS: BP 147/76; TEMP 97.5; O2SAT 96
[2023-11-13] MEDS: DICLOFENAC EPOLAMINE 1.3% PATCH TOP SCH (05:41)
[2023-11-13] MEDS ORDERED: GABA800T4 PO (08:52)
[2023-11-13] MEDS: HEPARIN SOD (PORCINE) 5000UNITS/ML 1ML VIAL/SYRINGE SC SCH (09:46)
[2023-11-13] MEDS: TAMSULOSIN 0.4 MG CAP PO SCH (09:47)
[2023-11-13] MEDS: NAPROXEN 250 MG TAB PO SCH (09:47)
[2023-11-13] MEDS: ROSUVASTATIN 10 MG TAB (CRESTOR) PO SCH (09:47)
[2023-11-13] MEDS: GABAPENTIN 400MG CAP PO SCH (09:47)
[2023-11-13 09:49] VITALS: BP 140/74
[2023-11-13] MEDS: LABETALOL 100MG TAB PO SCH (09:49)
== END 2023-11-13 11:00 | disposition home health service (06) | DRG 726 ==
LOC: M ED 16:53 → EEVIPCON 10-26 00:32 → M ED INP 10-26 00:32 → M MS5PR 10-26 04:30
PROVIDERS: ADMIT Internal Medicine; ATTEND Internal Medicine Nephrology
PROC: 0T9B70Z Drainage of Bladder with Drainage Device, Via Natural or Artificial Opening (ICD-10-PCS; principal; 2023-10-26)
PROC: 0R9N3ZX Drainage of Right Wrist Joint, Percutaneous Approach, Diagnostic (ICD-10-PCS; 2023-10-30)
PROC: 0R9P3ZZ Drainage of Left Wrist Joint, Percutaneous Approach (ICD-10-PCS; 2023-10-30)
DX: N40.1 Benign prostatic hyperplasia with lower urinary tract symptoms (principal); N13.30 Unspecified hydronephrosis; R33.8 Other retention of urine; N47.1 Phimosis; I10 Essential (primary) hypertension; N30.90 Cystitis, unspecified without hematuria; E78.5 Hyperlipidemia, unspecified; I25.10 Atherosclerotic heart disease of native coronary artery without angina pectoris; I73.9 Peripheral vascular disease, unspecified; F03.90 Unspecified dementia, unspecified severity, without behavioral disturbance, psychotic disturbance, mood disturbance, and anxiety; D72.829 Elevated white blood cell count, unspecified; M10.032 Idiopathic gout, left wrist; M25.462 Effusion, left knee; M79.89 Other specified soft tissue disorders; M19.031 Primary osteoarthritis, right wrist; M25.562 Pain in left knee; R31.9 Hematuria, unspecified; M25.561 Pain in right knee; M10.062 Idiopathic gout, left knee; M19.032 Primary osteoarthritis, left wrist; Z89.432 Acquired absence of left foot; Z91.030 Bee allergy status; Z96.651 Presence of right artificial knee joint; Z95.5 Presence of coronary angioplasty implant and graft; Z79.899 Other long term (current) drug therapy; Z88.5 Allergy status to narcotic agent; Z88.8 Allergy status to other drugs, medicaments and biological substances

== ENCOUNTER → 2023-12-04 | Outpatient (REF) | payer MEDICARE ==
[~2023-12-04] MED LIST changes: +COLC0.6T47 PO; +DICL100G10 TOP; +FLOM0.4C39 PO; +LABE100T71 PO; +NAPR-849 PO
[2023-12-04 17:55] LABS: HEMOGLOBIN A1c 5.1 % (4.0-6.0)
[2023-12-04 18:01] LABS: CREATININE, URINE 68.6 MG/DL
[2023-12-04 18:04] LABS: CHOLESTEROL RISK RATIO 4.37 (<5); HDL CHOLESTEROL 39.8 MG/DL (>40); NON-HDL-C 134.2 MG/DL; THYROID STIMULATING HORMONE 1.69 uIU/ML (0.55-4.78)
== END ==
LOC: M LAB REF 16:32
PROVIDERS: ATTEND Pediatrics
DX: E78.5 Hyperlipidemia, unspecified (principal); M86.9 Osteomyelitis, unspecified

== ENCOUNTER 2024-01-13 14:36 | Emergency (ER) | payer MEDICARE ==
[~2024-01-13] VITALS: Ht 172.7 cm; Wt 89.5 kg
[~2024-01-13 14:36] MED LIST changes: -ASPI-161 PO; +ASPI-615 PO; +LABE100T40 PO; -LABE100T71 PO
[2024-01-13] MEDS: NS 500 ML IV ONE (16:07)
[2024-01-13 17:01] LABS: HEMATOCRIT 43.5 % (42.0-52.0); HEMOGLOBIN 14.4 g/dl (13.5-17.5); MEAN CORPUSCULAR HEMOGLOBIN 30.1 pg (27.0-33.0); MEAN CORPUSCULAR HGB CONC 33.1 g/dl (32.0-36.5); PLATELET COUNT, AUTOMATED 365 10^3/uL (150-450); RED BLOOD COUNT 4.78 10^6/uL (4.30-6.10); WHITE BLOOD COUNT 19.1 10^3/uL (4.0-10.0)
[2024-01-13 17:10] LABS: BLOOD UREA NITROGEN 27 MG/DL (9-23); CALCIUM LEVEL 8.7 MG/DL (8.3-10.6); CARBON DIOXIDE LEVEL 24 MMOL/L (20-31); CHLORIDE LEVEL 101 MMOL/L (98-107); CREATININE FOR GFR 0.99 MG/DL (0.70-1.30); GLOMERULAR FILTRATION RATE > 60.0 (>35); GLUCOSE, FASTING 103 MG/DL (74-106); POTASSIUM SERUM 5.3 MMOL/L (3.5-5.1); SODIUM LEVEL 132 MMOL/L (136-145)
[2024-01-13 17:42] LABS: LYMPHOCYTES 3 % (16-44); MONOCYTES 5 % (0-5); NEUTROPHILS 92 % (28-66); PLATELET ESTIMATE INCREASED (NORMAL)
[2024-01-13] MEDS: LIDOCAINE 2% 5ML JELLY UROJET TOP ONE (19:40)
[2024-01-13] MEDS: cefTRIAXone SOD 1 GM in D5W MINI-BAG PLUS 50 ML IV ONE (19:45)
[2024-01-13 20:05] VITALS: BP 141/68; TEMP 96.8; O2SAT 96
[2024-01-13 20:16] LABS: RSV AMPLIFICATION NEGATIVE (NEGATIVE)
[2024-01-13] MEDS ORDERED: CIPR500T39 PO (20:20)
== END 2024-01-13 20:52 | disposition home or self-care (01) ==
LOC: EDBD 14:36 → M ED 14:36
DX: T83.091A Other mechanical complication of indwelling urethral catheter, initial encounter (principal); N30.00 Acute cystitis without hematuria; I25.2 Old myocardial infarction; I10 Essential (primary) hypertension; E78.5 Hyperlipidemia, unspecified; F03.90 Unspecified dementia, unspecified severity, without behavioral disturbance, psychotic disturbance, mood disturbance, and anxiety; F12.10 Cannabis abuse, uncomplicated; Z86.79 Personal history of other diseases of the circulatory system; Z87.891 Personal history of nicotine dependence; Z91.030 Bee allergy status; Z88.5 Allergy status to narcotic agent; Z88.8 Allergy status to other drugs, medicaments and biological substances; Z79.891 Long term (current) use of opiate analgesic; Z79.899 Other long term (current) drug therapy; Z79.2 Long term (current) use of antibiotics
CPT/HCPCS: 51702; 51703; 71046; 80048; 81001; 83605; 84132; 85025; 87040; 87088; 87186; 87631; 94760; 96361; 96365; 99284; J0696

== ENCOUNTER 2024-02-27 06:42 | Emergency (ER) | payer MEDICARE ==
[~2024-02-27] VITALS: Ht 172.7 cm; Wt 82.2 kg
[~2024-02-27 06:42] MED LIST changes: +CIPR500T39 PO; -ROSU10TA6 PO; +ROSU10TA61 PO
[2024-02-27] MEDS: LIDOCAINE 2% 5ML JELLY UROJET TOP ONE (07:40)
[2024-02-27 08:19] LABS: BASO # 0.1 10^3/uL (0.0-0.2); BASO % 0.3 % (0.0-1.0); EOS # 0.1 10^3/uL (0.0-0.5); EOS % 0.2 % (0.0-3.0); HEMATOCRIT 48.4 % (42.0-52.0); HEMOGLOBIN 16.2 g/dl (13.5-17.5); LYMPH # 1.4 10^3/uL (1.5-5.0); LYMPH % 5.2 % (24.0-44.0); MEAN CORPUSCULAR HEMOGLOBIN 29.8 pg (27.0-33.0); MEAN CORPUSCULAR HGB CONC 33.5 g/dl (32.0-36.5); MONO # 1.5 10^3/uL (0.0-0.8); MONO % 5.5 % (2.0-8.0); NEUTROPHILS # 23.2 10^3/uL (1.5-8.5); NEUTROPHILS % 88.2 % (36.0-66.0); PLATELET COUNT, AUTOMATED 330 10^3/uL (150-450); RED BLOOD COUNT 5.44 10^6/uL (4.30-6.10); WHITE BLOOD COUNT 26.4 10^3/uL (4.0-10.0)
[2024-02-27] MEDS: cefTRIAXone SOD 1 GM in D5W MINI-BAG PLUS 50 ML IV ONE (08:48)
[2024-02-27] MEDS: NS 1,000 ML IV ONE (08:48)
[2024-02-27 09:58] LABS: BLOOD UREA NITROGEN 26 MG/DL (9-23); CARBON DIOXIDE LEVEL 21 MMOL/L (20-31); CHLORIDE LEVEL 107 MMOL/L (98-107); GLOMERULAR FILTRATION RATE > 60.0 (>35); GLUCOSE, FASTING 116 MG/DL (74-106); POTASSIUM SERUM 4.5 MMOL/L (3.5-5.1); SODIUM LEVEL 136 MMOL/L (136-145)
[2024-02-27] MEDS ORDERED: ISOVUE-370 76% 100ML VIAL As Ordered ONE (10:51)
[2024-02-27] MEDS ORDERED: CEFD1CAP9 PO (13:49)
[2024-02-27 14:10] VITALS: BP 166/79; TEMP 97.6; O2SAT 97
== END 2024-02-27 14:22 | disposition home or self-care (01) ==
LOC: M ED 06:42
DX: T83.098A Other mechanical complication of other urinary catheter, initial encounter (principal); Y92.9 Unspecified place or not applicable; Y93.9 Activity, unspecified; R33.9 Retention of urine, unspecified; N39.0 Urinary tract infection, site not specified; N40.1 Benign prostatic hyperplasia with lower urinary tract symptoms; Z79.899 Other long term (current) drug therapy; Z88.5 Allergy status to narcotic agent; Z88.8 Allergy status to other drugs, medicaments and biological substances; Z91.030 Bee allergy status
CPT/HCPCS: 51700; 51702; 74177; 80048; 81001; 83605; 85025; 87088; 87186; 96361; 96365; 99284; J0696; Q9967

== ENCOUNTER 2024-08-20 05:52 | Inpatient (IN) | payer MEDICARE ==
[2024-08-20] VITALS (31 sets, daily range): BP systolic 60–190; BP diastolic 43–91; TEMP 97–97.7; O2SAT 64–97
[~2024-08-20 05:52] MED LIST changes: +CEFD1CAP9 PO; +GABA-1172; +GABA-1635 PO; -GABA-282; -GABA800T4 PO
[2024-08-20] MEDS: NS 1,000 ML IV ONE (06:04)
[2024-08-20] MEDS: ETOMIDATE INJ 20MG/10ML VIAL IV STA (06:11)
[2024-08-20] MEDS: NS 2,700 ML in IV 1 EA IV ONE (06:12)
[2024-08-20] MEDS ORDERED: DEXTROSE 25% (2.5G/10ML) 10ML SYRINGE (PEDIATRIC) As Ordered ONE (06:12)
[2024-08-20] MEDS: ROCURONIUM BROMIDE 50MG/5ML VIAL IV ONE (06:12)
[2024-08-20] MEDS: DEXTROSE 50% 50ML SYRINGE IV STA ×7 (06:13→15:13)
[2024-08-20] MEDS ORDERED: PROPOFOL 1,000 MG/100 ML VIAL As Ordered ONE (06:14)
[2024-08-20] MEDS: propofoL 1,000 MG in IV 1 EA IV SCH (06:22)
[2024-08-20] MEDS ORDERED: DEXTROSE 50% 50ML SYRINGE ONE (06:30)
[2024-08-20] MEDS: PIPERACILLIN/TAZOBACTAM SOD 4.5 GM in DEXTROSE 5% (D5W) ADV/MINI-BAG 50 ML IV ONE (06:32)
[2024-08-20 06:41] LABS: ABG BASE EXCESS -29.7 (-2.0-2.0); ABG HCO3 6.6 MMOL/L (22.0-26.0); ABG PARTIAL PRESSURE CO2 50.3 mmHg (35.0-45.0); ABG PARTIAL PRESSURE O2 219.1 mmHg (75.0-100.0); ABG STANDARD HCO3 5.5 MMOL/L. (22.0-26.0); ABG TOTAL CO2 8.1 MMOL/L (23.0-31.0)
[2024-08-20 06:44] LABS: ABG pH (ARTERIAL) 6.735 UNITS (7.350-7.450)
[2024-08-20 06:44] LABS: ABG BASE EXCESS -28.9 (-2.0-2.0); ABG HCO3 7.1 MMOL/L (22.0-26.0); ABG O2 SATURATION 99.3 % (95.0-99.0); ABG PARTIAL PRESSURE CO2 53.1 mmHg (35.0-45.0); ABG PARTIAL PRESSURE O2 265.5 mmHg (75.0-100.0); ABG STANDARD HCO3 5.6 MMOL/L. (22.0-26.0); ABG TOTAL CO2 8.7 MMOL/L (23.0-31.0)
[2024-08-20 06:47] LABS: ABG pH (ARTERIAL) 6.744 UNITS (7.350-7.450)
[2024-08-20 07:16] LABS: AMPHETAMINES LEVEL URINE NEGATIVE (NEGATIVE); BARBITURATES URINE NEGATIVE (NEGATIVE); BENZODIAZEPINES URINE NEGATIVE (NEGATIVE); COCAINE METABOLITE URINE NEGATIVE (NEGATIVE); METHADONE URINE NEGATIVE (NEGATIVE); OPIATES URINE NEGATIVE (NEGATIVE); PHENCYCLIDINE URINE NEGATIVE (NEGATIVE)
[2024-08-20 07:18] LABS: CANNABINOIDS URINE POSITIVE (NEGATIVE)
[2024-08-20 07:32] LABS: VENOUS BASE EXCESS -29.7 (-2.0-2.0); VENOUS HCO3 7.2 MMOL/L (23.0-27.0); VENOUS O2 SATURATION 86.6 % (60.0-80.0); VENOUS PARTIAL PRESSURE CO2 56.6 mmHg (38.0-50.0); VENOUS PARTIAL PRESSURE O2 78.8 mmHg (30.0-50.0); VENOUS PH 6.725 UNITS (7.330-7.430); VENOUS STANDARD HCO3 5.8 MMOL/L
[2024-08-20 07:56] LABS: OSMOLALITY SERUM 313 MOSM/KG (280-301)
[2024-08-20 07:57] LABS: CK-MB VALUE MASS 15.7 NG/ML (<3.6)
[2024-08-20 07:58] LABS: ETHYL ALCOHOL (ETHANOL) 0.003 % (0.000-0.010)
[2024-08-20 07:59] LABS: HEMATOCRIT 50.4 % (42.0-52.0); HEMOGLOBIN 15.5 g/dl (13.5-17.5); MEAN CORPUSCULAR HEMOGLOBIN 29.6 pg (27.0-33.0); MEAN CORPUSCULAR HGB CONC 30.8 g/dl (32.0-36.5); MEAN CORPUSCULAR VOLUME 96.4 fl (80.0-96.0); PLATELET COUNT, AUTOMATED 104 10^3/uL (150-450); RED BLOOD COUNT 5.23 10^6/uL (4.30-6.10); WHITE BLOOD COUNT 5.3 10^3/uL (4.0-10.0)
[2024-08-20 08:00] LABS: SALICYLATE LEVEL < 3.0 MG/DL (<30)
[2024-08-20] MEDS: MIDAZOLAM 100MG/100ML-0.9%NACL 100 MG in IV 1 EA IV SCH (08:00)
[2024-08-20 08:01] LABS: THYROID STIMULATING HORMONE 6.341 uIU/ML (0.55-4.78)
[2024-08-20 08:06] LABS: ALBUMIN 1.9 G/DL (3.2-5.2); ALKALINE PHOSPHATASE 103 U/L (46-116); ALT/SGPT 284 U/L (7.0-40); AST/SGOT 374 U/L (<34); BILIRUBIN,DIRECT 0.1 MG/DL (<0.4); BILIRUBIN,TOTAL 0.2 MG/DL (0.3-1.2); BLOOD UREA NITROGEN 65 MG/DL (9-23); CALCIUM LEVEL 8.4 MG/DL (8.3-10.6); CARBON DIOXIDE LEVEL 12 MMOL/L (20-31); CHLORIDE LEVEL 103 MMOL/L (98-107); CPK CREATINE PHOSPHOKINASE 790 U/L (46-171); CREATININE FOR GFR 3.06 MG/DL (0.70-1.30); GLOMERULAR FILTRATION RATE 21.1 (>35); GLUCOSE, FASTING 196 MG/DL (74-106); MB/CK RELATIVE INDEX 1.98 (< OR =4); POTASSIUM SERUM 6.7 MMOL/L (3.5-5.1); SODIUM LEVEL 133 MMOL/L (136-145); TOTAL PROTEIN 4.5 G/DL (5.7-8.2)
[2024-08-20] MEDS: CALCIUM GLUCONATE 1,000 MG in DEXTROSE 5% (D5W) MINI-BAG PLU 100 ML IV ONE ×2 (08:53→15:13)
[2024-08-20 09:10] LABS: EOSINOPHILS 1 % (0-3); LYMPHOCYTES 17 % (16-44); METAMYELOCYTES 14 % (0-0); MONOCYTES 5 % (0-5); MYELOCYTES 19 % (0-0); NEUTROPHILS 27 % (28-66)
[2024-08-20 09:11] LABS: PLATELET ESTIMATE DECREASED (NORMAL); TOXIC VACUOLATION 2+
[2024-08-20 09:12] LABS: BURR CELLS 2+
[2024-08-20] MEDS: HumuLIN R (REGULAR) INSULIN (NovoLIN R) **100U/ML** PER UNIT IV STA ×2 (09:19→14:47)
[2024-08-20] MEDS: LR 1,000 ML IV SCH ×2 (09:26→13:22)
[2024-08-20] MEDS: NOREPINEPHRINE 4MG IN D5 250ML 4 MG in IV 1 EA IV SCH (11:15)
[2024-08-20] MEDS ORDERED: SODIUM BICARBONATE 8.4% INJ 50ML SYRINGE As Ordered ONE (11:17)
[2024-08-20] MEDS: SODIUM BICARBONATE 8.4% INJ 50ML SYRINGE IV STA ×7 (11:23→14:46)
[2024-08-20 11:41] LABS: VENOUS BASE EXCESS -27.5 (-2.0-2.0); VENOUS HCO3 9.1 MMOL/L (23.0-27.0); VENOUS PARTIAL PRESSURE CO2 65.2 mmHg (38.0-50.0); VENOUS PARTIAL PRESSURE O2 90.9 mmHg (30.0-50.0); VENOUS PH 6.761 UNITS (7.330-7.430); VENOUS STANDARD HCO3 6.9 MMOL/L; VENOUS TOTAL CO2 11.1 MMOL/L (24.0-28.0)
[2024-08-20 11:43] LABS: HEMATOCRIT 51.7 % (42.0-52.0); MEAN CORPUSCULAR HEMOGLOBIN 29.5 pg (27.0-33.0); MEAN CORPUSCULAR HGB CONC 30.9 g/dl (32.0-36.5); MEAN CORPUSCULAR VOLUME 95.4 fl (80.0-96.0); PLATELET COUNT, AUTOMATED 91 10^3/uL (150-450); RED BLOOD COUNT 5.42 10^6/uL (4.30-6.10); WHITE BLOOD COUNT 4.6 10^3/uL (4.0-10.0)
[2024-08-20] MEDS ORDERED: MEROPENEM INJ 2 GM in NS 100 ML IV SCH (12:00)
[2024-08-20 12:07] LABS: CK-MB VALUE MASS 24.8 NG/ML (<3.6)
[2024-08-20 12:17] LABS: CALCIUM LEVEL 7.7 MG/DL (8.3-10.6); CREATININE FOR GFR 3.14 MG/DL (0.70-1.30); GLOMERULAR FILTRATION RATE 20.4 (>35); POTASSIUM SERUM 6.9 MMOL/L (3.5-5.1)
[2024-08-20 12:30] LABS: CPK CREATINE PHOSPHOKINASE 2603 U/L (46-171); MB/CK RELATIVE INDEX 0.95 (< OR =4)
[2024-08-20] MEDS: SODIUM BICARBONATE 150 MEQ in STERILE WATER LITER BAG 1,000 ML IV SCH (13:01)
[2024-08-20] MEDS: CALCIUM GLUCONATE 1,000 MG in DEXTROSE 5% (D5W) MINI-BAG PLU 100 ML IV SCH ×2 (13:22→17:12)
[2024-08-20 13:48] LABS: PROCALCITONIN >50.00 ng/ml
[2024-08-20 14:38] LABS: ABG BASE EXCESS -15.8 (-2.0-2.0); ABG HCO3 11.8 MMOL/L (22.0-26.0); ABG O2 SATURATION 93.9 % (95.0-99.0); ABG PARTIAL PRESSURE O2 67.8 mmHg (75.0-100.0); ABG TOTAL CO2 12.9 MMOL/L (23.0-31.0)
[2024-08-20 14:39] LABS: ABG pH (ARTERIAL) 7.159 UNITS (7.350-7.450)
[2024-08-20] MEDS: VASOPRESSIN IN 0.9 % NACL 20 UNIT in IV 1 EA IV STA (14:43)
[2024-08-20] MEDS: HYDROCORTISONE 100MG/2ML VIAL IV ONE (14:50)
[2024-08-20] MEDS: MEROPENEM INJ 1 GM in IV 1 EA IV SCH (14:50)
[2024-08-20 15:43] LABS: CREATININE FOR GFR 3.09 MG/DL (0.70-1.30); GLOMERULAR FILTRATION RATE 20.8 (>35); POTASSIUM SERUM 6.3 MMOL/L (3.5-5.1)
[2024-08-20 16:42] LABS: ABG BASE EXCESS -16.9 (-2.0-2.0); ABG HCO3 11.8 MMOL/L (22.0-26.0); ABG O2 SATURATION 88.5 % (95.0-99.0); ABG PARTIAL PRESSURE CO2 37.5 mmHg (35.0-45.0); ABG PARTIAL PRESSURE O2 57.2 mmHg (75.0-100.0); ABG STANDARD HCO3 12.1 MMOL/L. (22.0-26.0); ABG TOTAL CO2 12.9 MMOL/L (23.0-31.0); ABG pH (ARTERIAL) 7.115 UNITS (7.350-7.450)
[2024-08-20] MEDS ORDERED: SODIUM BICARBONATE 150 MEQ in STERILE WATER LITER BAG 1,000 ML IV STA (17:22)
[2024-08-20] MEDS ORDERED: DOBUTamine HCL 500,000 MCG in IV 1 EA IV SCH (17:50)
[2024-08-20] MEDS ORDERED: EPINEPHrine 1MG/10ML SYRINGE 1.5IN ONE (18:03)
[2024-08-20] MEDS ORDERED: SODIUM BICARBONATE 8.4% INJ 50ML SYRINGE ONE (18:03)
[2024-08-20] MEDS ORDERED: CALCIUM GLUCONATE 1,000MG/10ML VIAL (100MG/ML) ONE (18:03)
[2024-08-21] MEDS ORDERED: UNRESOLVED CLARIFICATION ENTRY XX SCH (00:01)
[2024-08-21] MEDS ORDERED: MEROPENEM INJ 1 GM in IV 1 EA IV SCH (03:00)
== END 2024-08-20 18:12 | disposition expired | DRG 871 ==
LOC: M ED 05:52 → M ED INP 08:34 → M ICU 10:18
PROVIDERS: ADMIT Internal Medicine Pulmonary Disease; ATTEND Internal Medicine Pulmonary Disease
PROC: 02HV33Z Insertion of Infusion Device into Superior Vena Cava, Percutaneous Approach (ICD-10-PCS; principal; 2024-08-20)
PROC: 03HB33Z Insertion of Infusion Device into Right Radial Artery, Percutaneous Approach (ICD-10-PCS; 2024-08-20)
PROC: 0BH17EZ Insertion of Endotracheal Airway into Trachea, Via Natural or Artificial Opening (ICD-10-PCS; 2024-08-20)
PROC: 5A1935Z Respiratory Ventilation, Less than 24 Consecutive Hours (ICD-10-PCS; 2024-08-20)
DX: A41.9 Sepsis, unspecified organism (principal); R65.21 Severe sepsis with septic shock; G93.41 Metabolic encephalopathy; J96.01 Acute respiratory failure with hypoxia; I21.A1 Myocardial infarction type 2; J18.9 Pneumonia, unspecified organism; N39.0 Urinary tract infection, site not specified; N17.9 Acute kidney failure, unspecified; E87.20 Acidosis, unspecified; M62.82 Rhabdomyolysis; Z89.422 Acquired absence of other left toe(s); E16.2 Hypoglycemia, unspecified; R68.0 Hypothermia, not associated with low environmental temperature; D69.6 Thrombocytopenia, unspecified; E87.5 Hyperkalemia; Z79.899 Other long term (current) drug therapy; Z91.030 Bee allergy status; Z88.8 Allergy status to other drugs, medicaments and biological substances; I46.9 Cardiac arrest, cause unspecified